=== PATIENT | male | born 1945 | race Caucasian/White ===

== ENCOUNTER → 2018-02-05 09:08 | Outpatient (CLI) | payer MEDICARE, SELFPAY ==
[2018-02-05 10:52] LABS: Prothrombin Time (Protime)PT. 55.2 SECONDS (11.7-14.9)
[2018-02-05 11:07] LABS: International Normalized Ratio 6.2
== END ==
PROVIDERS: Family Provider Family Medicine; PCP Family Medicine; Visit Provider Family Medicine
DX: I48.92 Unspecified atrial flutter (principal); Z79.01 Long term (current) use of anticoagulants
CPT/HCPCS: 85610

== ENCOUNTER → 2018-03-07 09:26 | Outpatient (CLI) | payer MEDICARE, SELFPAY ==
[2018-03-07 09:48] LABS: International Normalized Ratio 3.1; Prothrombin Time (Protime)PT. 31.9 SECONDS (11.7-14.9)
== END ==
PROVIDERS: Family Provider Family Medicine; PCP Family Medicine; Visit Provider Family Medicine
DX: I48.92 Unspecified atrial flutter (principal)
CPT/HCPCS: 85610

== ENCOUNTER → 2018-05-07 14:42 | Outpatient (CLI) | payer MEDICARE, SELFPAY ==
[2018-05-07 17:02] LABS: Protein, Urine (Random) 83.3 mg/dL (<11.9); Protein:Creat Ratio 889 mg/g CRE (0-200)
== END ==
PROVIDERS: Family Provider Family Medicine; PCP Family Medicine; Visit Provider Internal Medicine Nephrology
DX: E11.22 Type 2 diabetes mellitus with diabetic chronic kidney disease (principal); N18.9 Chronic kidney disease, unspecified
CPT/HCPCS: 82570; 84156

== ENCOUNTER → 2018-05-09 09:38 | Outpatient (CLI) | payer MEDICARE, SELFPAY ==
--- NOTE | 2018-05-09 09:42 | US_ITS ---
STUDY: RENAL ULTRASOUND - COMPLETE REASON FOR EXAM: Male, 73 years old. CKD 3 TECHNIQUE: Ultrasound evaluation of the kidneys was performed with real-time and static stein-scale imaging. COMPARISON: None. FINDINGS: RIGHT KIDNEY: Normal location of the right kidney, which is normal in size. Right kidney measures 10.9 cm in length. There is a normal cortex of the right kidney. The renal cortex measures 1.5 cm. There is no right renal mass or cyst. There are no right renal calculi. There is no right hydronephrosis. DISTAL RIGHT URETER: There is no demonstrated right ureteral jet. LEFT KIDNEY: Normal location of the left kidney, which is normal in size. The left kidney measures 11.8 cm in length. There is a normal cortex of the left kidney. The renal cortex measures 1.7 cm. There is no left renal mass or cyst. There are no left renal calculi. There is no left hydronephrosis. DISTAL LEFT URETER: There is no demonstrated left ureteral jet. BLADDER: The bladder is not visualized likely secondary to its incompletely distended state. US/Kidney and Bladder IMPRESSION: Within normal limits ultrasound of the kidneys. Nonvisualization of the urinary bladder, this may be secondary to its incompletely distended state. Electronically Signed: Danette Lewis MD at 21:31 EST Tel , Service support ,
== END ==
PROVIDERS: Family Provider Family Medicine; PCP Family Medicine; Referring Provider Internal Medicine Nephrology; Visit Provider Internal Medicine Nephrology
DX: N18.3 Chronic kidney disease, stage 3 (moderate) (principal)
CPT/HCPCS: 76770

== ENCOUNTER → 2018-05-29 09:44 | Outpatient (CLI) | payer MEDICARE, SELFPAY ==
[2017-08-14 15:42] VITALS: BMI 40.6
[2018-05-29 10:43] LABS: Albumin, Serum 3.4 g/dL (3.2-5.0); BUN 34 mg/dL (7-18); BUN/Creat Ratio 23.1 RATIO (10-20); Calcium,Total 8.3 mg/dL (8.5-10.1); Chloride 111 mmol/L (98-107); Creatinine, Serum 1.47 mg/dL (0.70-1.30); EST Glomerular Filtration Rate 50 mL/min (>60); Est Glom Filt Rate - Afr Amer 60 mL/min (>60); Glucose 120 mg/dL (74-106); Phosphorus 3.1 mg/dL (2.5-4.9); Potassium 4.7 mmol/L (3.5-5.1); Sodium Level 142 mmol/L (136-145)
[2018-05-29 10:50] LABS: PTHIN 140.6 pg/mL (18.4-80.1)
--- OUTSIDE RECORDS SUMMARY | 2018-07-24 11:22 | XMS RPT_ITS ---
:1945 Author Organization OHIP Care Team Providers Name Role Phone JONEL DON Referring Unavailable JONEL DON Referring Unavailable JONEL DON Attending Unavailable JONEL DON Referring Unavailable JONEL DON Referring Unavailable JONEL DON Referring Unavailable JONEL DON Referring Unavailable JONEL DON Referring Unavailable FLORENCIA, JONEL A Referring Unavailable JDKHUSHBU Referring Unavailable FLORENCIA, JONEL A Referring Unavailable FLORENCIA, JONEL A Referring Unavailable FLORENCIA, JONEL A Referring Unavailable JULIAN PERALTA (PA) Attending Unavailable FLORENCIA, JONEL A Referring Unavailable FLORENCIA, JONEL A Referring Unavailable FLORENCIA, JONEL A Referring Unavailable FLORENCIA, JONEL A Referring Unavailable FLORENCIA, JONEL A Referring Unavailable LESLIE LIND (KAYKAY) Attending Unavailable FLORENCIA, JONEL A Referring Unavailable MASCI, KOREY A Attending Unavailable MASCI, KOREY A Referring Unavailable FLORENCIA, JONEL A Referring Unavailable JDERICKAMAN Referring Unavailable MASCI, KOREY A Referring Unavailable FLORENCIA, JONEL A Referring Unavailable FLORENCIA, JONEL A Referring Unavailable JULIAN PERALTA (DONNA) Referring Unavailable JULIAN PERALTA (PA) Referring Unavailable FLORENCIA, JONEL A Referring Unavailable FLORENCIA, JONEL A Referring Unavailable FLORENCIA, JONEL A Referring Unavailable FLORENCIA, JONEL A Referring Unavailable BAO SIGALA Referring Unavailable FLORENCIA, JONEL A Referring Unavailable FLORENCIA, JONEL A Referring Unavailable LESLIE LIND (KAYKAY) Attending Unavailable FLORENCIA, JONEL A Referring Unavailable FLORENCIA, JONEL A Referring Unavailable FLORENCIA, JONEL A Referring Unavailable FLORENCIA, JONEL A Referring Unavailable FLORENCIA, JONEL A Referring Unavailable FLORENCIA, JONEL A Referring Unavailable FLORENCIA, JONEL A Referring Unavailable FLORENCIA, JONEL A Attending Unavailable FLORENCIA, JONEL A Referring Unavailable FLORENCIA, JONEL A Referring Unavailable MASCI, KOREY A Referring Unavailable MASCI, KOREY A Attending Unavailable MASCI, KOREY A Referring Unavailable MASCI, KOREY A Referring Unavailable FLORENCIA, JONEL A Referring Unavailable RUDDY HOLLINGSWORTH (PA) Referring Unavailable FLORENCIA, JONEL A Referring Unavailable RUDDY HOLLINGSWORTH (PA) Referring Unavailable FLORENCIA, JONEL A Referring Unavailable FLORENCIA, JONEL A Referring Unavailable FLORENCIA, JONEL A Referring Unavailable RUDDY HOLLINGSWORTH (PA) Attending Unavailable JAVID HARDING Referring Unavailable FLORENCIA, JONEL A Attending Unavailable FLORENCIA, JONEL A Referring Unavailable FLORENCIA, JONEL A Referring Unavailable FLORENCIA, JONEL A Referring Unavailable Saurav Baig Attending Unavailable Florencia, Jonel Referring Unavailable Florencia, Jonel Primary Care Unavailable FlorenciaJonel jones Attending Unavailable Florencia, Jonel Referring Unavailable Florencia, Jonel Primary Care Unavailable Florencia, Jonel Attending Unavailable Jonel Don Referring Unavailable Jonel Don Primary Care Unavailable Bekah Resendez Attending Unavailable Jonel Don Primary Care Unavailable Bekah Resendez Attending Unavailable Jonel Don Primary Care Unavailable Bekah Resendez Referring Unavailable Bekah Resendez Attending Unavailable Bekah Resendez Referring Unavailable Jonel Don Primary Care Unavailable PROBLEMS PROBLEMS DATE TYPE CONDITION / CODE ATTENDING STATUS SOURCE 06/11/2018 Active Acute cystitis without NA Active [place] hematuria / [facility] N30.00(ICD-10) [place] Repository 05/29/2018 Unknown N18.3 - Chronic kidney Bekah Resendez Active [facility] disease, stage 3 Community (moderate) / Hospital N18.3(ICD-10) Repository 05/05/2018 Active Urinary tract NA Active [place] infection, site not Clinic Main specified / [place] N39.0(ICD-10) Repository 04/15/2018 Active Disorder of kidney and NA Active [place] ureter, unspecified / [facility] N28.9(ICD-10) [place] Repository 03/19/2017 Active Proteinuria, NA Active [place] unspecified / [facility] R80.9(ICD-10) [place] Repository 11/14/2016 Active Other usp NA Active [place] (current) drug therapy [facility] / Z79.899(ICD-10) [place] Repository 11/14/2016 Active Essential (primary) NA Active [place] hypertension / [facility] I10(ICD-10) [place] Repository 11/14/2016 Active Atherosclerotic heart NA Active [place] disease of [place] [facility] coronary artery [place] without angina Repository pectoris / I25.10(ICD-10) 11/14/2016 Active Coronary NA Active [place] atherosclerosis due to Clinic Main lipid rich plaque / [place] I25.83(ICD-10) Repository 07/13/2016 Active Type 2 diabetes NA Active [place]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, [place] unspecified / Repository E11.40(ICD-10) 07/13/2016 Active halfway (current) NA Active [place] use of insulin / [facility] Z79.4(ICD-10) [place] Repository 06/11/2016 Active Other iron deficiency NA Active [place] anemias / [facility] D50.8(ICD-10) [place] Repository 07/13/2015 Active Type 2 diabetes NA Active [place] mellitus with other [facility] diabetic kidney [place] complication / Repository E11.29(ICD-10) 07/13/2015 Active Mixed hyperlipidemia / NA Active [facility] E78.2(ICD-10) Clinic Main [place] Repository 07/13/2015 Active Hypothyroidism, NA Active [facility] unspecified / [facility] E03.9(ICD-10) [place] Repository 03/17/2015 Active Gastro-esophageal NA Active [facility] reflux disease without [facility] esophagitis / [place] K21.9(ICD-10) Repository 01/03/2015 Active Vitamin D deficiency, NA Active [facility] unspecified / [facility] E55.9(ICD-10) [place] Repository 04/01/2018 Active Intestinal NA Active [facility] malabsorption, [facility] unspecified / [place] K90.9(ICD-10) Repository 03/07/2018 Unknown I48.92 - Unspecified Florencia, Active [place] atrial flutter / [facility] I48.92(ICD-10) Hospital Repository 03/17/2015 Active Unspecified atrial NA Active [facility] flutter / [facility] I48.92(ICD-10) [place] Repository 02/05/2018 Active halfway (current) NA Active [facility] use of anticoagulants Clinic Main / Z79.01(ICD-10) [place] Repository 02/05/2018 Unknown Z79.01 - roasterman Florencia, Active [place] (current) use of [facility] anticoagulants / Hospital Z79.01(ICD-10) Repository 01/07/2018 Active Unknown / UNK(Unknown) LESLIE LIND Active [facility]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) Clinic Main [place] Repository 01/03/2015 Active Monoclonal gammopathy NA Active [facility] / D47.2(ICD-10) Clinic Main [place] Repository 07/13/2016 Active Disorder of prostate, NA Active [facility] unspecified / [facility] N42.9(ICD-10) [place] Repository 05/23/2016 Active Bariatric surgery NA Active [facility] status / [facility] Z98.84(ICD-10) [place] Repository 01/03/2015 Active Atrioventricular NA Active [facility] block, first degree / [facility] I44.0(ICD-10) [place] Repository 10/07/2017 Active Atherosclerosis of NA Active [place] coronary artery bypass [facility] graft(s) without [place] angina pectoris / Repository I25.810(ICD-10) 10/07/2017 Active Hyperlipidemia, NA Active [place] unspecified / [facility] E78.5(ICD-10) [place] Repository 10/07/2017 Active Occlusion and stenosis NA Active [place] of bilateral carotid [employer] Main arteries / [place] I65.23(ICD-10) Repository 10/07/2017 Active Morbid (severe) NA Active [place] obesity due to excess [employer] Main calories / [place] E66.01(ICD-10) Repository 08/15/2017 Unknown I77.9 - Disorder of [place], Saurav Active [place] arteries and Community arterioles, Hospital unspecified / Repository I77.9(ICD-10) 07/23/2017 Active Disorder of arteries NA Active [place] and arterioles, [employer] Main unspecified / [place] I77.9(ICD-10) Repository 07/13/2015 Active Mild intermittent NA Active [place] asthma, uncomplicated [employer] Main / J45.20(ICD-10) [place] Repository 08/07/2017 Active Other forms of dyspnea NA Active [place] / R06.09(ICD-10) [facility] [place] Repository PROCEDURES PROCEDURES No Procedure Records FoundRESULTS RESULTS PROGRESS Observed: 06/11/2018 Status: COMPLETED Source: [place] 7:31 PM [facility] REPOSITORY HNO ID: [id number] Author: Jonel Don Service: (none) Author Type: Physician Type: Progress Notes Filed: 06/11/2018 7:34 PM Note Text: Agree with plan Observed: 06/11/2018 Status: F Source: [place] URINE CULTURE 8:20 AM [facility] REPOSITORY Sp. Request/Comment: - Presurgical Sterilization Specimen received in preservative Culture Result - 10,000 - <50,000 CFU/ml Escherichia coli --> ABNORMAL ALERT Testing or reporting of additional agents was requested. ORGANISM: Escherichia coli METHOD: Minimum inhibitory concentration(Vitek) Antibiotic Interp IGNACIO Status Ampicillin SUSCEPTIBLE 4 F Gentamicin SUSCEPTIBLE <=1 F Trimeth sulfameth RESISTANT >=320 F Cefazolin SUSCEPTIBLE <=4 F CLSI breakpoints for therapy of uncomplicated UTI's due to E.coli, K.pneumoniae, and P.mirabilis were applied and may be used to predict the activity of oral agents(cefaclor, cefdinir, cefpodoxime, cefp rozil, cefuroxime, cephalexin, loracarbef). Ciprofloxacin SUSCEPTIBLE <=0.25 F Nitrofurantoin RESISTANT 128 F Cefepime SUSCEPTIBLE <=1 F Piperacillin/Tazobac SUSCEPTIBLE <=4 F Ampicillin Sulbact SUSCEPTIBLE 4 F Ceftriaxone SUSCEPTIBLE <=1 F Meropenem SUSCEPTIBLE <=0.25 F Ertapenem SUSCEPTIBLE <=0.5 F ORGANISM: Escherichia coli METHOD: IGNACIO Antibiotic Interp IGNACIO Status Fosfomycin SUSCEPTIBLE 2.0 F The FDA indication for fosfomycin tromethamine is uncomplicated UTIs caused by E. faecalis and E. coli only. Performed By: #### URCUL #### [facility] [address] [place], [place] [address] PROGRESS Observed: 06/11/2018 Status: COMPLETED Source: [place] 8:19 AM [facility] REPOSITORY HNO ID: [id number] Author: Dania Acevedo RN Service: (none) Author Type: (none) Type: Progress Notes Filed: 06/11/2018 8:21 AM Note Text: Patient had INR completed at [facility] Patient's INR is 2.4 Patient is currently taking 4mg Tues,Thurs,Sun and 7.5mg all other days Patient's last dose change was 05/28/18 due to high INR at 3.1 Patient has had no medication and no change in diet. Advised patient to continue on same dose and they would only be contacted with different instructions after provider review. Written instructions were given to patient and patient verbalized understanding. Presently, patient has been scheduled for 07/08/18 for INR follow up. Patient has hematology appt the day following INR appt. RENAL PROFILE Collected: 05/29/2018 Status: F Source: [place] 9:53 AM [facility] [place] TYPE CODE TESTS RESULT OUT OF RANGE REFERENCE UNITS LAB L501.0100 74-106 mg/dL High GLU 120 Result Comment: Fasting Glucose result from 100 to 125 mg/dL suggests IMPAIRED HOMEOSTASIS per A.D.A. criteria. Please note revised GLUCOSE reference range effective 2017. LAB L501.1000 7-18 mg/dL High BUN 34 LAB L501.1100 0.70-1.30 mg/dL High CREAT,SERUM 1.47 Result Comment: The validity of the calculated GFR AND GFRAA in patients over 70 years has not been determined. Clinical correlation is essential. LAB L501.1110 >60 mL/min Low EST GFR 50 Result Comment: Non- GFR Calc LAB L501.1115 >60 mL/min Normal EST GFR - AA 60 Result Comment: GFR Calc LAB L501.1300 10-20 RATIO High BUN/CRE 23.1 LAB L501.1800 3.2-5.0 g/dL Normal ALB 3.4 LAB L501.2200 8.5-10.1 mg/dL Low CA 8.3 LAB L501.2300 2.5-4.9 mg/dL Normal PHOS 3.1 LAB L501.5300 136-145 mmol/L NA Normal 142 LAB L501.5600 3.5-5.1 mmol/L K Normal 4.7 LAB L501.5900 98-107 mmol/L High CL 111 LAB L501.6100 21.0-32.0 mmol/L Normal CO2 24.0 Performed By: #### L500.3600 #### [facility] [address] [place], [place], [address] PTHIN Collected: 05/29/2018 Status: F Source: [place] 9:53 AM [facility] TYPE CODE TESTS RESULT OUT OF RANGE REFERENCE UNITS LAB L509.1000 18.4-80.1 pg/mL High PTHIN 140.6 Performed By: #### L509.1000 #### [facility] [address] [place], [place], [address] PROGRESS Observed: 05/28/2018 Status: COMPLETED Source: [place] 12:[address] [facility] [place] REPOSITORY HNO ID: [id number] Author: Anita Mckinney Ma Service: (none) Author Type: (none) Type: Progress Notes Filed: 05/28/2018 12:58 PM Note Text: Patient was notified and detailed message left on vm Tracker updated Anita Mckinney Ma PROGRESS Observed: 05/28/2018 Status: COMPLETED Source: [place] 12:[address] [facility] [place] REPOSITORY HNO ID: [id number] Author: Jonel Don Service: (none) Author Type: Physician Type: Progress Notes Filed: 05/28/2018 12:58 PM Note Text: This note was created using Zarporiter. Subjective Kip Guaman is a 73 year old male. Review of Systems Objective There were no vitals taken for this visit. Physical Exam Assessment and Plan Advise patient to just take 5 mg of coumadin today only. Then starting Tomorrow (thur) go back to the 4 mg Tue, Leigh, Sun and 7.5 mg Mon, Wed, Fri, Sat. Please get INR in 2 weeks PROGRESS Observed: 05/28/2018 Status: COMPLETED Source: [place] 9:13 AM [facility] REPOSITORY HNO ID: [id number] Author: Dania Acevedo RN Service: (none) Author Type: (none) Type: Progress Notes Filed: 05/28/2018 9:22 AM Note Text: Patient had INR completed at [facility] Patient's INR is 3.1 Patient is currently taking 4mg Tues,Thurs,Sun and 7.5mg all other days Patient's last dose change was 03/17/18 due to being on ATB Patient had been on Cipro earlier in the month but states he has been off medication for about 12 days and no change in diet. Advised patient that they would be contacted regarding medication dose and follow-up once reviewed by provider. After provider review, please contact patient with information and schedule follow-up appointment with coumadin clinic. LUPE Observed: 05/16/2018 Status: COMPLETED Source: [place] 12:00 AM [facility] REPOSITORY Telephone (GENSWS) KIP GUAMAN ([id number]) 1945 M Date Time Provider Department 05/16/18 RUDDY HOLLINGSWORTH) GENSWS During your visit today, we recorded the following information about you: Tom Frank MOLINA 05/16/2018 8:50 AM Signed Pt called back to office noting he got message from 05/15. He states since specimen was cultured at from 05/05, he also had results from Dr Zenobia Resendez, overlock waistline joiner who started him on cipro for his UTI on 05/12. He states his pharmacist advised that the fosfomycin will cost $500 and they do not have it in stock and won't have until 05/20. Pt expressed frustration and would like clarification based on this new outside information DONNA Hernandez 05/16/2018 11:37 AM Signed Continue with the Cipro 500 mg and recheck culture in 3 weeks. If still E coli infection, I recommend that he have a PA with [facility] started so he can get Fosfomycin At a reasonable cost. He has trouble using antibiotics due to coumadin and resistant bacteria to major antibiotics Ruddy Hollingsworth, MPAS, [place], PAMona Marie LPN 05/16/2018 4:13 PM Signed Pt notified AND verbalized understanding Tom Marie Lpn Allergies As of Date: 05/16/2018 Noted Allergy Reaction PAMELLA INHIBITORS 07/18/2004 3 - Cough Comments: accupril ATORVASTATIN 07/18/2004 14 - Other: See Comments Comments: lipitor- muscle weakness, elevated LFT's CRESTOR (ROSUVASTATIN CALCIUM) 10/30/2016 17 - Myalgia INDOCIN (INDOMETHACIN SODIUM) 04/06/2005 8 - GI Upset NAPROXEN 07/18/2004 8 - GI Upset PRAVASTATIN 07/18/2004 14 - Other: See Comments Comments: pravachol- muscle weakness, elevated LFT's Date Reviewed: 05/15/2018 Reviewed by: Ruddy Mcgrath) Sonny - Fully Assessed Reason for Visit: Refill Request [94] Prescriptions as of 05/16/2018 Sig: FOSFOMYCIN 3 G ORAL PACK Take 1 Packet by mouth every * BD LO-DOSE MICRO-FINE IV 1/ * USE ONCE DAILY OMEPRAZOLE 40 MG CAPSULE,DEMARCO* Take 1 capsule by mouth once * WARFARIN 5 MG TABLET 10 mg on and 5mg * CHLORTHALIDONE 25 MG TABLET Take 1 tablet by mouth once d* INSULIN LISPRO (U-100) 100 UN* 14-16 units with breakfast an* PEN NEEDLE, DIABETIC 31 GAUGE* USE 1 NEEDLE PER DOSE THREE T* CPAP CPAP supplies/accessories: Ho* MUPIROCIN 2 % TOPICAL OINTMENT Apply 1 application to affect* BLOOD SUGAR DIAGNOSTIC STRIPS Check blood sugar twice daily. HYDROXYZINE HCL 25 MG TABLET Take 1 tablet by mouth every * METOPROLOL TARTRATE 25 MG TAB* Take 0.5 tablet after breakfa* WARFARIN 4 MG TABLET Take as directed per physician MOMETASONE-FORMOTEROL HFA 100* Inhale 2 Puffs as instructed * TAMSULOSIN 0.4 MG CAPSULE TAKE 1 CAPSULE ONCE DAILY INSULIN GLARGINE (U-100) 100 * Inject 50 Units subcutaneousl* MONTELUKAST 10 MG TABLET Take 1 tablet by mouth once d* RAMIPRIL 10 MG CAPSULE Take 1 capsule by mouth once * LEVOTHYROXINE 100 MCG TABLET Take 1 tablet by mouth once d* BETAMETHASONE DIPROPIONATE 0.* Apply 1 Tube to affected area* CLOPIDOGREL 75 MG TABLET Take 1 tablet by mouth once d* FLUTICASONE 50 MCG/ACTUATION * Use 2 Sprays in each nostril * ROSUVASTATIN 10 MG TABLET Take 1/2 a tab every day ALBUTEROL SULFATE HFA 90 MCG/* Inhale 2 Puffs as instructed * ACETAMINOPHEN 500 MG TABLET Take 500 mg by mouth as neede* CHOLECALCIFEROL (VITAMIN D3) * Take 4,000 Units by mouth onc* DOCUSATE SODIUM 100 MG TABLET Take two tabs daily CYANOCOBALAMIN (VIT B-12) 500* Take 1 tablet by mouth once d* PSYLLIUM HUSK 0.4 GRAM CAPSULE Take 2 capsules by mouth once* FERROUS GLUCONATE 246 MG (27 * Take 1 tablet by mouth once d* * CALCIUM CARBONATE 600 MG CALC* Take 1 tablet by mouth twice * * ASCORBIC ACID (VITAMIN C) 500* Take 500 mg by mouth once albina* * TRIAMCINOLONE ACETONIDE 0.1 %* bid prn--not to face/axillae/* * MULTIVITAMIN TABLET Take one(1) tablet daily. More... Problem List As Of Date 05/16/2018 Noted Resolved Hypothyroidism (acquired) [E03.9] Priority: A Mixed hyperlipidemia [E78.2] Priority: A Allergic rhinitis, cause unspecified [J30.9] Priority: B Morbid Obesity [E66.01] 09/07/2009 More... Degeneration of lumbar or lumbosacral intervert* Priority: M More... Coronary artery disease due to lipid rich plaqu*INVALID FOR* Priority: A More... Mild intermittent asthma without complication [*INVALID FOR* Priority: A More... More... Hip joint replacement by other means [Z96.649] INVALID FOR*06/06/2016 Priority: M Personal history of other malignant neoplasm of*INVALID FOR* Priority: D More... Special Screening for Malignant Neoplasms, [place]*INVALID FOR*09/07/2009 Acute Gastritis without Mention of Hemorrhage [*INVALID FOR*09/07/2009 More... Urinary frequency [R35.0] INVALID FOR* Priority: C More... More... More... MGUS (monoclonal gammopathy of unknown signific*INVALID FOR* Priority: B More... Atrial flutter [I48.92] INVALID FOR* Priority: A More... THO (obstructive sleep apnea) [G47.33] INVALID FOR* Priority: B More... 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 AV block, 1st degree [I44.0] Priority: A Diabetic eye exam (HCC) [Z01.00, E11.9] INVALID FOR* Priority: A More... Type 2 diabetes mellitus with proteinuria (HCC)*INVALID FOR* Priority: A Gastroesophageal reflux disease without esophag*INVALID FOR* Priority: A Iron deficiency anemia secondary to inadequate *INVALID FOR* Priority: A More... Non-proliferative diabetic retinopathy, mild, b*INVALID FOR* Priority: A Bilateral carotid artery disease (HCC) [I77.9] INVALID FOR* Priority: A More... Corns and callus [L84] INVALID FOR* Priority: D Morbid obesity due to excess calories (HCC) [E6*INVALID FOR* Priority: B More... Well adult exam [Z00.00] INVALID FOR* Priority: E More... Ex-smoker [Z87.891] INVALID FOR* Priority: C More... Colon cancer screening [Z12.11] INVALID FOR* Type 2 diabetes mellitus with diabetic neuropat*INVALID FOR* Priority: A H/O gastric bypass [Z98.84] INVALID FOR* Priority: A Malabsorption syndrome [K90.9] INVALID FOR* Priority: A More... Iron malabsorption [K90.9] INVALID FOR* Priority: B Disorder of prostate [N42.9] INVALID FOR* Hypertension goal BP (blood pressure) < 140/80 *INVALID FOR* Priority: A Medicare annual wellness visit, subsequent [Z00*INVALID FOR* Priority: E More... Current use of proton pump inhibitor [Z79.899] INVALID FOR* Albuminuria [R80.9] INVALID FOR* Priority: A Subclavian artery stenosis (HCC) [I77.1] INVALID FOR* Priority: A More... 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 Phimosis [N47.1] INVALID FOR* History of recurrent UTIs [Z87.440] INVALID FOR* Encounter Status:Closed by RUDDY HOLLINGSWORTH PA-C on 05/16/18 CNPN Observed: 05/15/2018 Status: COMPLETED Source: [place] 12:00 AM [facility] REPOSITORY Telephone (UROLMN) KIP GUAMAN ([id number]) 1945 M Date Time Provider Department 05/15/18 RUDDY HOLLINGSWORTH) URORAYMOND During your visit today, we recorded the following information about you: DONNA Hernandez 05/15/2018 4:41 PM Signed Patient take coumadin which interacts with a lot of antibiotics that are good to treat this type of urine infection. And the bacteria is resistant to Bactrim, so he will need to go with fosfomycin, 1 packet every 3 days for 21 days Patient will need a 2 week post treatment urine culture, orders placed Ruddy Hollingsworth [facility], [place], KARLOS Pretty Ma 05/15/2018 4:56 PM Signed Phone Message left for pt. Class Messengert message left. Pt to call with any questions. Whitney Pretty Ma Allergies As of Date: 05/15/2018 Noted Allergy Reaction PAMELLA INHIBITORS 07/18/2004 3 - Cough Comments: accupril ATORVASTATIN 07/18/2004 14 - Other: See Comments Comments: lipitor- muscle weakness, elevated LFT's CRESTOR (ROSUVASTATIN CALCIUM) 10/30/2016 17 - Myalgia INDOCIN (INDOMETHACIN SODIUM) 04/06/2005 8 - GI Upset NAPROXEN 07/18/2004 8 - GI Upset PRAVASTATIN 07/18/2004 14 - Other: See Comments Comments: pravachol- muscle weakness, elevated LFT's Date Reviewed: 05/15/2018 Reviewed by: Ruddy Mcgrath) Sonny - Fully Assessed Reason for Visit: Refill Request [94] Primary Visit Diagnosis:Acute cystitis without hematuria [N30.00] Order(s):fosfomycin (MONUROL) 3 g packTake 1 Packet by mouth every 72 hours for 21 days.Disp: 7 PacketRfl: 0 URINE CULTURE [SQURCUL] Order #: [id number] FUTURE Prescriptions as of 05/15/2018 Sig: FOSFOMYCIN 3 G ORAL PACK Take 1 Packet by mouth every * BD LO-DOSE MICRO-FINE IV 1/2 * USE ONCE DAILY OMEPRAZOLE 40 MG CAPSULE,DEMARCO* Take 1 capsule by mouth once * WARFARIN 5 MG TABLET 10 mg on and 5mg Sat/* CHLORTHALIDONE 25 MG TABLET Take 1 tablet by mouth once d* INSULIN LISPRO (U-100) 100 UN* 14-16 units with breakfast an* PEN NEEDLE, DIABETIC 31 GAUGE* USE 1 NEEDLE PER DOSE THREE T* CPAP CPAP supplies/accessories: Ho* MUPIROCIN 2 % TOPICAL OINTMENT Apply 1 application to affect* BLOOD SUGAR DIAGNOSTIC STRIPS Check blood sugar twice daily. HYDROXYZINE HCL 25 MG TABLET Take 1 tablet by mouth every * METOPROLOL TARTRATE 25 MG TAB* Take 0.5 tablet after breakfa* WARFARIN 4 MG TABLET Take as directed per physician MOMETASONE-FORMOTEROL HFA 100* Inhale 2 Puffs as instructed * TAMSULOSIN 0.4 MG CAPSULE TAKE 1 CAPSULE ONCE DAILY INSULIN GLARGINE (U-100) 100 * Inject 50 Units subcutaneousl* MONTELUKAST 10 MG TABLET Take 1 tablet by mouth once d* RAMIPRIL 10 MG CAPSULE Take 1 capsule by mouth once * LEVOTHYROXINE 100 MCG TABLET Take 1 tablet by mouth once d* BETAMETHASONE DIPROPIONATE 0.* Apply 1 Tube to affected area* CLOPIDOGREL 75 MG TABLET Take 1 tablet by mouth once d* FLUTICASONE 50 MCG/ACTUATION * Use 2 Sprays in each nostril * ROSUVASTATIN 10 MG TABLET Take 1/2 a tab every day ALBUTEROL SULFATE HFA 90 MCG/* Inhale 2 Puffs as instructed * ACETAMINOPHEN 500 MG TABLET Take 500 mg by mouth as neede* CHOLECALCIFEROL (VITAMIN D3) * Take 4,000 Units by mouth onc* DOCUSATE SODIUM 100 MG TABLET Take two tabs daily CYANOCOBALAMIN (VIT B-12) 500* Take 1 tablet by mouth once d* PSYLLIUM HUSK 0.4 GRAM CAPSULE Take 2 capsules by mouth once* FERROUS GLUCONATE 246 MG (27 * Take 1 tablet by mouth once d* * CALCIUM CARBONATE 600 MG CALC* Take 1 tablet by mouth twice * * ASCORBIC ACID (VITAMIN C) 500* Take 500 mg by mouth once albina* * TRIAMCINOLONE ACETONIDE 0.1 %* bid prn--not to face/axillae/* * MULTIVITAMIN TABLET Take one(1) tablet daily. More... Problem List As Of Date 05/15/2018 Noted Resolved Hypothyroidism (acquired) [E03.9] Priority: A Mixed hyperlipidemia [E78.2] Priority: A Allergic rhinitis, cause unspecified [J30.9] Priority: B Morbid Obesity [E66.01] 09/07/2009 More... Degeneration of lumbar or lumbosacral intervert* Priority: M More... Coronary artery disease due to lipid rich plaqu*INVALID FOR* Priority: A More... Mild intermittent asthma without complication [*INVALID FOR* Priority: A More... More... Hip joint replacement by other means [Z96.649] INVALID FOR*06/06/2016 Priority: M Personal history of other malignant neoplasm of*INVALID FOR* Priority: D More... Special Screening for Malignant Neoplasms, [place]*INVALID FOR*09/07/2009 Acute Gastritis without Mention of Hemorrhage [*INVALID FOR*09/07/2009 More... Urinary frequency [R35.0] INVALID FOR* Priority: C More... More... More... MGUS (monoclonal gammopathy of unknown signific*INVALID FOR* Priority: B More... Atrial flutter [I48.92] INVALID FOR* Priority: A More... THO (obstructive sleep apnea) [G47.33] INVALID FOR* Priority: B More... 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 AV block, 1st degree [I44.0] Priority: A Diabetic eye exam (HCC) [Z01.00, E11.9] INVALID FOR* Priority: A More... Type 2 diabetes mellitus with proteinuria (HCC)*INVALID FOR* Priority: A Gastroesophageal reflux disease without esophag*INVALID FOR* Priority: A Iron deficiency anemia secondary to inadequate *INVALID FOR* Priority: A More... Non-proliferative diabetic retinopathy, mild, b*INVALID FOR* Priority: A Bilateral carotid artery disease (HCC) [I77.9] INVALID FOR* Priority: A More... Corns and callus [L84] INVALID FOR* Priority: D Morbid obesity due to excess calories (HCC) [E6*INVALID FOR* Priority: B More... Well adult exam [Z00.00] INVALID FOR* Priority: E More... Ex-smoker [Z87.891] INVALID FOR* Priority: C More... Colon cancer screening [Z12.11] INVALID FOR* Type 2 diabetes mellitus with diabetic neuropat*INVALID FOR* Priority: A H/O gastric bypass [Z98.84] INVALID FOR* Priority: A Malabsorption syndrome [K90.9] INVALID FOR* Priority: A More... Iron malabsorption [K90.9] INVALID FOR* Priority: B Disorder of prostate [N42.9] INVALID FOR* Hypertension goal BP (blood pressure) < 140/80 *INVALID FOR* Priority: A Medicare annual wellness visit, subsequent [Z00*INVALID FOR* Priority: E More... Current use of proton pump inhibitor [Z79.899] INVALID FOR* Albuminuria [R80.9] INVALID FOR* Priority: A Subclavian artery stenosis (HCC) [I77.1] INVALID FOR* Priority: A More... 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 Phimosis [N47.1] INVALID FOR* History of recurrent UTIs [Z87.440] INVALID FOR* Prescriptions ordered this encounter Disp Refills Start End FOSFOMYCIN 3 G ORAL PACK 7 Pa* 0 05/15/2018 06/05/2018 Route: ORAL Sig: Take 1 Packet by mouth every 72 hours for 21 days. Encounter Status:Closed by RUDDY HOLLINGSWORTH PA-C on 05/15/18 PROGRESS Observed: 05/13/2018 Status: COMPLETED Source: [place] 1:59 PM [facility] REPOSITORY HNO ID: [id number] Author: Jonel Don Service: (none) Author Type: Physician Type: Progress Notes Filed: 05/13/2018 2:24 PM Note Text: This note was created using Geodruid. Subjective Kip Guaman is a 73 year old male. Review of Systems Objective There were no vitals taken for this visit. Physical Exam Assessment and Plan Agree with plan PROGRESS Observed: 05/13/2018 Status: COMPLETED Source: [place] 9:30 AM [facility] REPOSITORY HNO ID: [id number] Author: Erin Awan RN Service: (none) Author Type: (none) Type: Progress Notes Filed: 05/13/2018 9:31 AM Note Text: patient had inr completed at [facility] patients inr is 2.8 (patients inr range is 2.0-3.0) patient is currently taking 4mg Tues,Thurs,Sun and 7.5mg all other days patients last dose change was on 03/17/18 due to finished antibiotic (dose at that time was 7.5mg Wed,Fri,Sat and 4mg all other days and level was 2.2) patient has had a change in medication as pt was started on cipro yesterday, and no missed dose and no change in diet Advised patient to continue on the same dose(s) and that they would only be contacted regarding dosage and follow up instructions after review with provider, if a change is needed. Written instructions given and patient verbalized understanding. Presently scheduled in 2 weeks (05/28/18) for follow up INR since pt is on the antibiotic KIDNEY AND BLADDER Observed: 05/09/2018 Status: F Source: [place] 9:42 AM [facility] Imaging Services [address] [place], [place] [address] [address] Kidney and Bladder MR#: [id number] Acct: [id number] Name: KIP GUAMAN Rep #: [id number] : 1945 M 73 From: Danette Lewis MD PCP: Jonel Don MD Status: REG CLI Study: Kidney and Bladder Date of Exam: 05/09/18 Exam# [id number] Ordering Dr: Bekah Resendez DO STUDY: RENAL ULTRASOUND - COMPLETE REASON FOR EXAM: Male, 73 years old. CKD 3 TECHNIQUE: Ultrasound evaluation of the kidneys was performed with real-time and static stein-scale imaging. COMPARISON: None. FINDINGS: RIGHT KIDNEY: Normal location of the right kidney, which is normal in size. Right kidney measures 10.9 cm in length. There is a normal cortex of the right kidney. The renal cortex measures 1.5 cm. There is no right renal mass or cyst. There are no right renal calculi. There is no right hydronephrosis. DISTAL RIGHT URETER: There is no demonstrated right ureteral jet. LEFT KIDNEY: Normal location of the left kidney, which is normal in size. The left kidney measures 11.8 cm in length. There is a normal cortex of the left kidney. The renal cortex measures 1.7 cm. There is no left renal mass or cyst. There are no left renal calculi. There is no left hydronephrosis. DISTAL LEFT URETER: There is no demonstrated left ureteral jet. BLADDER: The bladder is not visualized likely secondary to its incompletely distended state. US/Kidney and Bladder IMPRESSION: Within normal limits ultrasound of the kidneys. Nonvisualization of the urinary bladder, this may be secondary to its incompletely distended state. Electronically Signed: Danette Lewis MD at 21:31 EST Tel , Service support , CC: Bekah Resendez DO; Jonel Don MD Grizzly Worker: Signed PROTEIN+CREATININE Collected: Status: F Source: [place] RATIO,URINE 05/07/2018 2:43 PM [facility] TYPE CODE TESTS RESULT OUT OF RANGE REFERENCE UNITS LAB L501.1200 NO RANGE EST. mg/dL Normal UR CREAT 93.70 LAB L501.1930 <11.9 mg/dL High 83.3 PROTEIN,UR.R AN. LAB L501.1940 0-200 mg/g CRE High PROT:CRE 889 RATIO Performed By: #### L501.0900 #### [facility] [address] [place], [address] Observed: 05/05/2018 Status: F Source: [place] URINE CULTURE 10:22 AM [facility] REPOSITORY Sp. Request/Comment: - Presurgical Sterilization Specimen received in preservative Culture Result - >=100,000 CFU/ml Escherichia coli --> ABNORMAL ALERT ORGANISM: Escherichia coli METHOD: Minimum inhibitory concentration(Vitek) Antibiotic Interp IGNACIO Status Ampicillin INTERMEDIATE 16 F Gentamicin SUSCEPTIBLE <=1 F Trimeth sulfameth RESISTANT >=320 F Cefazolin SUSCEPTIBLE <=4 F CLSI breakpoints for therapy of uncomplicated UTI's due to E.coli, K.pneumoniae, and P.mirabilis were applied and may be used to predict the activity of oral agents(cefaclor, cefdinir, cefpodoxime, cefp rozil, cefuroxime, cephalexin, loracarbef). Ciprofloxacin SUSCEPTIBLE 0.5 F Nitrofurantoin RESISTANT 128 F Cefepime SUSCEPTIBLE <=1 F Piperacillin/Tazobac SUSCEPTIBLE <=4 F Ampicillin Sulbact SUSCEPTIBLE 4 F Ceftriaxone SUSCEPTIBLE <=1 F Meropenem SUSCEPTIBLE <=0.25 F Ertapenem SUSCEPTIBLE <=0.5 F ORGANISM: Escherichia coli METHOD: IGNACIO Antibiotic Interp IGNACIO Status Fosfomycin SUSCEPTIBLE 4 F The FDA indication for fosfomycin tromethamine is uncomplicated UTIs caused by E. faecalis and E. coli only. Performed By: #### URCUL #### [facility] [address] [place], [place] [address] PROGRESS Observed: 04/29/2018 Status: COMPLETED Source: [place] 1:29 PM [facility] REPOSITORY HNO ID: [id number] Author: Jonel Don Service: (none) Author Type: Physician Type: Progress Notes Filed: 04/29/2018 3:21 PM Note Text: This note was created using PollVaultrter. Subjective Kip Guaman is a 72 year old male. Review of Systems Objective There were no vitals taken for this visit. Physical Exam Assessment and Plan Agree with plan. PROGRESS Observed: 04/29/2018 Status: COMPLETED Source: [place] 9:20 AM [facility] REPOSITORY HNO ID: [id number] Author: Erin Awan RN Service: (none) Author Type: (none) Type: Progress Notes Filed: 04/29/2018 9:23 AM Note Text: patient had inr completed at [facility] patients inr is 3.0 (patients inr range is 2.0-3.0) patient is currently taking 4mg Tues,Thurs Sun and 7.5mg all other days patients last dose change was on 03/06/18 due to a high level of 4.3 (dose at that time was 4mg Sat and 7.5mg all other days) patient has had a change in medication and pt completed macrobid on 04/21/18, and no missed doses and no change in diet Advised patient to continue on the same dose(s) and that they would only be contacted regarding dosage and follow up instructions after review with provider, if a change is needed. Written instructions given and patient verbalized understanding. Presently scheduled in 2 weeks (05/13/18) for follow up INR sine level is on the high side of normal PROGRESS Observed: 04/15/2018 Status: COMPLETED Source: [place] 6:08 PM [facility] REPOSITORY HNO ID: [id number] Author: Jonel Don Service: (none) Author Type: Physician Type: Progress Notes Filed: 04/15/2018 6:12 PM Note Text: This note was created using Zarporiter. Subjective Kip Guaman is a 72 year old male. Review of Systems Objective There were no vitals taken for this visit. Physical Exam Assessment and Plan Agree with plan. PROGRESS Observed: 04/15/2018 Status: COMPLETED Source: [place] 3:49 PM [facility] REPOSITORY HNO ID: [id number] Author: Erin Awan RN Service: (none) Author Type: (none) Type: Progress Notes Filed: 04/15/2018 3:51 PM Note Text: patient had inr completed at [facility] patients inr is 2.9 (patients inr range is 2.0-3.0) patient is currently taking 4mg tues,thurs,Sun and 7.5mg all other days patients last dose change was on 03/06/18 due to a high level of 4.3 (dose at that time was 4mg Sat and 7.5mg all other days) patient has had a change in medication as pt is taking macrobid since Saturday, and no missed doses and no change in diet Advised patient to continue on the same dose(s) and that they would only be contacted regarding dosage and follow up instructions after review with provider, if a change is needed. Written instructions given and patient verbalized understanding. Presently scheduled in 2 weeks (04/29/18) for follow up INR. BASIC METABOLIC PANL Collected: 04/15/2018 Status: F Source: [place] 3:35 PM [facility] REPOSITORY TYPE CODE TESTS RESULT OUT OF REFERENCE UNITS RANGE LAB GLU 74-99 mg/dL High Glucose 175 Result Comment: The [place] Diabetes Association (ADA) provides guidance for cutoff values for fasting glucose and random glucose. The ADA defines fasting as no caloric intake for at least 8 hours. Fas ting plasma glucose results between 100 to 125 mg/dL indicate increased risk for diabetes (prediabetes). Fasting plasma glucose results greater than or equal to 126 mg/dL meet the criteria for diagnosis of diabetes. In the absence of unequivocal hyperglycemia, results should be confirmed by repeat testing. In a patient with classic symptoms of hyperglycemia or hyperglycemic crisis, random plasma glucose results greater than or equal to 200 mg/dL meet the criteria for diagnosis of diabetes. Reference: Standards of Medical Care in Diabetes 2016, [place] [employer]. Diabetes Care. 2016.39(Suppl 1). LAB BUN 9-24 mg/dL BUN High 36 LAB CRET 0.73-1.22 mg/dL Creatinine High 1.71 LAB NA 136-144 mmol/L Sodium 138 LAB K 3.7-5.1 mmol/L Potassium 5.0 LAB CL 97-105 mmol/L Chloride High 106 LAB CO2 22-30 mmol/L CO2 23 LAB AGAP 9-18 mmol/L Anion Gap 9 LAB CA 8.5-10.2 mg/dL Calcium, Total 9.0 LAB GFRAA eGFR- Amer. 48 LAB GFRNAA . eGFR-All Other Races 40 Result Comment: eGFR (Estimated GFR) Units of measure: mL/min/1.73 meters squared eGFR is derived from the reexpressed MDRD Study equation using the following parameters: serum creatinine, age, gender and race. The creatinine assay has been calibrated to be traceable to IDMS. An eGFR <60 mL/min/1.73m2 for >3 months is consistent with chronic kidney disease. Refer to KDOQI guidelines for clinical interpretation. In patients with unstable renal function, e.g. those with acute kidney injury, the eGFR may not accurately reflect actual GFR. Performed By: #### BMP #### [facility] [address] [place], [place] [address] PROGRESS Observed: 04/11/2018 Status: COMPLETED Source: [place] 10:57 AM [facility] REPOSITORY HNO ID: [id number] Author: Ruddy Hollingsworth (Pa) Service: (none) Author Type: Physician Cyber Security Administrator Type: Progress Notes Filed: 04/28/2018 4:48 PM Note Text: [facility] PATIENT INFO: Kip Guaman 72 year old PCP: Jonel Don MD Referred by: Jonel Don MD Consult: Aconsultation requested by Jonel Don MD for an opinion regarding UTI and Phimosis My final recommendations communicated back to the requesting physician by way of shared Medical record. CHIEF COMPLAINT: UTI and Phimosis HPI: This is a 72 year old male, who has had UTI and Phimosis , which started in 2018, and involves the Penis Patient states this mild in severity and mild in quality, and is happening daily Aggravating factors: Diabetic , Alleviating Factors: No . And the patient denies having Fever, Chills, Rigors, Nausea and Vomiting VOIDING SYMPTOMS: NTF: 1 Times DTF: Q 2HOURS FOS: Average Hesitancy: No Straining: No Intermittency: Yes Urgency: Yes Frequency: Yes Dysuria: Yes Gross Hematuria: No U/A Dipstick Positive Blood - Only Yes Incomplete Voiding: No Double Voiding: No Post Void Dribbling: No Incontinence: No ALLERGY: ALLERGIES Allergen Reactions - Pamella Inhibitors Cough accupril - Atorvastatin Other: See Comments lipitor- muscle weakness, elevated LFT's - Crestor [Rosuvastat* Myalgia - Indocin [Indomethac* GI Upset - Naproxen GI Upset - Pravastatin Other: See Comments pravachol- muscle weakness, elevated LFT's MEDICATIONS: Current Outpatient Prescriptions: nitrofurantoin monohydrate and macrocrystal (MACROBID) 100 mg capsule Take 1 capsule by mouth twice daily for 10 days. Disp: 10 capsule Rfl: 0 Omeprazole 40 mg capsule Take 1 capsule by mouth once daily. Disp: 90 capsule Rfl: 1 warfarin (COUMADIN) 5 mg tablet 10 mg on and 5mg Sat/Sat/Sat and 7.5mg Sat//Sat or as directed. Disp: 120 tablet Rfl: 3 chlorthalidone (HYGROTON) 25 mg tablet Take 1 tablet by mouth once daily. Disp: 90 tablet Rfl: 1 insulin lispro (HUMALOG KWIKPEN) 100 unit/mL inpn 14-16 units with breakfast and lunch and 20-24 units with dinner, Correction per sliding scale total up to 70 units daily Disp: 25 Pen Rfl: 3 insulin needles, DISPOSABLE, (EASY TOUCH) 31 gauge x 5/16 ndle USE 1 NEEDLE PER DOSE THREE TIMES A DAY Disp: 300 Each Rfl: 4 CPAP CPAP supplies/accessories: Hoses, mask, and filters Disp: 1 Device Rfl: 0 mupirocin (BACTROBAN) 2 % ointment Apply 1 application to affected area three times daily. Location: leg Disp: 30 g Rfl: 0 blood sugar diagnostic (EASY TOUCH TEST STRIP) test strip Check blood sugar twice daily. Disp: 100 Strip Rfl: 5 hydrOXYzine HCl (ATARAX) 25 mg tablet Take 1 tablet by mouth every 6 hours as needed for Itching/Rash. Disp: 30 tablet Rfl: 0 metoprolol tartrate, short acting, (LOPRESSOR) 25 mg tablet Take 0.5 tablet after breakfast and one tablet after supper Disp: 90 tablet Rfl: 1 warfarin (COUMADIN) 4 mg tablet Take as directed per physician Disp: 30 tablet Rfl: 5 mometasone-formoterol (DULERA) 100-5 mcg/actuation inhaler Inhale 2 Puffs as instructed twice daily. Rinse mouth after use. Disp: 1 Inhaler Rfl: 5 tamsulosin ER (FLOMAX) 0.4 mg cp24 TAKE 1 CAPSULE ONCE DAILY Disp: 90 capsule Rfl: 3 insulin glargine (LANTUS) 100 unit/mL injection Inject 50 Units subcutaneously once daily. If sugars slightly low take 45 units once daily instead of 47. Disp: 5 Vial Rfl: 3 montelukast (SINGULAIR) 10 mg tablet Take 1 tablet by mouth once daily. Disp: 90 tablet Rfl: 3 ramipril (ALTACE) 10 mg capsule Take 1 capsule by mouth once daily. Disp: 90 capsule Rfl: 3 levothyroxine (SYNTHROID) 100 mcg tablet Take 1 tablet by mouth once daily. Disp: 90 tablet Rfl: 3 betamethasone dipropionate 0.05 % ointment Apply 1 Tube to affected area as needed (for hand dermatitis). Disp: 15 g Rfl: 2 clopidogrel (PLAVIX) 75 mg tablet Take 1 tablet by mouth once daily. Disp: 90 tablet Rfl: 3 fluticasone (FLONASE) 50 mcg/actuation nasal spray Use 2 Sprays in each nostril once daily. Disp: 1 Bottle Rfl: 12 rosuvastatin (CRESTOR) 10 mg tablet Take 1/2 a tab every day Disp: 45 tablet Rfl: 3 Insulin Syringe-Needle U-100 (BD INSULIN SYRINGE MF) 1/2 mL 28 gauge x 1/2 syrg 1 Each once daily. Dx: E11.29 Insulin: yes Disp: 90 Syringe Rfl: 3 albuterol HFA (PROAIR HFA) 90 mcg/actuation inhaler Inhale 2 Puffs as instructed every 4 hours as needed. Disp: 1 Inhaler Rfl: 0 acetaminophen (TYLENOL EXTRA STRENGTH) 500 mg tablet Take 500 mg by mouth as needed. Disp: Rfl: Cholecalciferol, Vitamin D3, 2,000 unit cap Take 4,000 Units by mouth once daily. Disp: Rfl: 0 Docusate Sodium 100 mg tab Take two tabs daily Disp: Rfl: 0 cyanocobalamin (VITAMIN B-12) 500 mcg tab Take 1 tablet by mouth once daily. Disp: Rfl: 0 psyllium husk 0.4 gram cap Take 2 capsules by mouth once daily. Disp: Rfl: 0 Ferrous Gluconate 246 mg (27 mg iron) Tab Take 1 tablet by mouth once daily. Disp: Rfl: calcium carbonate (CALTRATE 600) 600 mg (1,500 mg) Tab Take 1 tablet by mouth twice daily. Disp: Rfl: 0 Ascorbic Acid (VITAMIN C) Chew Take 500 mg by mouth once daily. Disp: Rfl: TRIAMCINOLONE ACETONIDE 0.1 % TOPICAL CREAM bid prn--not to face/axillae/groin Disp: 80gm Rfl: 2 MULTIVITAMIN TABLET Take one(1) tablet daily. Disp: Rfl: 0 No current facility-administered medications for this visit. Past Medical History PAST MEDICAL HISTORY Diagnosis Date - Acute gastritis without mention of hemorrhage - Allergic rhinitis, cause unspecified - Atrial fibrillation or flutter - AV block, 1st degree - Background diabetic retinopathy(362.01) - CAD (coronary artery disease) - Contact dermatitis - COPD, mild (HCC) 08/14/2017 - Degeneration of lumbar or lumbosacral intervertebral disc Spondylolisthesis of L5-S1 - Diabetes mellitus, type 2 (HCC) retinopathy, neuropathy, nephropathy - Esophagitis, unspecified - Generalized osteoarthrosis, unspecified site - GERD (gastroesophageal reflux disease) - Hip joint replacement by other means 12/19/2005 - Hyperlipidemia - Hypertension - Hypertension goal BP (blood pressure) < 140/80 09/26/2016 - Hypothyroidism - Iron deficiency anemia, unspecified - Morbid obesity ([facility]) 7 stated BMI 47.3 Ht: 70 Wt: 330 lbs - Obstructive sleep apnea - Osteoarthritis 11/09/2011 - S/P gastric bypass 09/21/2011 - Subclavian artery stenosis (HCC) 08/14/2017 See carotid disease above. - Surgical wound infection Dr Adams, chronic PNC - Type II or unspecified type diabetes mellitus without mention of complication, not stated as uncontrolled Past Surgical History PAST SURGICAL HISTORY Procedure Laterality Date - 2D ECHO (EXEP) 03/2017 EF=60%, no valve issues - BYPASS GRAFT OTHR,COMPOSITE 2000 CABG x 6, Dr. Do - COLONOSCOP W/ OR W/O [facility] SPEC 11/03/08 repeat due 2018 - ECHO 08/2000 [facility]/03/[facility] - EGD W/O OR W/BRUSH/WASH 05/14/16 EGD [facility] - LAP. GASTRECT W/ JARAD-EN-Y 09/10/11 [facility] - PAST SURGICAL HISTORY OF left hip surgery post-replacement for infection - PAST SURGICAL HISTORY OF heart cath - REMV CATARACT EXTRACAP,INSERT LENS Cataract Removal - TOTAL HIP REPLACEMENT bilateral Family History FAMILY HISTORY Problem Relation Age of Onset - Ischemic Heart Disease Father - Ischemic Heart Disease Mother - Diabetes Mother - Hypertension Brother - Stroke Brother REVIEW OF SYSTEMS: General: General: Well developed, well nourished. No acute distress HEENT: Negative for sore throat, difficulty swallowing. Negative for frequent or significant headaches, changes in vision or hearing. Cardiovascular: Positive: Hypertension and CAD and CABG, A-Fib Respiratory: Negative for current cough, dyspnea. No hx of pneumonia in the past six weeks Gastrointestinal: No history of GERD, PUD, abd pain, difficulty swallowing, GI bleed. Renal: Negative for renal failure and No history of dialysis Musculoskeletal: Negative for joint pain or swelling, back pain or muscle pain. Skin: Negative for lesions, rash and itching. Psychological: No history of psychiatric symptoms or problems. Neurologic: No history of TIA's, stroke, [employer] tumor, impaired sensorium, hemiplegia, paraplegia or quadriplegia. No neurological symptoms or problems. Hematology/Oncology: No history of bleeding or clotting disorder. Pt is not taking anti-coagulation or platelet medications. No history of hematological symptoms or problems. Endocrine: Positive: DM on Insulin PHYSICAL EXAMINATION: General Appearance/ Constitutional: Well developed, well nourished, and in no apparent distress HEENT: Not examined Neck: Lymph Nodes: Not examined Cardiac: Normal Breast: Not examined Pulmonary: Ascultation: Normal Effort: Normal GI: Soft and Non-tender Peripheral Vascular: Not examined Extremities: Cyanosis absent and Edema absent Skin: Normal Neurologic: Grossly non-focal and Alert and oriented (MALE): Penis: Normal without external lesions, Uncircumcised moderately tight phimosis Testicles: bilaterally and normal Cord/Epididymis: bilaterally and normal Vas Deferens: bilaterally and normal Scrotum: Normal Prostate: About 50 gm, non tender, no nodules Results for orders placed or performed in visit on 04/11/18 UA DIP, URINE (POC) Result Value Ref Range GLUCOSE UA (POCT) Negative Negative mg/dL BILIRUBIN UA (POCT) Negative Negative KETONE UA (POCT) Negative Negative mg/dL SPECIFIC GRAVITY UA (POCT) 1.020 1.005 - 1.030 HEMOGLOBIN/BLOOD UA (POCT) Moderate (A) Negative PH UA (POCT) 5.0 4.5 - 8.0 PROTEIN UA (POCT) 100 (A) Negative mg/dL UROBILINOGEN UA (POCT) 0.2 Normal E.U./dL NITRITE UA (POCT) Positive (A) Negative LEUKOCYTES UA (POCT) Large (A) Negative COLOR UA (POCT) Light yellow CLARITY UA (POCT) Cloudy *Note: Due to a large number of results and/or encounters for the requested time period, some results have not been displayed. A complete set of results can be found in Results Review. IMPRESSION / PLAN: > History of UTI > Phimosis > Macrobid 100 mg x 10 days > Lotrisone twice daily with stretching foreskin > 3 mo follow up for new medication discussion I spent approximately 40 minutes in this visit, with more than 50% of the time devoted to patient discussion, counseling, review of records and/or coordination of care. Ruddy Hollingsworth MPAS, [place], PA-C Observed: 04/11/2018 Status: F Source: [place] URINE CULTURE 10:55 AM [facility] REPOSITORY Sp. Request/Comment: - Specimen received in preservative Culture Result - >=100,000 CFU/ml Escherichia coli --> ABNORMAL ALERT ORGANISM: Escherichia coli METHOD: Minimum inhibitory concentration(Vitek) Antibiotic Interp IGNACIO Status Ampicillin INTERMEDIATE 16 F Gentamicin SUSCEPTIBLE <=1 F Trimeth sulfameth RESISTANT >=320 F Cefazolin SUSCEPTIBLE <=4 F CLSI breakpoints for therapy of uncomplicated UTI's due to E.coli, K.pneumoniae, and P.mirabilis were applied and may be used to predict the activity of oral agents(cefaclor, cefdinir, cefpodoxime, cefp rozil, cefuroxime, cephalexin, loracarbef). Ciprofloxacin SUSCEPTIBLE 0.5 F Nitrofurantoin SUSCEPTIBLE <=16 F Cefepime SUSCEPTIBLE <=1 F Piperacillin/Tazobac SUSCEPTIBLE <=4 F Ampicillin Sulbact SUSCEPTIBLE 4 F Ceftriaxone SUSCEPTIBLE <=1 F Meropenem SUSCEPTIBLE <=0.25 F Ertapenem SUSCEPTIBLE <=0.5 F Performed By: #### URCUL #### [facility] [employer] [address] [place], [place] [address] CNOV Observed: 04/11/2018 Status: COMPLETED Source: [place] 10:30 AM [facility] REPOSITORY Office Visit (UROLWS) AAMIRKIP AGUILAR ([id number]) 1945 M Date Time Provider Department 04/11/18 10:30 AM RUDDY HOLLINGSWORTH) UROLWS During your visit today, we recorded the following information about you: Pulse Blood pressure Weight Height 64/minute 158/68 128.4 kg 1.753 m DONNA Hernandez 04/28/2018 4:48 PM Signed [facility] PATIENT INFO: Kip Guaman 72 year old PCP: Jonel Don MD Referred by: Jonel Don MD Consult: Aconsultation requested by Jonel Don MD for an opinion regarding UTI and Phimosis My final recommendations communicated back to the requesting physician by way of shared Medical record. CHIEF COMPLAINT: UTI and Phimosis HPI: This is a 72 year old male, who has had UTI and Phimosis , which started in 2018, and involves the Penis Patient states this mild in severity and mild in quality, and is happening daily Aggravating factors: Diabetic , Alleviating Factors: No . And the patient denies having Fever, Chills, Rigors, Nausea and Vomiting VOIDING SYMPTOMS: NTF: 1 Times DTF: Q 2HOURS FOS: Average Hesitancy: No Straining: No Intermittency: Yes Urgency: Yes Frequency: Yes Dysuria: Yes Gross Hematuria: No U/A Dipstick Positive Blood - Only Yes Incomplete Voiding: No Double Voiding: No Post Void Dribbling: No Incontinence: No ALLERGY: ALLERGIES Allergen Reactions - Pamella Inhibitors Cough accupril - Atorvastatin Other: See Comments lipitor- muscle weakness, elevated LFT's - Crestor [Rosuvastat* Myalgia - Indocin [Indomethac* GI Upset - Naproxen GI Upset - Pravastatin Other: See Comments pravachol- muscle weakness, elevated LFT's MEDICATIONS: Current Outpatient Prescriptions: nitrofurantoin monohydrate and macrocrystal (MACROBID) 100 mg capsule Take 1 capsule by mouth twice daily for 10 days. Disp: 10 capsule Rfl: 0 Omeprazole 40 mg capsule Take 1 capsule by mouth once daily. Disp: 90 capsule Rfl: 1 warfarin (COUMADIN) 5 mg tablet 10 mg on and 5mg Sat/Sat/Sun and 7.5mg Sat//Sat or as directed. Disp: 120 tablet Rfl: 3 chlorthalidone (HYGROTON) 25 mg tablet Take 1 tablet by mouth once daily. Disp: 90 tablet Rfl: 1 insulin lispro (HUMALOG KWIKPEN) 100 unit/mL inpn 14-16 units with breakfast and lunch and 20-24 units with dinner, Correction per sliding scale total up to 70 units daily Disp: 25 Pen Rfl: 3 insulin needles, DISPOSABLE, (EASY TOUCH) 31 gauge x 5/16 ndle USE 1 NEEDLE PER DOSE THREE TIMES A DAY Disp: 300 Each Rfl: 4 CPAP CPAP supplies/accessories: Hoses, mask, and filters Disp: 1 Device Rfl: 0 mupirocin (BACTROBAN) 2 % ointment Apply 1 application to affected area three times daily. Location: leg Disp: 30 g Rfl: 0 blood sugar diagnostic (EASY TOUCH TEST STRIP) test strip Check blood sugar twice daily. Disp: 100 Strip Rfl: 5 hydrOXYzine HCl (ATARAX) 25 mg tablet Take 1 tablet by mouth every 6 hours as needed for Itching/Rash. Disp: 30 tablet Rfl: 0 metoprolol tartrate, short acting, (LOPRESSOR) 25 mg tablet Take 0.5 tablet after breakfast and one tablet after supper Disp: 90 tablet Rfl: 1 warfarin (COUMADIN) 4 mg tablet Take as directed per physician Disp: 30 tablet Rfl: 5 mometasone-formoterol (DULERA) 100-5 mcg/actuation inhaler Inhale 2 Puffs as instructed twice daily. Rinse mouth after use. Disp: 1 Inhaler Rfl: 5 tamsulosin ER (FLOMAX) 0.4 mg cp24 TAKE 1 CAPSULE ONCE DAILY Disp: 90 capsule Rfl: 3 insulin glargine (LANTUS) 100 unit/mL injection Inject 50 Units subcutaneously once daily. If sugars slightly low take 45 units once daily instead of 47. Disp: 5 Vial Rfl: 3 montelukast (SINGULAIR) 10 mg tablet Take 1 tablet by mouth once daily. Disp: 90 tablet Rfl: 3 ramipril (ALTACE) 10 mg capsule Take 1 capsule by mouth once daily. Disp: 90 capsule Rfl: 3 levothyroxine (SYNTHROID) 100 mcg tablet Take 1 tablet by mouth once daily. Disp: 90 tablet Rfl: 3 betamethasone dipropionate 0.05 % ointment Apply 1 Tube to affected area as needed (for hand dermatitis). Disp: 15 g Rfl: 2 clopidogrel (PLAVIX) 75 mg tablet Take 1 tablet by mouth once daily. Disp: 90 tablet Rfl: 3 fluticasone (FLONASE) 50 mcg/actuation nasal spray Use 2 Sprays in each nostril once daily. Disp: 1 Bottle Rfl: 12 rosuvastatin (CRESTOR) 10 mg tablet Take 1/2 a tab every day Disp: 45 tablet Rfl: 3 Insulin Syringe-Needle U-100 (BD INSULIN SYRINGE MF) 1/2 mL 28 gauge x 1/2 syrg 1 Each once daily. Dx: E11.29 Insulin: yes Disp: 90 Syringe Rfl: 3 albuterol HFA (PROAIR HFA) 90 mcg/actuation inhaler Inhale 2 Puffs as instructed every 4 hours as needed. Disp: 1 Inhaler Rfl: 0 acetaminophen (TYLENOL EXTRA STRENGTH) 500 mg tablet Take 500 mg by mouth as needed. Disp: Rfl: Cholecalciferol, Vitamin D3, 2,000 unit cap Take 4,000 Units by mouth once daily. Disp: Rfl: 0 Docusate Sodium 100 mg tab Take two tabs daily Disp: Rfl: 0 cyanocobalamin (VITAMIN B-12) 500 mcg tab Take 1 tablet by mouth once daily. Disp: Rfl: 0 psyllium husk 0.4 gram cap Take 2 capsules by mouth once daily. Disp: Rfl: 0 Ferrous Gluconate 246 mg (27 mg iron) Tab Take 1 tablet by mouth once daily. Disp: Rfl: calcium carbonate (CALTRATE 600) 600 mg (1,500 mg) Tab Take 1 tablet by mouth twice daily. Disp: Rfl: 0 Ascorbic Acid (VITAMIN C) Chew Take 500 mg by mouth once daily. Disp: Rfl: TRIAMCINOLONE ACETONIDE 0.1 % TOPICAL CREAM bid prn--not to face/axillae/groin Disp: 80gm Rfl: 2 MULTIVITAMIN TABLET Take one(1) tablet daily. Disp: Rfl: 0 No current facility-administered medications for this visit. Past Medical History PAST MEDICAL HISTORY Diagnosis Date - Acute gastritis without mention of hemorrhage - Allergic rhinitis, cause unspecified - Atrial fibrillation or flutter - AV block, 1st degree - Background diabetic retinopathy(362.01) - CAD (coronary artery disease) - Contact dermatitis - COPD, mild ([facility]) 08/14/2017 - Degeneration of lumbar or lumbosacral intervertebral disc Spondylolisthesis of L5-S1 - Diabetes mellitus, type 2 (HCC) retinopathy, neuropathy, nephropathy - Esophagitis, unspecified - Generalized osteoarthrosis, unspecified site - GERD (gastroesophageal reflux disease) - 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 - Surgical wound infection Dr Adams, chronic PNC - Type II or unspecified type diabetes mellitus without mention of complication, not stated as uncontrolled Past Surgical History PAST SURGICAL HISTORY Procedure Laterality Date - 2D ECHO (EXEP) 03/2017 EF=60%, no valve issues - BYPASS GRAFT OTHR,COMPOSITE 2000 CABG x 6, Dr. Do - COLONOSCOP W/ OR W/O [facility] SPEC 11/03/08 repeat due 2018 - ECHO 08/2000 - EGD W/O [facility] SPECIMEN W/BX 11/03/08 - EGD W/O OR W/BRUSH/WASH 05/14/16 EGD [facility] - LAP. GASTRECT W/ JARAD-EN-Y 09/10/11 [facility] - PAST SURGICAL HISTORY OF left hip surgery post-replacement for infection - PAST SURGICAL HISTORY OF heart cath - REMV CATARACT EXTRACAP,INSERT LENS Cataract Removal - TOTAL HIP REPLACEMENT bilateral Family History FAMILY HISTORY Problem Relation Age of Onset - Ischemic Heart Disease Father - Ischemic Heart Disease Mother - Diabetes Mother - Hypertension Brother - Stroke Brother REVIEW OF SYSTEMS: General: General: Well developed, well nourished. No acute distress HEENT: Negative for sore throat, difficulty swallowing. Negative for frequent or significant headaches, changes in vision or hearing. Cardiovascular: Positive: Hypertension and CAD and CABG, A-Fib Respiratory: Negative for current cough, dyspnea. No hx of pneumonia in the past six weeks Gastrointestinal: No history of GERD, PUD, abd pain, difficulty swallowing, GI bleed. Renal: Negative for renal failure and No history of dialysis Musculoskeletal: Negative for joint pain or swelling, back pain or muscle pain. Skin: Negative for lesions, rash and itching. Psychological: No history of psychiatric symptoms or problems. Neurologic: No history of TIA's, stroke, [employer] tumor, impaired sensorium, hemiplegia, paraplegia or quadriplegia. No neurological symptoms or problems. Hematology/Oncology: No history of bleeding or clotting disorder. Pt is not taking anti-coagulation or platelet medications. No history of hematological symptoms or problems. Endocrine: Positive: DM on Insulin PHYSICAL EXAMINATION: General Appearance/ Constitutional: Well developed, well nourished, and in no apparent distress HEENT: Not examined Neck: Lymph Nodes: Not examined Cardiac: Normal Breast: Not examined Pulmonary: Ascultation: Normal Effort: Normal GI: Soft and Non-tender Peripheral Vascular: Not examined Extremities: Cyanosis absent and Edema absent Skin: Normal Neurologic: Grossly non-focal and Alert and oriented (MALE): Penis: Normal without external lesions, Uncircumcised moderately tight phimosis Testicles: bilaterally and normal Cord/Epididymis: bilaterally and normal Vas Deferens: bilaterally and normal Scrotum: Normal Prostate: About 50 gm, non tender, no nodules Results for orders placed or performed in visit on 04/11/18 UA DIP, URINE (POC) Result Value Ref Range GLUCOSE UA (POCT) Negative Negative mg/dL BILIRUBIN UA (POCT) Negative Negative KETONE UA (POCT) Negative Negative mg/dL SPECIFIC GRAVITY UA (POCT) 1.020 1.005 - 1.030 HEMOGLOBIN/BLOOD UA (POCT) Moderate (A) Negative PH UA (POCT) 5.0 4.5 - 8.0 PROTEIN UA (POCT) 100 (A) Negative mg/dL UROBILINOGEN UA (POCT) 0.2 Normal E.U./dL NITRITE UA (POCT) Positive (A) Negative LEUKOCYTES UA (POCT) Large (A) Negative COLOR UA (POCT) Light yellow CLARITY UA (POCT) Cloudy *Note: Due to a large number of results and/or encounters for the requested time period, some results have not been displayed. A complete set of results can be found in Results Review. IMPRESSION / PLAN: > History of UTI > Phimosis > Macrobid 100 mg x 10 days > Lotrisone twice daily with stretching foreskin > 3 mo follow up for new medication discussion I spent approximately 40 minutes in this visit, with more than 50% of the time devoted to patient discussion, counseling, review of records and/or coordination of care. Ruddy Hollingsworth, MPAS, MT, PA-C Referring Provider: JAVID HARDING [[id number]] Allergies As of Date: 04/11/2018 Noted Allergy Reaction PAMELLA INHIBITORS 07/18/2004 3 - Cough Comments: accupril ATORVASTATIN 07/18/2004 14 - Other: See Comments Comments: lipitor- muscle weakness, elevated LFT's CRESTOR (ROSUVASTATIN CALCIUM) 10/30/2016 17 - Myalgia INDOCIN (INDOMETHACIN SODIUM) 04/06/2005 8 - GI Upset NAPROXEN 07/18/2004 8 - GI Upset PRAVASTATIN 07/18/2004 14 - Other: See Comments Comments: pravachol- muscle weakness, elevated LFT's Date Reviewed: 04/11/2018 Reviewed by: Whitney Pretty Ma - Fully Assessed Reason for Visit: New Patient [172] recurrent uti [Other] Primary Visit Diagnosis:Phimosis [N47.1] Other Visit Diagnoses:Urinary frequency [R35.0] Recurrent UTI [N39.0] Order(s):UA DIP, URINE (POC) [[id number]] Order #: [id number]. #:[id number] URINE CULTURE [SQURCUL] Order #: [id number]. #:[id number] [] nitrofurantoin monohydrate and macrocrystal (MACROBID) 100 mg capsuleTake 1 capsule by mouth twice daily for 10 days.Disp: 10 capsuleRfl: 0 [] clotrimazole-betamethasone (LOTRISONE) creamApply 1 application to affected area twice daily for 15 days. FOR 2 WEEKSDisp: 45 gRfl: 2 URINE CULTURE [SQURCUL] Order #: [id number] FUTURE Prescriptions as of 04/11/2018 Sig: NITROFURANTOIN MONOHYDRATE AND * Take 1 capsule by mouth twice* CLOTRIMAZOLE-BETAMETHASONE 1 * Apply 1 application to affect* OMEPRAZOLE 40 MG CAPSULE,DEMARCO* Take 1 capsule by mouth once * WARFARIN 5 MG TABLET 10 mg on and 5mg * CHLORTHALIDONE 25 MG TABLET Take 1 tablet by mouth once d* INSULIN LISPRO (U-100) 100 UN* 14-16 units with breakfast an* PEN NEEDLE, DIABETIC 31 GAUGE* USE 1 NEEDLE PER DOSE THREE T* CPAP CPAP supplies/accessories: Ho* MUPIROCIN 2 % TOPICAL OINTMENT Apply 1 application to affect* BLOOD SUGAR DIAGNOSTIC STRIPS Check blood sugar twice daily. HYDROXYZINE HCL 25 MG TABLET Take 1 tablet by mouth every * METOPROLOL TARTRATE 25 MG TAB* Take 0.5 tablet after breakfa* WARFARIN 4 MG TABLET Take as directed per physician MOMETASONE-FORMOTEROL HFA 100* Inhale 2 Puffs as instructed * TAMSULOSIN 0.4 MG CAPSULE TAKE 1 CAPSULE ONCE DAILY INSULIN GLARGINE (U-100) 100 * Inject 50 Units subcutaneousl* MONTELUKAST 10 MG TABLET Take 1 tablet by mouth once d* RAMIPRIL 10 MG CAPSULE Take 1 capsule by mouth once * LEVOTHYROXINE 100 MCG TABLET Take 1 tablet by mouth once d* BETAMETHASONE DIPROPIONATE 0.* Apply 1 Tube to affected area* CLOPIDOGREL 75 MG TABLET Take 1 tablet by mouth once d* FLUTICASONE 50 MCG/ACTUATION * Use 2 Sprays in each nostril * ROSUVASTATIN 10 MG TABLET Take 1/2 a tab every day X INSULIN SYRINGE-NEEDLE U-100 * 1 Each once daily. Dx: E11.29* ALBUTEROL SULFATE HFA 90 MCG/* Inhale 2 Puffs as instructed * ACETAMINOPHEN 500 MG TABLET Take 500 mg by mouth as neede* CHOLECALCIFEROL (VITAMIN D3) * Take 4,000 Units by mouth onc* DOCUSATE SODIUM 100 MG TABLET Take two tabs daily CYANOCOBALAMIN (VIT B-12) 500* Take 1 tablet by mouth once d* PSYLLIUM HUSK 0.4 GRAM CAPSULE Take 2 capsules by mouth once* FERROUS GLUCONATE 246 MG (27 * Take 1 tablet by mouth once d* * CALCIUM CARBONATE 600 MG CALC* Take 1 tablet by mouth twice * * ASCORBIC ACID (VITAMIN C) 500* Take 500 mg by mouth once albina* * TRIAMCINOLONE ACETONIDE 0.1 %* bid prn--not to face/axillae/* * MULTIVITAMIN TABLET Take one(1) tablet daily. More... Problem List As Of Date 04/11/2018 Noted Resolved Hypothyroidism (acquired) [E03.9] Priority: A Mixed hyperlipidemia [E78.2] Priority: A Allergic rhinitis, cause unspecified [J30.9] Priority: B Morbid Obesity [E66.01] 09/07/2009 More... Degeneration of lumbar or lumbosacral intervert* Priority: M More... Coronary artery disease due to lipid rich plaqu*INVALID FOR* Priority: A More... Mild intermittent asthma without complication [*INVALID FOR* Priority: A More... More... Hip joint replacement by other means [Z96.649] INVALID FOR*06/06/2016 Priority: M Personal history of other malignant neoplasm of*INVALID FOR* Priority: D More... Special Screening for Malignant Neoplasms, [place]*INVALID FOR*09/07/2009 Acute Gastritis without Mention of Hemorrhage [*INVALID FOR*09/07/2009 More... Urinary frequency [R35.0] INVALID FOR* Priority: C More... More... More... MGUS (monoclonal gammopathy of unknown signific*INVALID FOR* Priority: B More... Atrial flutter [I48.92] INVALID FOR* Priority: A More... THO (obstructive sleep apnea) [G47.33] INVALID FOR* Priority: B More... 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 AV block, 1st degree [I44.0] Priority: A Diabetic eye exam (HCC) [Z01.00, E11.9] INVALID FOR* Priority: A More... Type 2 diabetes mellitus with proteinuria (HCC)*INVALID FOR* Priority: A Gastroesophageal reflux disease without esophag*INVALID FOR* Priority: A Iron deficiency anemia secondary to inadequate *INVALID FOR* Priority: A More... Non-proliferative diabetic retinopathy, mild, b*INVALID FOR* Priority: A Bilateral carotid artery disease (HCC) [I77.9] INVALID FOR* Priority: A More... Corns and callus [L84] INVALID FOR* Priority: D Morbid obesity due to excess calories (HCC) [E6*INVALID FOR* Priority: B More... Well adult exam [Z00.00] INVALID FOR* Priority: E More... Ex-smoker [Z87.891] INVALID FOR* Priority: C More... Colon cancer screening [Z12.11] INVALID FOR* Type 2 diabetes mellitus with diabetic neuropat*INVALID FOR* Priority: A H/O gastric bypass [Z98.84] INVALID FOR* Priority: A Malabsorption syndrome [K90.9] INVALID FOR* Priority: A More... Iron malabsorption [K90.9] INVALID FOR* Priority: B Disorder of prostate [N42.9] INVALID FOR* Hypertension goal BP (blood pressure) < 140/80 *INVALID FOR* Priority: A Medicare annual wellness visit, subsequent [Z00*INVALID FOR* Priority: E More... Current use of proton pump inhibitor [Z79.899] INVALID FOR* Albuminuria [R80.9] INVALID FOR* Priority: A Subclavian artery stenosis (HCC) [I77.1] INVALID FOR* Priority: A More... 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 Phimosis [N47.1] INVALID FOR* History of recurrent UTIs [Z87.440] INVALID FOR* Prescriptions ordered this encounter Disp Refills Start End NITROFURANTOIN MONOHYDRATE AND MACROCR* 10 c* 0 04/11/2018 04/21/2018 Route: ORAL Sig: Take 1 capsule by mouth twice daily for 10 days. CLOTRIMAZOLE-BETAMETHASONE 1 %-0.05 * 45 g 2 04/11/2018 04/26/2018 Route: TOPICAL Sig: Apply 1 application to affected area twice daily for 15 days. FOR 2 WEEKS Disposition: Return in about 3 months (around 07/12/2018). Follow-up and Disposition History Recorded Encounter Status:Closed by RUDDY HOLLINGSWORTH PA-C on 04/28/18 PROGRESS Observed: 04/03/2018 Status: COMPLETED Source: [place] 2:12 PM [facility] REPOSITORY HNO ID: [id number] Author: Jonel Don Service: (none) Author Type: Physician Type: Progress Notes Filed: 04/03/2018 4:11 PM Note Text: This note was created using NoteWriter. Subjective Kip Guaman is a 72 year old male. Review of Systems Objective There were no vitals taken for this visit. Physical Exam Assessment and Plan Agree with plan. PROGRESS Observed: 04/03/2018 Status: COMPLETED Source: [place] 1:[address] [facility] REPOSITORY HNO ID: [id number] Author: Jonel Don Service: (none) Author Type: Physician Type: Progress Notes Filed: 04/03/2018 10:15 PM Note Text: Chief Complaint Patient presents with: Recheck: 4 months HPI Kip Guaman is a 72 year old male who presents here today for Chronic Medical Conditions.. Patient with hx of DM type 2, A. Fib on chronic coumadin, HTN, hyperlipidemia, GERD as well as those reviewed and addressed below. Had INR done today and results discussed. Has noted a lump on the left side up around the rib area. No pain or erythema. Was in UC again with a UTI recently. Was treated and has finished antibiotic and will be seeing urology in the next week for f/u Other new issue is that his foreskin has been tender and slightly swollen. When he urinates this area randolph. Past medical history, appointments, medications, allergies reviewed. Previous Medical History PAST MEDICAL HISTORY Diagnosis Date - Acute gastritis without mention of hemorrhage - Allergic rhinitis, cause unspecified - Atrial fibrillation or flutter - AV block, 1st degree - Background diabetic retinopathy(362.01) - CAD (coronary artery disease) - Contact dermatitis - COPD, mild (HCC) 08/14/2017 - Degeneration of lumbar or lumbosacral intervertebral disc Spondylolisthesis of L5-S1 - Diabetes mellitus, type 2 (HCC) retinopathy, neuropathy, nephropathy - Esophagitis, unspecified - Generalized osteoarthrosis, unspecified site - GERD (gastroesophageal reflux disease) - Hip joint replacement by other means 12/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 Do - COLONOSCOP W/ OR W/O [facility] SPEC 11/03/08 repeat due 2018 - ECHO 08/2000 - EGD W/O [facility] SPECIMEN W/BX 11/03/08 - EGD W/O OR W/BRUSH/WASH 05/14/16 EGD [facility] - LAP. GASTRECT W/ JARAD-EN-Y 09/10/11 [facility] - PAST SURGICAL HISTORY OF left hip surgery post-replacement for infection - PAST SURGICAL HISTORY OF heart cath - REMV CATARACT EXTRACAP,INSERT LENS Cataract Removal - TOTAL HIP REPLACEMENT bilateral Family History FAMILY HISTORY Problem Relation Age of Onset - Ischemic Heart Disease Father - Ischemic Heart Disease Mother - Diabetes Mother - Hypertension Brother - Stroke Brother Patient Allergies ALLERGIES Allergen Reactions - Pamella Inhibitors Cough accupril - Atorvastatin Other: See Comments lipitor- muscle weakness, elevated LFT's - Crestor [Rosuvastat* Myalgia - Indocin [Indomethac* GI Upset - Naproxen GI Upset - Pravastatin Other: See Comments pravachol- muscle weakness, elevated LFT's Current Medications Current Outpatient Prescriptions on File Prior to Visit: CPAP CPAP supplies/accessories: Hoses, mask, and filters mupirocin (BACTROBAN) 2 % ointment Apply 1 application to affected area three times daily. Location: leg blood sugar diagnostic (EASY TOUCH TEST STRIP) test strip Check blood sugar twice daily. hydrOXYzine HCl (ATARAX) 25 mg tablet Take 1 tablet by mouth every 6 hours as needed for Itching/Rash. metoprolol tartrate, short acting, (LOPRESSOR) 25 mg tablet Take 0.5 tablet after breakfast and one tablet after supper warfarin (COUMADIN) 4 mg tablet Take as directed per physician mometasone-formoterol (DULERA) 100-5 mcg/actuation inhaler Inhale 2 Puffs as instructed twice daily. Rinse mouth after use. tamsulosin ER (FLOMAX) 0.4 mg cp24 TAKE 1 CAPSULE ONCE DAILY insulin glargine (LANTUS) 100 unit/mL injection Inject 50 Units subcutaneously once daily. If sugars slightly low take 45 units once daily instead of 47. montelukast (SINGULAIR) 10 mg tablet Take 1 tablet by mouth once daily. ramipril (ALTACE) 10 mg capsule Take 1 capsule by mouth once daily. levothyroxine (SYNTHROID) 100 mcg tablet Take 1 tablet by mouth once daily. betamethasone dipropionate 0.05 % ointment Apply 1 Tube to affected area as needed (for hand dermatitis). clopidogrel (PLAVIX) 75 mg tablet Take 1 tablet by mouth once daily. fluticasone (FLONASE) 50 mcg/actuation nasal spray Use 2 Sprays in each nostril once daily. rosuvastatin (CRESTOR) 10 mg tablet Take 1/2 a tab every day Insulin Syringe-Needle U-100 (BD INSULIN SYRINGE MF) 1/2 mL 28 gauge x 1/2 syrg 1 Each once daily. Dx: E11.29 Insulin: yes albuterol HFA (PROAIR HFA) 90 mcg/actuation inhaler Inhale 2 Puffs as instructed every 4 hours as needed. acetaminophen (TYLENOL EXTRA STRENGTH) 500 mg tablet Take 500 mg by mouth as needed. Cholecalciferol, Vitamin D3, 2,000 unit cap Take 4,000 Units by mouth once daily. Docusate Sodium 100 mg tab Take two tabs daily cyanocobalamin (VITAMIN B-12) 500 mcg tab Take 1 tablet by mouth once daily. psyllium husk 0.4 gram cap Take 2 capsules by mouth once daily. Ferrous Gluconate 246 mg (27 mg iron) Tab Take 1 tablet by mouth once daily. calcium carbonate (CALTRATE 600) 600 mg (1,500 mg) Tab Take 1 tablet by mouth twice daily. Ascorbic Acid (VITAMIN C) Chew Take 500 mg by mouth once daily. TRIAMCINOLONE ACETONIDE 0.1 % TOPICAL CREAM bid prn--not to face/axillae/groin MULTIVITAMIN TABLET Take one(1) tablet daily. No current facility-administered medications on file prior to visit. 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[employer]* Social History Main Topics Smoking status: Former Smoker Packs/day: 0.00 Years: 25.00 Types: Pipe Smokeless tobacco: Never Used Comment: Quit in 1999 Alcohol use: No Drug use: No Sexual activity: No Review of Symptoms REVIEW OF SYSTEMS GENERAL: No weight loss, malaise or fevers since UTI treated NECK: Negative for lumps, goiter, pain and significant neck swelling RESPIRATORY: Negative for cough, hemoptysis, wheezing, COPD, dyspnea or shortness of breath CARDIOVASCULAR: Negative for chest pain, leg swelling (has gone down) , hypertension, CHF or palpitations GI: No nausea, vomiting, or diarrhea and No heartburn or reflux symptoms : See HPI SKIN: See HPI PSYCH: mood is so so and sleep is better ENDOCRINE: has had a few low BS's. FBS's: avg 80-120 NEURO: No history of headaches, syncope, paralysis, seizures or tremors EXAM: BP 132/70 Pulse 74 Resp 14 Wt 127 kg (280 lb) BMI 41.71 kg/m? General Appearance: Well appearing, alert, in no acute distress, well-hydrated, well nourished. and Morbidly obese. Skin: left lateral upper abdomen just below the rib margin is a soft mobile mass about 3-4 cm in size consistent with a lipoma. . Eyes: Anicteric sclera. Pupils are equally round and reactive to light. Extraocular movements are intact. . Oropharynx: Lips, mucosa, and tongue normal, teeth and gums normal, oropharynx normal. Neck: Supple, no adenopathy; thyroid symmetric, normal size, no bruits. Lungs: Lungs clear to auscultation. No wheezing, rhonchi, rales. Heart: RRR without murmur, gallop, or rubs. No ectopy. Abdomen: Normal abdominal exam, Abdomen soft, non-tender. Bowel sounds normal. No masses, organomegaly. Extremities: No deformities, edema. Has chronic venous stasis changes. No acute issues Musculoskeletal: Muscular strength intact, No joint swelling, deformity, or tenderness. Peripheral Pulses: Normal. Neurologic: Gait normal for age and having arthritis. Walks with a cane. Reflexes normal and symmetric. Sensation to light touch and crainal nerves 2-12 intact.. Genitalia: foreskin shows a phimosis with slightly pinkish margin. No pain or swelling on palpation. Health Maintenance List BP CONTROLLED (<130/80) due on 1963 INFLUENZA(1) due on 03/01/2018 DILATED RETINAL EXAM due on 04/29/2018 STATIN MED ADHERENCE due on 05/01/2018 DIABETES MED ADHERENCE due on 05/01/2018 STEROID INHALER ADHERENCE due on 05/01/2018 HBA1C due on 09/30/2018 DIABETIC FOOT EXAM due on 11/26/2018 ANNUAL PCP TEAM CHRONIC DISEASE VISIT due on 03/06/2019 LDL CHOLESTEROL due on 04/01/2019 COLORECTAL CANCER SCREENING,SEE MODIFIER due on 12/06/2025 DTAP,TDAP,TD(2 - Td) due on 02/25/2028 ADULT PREVNAR-13 Completed HEPATITIS C SCREENING Completed PNEUMOVAX AGE 65 AND OVER WITH 5YR LOOKBACK Completed Data reviewed Component Latest Ref Rng AND Units 10/07/2017 04/01/2018 Protein, Total 6.3 - 8.0 g/dL 6.9 6.9 Albumin 3.9 - 4.9 g/dL 4.1 3.8 (L) Calcium 8.5 - 10.2 mg/dL 8.9 8.8 Bilirubin, Total 0.2 - 1.3 mg/dL 0.3 0.3 Alkaline Phosphatase 38 - 113 U/L 68 67 AST 14 - 40 U/L 27 26 Glucose 74 - 99 mg/dL 84 95 BUN 9 - 24 mg/dL 39 (H) 50 (H) Creatinine 0.73 - 1.22 mg/dL 1.39 (H) 1.62 (H) Sodium 136 - 144 mmol/L 143 144 Potassium 3.7 - 5.1 mmol/L 4.3 4.8 Chloride 97 - 105 mmol/L 104 111 (H) CO2 22 - 30 mmol/L 24 19 (L) Anion Gap 9 - 18 mmol/L 15 14 ALT 10 - 54 U/L 25 15 eGFR- >60 51 eGFR-All Other Races . 50 42 Cholesterol, Total <200 mg/dL 164 144 Triglyceride <150 mg/dL 95 88 HDL Cholesterol >39 mg/dL 46 36 (L) LDL Cholesterol <100 mg/dL 99 90 Non HDL Cholesterol <130 mg/dL 118 108 Fasting Time hrs 12 12 VLDL Cholesterol <30 mg/dL 19 18 TC:HDL Ratio <5.10 3.57 4.00 LDL:HDL Ratio <2.54 2.15 2.50 Iron 41 - 186 ug/dL 79 TIBC 232 - 386 ug/dL 248 Transferrin Saturation 15 - 57 % 32 Creatinine, Ur Random (UCRR) 20 - 300 mg/dL 82.6 Albumin, Urine Random 0.0 - 23.0 mg/L 244.4 (H) Albumin/Creat Ratio 0 - 30 mg/g 296 (H) Hemoglobin A1C 4.3 - 5.6 % 6.3 (H) 6.3 (H) Estimated Average Glucose mg/dL 134 134 Vitamin B12 232 - 1,245 pg/mL 1,734 (H) Folate >4.7 ng/mL >20.0 Magnesium 1.7 - 2.3 mg/dL 2.5 (H) Vitamin D 25 Hydroxy 31.0 - 80.0 ng/mL 58.8 Zinc 55 - 150 ug/dL 62 TSH 0.400 - 5.500 uU/mL 1.220 Component Latest Ref Rng AND Units 12/12/2017 Creatinine, Ur Random (UCRR) 20 - 300 mg/dL 77.1 Albumin, Urine Random 0.0 - 23.0 mg/L 525.1 (H) Albumin/Creat Ratio 0 - 30 mg/g 681 (H) A/P ASSESSMENT/PLAN: 1. Type 2 diabetes mellitus with proteinuria ([facility]) - ICD9: 250.40, 791.0, ICD10: E11.29, R80.9 (primary diagnosis) Controlled. - Continue current medications - Discussed diabetic education issues of usp diabetic complications with patient. - BP goal of <130/80 - LDL goal of <100 2. Type 2 diabetes mellitus with diabetic neuropathy, with long-term current use of insulin (HCC) - ICD9: 250.60, 357.2, V58.67, ICD10: E11.40, Z79.4 - see #1 3. 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 Diabetic eye exam ([facility]) - ICD9: V72.0, 250.00, ICD10: Z01.00, E11.9 - Up to date 5. Mixed hyperlipidemia - ICD9: 272.2, ICD10: E78.2 - good control - Encouraged following a low fat, low cholesterol diet. - Discussed the benefits of regular aerobic exercise and weight loss. - Encouraged following a low carbohydrate, healthy oil intake diet. - Continue current therapy. 6. Hypothyroidism (acquired) - ICD9: 244.9, ICD10: E03.9 - Instructed patient on importance of taking on an empty stomach either first thing in the morning or at bedtime. - continue current dose of Synthroid 0.100 mg 7. Mild intermittent asthma without complication - ICD9: 493.90, ICD10: J45.20 Mild intermittent Asthma stable - Continue current meds - Avoidance of triggers recommended 8. COPD, mild (HCC) - ICD9: 496, ICD10: J44.9 - As per #7 9. Coronary artery disease due to lipid rich plaque - ICD9: 414.00, 414.3, ICD10: I25.10, I25.83 - Clinically stable cont meds and cardio f/u 10. Atrial flutter, unspecified type (HCC) - ICD9: 427.32, ICD10: I48.92 Stable, cont detention anticoagulation - WARFARIN 5 MG TABLET 11. Gastroesophageal reflux disease without esophagitis - ICD9: 530.81, ICD10: K21.9 - Continue treatment with Prilosec 40 mg QD 12. Iron deficiency anemia secondary to inadequate dietary iron intake - ICD9: 280.1, ICD10: D50.8 - Cont hematology f/u 13. MGUS (monoclonal gammopathy of unknown significance) - ICD9: 273.1, ICD10: D47.2 - As per #12 14. Bilateral carotid artery disease, unspecified type (HCC) - ICD9: 447.9, ICD10: I77.9 - Clinically stable and monitored with US. Due 08/2017 15. Subclavian artery stenosis (HCC) - ICD9: 447.1, ICD10: I77.1 - No concerning symptoms, will monitor. 16. Morbid obesity due to excess calories (HCC) - ICD9: 278.01, ICD10: E66.01 - Patient to cont to work on diet 17. Phimosis - ICD9: 605, ICD10: N47.1 - Suspect this may be source behind his recurrent UTI's. Informed he may need a circumcision. 18. Balanitis - ICD9: 607.1, ICD10: N48.1 Will have him case picker lamasil cream and put on twice a day 19. Lipoma of torso - ICD9: 214.1, ICD10: D17.1 - Discussed benign nature and as long as it's not causing symptoms no need to remove. Patient concurred with plan. 20. History of recurrent UTIs - ICD9: V13.02, ICD10: Z87.440 - Will bee seeing , Maybe secondary to phimosis. 21. Intestinal malabsorption, unspecified type - ICD9: 579.9, ICD10: K90.9 - Will monitor for deficiencies and replace when needed. 22. H/O gastric bypass - ICD9: V45.86, ICD10: Z98.84 - As per #21 23. Vitamin D deficiency - ICD9: 268.9, ICD10: E55.9 - Cont Vit D replacement 24. Renal insufficiency - ICD9: 593.9, ICD10: N28.9 Recheck in 2 weeks - BASIC METABOLIC PNL Signed Prescriptions Disp Refills Omeprazole 40 mg capsule 90 capsule 1 Sig: Take 1 capsule by mouth once daily. JOHNNY: No warfarin (COUMADIN) 5 mg tablet 120 tablet 3 Si mg on Tu and 5mg Sat/Sat/Sun and 7.5mg Mon/Thurs/Sat or as directed. JOHNNY: No chlorthalidone (HYGROTON) 25 mg tablet 90 tablet 1 Sig: Take 1 tablet by mouth once daily. JOHNNY: No insulin lispro (HUMALOG KWIKPEN) 100 unit/mL inpn 25 Pen 3 Si-16 units with breakfast and lunch and 20-24 units with dinner, Correction per sliding scale total up to 70 units daily JHONNY: No insulin needles, DISPOSABLE, (EASY TOUCH) 31 gauge x 5/16 ndle 300 Each 4 Sig: USE 1 NEEDLE PER DOSE THREE TIMES A DAY JOHNNY: No F/u in 4 months routine check BMP, A1c and urine albumin prior. Time entering room was 1:42 PM and time leaving room was 2:25 PM (total face to face time was 43 min) Jonel Don MD PROGRESS Observed: 04/03/2018 Status: COMPLETED Source: [place] 1:[address] [facility] REPOSITORY HNO ID: [id number] Author: Erin Awan RN Service: (none) Author Type: (none) Type: Progress Notes Filed: 04/03/2018 1:44 PM Note Text: patient had inr completed at [facility] patients inr is 2.8 (patients inr range is 2.0-3.0) patient is currently taking 4mgTues,Thurs,Sun and 7.5mg all other days patients last dose change was 03/06/18 due to a high level of 4.3 (dose at that time was 4mg Sat and 7.5mg all other days) patient has had a change in medication and patient completed keflex on and no missed doses and no change in diet Advised patient to continue on the same dose(s) and that they would only be contacted regarding dosage and follow up instructions after review with provider, if a change is needed. Written instructions given and patient verbalized understanding. Presently scheduled in 2 weeks (04/16/18) for follow up INR. CNOV Observed: 04/03/2018 Status: COMPLETED Source: [place] 1:40 PM [facility] REPOSITORY Office Visit (FAMPWS) KIP GUAMAN ([id number]) 1945 M Date Time Provider Department 04/03/18 1:40 PM [facility] During your visit today, we recorded the following information about you: Pulse Respiration Blood pressure Weight 74/minute 14/minute 132/70 127 kg Jonel Don MD 04/03/2018 10:15 PM Signed Chief Complaint Patient presents with: Recheck: 4 months HPI Kip Rutledgert is a 72 year old male who presents here today for Chronic Medical Conditions.. Patient with hx of DM type 2, A. Fib on chronic coumadin, HTN, hyperlipidemia, GERD as well as those reviewed and addressed below. Had INR done today and results discussed. Has noted a lump on the left side up around the rib area. No pain or erythema. Was in UC again with a UTI recently. Was treated and has finished antibiotic and will be seeing urology in the next week for f/u Other new issue is that his foreskin has been tender and slightly swollen. When he urinates this area randolph. Past medical history, appointments, medications, allergies reviewed. Previous Medical History PAST MEDICAL HISTORY Diagnosis Date - Acute gastritis without mention of hemorrhage - Allergic rhinitis, cause unspecified - Atrial fibrillation or flutter - AV block, 1st degree - Background diabetic retinopathy(362.01) - CAD (coronary artery disease) - Contact dermatitis - COPD, mild (HCC) 08/14/2017 - Degeneration of lumbar or lumbosacral intervertebral disc Spondylolisthesis of L5-S1 - Diabetes mellitus, type 2 (HCC) retinopathy, neuropathy, nephropathy - Esophagitis, unspecified - Generalized osteoarthrosis, unspecified site - GERD (gastroesophageal reflux disease) - Hip joint replacement by other means 12/19/2005 - Hyperlipidemia - Hypertension - Hypertension goal BP (blood pressure) < 140/80 09/26/2016 - Hypothyroidism - Iron deficiency anemia, unspecified - Morbid obesity ([facility]) 7 stated BMI 47.3 Ht: 70 Wt: 330 lbs - Obstructive sleep apnea - Osteoarthritis 11/09/2011 - S/P gastric bypass 09/21/2011 - Subclavian artery stenosis (HCC) 08/14/2017 See carotid disease above. 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 Do - COLONOSCOP W/ OR W/O [facility] SPEC 11/03/08 repeat due 2019 - ECHO 08/2000 - EGD W/O [facility] SPECIMEN W/BX 11/03/08 - EGD W/O OR W/BRUSH/WASH 05/14/16 EGD [facility] - LAP. GASTRECT W/ JARAD-EN-Y 09/10/11 [facility] - PAST SURGICAL HISTORY OF left hip surgery post-replacement for infection - PAST SURGICAL HISTORY OF heart cath - REMV CATARACT EXTRACAP,INSERT LENS Cataract Removal - TOTAL HIP REPLACEMENT bilateral Family History FAMILY HISTORY Problem Relation Age of Onset - Ischemic Heart Disease Father - Ischemic Heart Disease Mother - Diabetes Mother - Hypertension Brother - Stroke Brother Patient Allergies ALLERGIES Allergen Reactions - Pamella Inhibitors Cough accupril - Atorvastatin Other: See Comments lipitor- muscle weakness, elevated LFT's - Crestor [Rosuvastat* Myalgia - Indocin [Indomethac* GI Upset - Naproxen GI Upset - Pravastatin Other: See Comments pravachol- muscle weakness, elevated LFT's Current Medications Current Outpatient Prescriptions on File Prior to Visit: CPAP CPAP supplies/accessories: Hoses, mask, and filters mupirocin (BACTROBAN) 2 % ointment Apply 1 application to affected area three times daily. Location: leg blood sugar diagnostic (EASY TOUCH TEST STRIP) test strip Check blood sugar twice daily. hydrOXYzine HCl (ATARAX) 25 mg tablet Take 1 tablet by mouth every 6 hours as needed for Itching/Rash. metoprolol tartrate, short acting, (LOPRESSOR) 25 mg tablet Take 0.5 tablet after breakfast and one tablet after supper warfarin (COUMADIN) 4 mg tablet Take as directed per physician mometasone-formoterol (DULERA) 100-5 mcg/actuation inhaler Inhale 2 Puffs as instructed twice daily. Rinse mouth after use. tamsulosin ER (FLOMAX) 0.4 mg cp24 TAKE 1 CAPSULE ONCE DAILY insulin glargine (LANTUS) 100 unit/mL injection Inject 50 Units subcutaneously once daily. If sugars slightly low take 45 units once daily instead of 47. montelukast (SINGULAIR) 10 mg tablet Take 1 tablet by mouth once daily. ramipril (ALTACE) 10 mg capsule Take 1 capsule by mouth once daily. levothyroxine (SYNTHROID) 100 mcg tablet Take 1 tablet by mouth once daily. betamethasone dipropionate 0.05 % ointment Apply 1 Tube to affected area as needed (for hand dermatitis). clopidogrel (PLAVIX) 75 mg tablet Take 1 tablet by mouth once daily. fluticasone (FLONASE) 50 mcg/actuation nasal spray Use 2 Sprays in each nostril once daily. rosuvastatin (CRESTOR) 10 mg tablet Take 1/2 a tab every day Insulin Syringe-Needle U-100 (BD INSULIN SYRINGE MF) 1/2 mL 28 gauge x 1/2 syrg 1 Each once daily. Dx: E11.29 Insulin: yes albuterol HFA (PROAIR HFA) 90 mcg/actuation inhaler Inhale 2 Puffs as instructed every 4 hours as needed. acetaminophen (TYLENOL EXTRA STRENGTH) 500 mg tablet Take 500 mg by mouth as needed. Cholecalciferol, Vitamin D3, 2,000 unit cap Take 4,000 Units by mouth once daily. Docusate Sodium 100 mg tab Take two tabs daily cyanocobalamin (VITAMIN B-12) 500 mcg tab Take 1 tablet by mouth once daily. psyllium husk 0.4 gram cap Take 2 capsules by mouth once daily. Ferrous Gluconate 246 mg (27 mg iron) Tab Take 1 tablet by mouth once daily. calcium carbonate (CALTRATE 600) 600 mg (1,500 mg) Tab Take 1 tablet by mouth twice daily. Ascorbic Acid (VITAMIN C) Chew Take 500 mg by mouth once daily. TRIAMCINOLONE ACETONIDE 0.1 % TOPICAL CREAM bid prn--not to face/axillae/groin MULTIVITAMIN TABLET Take one(1) tablet daily. No current facility-administered medications on file prior to visit. 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[employer]* Social History Main Topics Smoking status: Former Smoker Packs/day: 0.00 Years: 25.00 Types: Pipe Smokeless tobacco: Never Used Comment: Quit in 1999 Alcohol use: No Drug use: No Sexual activity: No Review of Symptoms REVIEW OF SYSTEMS GENERAL: No weight loss, malaise or fevers since UTI treated NECK: Negative for lumps, goiter, pain and significant neck swelling RESPIRATORY: Negative for cough, hemoptysis, wheezing, COPD, dyspnea or shortness of breath CARDIOVASCULAR: Negative for chest pain, leg swelling (has gone down) , hypertension, CHF or palpitations GI: No nausea, vomiting, or diarrhea and No heartburn or reflux symptoms : See HPI SKIN: See HPI PSYCH: mood is so so and sleep is better ENDOCRINE: has had a few low BS's. FBS's: avg 80-120 NEURO: No history of headaches, syncope, paralysis, seizures or tremors EXAM: BP 132/70 Pulse 74 Resp 14 Wt 127 kg (280 lb) BMI 41.71 kg/m? General Appearance: Well appearing, alert, in no acute distress, well-hydrated, well nourished. and Morbidly obese. Skin: left lateral upper abdomen just below the rib margin is a soft mobile mass about 3-4 cm in size consistent with a lipoma. . Eyes: Anicteric sclera. Pupils are equally round and reactive to light. Extraocular movements are intact. . Oropharynx: Lips, mucosa, and tongue normal, teeth and gums normal, oropharynx normal. Neck: Supple, no adenopathy; thyroid symmetric, normal size, no bruits. Lungs: Lungs clear to auscultation. No wheezing, rhonchi, rales. Heart: RRR without murmur, gallop, or rubs. No ectopy. Abdomen: Normal abdominal exam, Abdomen soft, non-tender. Bowel sounds normal. No masses, organomegaly. Extremities: No deformities, edema. Has chronic venous stasis changes. No acute issues Musculoskeletal: Muscular strength intact, No joint swelling, deformity, or tenderness. Peripheral Pulses: Normal. Neurologic: Gait normal for age and having arthritis. Walks with a cane. Reflexes normal and symmetric. Sensation to light touch and crainal nerves 2-12 intact.. Genitalia: foreskin shows a phimosis with slightly pinkish margin. No pain or swelling on palpation. Health Maintenance List BP CONTROLLED (<130/80) due on 1963 INFLUENZA(1) due on 03/01/2018 DILATED RETINAL EXAM due on 04/29/2018 STATIN MED ADHERENCE due on 05/01/2018 DIABETES MED ADHERENCE due on 05/01/2018 STEROID INHALER ADHERENCE due on 05/01/2018 HBA1C due on 09/30/2018 DIABETIC FOOT EXAM due on 11/26/2018 ANNUAL PCP TEAM CHRONIC DISEASE VISIT due on 03/06/2019 LDL CHOLESTEROL due on 04/01/2019 COLORECTAL CANCER SCREENING,SEE MODIFIER due on 12/06/2025 DTAP,TDAP,TD(2 - Td) due on 02/25/2028 ADULT PREVNAR-13 Completed HEPATITIS C SCREENING Completed PNEUMOVAX AGE 65 AND OVER WITH 5YR LOOKBACK Completed Data reviewed Component Latest Ref Rng AND Units 10/07/2017 04/01/2018 Protein, Total 6.3 - 8.0 g/dL 6.9 6.9 Albumin 3.9 - 4.9 g/dL 4.1 3.8 (L) Calcium 8.5 - 10.2 mg/dL 8.9 8.8 Bilirubin, Total 0.2 - 1.3 mg/dL 0.3 0.3 Alkaline Phosphatase 38 - 113 U/L 68 67 AST 14 - 40 U/L 27 26 Glucose 74 - 99 mg/dL 84 95 BUN 9 - 24 mg/dL 39 (H) 50 (H) Creatinine 0.73 - 1.22 mg/dL 1.39 (H) 1.62 (H) Sodium 136 - 144 mmol/L 143 144 Potassium 3.7 - 5.1 mmol/L 4.3 4.8 Chloride 97 - 105 mmol/L 104 111 (H) CO2 22 - 30 mmol/L 24 19 (L) Anion Gap 9 - 18 mmol/L 15 14 ALT 10 - 54 U/L 25 15 eGFR- >60 51 eGFR-All Other Races . 50 42 Cholesterol, Total <200 mg/dL 164 144 Triglyceride <150 mg/dL 95 88 HDL Cholesterol >39 mg/dL 46 36 (L) LDL Cholesterol <100 mg/dL 99 90 Non HDL Cholesterol <130 mg/dL 118 108 Fasting Time hrs 12 12 VLDL Cholesterol <30 mg/dL 19 18 TC:HDL Ratio <5.10 3.57 4.00 LDL:HDL Ratio <2.54 2.15 2.50 Iron 41 - 186 ug/dL 79 TIBC 232 - 386 ug/dL 248 Transferrin Saturation 15 - 57 % 32 Creatinine, Ur Random (UCRR) 20 - 300 mg/dL 82.6 Albumin, Urine Random 0.0 - 23.0 mg/L 244.4 (H) Albumin/Creat Ratio 0 - 30 mg/g 296 (H) Hemoglobin A1C 4.3 - 5.6 % 6.3 (H) 6.3 (H) Estimated Average Glucose mg/dL 134 134 Vitamin B12 232 - 1,245 pg/mL 1,734 (H) Folate >4.7 ng/mL >20.0 Magnesium 1.7 - 2.3 mg/dL 2.5 (H) Vitamin D 25 Hydroxy 31.0 - 80.0 ng/mL 58.8 Zinc 55 - 150 ug/dL 62 TSH 0.400 - 5.500 uU/mL 1.220 Component Latest Ref Rng AND Units 12/12/2017 Creatinine, Ur Random (UCRR) 20 - 300 mg/dL 77.1 Albumin, Urine Random 0.0 - 23.0 mg/L 525.1 (H) Albumin/Creat Ratio 0 - 30 mg/g 681 (H) A/P ASSESSMENT/PLAN: 1. Type 2 diabetes mellitus with proteinuria ([facility]) - ICD9: 250.40, 791.0, ICD10: E11.29, R80.9 (primary diagnosis) Controlled. - Continue current medications - Discussed diabetic education issues of usp diabetic complications with patient. - BP goal of <130/80 - LDL goal of <100 2. Type 2 diabetes mellitus with diabetic neuropathy, with long-term current use of insulin (HCC) - ICD9: 250.60, 357.2, V58.67, ICD10: E11.40, Z79.4 - see #1 3. 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 Diabetic eye exam (HCC) - ICD9: V72.0, 250.00, ICD10: Z01.00, E11.9 - Up to date 5. Mixed hyperlipidemia - ICD9: 272.2, ICD10: E78.2 - good control - Encouraged following a low fat, low cholesterol diet. - Discussed the benefits of regular aerobic exercise and weight loss. - Encouraged following a low carbohydrate, healthy oil intake diet. - Continue current therapy. 6. Hypothyroidism (acquired) - ICD9: 244.9, ICD10: E03.9 - Instructed patient on importance of taking on an empty stomach either first thing in the morning or at bedtime. - continue current dose of Synthroid 0.100 mg 7. Mild intermittent asthma without complication - ICD9: 493.90, ICD10: J45.20 Mild intermittent Asthma stable - Continue current meds - Avoidance of triggers recommended 8. COPD, mild (HCC) - ICD9: 496, ICD10: J44.9 - As per #7 9. Coronary artery disease due to lipid rich plaque - ICD9: 414.00, 414.3, ICD10: I25.10, I25.83 - Clinically stable cont meds and cardio f/u 10. Atrial flutter, unspecified type (HCC) - ICD9: 427.32, ICD10: I48.92 Stable, cont detention anticoagulation - WARFARIN 5 MG TABLET 11. Gastroesophageal reflux disease without esophagitis - ICD9: 530.81, ICD10: K21.9 - Continue treatment with Prilosec 40 mg QD 12. Iron deficiency anemia secondary to inadequate dietary iron intake - ICD9: 280.1, ICD10: D50.8 - Cont hematology f/u 13. MGUS (monoclonal gammopathy of unknown significance) - ICD9: 273.1, ICD10: D47.2 - As per #12 14. Bilateral carotid artery disease, unspecified type (HCC) - ICD9: 447.9, ICD10: I77.9 - Clinically stable and monitored with US. Due 08/2017 15. Subclavian artery stenosis (HCC) - ICD9: 447.1, ICD10: I77.1 - No concerning symptoms, will monitor. 16. Morbid obesity due to excess calories (HCC) - ICD9: 278.01, ICD10: E66.01 - Patient to cont to work on diet 17. Phimosis - ICD9: 605, ICD10: N47.1 - Suspect this may be source behind his recurrent UTI's. Informed he may need a circumcision. 18. Balanitis - ICD9: 607.1, ICD10: N48.1 Will have him case picker lamasil cream and put on twice a day 19. Lipoma of torso - ICD9: 214.1, ICD10: D17.1 - Discussed benign nature and as long as it's not causing symptoms no need to remove. Patient concurred with plan. 20. History of recurrent UTIs - ICD9: V13.02, ICD10: Z87.440 - Will bee seeing , Maybe secondary to phimosis. 21. Intestinal malabsorption, unspecified type - ICD9: 579.9, ICD10: K90.9 - Will monitor for deficiencies and replace when needed. 22. H/O gastric bypass - ICD9: V45.86, ICD10: Z98.84 - As per #21 23. Vitamin D deficiency - ICD9: 268.9, ICD10: E55.9 - Cont Vit D replacement 24. Renal insufficiency - ICD9: 593.9, ICD10: N28.9 Recheck in 2 weeks - BASIC METABOLIC PNL Signed Prescriptions Disp Refills Omeprazole 40 mg capsule 90 capsule 1 Sig: Take 1 capsule by mouth once daily. JOHNNY: No warfarin (COUMADIN) 5 mg tablet 120 tablet 3 Si mg on Tu and 5mg Sat/Sat/Sat and 7.5mg Mon//Sat or as directed. JOHNNY: No chlorthalidone (HYGROTON) 25 mg tablet 90 tablet 1 Sig: Take 1 tablet by mouth once daily. JOHNNY: No insulin lispro (HUMALOG KWIKPEN) 100 unit/mL inpn 25 Pen 3 Si-16 units with breakfast and lunch and 20-24 units with dinner, Correction per sliding scale total up to 70 units daily JOHNNY: No insulin needles, DISPOSABLE, (EASY TOUCH) 31 gauge x 5/16 ndle 300 Each 4 Sig: USE 1 NEEDLE PER DOSE THREE TIMES A DAY JOHNNY: No F/u in 4 months routine check BMP, A1c and urine albumin prior. Time entering room was 1:42 PM and time leaving room was 2:25 PM (total face to face time was 43 min) MD Jonel Nix MD 04/03/2018 2:25 PM Signed Please get none fasting lab on 04/16/2018 when you come in for next INR please get none fasting lab and urine test on or after 07/25/2018 prior to next visit. Referring Provider: SELF [[id number]] Allergies As of Date: 04/03/2018 Noted Allergy Reaction PAMELLA INHIBITORS 07/18/2004 3 - Cough Comments: accupril ATORVASTATIN 07/18/2004 14 - Other: See Comments Comments: lipitor- muscle weakness, elevated LFT's CRESTOR (ROSUVASTATIN CALCIUM) 10/30/2016 17 - Myalgia INDOCIN (INDOMETHACIN SODIUM) 04/06/2005 8 - GI Upset NAPROXEN 07/18/2004 8 - GI Upset PRAVASTATIN 07/18/2004 14 - Other: See Comments Comments: pravachol- muscle weakness, elevated LFT's Date Reviewed: 04/03/2018 Reviewed by: Jonel Don - Fully Assessed Reason for Visit: Recheck [92] Cmt: 4 months Primary Visit Diagnosis:Type 2 diabetes mellitus with proteinuria (HCC) [E11.29, R80.9] Other Visit Diagnoses:Type 2 diabetes mellitus with diabetic neuropathy, with long-term current use of insulin (HCC) [E11.40, Z79.4] 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, macular edema presence unspecified ([facility]) [E11.3293] Diabetic eye exam ([facility]) [Z01.00, E11.9] Mixed hyperlipidemia [E78.2] Hypothyroidism (acquired) [E03.9] Mild intermittent asthma without complication [J45.20] COPD, mild (HCC) [J44.9] Coronary artery disease due to lipid rich plaque [I25.10, I25.83] Atrial flutter, unspecified type ([facility]) [I48.92] Gastroesophageal reflux disease without esophagitis [K21.9] Iron deficiency anemia secondary to inadequate dietary iron intake [D50.8] MGUS (monoclonal gammopathy of unknown significance) [D47.2] Bilateral carotid artery disease, unspecified type ([facility]) [I77.9] Subclavian artery stenosis (HCC) [I77.1] Morbid obesity due to excess calories ([facility]) [E66.01] Phimosis [N47.1] Balanitis [N48.1] Lipoma of torso [D17.1] Comment:left upper abdomen below rib joann History of recurrent UTIs [Z87.440] Intestinal malabsorption, unspecified type [K90.9] H/O gastric bypass [Z98.84] Vitamin D deficiency [E55.9] Renal insufficiency [N28.9] Order(s):INR (POC) [[id number]] Order #: [id number]. #:[id number] Omeprazole 40 mg capsuleTake 1 capsule by mouth once daily.Disp: 90 capsuleRfl: 1 warfarin (COUMADIN) 5 mg ujaral07 mg on and 5mg Sat/Sat/Sun and 7.5mg Sat//Sat or as directed.Disp: 120 tabletRfl: 3 chlorthalidone (HYGROTON) 25 mg tabletTake 1 tablet by mouth once daily.Disp: 90 tabletRfl: 1 insulin lispro (HUMALOG KWIKPEN) 100 unit/mL inpn14- 16 units with breakfast and lunch and 20-24 units with dinner, Correction per sliding scale total up to 70 units dailyDisp: 25 PenRfl: 3 insulin needles, DISPOSABLE, (EASY TOUCH) 31 gauge x 5/16 ndleUSE 1 NEEDLE PER DOSE THREE TIMES A DAYDisp: 300 EachRfl: 4 BASIC METABOLIC PNL [SQBMP] Order #: [id number] FUTURE ALBUMIN/CREAT RATIO RND UR [SQUACR] Order #: [id number] FUTURE BASIC METABOLIC PNL [SQBMP] Order #: [id number] FUTURE HGB A1C [RRLSA9L] Order #: [id number] FUTURE Prescriptions as of 04/03/2018 Sig: OMEPRAZOLE 40 MG CAPSULE,DEMARCO* Take 1 capsule by mouth once * WARFARIN 5 MG TABLET 10 mg on and 5mg Sat/* CHLORTHALIDONE 25 MG TABLET Take 1 tablet by mouth once d* INSULIN LISPRO (U-100) 100 UN* 14-16 units with breakfast an* PEN NEEDLE, DIABETIC 31 GAUGE* USE 1 NEEDLE PER DOSE THREE T* CPAP CPAP supplies/accessories: Ho* MUPIROCIN 2 % TOPICAL OINTMENT Apply 1 application to affect* BLOOD SUGAR DIAGNOSTIC STRIPS Check blood sugar twice daily. HYDROXYZINE HCL 25 MG TABLET Take 1 tablet by mouth every * METOPROLOL TARTRATE 25 MG TAB* Take 0.5 tablet after breakfa* WARFARIN 4 MG TABLET Take as directed per physician MOMETASONE-FORMOTEROL HFA 100* Inhale 2 Puffs as instructed * TAMSULOSIN 0.4 MG CAPSULE TAKE 1 CAPSULE ONCE DAILY INSULIN GLARGINE (U-100) 100 * Inject 50 Units subcutaneousl* MONTELUKAST 10 MG TABLET Take 1 tablet by mouth once d* RAMIPRIL 10 MG CAPSULE Take 1 capsule by mouth once * LEVOTHYROXINE 100 MCG TABLET Take 1 tablet by mouth once d* BETAMETHASONE DIPROPIONATE 0.* Apply 1 Tube to affected area* CLOPIDOGREL 75 MG TABLET Take 1 tablet by mouth once d* FLUTICASONE 50 MCG/ACTUATION * Use 2 Sprays in each nostril * ROSUVASTATIN 10 MG TABLET Take 1/2 a tab every day INSULIN SYRINGE-NEEDLE U-100 * 1 Each once daily. Dx: E11.29* ALBUTEROL SULFATE HFA 90 MCG/* Inhale 2 Puffs as instructed * ACETAMINOPHEN 500 MG TABLET Take 500 mg by mouth as neede* CHOLECALCIFEROL (VITAMIN D3) * Take 4,000 Units by mouth onc* DOCUSATE SODIUM 100 MG TABLET Take two tabs daily CYANOCOBALAMIN (VIT B-12) 500* Take 1 tablet by mouth once d* PSYLLIUM HUSK 0.4 GRAM CAPSULE Take 2 capsules by mouth once* FERROUS GLUCONATE 246 MG (27 * Take 1 tablet by mouth once d* * CALCIUM CARBONATE 600 MG CALC* Take 1 tablet by mouth twice * * ASCORBIC ACID (VITAMIN C) 500* Take 500 mg by mouth once albina* * TRIAMCINOLONE ACETONIDE 0.1 %* bid prn--not to face/axillae/* * MULTIVITAMIN TABLET Take one(1) tablet daily. More... Problem List As Of Date 04/03/2018 Noted Resolved Hypothyroidism (acquired) [E03.9] Priority: A Mixed hyperlipidemia [E78.2] Priority: A Allergic rhinitis, cause unspecified [J30.9] Priority: B Morbid Obesity [E66.01] 09/07/2009 More... Degeneration of lumbar or lumbosacral intervert* Priority: M More... Coronary artery disease due to lipid rich plaqu*INVALID FOR* Priority: A More... Mild intermittent asthma without complication [*INVALID FOR* Priority: A More... More... Hip joint replacement by other means [Z96.649] INVALID FOR*06/06/2016 Priority: M Personal history of other malignant neoplasm of*INVALID FOR* Priority: D More... Special Screening for Malignant Neoplasms, [place]*INVALID FOR*09/07/2009 Acute Gastritis without Mention of Hemorrhage [*INVALID FOR*09/07/2009 More... Urinary frequency [R35.0] INVALID FOR* Priority: C More... More... More... MGUS (monoclonal gammopathy of unknown signific*INVALID FOR* Priority: B More... Atrial flutter [I48.92] INVALID FOR* Priority: A More... THO (obstructive sleep apnea) [G47.33] INVALID FOR* Priority: B More... 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 AV block, 1st degree [I44.0] Priority: A Diabetic eye exam (HCC) [Z01.00, E11.9] INVALID FOR* Priority: A More... Type 2 diabetes mellitus with proteinuria (HCC)*INVALID FOR* Priority: A Gastroesophageal reflux disease without esophag*INVALID FOR* Priority: A Iron deficiency anemia secondary to inadequate *INVALID FOR* Priority: A More... Non-proliferative diabetic retinopathy, mild, b*INVALID FOR* Priority: A Bilateral carotid artery disease (HCC) [I77.9] INVALID FOR* Priority: A More... Corns and callus [L84] INVALID FOR* Priority: D Morbid obesity due to excess calories (HCC) [E6*INVALID FOR* Priority: B More... Well adult exam [Z00.00] INVALID FOR* Priority: E More... Ex-smoker [Z87.891] INVALID FOR* Priority: C More... Colon cancer screening [Z12.11] INVALID FOR* Type 2 diabetes mellitus with diabetic neuropat*INVALID FOR* Priority: A H/O gastric bypass [Z98.84] INVALID FOR* Priority: A Malabsorption syndrome [K90.9] INVALID FOR* Priority: A More... Iron malabsorption [K90.9] INVALID FOR* Priority: B Disorder of prostate [N42.9] INVALID FOR* Hypertension goal BP (blood pressure) < 140/80 *INVALID FOR* Priority: A Medicare annual wellness visit, subsequent [Z00*INVALID FOR* Priority: E More... Current use of proton pump inhibitor [Z79.899] INVALID FOR* Albuminuria [R80.9] INVALID FOR* Priority: A Subclavian artery stenosis (HCC) [I77.1] INVALID FOR* Priority: A More... 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 Phimosis [N47.1] INVALID FOR* History of recurrent UTIs [Z87.440] INVALID FOR* Other instructions from your clinician: Please get none fasting lab on 04/16/2018 when you come in for next INR please get none fasting lab and urine test on or after 07/25/2018 prior to next visit. Prescriptions ordered this encounter Disp Refills Start End OMEPRAZOLE 40 MG CAPSULE,DELAYED REL* 90 c* 1 04/03/2018 Class: Print RX Route: ORAL Sig: Take 1 capsule by mouth once daily. WARFARIN 5 MG TABLET 120 * 3 04/03/2018 Class: Print RX Si mg on Tues and 5mg Wed/Sat/Sun and 7.5mg Mon//Sat or as directed. CHLORTHALIDONE 25 MG TABLET 90 t* 1 04/03/2018 Class: Print RX Route: ORAL Sig: Take 1 tablet by mouth once daily. INSULIN LISPRO (U-100) 100 UNIT/ML S* 25 P* 3 04/03/2018 Class: Print RX Si-16 units with breakfast and lunch and 20-24 units with dinner, Correction per sliding scale total up to 70 units daily PEN NEEDLE, DIABETIC 31 GAUGE X 5/16 300 * 4 04/03/2018 Class: Print RX Sig: USE 1 NEEDLE PER DOSE THREE TIMES A DAY Medications Discontinued During This Encounter Omeprazole 40 mg capsule 90 c* 1 12/04/2017 04/03/2018 Class: [facility] Route: ORAL Sig: Take 1 capsule by mouth once daily. Disc: Reason for discontinue is not on file. warfarin (COUMADIN) 5 mg tablet 120 * 3 03/19/2017 04/03/2018 Class: Print RX Si mg on Tues and 5mg Wed/Sat/Sun and 7.5mg Mon//Sat or as directed. Disc: Reason for discontinue is not on file. chlorthalidone (HYGROTON) 25 mg tabl* 90 t* 1 11/26/2017 04/03/2018 Route: ORAL Sig: Take 1 tablet by mouth once daily. Disc: Reason for discontinue is not on file. Insulin Lispro, Human, (HUMALOG KWIK* 25 P* 3 03/19/2017 04/03/2018 Class: Print RX Si-16 units with breakfast and lunch and 20-24 units with dinner, Correction per sliding scale total up to 70 units daily Disc: Reason for discontinue is not on file. EASY TOUCH 31 gauge x 5/16 ndle 300 * 4 12/11/2016 04/03/2018 Sig: USE 1 NEEDLE PER DOSE THREE TIMES A DAY Disc: Reason for discontinue is not on file. Disposition: Return in about 4 months (around 08/04/2018) for routine. Follow-up and Disposition History Recorded Encounter Status:Closed by JONEL DON on 04/03/18 ALBUMIN/CREAT RATIO Collected: 04/01/2018 Status: F Source: [place] 8:17 AM [facility] REPOSITORY TYPE CODE TESTS RESULT OUT OF REFERENCE UNITS RANGE LAB UCRR 20-300 mg/dL Creatinine,Ur 82.6 ine,Ran LAB UALBR 0.0-23.0 mg/L High Albumin Urine 244.4 Random LAB UALBCR 0-30 mg/g High Albumin/Creat 296 Ratio Result Comment: 30 to 300 mg/g indicates an increased risk for diabetic nephropathy. Greater than 300 mg/g is consistent with clinical nephropathy. (Am J Kidney Disease 1995, 25:107) Performed By: #### UACR #### [facility] [address] [place] [address] RUSS ABS GR + CBC Collected: 04/01/2018 Status: F Source: [place] 8:08 AM [facility] REPOSITORY TYPE CODE TESTS RESULT OUT OF REFERENCE UNITS RANGE LAB WWBC 3.70-11.00 k/uL [place] WBC 4.97 LAB WRBC 4.20-6.00 m/uL Low [place] RBC 3.49 LAB WHGB 13.0-17.0 g/dL Low [place] Hemoglobin 11.0 LAB WHCT 39.0-51.0 % Low [place] Hematocrit 34.1 LAB WMCV 80.0-100.0 fL [place] MCV 97.7 LAB WMCH 26.0-34.0 pg [place] MCH 31.5 LAB WMCHC 30.5-36.0 g/dL [place] MCHC 32.3 LAB WRDW 11.5-15.0 % [place] RDW 14.1 LAB WPLT 150-400 k/uL [place] Platelet Cnt 184 LAB WMPV 9.0-12.7 fL [place] MPV 9.6 Result Comment: Test performed at: [facility], [address] [place] [address]. LAB ABGRAN 1.45-7.50 k/uL Absol Gran 3.01 Count IRON AND TIBC Collected: 04/01/2018 Status: F Source: [place] 8:07 AM [facility] REPOSITORY TYPE CODE TESTS RESULT OUT OF REFERENCE UNITS RANGE LAB IRN 41-186 ug/dL Iron 79 LAB TIBC 232-386 ug/dL TIBC 248 LAB SAT 15-57 % Transferrin Saturatn 32 Performed By: #### IRON, MG1, CMP, LIPB, TSH, FERR, B12, SERFOL, HBA1C, VITD, ZINC, NUZHAT #### [facility] [address] [place], [place] [address] MAGNESIUM Collected: 04/01/2018 Status: F Source: [place] 8:07 AM [facility] REPOSITORY TYPE CODE TESTS RESULT OUT OF REFERENCE UNITS RANGE LAB MG 1.7-2.3 mg/dL High Magnesium 2.5 Performed By: #### IRON, MG1, CMP, LIPB, TSH, FERR, B12, SERFOL, HBA1C, VITD, ZINC, NUZHAT #### [facility] [address] [place], [place] [address] COMP METABOLIC PANEL Collected: 04/01/2018 Status: F Source: [place] 8:07 AM [facility] REPOSITORY TYPE CODE TESTS RESULT OUT OF REFERENCE UNITS RANGE LAB TP 6.3-8.0 g/dL Protein, Total 6.9 LAB ALB 3.9-4.9 g/dL Low Albumin 3.8 LAB CA 8.5-10.2 mg/dL Calcium, Total 8.8 LAB TBIL 0.2-1.3 mg/dL Bilirubin, Total 0.3 LAB ALKP 38-113 U/L Alkaline Phosphatase 67 LAB AST 14-40 U/L AST 26 LAB GLU 74-99 mg/dL Glucose 95 Result Comment: The [place] Diabetes Association (ADA) provides guidance for cutoff values for fasting glucose and random glucose. The ADA defines fasting as no caloric intake for at least 8 hours. Fas ting plasma glucose results between 100 to 125 mg/dL indicate increased risk for diabetes (prediabetes). Fasting plasma glucose results greater than or equal to 126 mg/dL meet the criteria for diagnosis of diabetes. In the absence of unequivocal hyperglycemia, results should be confirmed by repeat testing. In a patient with classic symptoms of hyperglycemia or hyperglycemic crisis, random plasma glucose results greater than or equal to 200 mg/dL meet the criteria for diagnosis of diabetes. Reference: Standards of Medical Care in Diabetes 2016, [place] [employer]. Diabetes Care. 2016.39(Suppl 1). LAB BUN 9-24 mg/dL BUN High 50 LAB CRET 0.73-1.22 mg/dL Creatinine High 1.62 LAB NA 136-144 mmol/L Sodium 144 LAB K 3.7-5.1 mmol/L Potassium 4.8 LAB CL 97-105 mmol/L Chloride High 111 LAB CO2 22-30 mmol/L Low CO2 19 LAB AGAP 9-18 mmol/L Anion Gap 14 LAB ALT 10-54 U/L ALT 15 LAB GFRAA eGFR- Amer. 51 LAB GFRNAA . eGFR-All Other Races 42 Result Comment: eGFR (Estimated GFR) Units of measure: mL/min/1.73 meters squared eGFR is derived from the reexpressed MDRD Study equation using the following parameters: serum creatinine, age, gender and race. The creatinine assay has been calibrated to be traceable to IDMS. An eGFR <60 mL/min/1.73m2 for >3 months is consistent with chronic kidney disease. Refer to KDOQI guidelines for clinical interpretation. In patients with unstable renal function, e.g. those with acute kidney injury, the eGFR may not accurately reflect actual GFR. Performed By: #### IRON, MG1, CMP, LIPB, TSH, FERR, B12, SERFOL, HBA1C, VITD, ZINC, NUZHAT #### [facility] [address] [place] [address] LIPID PANEL, BASIC Collected: 04/01/2018 Status: F Source: [place] 8:07 AM [facility] REPOSITORY TYPE CODE TESTS RESULT OUT OF REFERENCE UNITS RANGE LAB CHOL <200 mg/dL Cholesterol 144 Result Comment: <200 mg/dL, Desirable 200-239 mg/dL, Borderline high >239 mg/dL, High LAB TRIGLY <150 mg/dL Triglyceride 88 Result Comment: <150 mg/dL, Normal 150-199 mg/dL, Borderline high 200-499 mg/dL, High >499 mg/dL, Very high LAB HDL >39 mg/dL HDL-Cholesterol Low 36 Result Comment: 40-59 mg/dL, Acceptable >59 mg/dL, High: Negative risk factor for coronary heart disease <40 mg/dL, Low: Positive risk factor for coronary heart disease LAB LDL <100 mg/dL LDL-Cholesterol 90 Result Comment: <100 mg/dL, Optimal 100-129 mg/dL, Near optimal/above optimal 130-159 mg/dL, Borderline high 160-189 mg/dL, High >189 mg/dL, Very high Secondary prevention optimal LDL Cholesterol levels are recommended to be < 70 mg/dL LAB NONHDL <130 mg/dL Non HDL Cholesterol 108 Result Comment: <130 mg/dL, Optimal 130-159 mg/dL, Near optimal/above optimal 160-189 mg/dL, Borderline high 190-219 mg/dL, High >219 mg/dL, Very high Secondary prevention optimal non HDL Cholesterol levels are recommended to be < 100 mg/dL LAB FT hrs Fasting Time 12 LAB VLDL <30 mg/dL VLDL Cholesterol 18 LAB TCHDL <5.10 TC:HDL Ratio 4.00 LAB LDLHDL <2.54 LDL:HDL Ratio 2.50 Result Comment: Reference: 1. National Cholesterol Education Program ATP III Guideline At-A-Glance Quick Desk Reference: National Heart, Lung, and Blood Atco. National Institutes of Health. 2001: NIH Publication No. 01-3305. 2. An International Atherosclerosis Society position paper: global recommendations for the management of dyslipidemia: executive summary, Atherosclerosis. 2014: 232(2):410-413. Performed By: #### IRON, MG1, CMP, LIPB, TSH, FERR, B12, SERFOL, HBA1C, VITD, ZINC, NUZHAT #### [facility] [employer] [address] [place] [address] TSH Collected: 04/01/2018 Status: F Source: [place] 8:07 AM [facility] REPOSITORY TYPE CODE TESTS RESULT OUT OF RANGE REFERENCE UNITS LAB TSH 0.400-5.500 uU/mL TSH 1.220 Performed By: #### IRON, MG1, CMP, LIPB, TSH, FERR, B12, SERFOL, HBA1C, VITD, ZINC, NUZHAT #### [facility] [employer] [address] [place] [address] FERRITIN Collected: 04/01/2018 Status: F Source: [place] 8:07 AM [facility] REPOSITORY TYPE CODE TESTS RESULT OUT OF REFERENCE UNITS RANGE LAB FERR 30.3-565.7 ng/mL Ferritin 319.8 Performed By: #### IRON, MG1, CMP, LIPB, TSH, FERR, B12, SERFOL, HBA1C, VITD, ZINC, NUZHAT #### [facility] [employer] [address] [place] [address] VITAMIN B12 Collected: 04/01/2018 Status: F Source: [place] 8:07 [facility] REPOSITORY TYPE CODE TESTS RESULT OUT OF REFERENCE UNITS RANGE LAB B12 232-1245 pg/mL High Vitamin B12 1734 Performed By: #### IRON, MG1, CMP, LIPB, TSH, FERR, B12, SERFOL, HBA1C, VITD, ZINC, NUZHAT #### [facility] [address] [place] [address] FOLATE, SERUM Collected: 04/01/2018 Status: F Source: [place] 8:07 [facility] REPOSITORY TYPE CODE TESTS RESULT OUT OF REFERENCE UNITS RANGE LAB SERFOL >4.7 ng/mL Folate, >20.0 Serum Result Comment: A result of > 20 ng/mL is not necessarily indicative of a pathologic or treatable condition: it reflects a limitation of the test methodology. Assay reference range: 4.8 to 24.2 ng/mL. Suitable for detection of folate deficiency. Reference: Folate III (Folate III) [package insert V 1.0 Chinese]. [facility], [place], [place]: May 2015. Performed By: #### IRON, MG1, CMP, LIPB, TSH, FERR, B12, SERFOL, HBA1C, VITD, ZINC, NUZHAT #### [facility] [address] [place] [address] HEMOGLOBIN A1C Collected: 04/01/2018 Status: F Source: [place] [address] [place] [address] REPOSITORY TYPE CODE TESTS RESULT OUT OF REFERENCE UNITS RANGE LAB HGBA1C 4.3-5.6 % High Hemoglobin A1c 6.3 LAB HBA0 mg/dL Est. Average Glucose 134 Result Comment: eAG: (Estimated average glucose) is a calculated value from HgbA1c and is home furnishings sales representative of the average blood glucose level in the last 2-3 month period. Performed By: #### IRON, MG1, CMP, LIPB, TSH, FERR, B12, SERFOL, HBA1C, VITD, ZINC, NUZHAT #### [facility] [employer] [address] [place] [id number] VITAMIN D 25 HYDROXY Collected: 04/01/2018 Status: F Source: [place] 8:07 [facility] REPOSITORY TYPE CODE TESTS RESULT OUT OF REFERENCE UNITS RANGE LAB VITD 31.0-80.0 ng/mL Vitamin D 25 58.8 Hydroxy Result Comment: Classification of 25 [place] Vitamin D status: Insufficiency/Moderate Deficiency: < or = 30 ng/mL Sufficiency/Optimal Levels: 31 to 80 ng/mL Toxicity: > 100 ng/mL Test performed by chemiluminescent immunoassay. Performed By: #### IRON, MG1, CMP, LIPB, TSH, FERR, B12, SERFOL, HBA1C, VITD, ZINC, NUZHAT #### [facility] [address] [place] [address] ZINC Collected: 04/01/2018 Status: F Source: [place] [address] [place] [address] REPOSITORY TYPE CODE TESTS RESULT OUT OF RANGE REFERENCE UNITS LAB ZINC 55-150 ug/dL Zinc 62 Result Comment: This test was developed and its performance characteristics determined by [facility] ([facility]). It has not been cleared or approved by the FDA. -[facility] is regulated under CLIA as qualified to perform high-complexity testing. This test is used for clinical purposes. It should not be regarded as investigational or for research. Performed By: #### IRON, MG1, CMP, LIPB, TSH, FERR, B12, SERFOL, HBA1C, VITD, ZINC, NUZHAT #### [facility] [address] [place] [id number] VITAMIN A Collected: 04/01/2018 Status: F Source: [place] [address] [place] [address] REPOSITORY TYPE CODE TESTS RESULT OUT OF REFERENCE UNITS RANGE LAB NUZHAT 0.30-1.20 mg/L Vitamin A 0.68 Result Comment: This test was developed and its performance characteristics determined by [facility] ([facility]). It has not been cleared or approved by the FDA. -[facility] is regulated under CLIA as qualified to perform high-complexity testing. This test is used for clinical purposes. It should not be regarded as investigational or for research. Performed By: #### IRON, MG1, CMP, LIPB, TSH, FERR, B12, SERFOL, HBA1C, VITD, ZINC, NUZHAT #### [facility] [address] [place] [id number] PROGRESS Observed: 03/31/2018 Status: COMPLETED Source: [place] 4:55 PM [facility] REPOSITORY HNO ID: [id number] Author: Jonel Don Service: (none) Author Type: Physician Type: Progress Notes Filed: 04/01/2018 8:33 AM Note Text: This note was created using [employer]. Subjective Kip Guaman is a 72 year old male. Review of Systems Objective There were no vitals taken for this visit. Physical Exam Assessment and Plan Agree with plan. PROGRESS Observed: 03/31/2018 Status: COMPLETED Source: [place] 3:51 PM [facility] REPOSITORY HNO ID: [id number] Author: Erin Awan RN Service: (none) Author Type: (none) Type: Progress Notes Filed: 03/31/2018 3:54 PM Note Text: patient had inr completed at [facility] patients inr is 2.2 (patients inr range is 2.0-3.0) patient is currently taking 4mg ,,Sun and 7.5mg all other days patients last dose change was on 03/06/18 due to a high level of 4.3 (dose at that time was 4mg Sat and 7.5mg all other days) patient has had a change in medication as pt is back on keflex and will be finished Saturday, and no missed doses and no change in diet Advised patient to continue on the same dose(s) and that they would only be contacted regarding dosage and follow up instructions after review with provider, if a change is needed. Written instructions given and patient verbalized understanding. Presently scheduled in 4 days (04/03/18) for follow up INR as this appt was previously scheduled but will be off the antibiotic at this check and also has appt with pcp Observed: 03/26/2018 Status: F Source: [place] URINE CULTURE 10:50 AM [facility] REPOSITORY Sp. Request/Comment: - Specimen received in preservative Culture Result - >=100,000 CFU/ml Escherichia coli --> ABNORMAL ALERT ORGANISM: Escherichia coli METHOD: Minimum inhibitory concentration (VIZION) Antibiotic Interp IGNACIO Status Ampicillin INTERMEDIATE 16 F Gentamicin SUSCEPTIBLE <=2 F Trimeth sulfameth RESISTANT >4 F Cefazolin SUSCEPTIBLE 2 F CLSI breakpoints for therapy of uncomplicated UTI's due to E.coli, K.pneumoniae, and P.mirabilis were applied and may be used to predict the activity of oral agents(cefaclor, cefdinir, cefpodoxime, cefp rozil, cefuroxime, cephalexin, loracarbef). Ciprofloxacin SUSCEPTIBLE 1 F Nitrofurantoin SUSCEPTIBLE <=32 F Cefepime SUSCEPTIBLE <=2 F Piperacillin/Tazobac SUSCEPTIBLE <=8 F Ampicillin Sulbact SUSCEPTIBLE <=4 F Ceftriaxone SUSCEPTIBLE <=0.5 F Meropenem SUSCEPTIBLE <=0.5 F Ertapenem SUSCEPTIBLE <=0.25 F Performed By: #### URCUL #### [facility] [address] [place], [place] [address] PROGRESS Observed: 03/26/2018 Status: COMPLETED Source: [place] 10:38 AM [facility] REPOSITORY HNO ID: [id number] Author: Javid Harding Service: (none) Author Type: Physician Type: Progress Notes Filed: 03/26/2018 10:59 AM Note Text: Patient presents with: UTI: off and on for a while HPI: Symptoms on and off for months. Dysuria: Yes Frequency: Yes Hematuria: No Nausea: no Fever or chills: feverish last night Back pain: No Abdominal pain: No Prior UTI: Yes PAST MEDICAL HISTORY Diagnosis Date - Acute gastritis without mention of hemorrhage - Allergic rhinitis, cause unspecified - Atrial fibrillation or flutter - AV block, 1st degree - Background diabetic retinopathy(362.01) - CAD (coronary artery disease) - Contact dermatitis - COPD, mild ([facility]) 08/14/2017 - Degeneration of lumbar or lumbosacral intervertebral disc Spondylolisthesis of L5-S1 - Diabetes mellitus, type 2 (HCC) retinopathy, neuropathy, nephropathy - Esophagitis, unspecified - Generalized osteoarthrosis, unspecified site - GERD (gastroesophageal reflux disease) - Hip joint replacement by other means 12/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 Do - COLONOSCOP W/ OR W/O BRSH SPEC 11/03/08 repeat due 2018 - ECHO 08/2000 - EGD W/O BRSH SPECIMEN W/BX 11/03/08 - EGD W/O OR W/BRUSH/WASH 05/14/16 EGD [facility] - LAP. GASTRECT W/ JARAD-EN-Y 09/10/11 [facility] - PAST SURGICAL HISTORY OF left hip surgery post-replacement for infection - PAST SURGICAL HISTORY OF heart cath - REMV CATARACT EXTRACAP,INSERT LENS Cataract Removal - TOTAL HIP REPLACEMENT bilateral MEDICATIONS: Current Outpatient Prescriptions: CPAP CPAP supplies/accessories: Hoses, mask, and filters mupirocin (BACTROBAN) 2 % ointment Apply 1 application to affected area three times daily. Location: leg blood sugar diagnostic (EASY TOUCH TEST STRIP) test strip Check blood sugar twice daily. hydrOXYzine HCl (ATARAX) 25 mg tablet Take 1 tablet by mouth every 6 hours as needed for Itching/Rash. metoprolol tartrate, short acting, (LOPRESSOR) 25 mg tablet Take 0.5 tablet after breakfast and one tablet after supper Omeprazole 40 mg capsule Take 1 capsule by mouth once daily. chlorthalidone (HYGROTON) 25 mg tablet Take 1 tablet by mouth once daily. warfarin (COUMADIN) 4 mg tablet Take as directed per physician mometasone-formoterol (DULERA) 100-5 mcg/actuation inhaler Inhale 2 Puffs as instructed twice daily. Rinse mouth after use. tamsulosin ER (FLOMAX) 0.4 mg cp24 TAKE 1 CAPSULE ONCE DAILY insulin glargine (LANTUS) 100 unit/mL injection Inject 50 Units subcutaneously once daily. If sugars slightly low take 45 units once daily instead of 47. montelukast (SINGULAIR) 10 mg tablet Take 1 tablet by mouth once daily. ramipril (ALTACE) 10 mg capsule Take 1 capsule by mouth once daily. levothyroxine (SYNTHROID) 100 mcg tablet Take 1 tablet by mouth once daily. betamethasone dipropionate 0.05 % ointment Apply 1 Tube to affected area as needed (for hand dermatitis). clopidogrel (PLAVIX) 75 mg tablet Take 1 tablet by mouth once daily. fluticasone (FLONASE) 50 mcg/actuation nasal spray Use 2 Sprays in each nostril once daily. rosuvastatin (CRESTOR) 10 mg tablet Take 1/2 a tab every day warfarin (COUMADIN) 5 mg tablet 10 mg on and 5mg Sat/Sat/Sat and 7.5mg Sat//Sat or as directed. Insulin Lispro, Human, (HUMALOG KWIKPEN) 100 unit/mL inpn 14-16 units with breakfast and lunch and 20-24 units with dinner, Correction per sliding scale total up to 70 units daily Insulin Syringe-Needle U-100 (BD INSULIN SYRINGE MF) 1/2 mL 28 gauge x 1/2 syrg 1 Each once daily. Dx: E11.29 Insulin: yes EASY TOUCH 31 gauge x 5/16 ndle USE 1 NEEDLE PER DOSE THREE TIMES A DAY albuterol HFA (PROAIR HFA) 90 mcg/actuation inhaler Inhale 2 Puffs as instructed every 4 hours as needed. acetaminophen (TYLENOL EXTRA STRENGTH) 500 mg tablet Take 500 mg by mouth as needed. Cholecalciferol, Vitamin D3, 2,000 unit cap Take 4,000 Units by mouth once daily. Docusate Sodium 100 mg tab Take two tabs daily cyanocobalamin (VITAMIN B-12) 500 mcg tab Take 1 tablet by mouth once daily. psyllium husk 0.4 gram cap Take 2 capsules by mouth once daily. Ferrous Gluconate 246 mg (27 mg iron) Tab Take 1 tablet by mouth once daily. calcium carbonate (CALTRATE 600) 600 mg (1,500 mg) Tab Take 1 tablet by mouth twice daily. Ascorbic Acid (VITAMIN C) Chew Take 500 mg by mouth once daily. TRIAMCINOLONE ACETONIDE 0.1 % TOPICAL CREAM bid prn--not to face/axillae/groin MULTIVITAMIN TABLET Take one(1) tablet daily. No current facility-administered medications for this visit. ALLERGIES: ALLERGIES Allergen Reactions - Pamella Inhibitors Cough accupril - Atorvastatin Other: See Comments lipitor- muscle weakness, elevated LFT's - Crestor [Rosuvastat* Myalgia - Indocin [Indomethac* GI Upset - Naproxen GI Upset - Pravastatin Other: See Comments pravachol- muscle weakness, elevated LFT's VITALS: BP 184/64 Pulse 68 Temp 37.4 ?C (99.4 ?F) (Tympanic) Resp 16 Wt 128.5 kg (283 lb 3.2 oz) BMI 42.19 kg/m? PHYSICAL EXAM: GEN: NAD HEENT: EOMI, conjunctiva clear, moist mucous membranes HEART: regular rate and rhythm, no murmurs LUNGS: clear to auscultation, no wheezes or crackles, no increased WOB ABDOMEN: Soft, nondistended, no masses, no suprapubic tenderness BACK: No CVA tenderness ASSESSMENT/PLAN: 1. Dysuria - ICD9: 788.1, ICD10: R30.0 (primary diagnosis) recurrent - UA positive for bree esterase, hematuria, proteinuria and nitrates - URINE CULTURE - CEPHALEXIN 500 MG CAPSULE INR check as scheduled next week. BP check as scheduled with PCP next week. 2. Urinary tract infection with hematuria, site unspecified - ICD9: 599.0, 599.70, ICD10: N39.0, R31.9 Recurrent UTI. Admits to hesitancy and incomplete emptying. On flomax. F/u with - CONSULT TO UROLOGY Javid Harding MD CNOV Observed: 03/26/2018 Status: COMPLETED Source: [place] 10:30 AM [facility] REPOSITORY Office Visit (WSTR) KIP GUAAMN ([id number]) 1945 M Date Time Provider Department 03/26/18 10:30 AM JAVID HARDING WSTR During your visit today, we recorded the following information about you: Temperature Pulse Respiration Blood pressure 99.4 degrees 68/minute 16/minute 184/64 Weight 128.5 kg Javid Harding MD 03/26/2018 10:59 AM Signed Patient presents with: UTI: off and on for a while HPI: Symptoms on and off for months. Dysuria: Yes Frequency: Yes Hematuria: No Nausea: no Fever or chills: feverish last night Back pain: No Abdominal pain: No Prior UTI: Yes PAST MEDICAL HISTORY Diagnosis Date - Acute gastritis without mention of hemorrhage - Allergic rhinitis, cause unspecified - Atrial fibrillation or flutter - AV block, 1st degree - Background diabetic retinopathy(362.01) - CAD (coronary artery disease) - Contact dermatitis - COPD, mild ([facility]) 08/14/2017 - Degeneration of lumbar or lumbosacral intervertebral disc Spondylolisthesis of L5-S1 - Diabetes mellitus, type 2 (HCC) retinopathy, neuropathy, nephropathy - Esophagitis, unspecified - Generalized osteoarthrosis, unspecified site - GERD (gastroesophageal reflux disease) - 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 Do - COLONOSCOP W/ OR W/O [facility] SPEC 11/03/08 repeat due 2018 - ECHO 08/2000 - EGD W/O BRSH SPECIMEN W/BX 11/03/08 - EGD W/O OR W/BRUSH/WASH 05/14/16 EGD [facility] - LAP. GASTRECT W/ JARAD-EN-Y 3/12/12 [facility] - PAST SURGICAL HISTORY OF left hip surgery post-replacement for infection - PAST SURGICAL HISTORY OF heart cath - REMV CATARACT EXTRACAP,INSERT LENS Cataract Removal - TOTAL HIP REPLACEMENT bilateral MEDICATIONS: Current Outpatient Prescriptions: CPAP CPAP supplies/accessories: Hoses, mask, and filters mupirocin (BACTROBAN) 2 % ointment Apply 1 application to affected area three times daily. Location: leg blood sugar diagnostic (EASY TOUCH TEST STRIP) test strip Check blood sugar twice daily. hydrOXYzine HCl (ATARAX) 25 mg tablet Take 1 tablet by mouth every 6 hours as needed for Itching/Rash. metoprolol tartrate, short acting, (LOPRESSOR) 25 mg tablet Take 0.5 tablet after breakfast and one tablet after supper Omeprazole 40 mg capsule Take 1 capsule by mouth once daily. chlorthalidone (HYGROTON) 25 mg tablet Take 1 tablet by mouth once daily. warfarin (COUMADIN) 4 mg tablet Take as directed per physician mometasone-formoterol (DULERA) 100-5 mcg/actuation inhaler Inhale 2 Puffs as instructed twice daily. Rinse mouth after use. tamsulosin ER (FLOMAX) 0.4 mg cp24 TAKE 1 CAPSULE ONCE DAILY insulin glargine (LANTUS) 100 unit/mL injection Inject 50 Units subcutaneously once daily. If sugars slightly low take 45 units once daily instead of 47. montelukast (SINGULAIR) 10 mg tablet Take 1 tablet by mouth once daily. ramipril (ALTACE) 10 mg capsule Take 1 capsule by mouth once daily. levothyroxine (SYNTHROID) 100 mcg tablet Take 1 tablet by mouth once daily. betamethasone dipropionate 0.05 % ointment Apply 1 Tube to affected area as needed (for hand dermatitis). clopidogrel (PLAVIX) 75 mg tablet Take 1 tablet by mouth once daily. fluticasone (FLONASE) 50 mcg/actuation nasal spray Use 2 Sprays in each nostril once daily. rosuvastatin (CRESTOR) 10 mg tablet Take 1/2 a tab every day warfarin (COUMADIN) 5 mg tablet 10 mg on Tu and 5mg Sat/Sat/Sun and 7.5mg Mon//Sat or as directed. Insulin Lispro, Human, (HUMALOG KWIKPEN) 100 unit/mL inpn 14-16 units with breakfast and lunch and 20-24 units with dinner, Correction per sliding scale total up to 70 units daily Insulin Syringe-Needle U-100 (BD INSULIN SYRINGE MF) 1/2 mL 28 gauge x 1/2 syrg 1 Each once daily. Dx: E11.29 Insulin: yes EASY TOUCH 31 gauge x 5/16 ndle USE 1 NEEDLE PER DOSE THREE TIMES A DAY albuterol HFA (PROAIR HFA) 90 mcg/actuation inhaler Inhale 2 Puffs as instructed every 4 hours as needed. acetaminophen (TYLENOL EXTRA STRENGTH) 500 mg tablet Take 500 mg by mouth as needed. Cholecalciferol, Vitamin D3, 2,000 unit cap Take 4,000 Units by mouth once daily. Docusate Sodium 100 mg tab Take two tabs daily cyanocobalamin (VITAMIN B-12) 500 mcg tab Take 1 tablet by mouth once daily. psyllium husk 0.4 gram cap Take 2 capsules by mouth once daily. Ferrous Gluconate 246 mg (27 mg iron) Tab Take 1 tablet by mouth once daily. calcium carbonate (CALTRATE 600) 600 mg (1,500 mg) Tab Take 1 tablet by mouth twice daily. Ascorbic Acid (VITAMIN C) Chew Take 500 mg by mouth once daily. TRIAMCINOLONE ACETONIDE 0.1 % TOPICAL CREAM bid prn--not to face/axillae/groin MULTIVITAMIN TABLET Take one(1) tablet daily. No current facility-administered medications for this visit. ALLERGIES: ALLERGIES Allergen Reactions - Pamella Inhibitors Cough accupril - Atorvastatin Other: See Comments lipitor- muscle weakness, elevated LFT's - Crestor [Rosuvastat* Myalgia - Indocin [Indomethac* GI Upset - Naproxen GI Upset - Pravastatin Other: See Comments pravachol- muscle weakness, elevated LFT's VITALS: BP 184/64 Pulse 68 Temp 37.4 ?C (99.4 ?F) (Tympanic) Resp 16 Wt 128.5 kg (283 lb 3.2 oz) BMI 42.19 kg/m? PHYSICAL EXAM: GEN: NAD HEENT: EOMI, conjunctiva clear, moist mucous membranes HEART: regular rate and rhythm, no murmurs LUNGS: clear to auscultation, no wheezes or crackles, no increased WOB ABDOMEN: Soft, nondistended, no masses, no suprapubic tenderness BACK: No CVA tenderness ASSESSMENT/PLAN: 1. Dysuria - ICD9: 788.1, ICD10: R30.0 (primary diagnosis) recurrent - UA positive for bree esterase, hematuria, proteinuria and nitrates - URINE CULTURE - CEPHALEXIN 500 MG CAPSULE INR check as scheduled next week. BP check as scheduled with PCP next week. 2. Urinary tract infection with hematuria, site unspecified - ICD9: 599.0, 599.70, ICD10: N39.0, R31.9 Recurrent UTI. Admits to hesitancy and incomplete emptying. On flomax. F/u with - CONSULT TO UROLOGY Javid Harding MD Referring Provider: SELF [[id number]] Allergies As of Date: 03/26/2018 Noted Allergy Reaction PAMELLA INHIBITORS 07/18/2004 3 - Cough Comments: accupril ATORVASTATIN 07/18/2004 14 - Other: See Comments Comments: lipitor- muscle weakness, elevated LFT's CRESTOR (ROSUVASTATIN CALCIUM) 10/30/2016 17 - Myalgia INDOCIN (INDOMETHACIN SODIUM) 04/06/2005 8 - GI Upset NAPROXEN 07/18/2004 8 - GI Upset PRAVASTATIN 07/18/2004 14 - Other: See Comments Comments: pravachol- muscle weakness, elevated LFT's Date Reviewed: 03/26/2018 Reviewed by: Alva White LPN - Fully Assessed Reason for Visit: UTI [116] Cmt: off and on for a while Reason For Visit History Recorded Primary Visit Diagnosis:Dysuria [R30.0] Other Visit Diagnosis:Urinary tract infection with hematuria, site unspecified [N39.0, R31.9] Order(s):URINE CULTURE [SQURCUL] Order #: [id number] UA DIP, URINE (POC) [[id number]] Order #: [id number]. #:[id number] cephALEXin (KEFLEX) 500 mg capsuleTake 1 capsule by mouth twice daily for 7 days.Disp: 14 capsuleRfl: 0 CONSULT TO UROLOGY [9041] Order #: [id number]: 1 Prescriptions as of 03/26/2018 Sig: CPAP CPAP supplies/accessories: Ho* MUPIROCIN 2 % TOPICAL OINTMENT Apply 1 application to affect* BLOOD SUGAR DIAGNOSTIC STRIPS Check blood sugar twice daily. HYDROXYZINE HCL 25 MG TABLET Take 1 tablet by mouth every * METOPROLOL TARTRATE 25 MG TAB* Take 0.5 tablet after breakfa* OMEPRAZOLE 40 MG CAPSULE,DEMARCO* Take 1 capsule by mouth once * CHLORTHALIDONE 25 MG TABLET Take 1 tablet by mouth once d* WARFARIN 4 MG TABLET Take as directed per physician MOMETASONE-FORMOTEROL HFA 100* Inhale 2 Puffs as instructed * TAMSULOSIN 0.4 MG CAPSULE TAKE 1 CAPSULE ONCE DAILY INSULIN GLARGINE (U-100) 100 * Inject 50 Units subcutaneousl* MONTELUKAST 10 MG TABLET Take 1 tablet by mouth once d* RAMIPRIL 10 MG CAPSULE Take 1 capsule by mouth once * LEVOTHYROXINE 100 MCG TABLET Take 1 tablet by mouth once d* BETAMETHASONE DIPROPIONATE 0.* Apply 1 Tube to affected area* CLOPIDOGREL 75 MG TABLET Take 1 tablet by mouth once d* FLUTICASONE 50 MCG/ACTUATION * Use 2 Sprays in each nostril * ROSUVASTATIN 10 MG TABLET Take 1/2 a tab every day WARFARIN 5 MG TABLET 10 mg on and 5mg Sat/* INSULIN LISPRO (U-100) 100 UN* 14-16 units with breakfast an* INSULIN SYRINGE-NEEDLE U-100 * 1 Each once daily. Dx: E11.29* EASY TOUCH 31 GAUGE X 5/16 N* USE 1 NEEDLE PER DOSE THREE T* ALBUTEROL SULFATE HFA 90 MCG/* Inhale 2 Puffs as instructed * ACETAMINOPHEN 500 MG TABLET Take 500 mg by mouth as neede* CHOLECALCIFEROL (VITAMIN D3) * Take 4,000 Units by mouth onc* DOCUSATE SODIUM 100 MG TABLET Take two tabs daily CYANOCOBALAMIN (VIT B-12) 500* Take 1 tablet by mouth once d* PSYLLIUM HUSK 0.4 GRAM CAPSULE Take 2 capsules by mouth once* FERROUS GLUCONATE 246 MG (27 * Take 1 tablet by mouth once d* * CALCIUM CARBONATE 600 MG CALC* Take 1 tablet by mouth twice * * ASCORBIC ACID (VITAMIN C) 500* Take 500 mg by mouth once albina* * TRIAMCINOLONE ACETONIDE 0.1 %* bid prn--not to face/axillae/* * MULTIVITAMIN TABLET Take one(1) tablet daily. CEPHALEXIN 500 MG CAPSULE Take 1 capsule by mouth twice* More... Problem List As Of Date 03/26/2018 Noted Resolved Hypothyroidism (acquired) [E03.9] Priority: A Mixed hyperlipidemia [E78.2] Priority: A Allergic rhinitis, cause unspecified [J30.9] Priority: B Morbid Obesity [E66.01] 09/07/2009 More... Degeneration of lumbar or lumbosacral intervert* Priority: M More... Coronary artery disease due to lipid rich plaqu*INVALID FOR* Priority: A More... Mild intermittent asthma without complication [*INVALID FOR* Priority: A More... More... Hip joint replacement by other means [Z96.649] INVALID FOR*06/06/2016 Priority: M Personal history of other malignant neoplasm of*INVALID FOR* Priority: D More... Special Screening for Malignant Neoplasms, [place]*INVALID FOR*09/07/2009 Acute Gastritis without Mention of Hemorrhage [*INVALID FOR*09/07/2009 More... Urinary frequency [R35.0] INVALID FOR* Priority: C More... More... More... MGUS (monoclonal gammopathy of unknown signific*INVALID FOR* Priority: B More... Atrial flutter [I48.92] INVALID FOR* Priority: A More... THO (obstructive sleep apnea) [G47.33] INVALID FOR* Priority: B More... 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 AV block, 1st degree [I44.0] Priority: A Diabetic eye exam (HCC) [Z01.00, E11.9] INVALID FOR* Priority: A More... Type 2 diabetes mellitus with proteinuria (HCC)*INVALID FOR* Priority: A Gastroesophageal reflux disease without esophag*INVALID FOR* Priority: A Iron deficiency anemia secondary to inadequate *INVALID FOR* Priority: A More... Non-proliferative diabetic retinopathy, mild, b*INVALID FOR* Priority: A Bilateral carotid artery disease (HCC) [I77.9] INVALID FOR* Priority: A More... Corns and callus [L84] INVALID FOR* Priority: D Morbid obesity due to excess calories (HCC) [E6*INVALID FOR* Priority: B More... Well adult exam [Z00.00] INVALID FOR* Priority: E More... Ex-smoker [Z87.891] INVALID FOR* Priority: C More... Colon cancer screening [Z12.11] INVALID FOR* Type 2 diabetes mellitus with diabetic neuropat*INVALID FOR* Priority: A H/O gastric bypass [Z98.84] INVALID FOR* Priority: A Malabsorption syndrome [K90.9] INVALID FOR* Priority: A More... Iron malabsorption [K90.9] INVALID FOR* Priority: B Disorder of prostate [N42.9] INVALID FOR* Hypertension goal BP (blood pressure) < 140/80 *INVALID FOR* Priority: A Medicare annual wellness visit, subsequent [Z00*INVALID FOR* Priority: E More... Current use of proton pump inhibitor [Z79.899] INVALID FOR* Albuminuria [R80.9] INVALID FOR* Priority: A Abnormal carotid duplex scan [R94.39] INVALID FOR* Subclavian artery stenosis (HCC) [I77.1] INVALID FOR* Priority: A More... COPD, mild (HCC) [J44.9] INVALID FOR* Priority: A Prescriptions ordered this encounter Disp Refills Start End CEPHALEXIN 500 MG CAPSULE 14 c* 0 03/26/2018 04/02/2018 Route: ORAL Sig: Take 1 capsule by mouth twice daily for 7 days. Encounter Status:Closed by JAVID HARDING MD on 03/26/18 PROGRESS Observed: 03/17/2018 Status: COMPLETED Source: [place] 1:25 PM [facility] REPOSITORY HNO ID: [id number] Author: Jonel Don Service: (none) Author Type: Physician Type: Progress Notes Filed: 03/17/2018 3:06 PM Note Text: This note was created using Zar[employer]. Subjective Kip Guaman is a 72 year old male. Review of Systems Objective There were no vitals taken for this visit. Physical Exam Assessment and Plan Have patient continue coumadin 4 mg Thur, Sun and take 7.5 mg all other days. Agree with repeat INR in 2 weeks. PROGRESS Observed: 03/17/2018 Status: COMPLETED Source: [place] 11:21 AM [facility] REPOSITORY HNO ID: [id number] Author: Erin Awan RN Service: (none) Author Type: (none) Type: Progress Notes Filed: 03/17/2018 11:22 AM Note Text: patient had inr completed at [facility] patients inr is 2.2 (patients inr range is 2.0-3.0) patient is currently taking 7.5mg Sat,Sat,Sat and 4mg all other days patients last dose change was on 03/06/18 due to a high level of 4.3 (dose at that time was 4mg Sat and 7.5mg all other days) patient has had a change in medication as pt completed antibiotic , and no missed doses and no change in diet Advised patient to continue on the same dose(s) and that they would only be contacted regarding dosage and follow up instructions after review with provider, if a change is needed. Written instructions given and patient verbalized understanding. Presently scheduled in 2 weeks (04/03/18 - appt with pcp also this day) for follow up INR. PROGRESS Observed: 03/12/2018 Status: COMPLETED Source: [place] 11:17 AM [facility] REPOSITORY HNO ID: [id number] Author: Whitney Arias RN Service: (none) Author Type: (none) Type: Progress Notes Filed: 03/12/2018 11:21 AM Note Text: Left detailed message with instructions below and asked patient to call back if any questions and nurse scheduled INR for 03/17/18 at 9:15 am. Whitney Arias RN PROGRESS Observed: 03/12/2018 Status: COMPLETED Source: [place] 9:52 AM [facility] REPOSITORY HNO ID: [id number] Author: Jonel Don Service: (none) Author Type: Physician Type: Progress Notes Filed: 03/12/2018 11:21 AM Note Text: This note was created using [employer]. Subjective Kip Guaman is a 72 year old male. Review of Systems Objective There were no vitals taken for this visit. Physical Exam Assessment and Plan Have patient take 7.5 mg of coumadin , Fri, Sat and 4 mg Thur,Sun. Recheck INR on Saturday03/17/2018 PROGRESS Observed: 03/12/2018 Status: COMPLETED Source: [place] 8:27 AM [facility] REPOSITORY HNO ID: [id number] Author: Whitney Arias RN Service: (none) Author Type: (none) Type: Progress Notes Filed: 03/12/2018 11:21 AM Note Text: INR 2.0-results reviewed with patient. Current Coumadin dose is 03/06 hold dose, / 2 mg, /8 4 mg, 03/09 7.5 mg, / 7.5 mg and 9/11 4 mg with last dose change on as above (03/06)and previous dose of 4 mg Sat and 7.5 mg all other days, with INR of 4.3 Last INR on 03/10/18 was 1.8 and previous INR on 03/07 was 3.1. Patient finishes his TID Cephalexin tomorrow. Advised patient would be contacted regarding dosage and followup instructions after review by provider. Written instructions given and patient verbalized understanding. Whitney Arias RN PROGRESS Observed: 03/10/2018 Status: COMPLETED Source: [place] 12:56 PM [facility] REPOSITORY HNO ID: [id number] Author: Whitney Arias RN Service: (none) Author Type: (none) Type: Progress Notes Filed: 03/10/2018 12:58 PM Note Text: Patient told this nurse that detailed message could be left on voicemail. Left message with instructions and scheduled in coumadin clinic for this at 9:15 am and advised patient he could arrive earlier if needed. Whitney Arias RN PROGRESS Observed: 03/10/2018 Status: COMPLETED Source: [place] 12:36 PM [facility] REPOSITORY HNO ID: [id number] Author: Edilson Barger LPN Service: (none) Author Type: (none) Type: Progress Notes Filed: 03/10/2018 12:58 PM Note Text: Message left for patient to call office. Please schedule f/u on 03/12/18. PROGRESS Observed: 03/10/2018 Status: COMPLETED Source: [place] 12:33 PM [facility] REPOSITORY HNO ID: [id number] Author: Jonel Don Service: (none) Author Type: Physician Type: Progress Notes Filed: 03/10/2018 12:58 PM Note Text: This note was created using Zarporiter. Subjective Kip Guaman is a 72 year old male. Review of Systems Objective There were no vitals taken for this visit. Physical Exam Assessment and Plan Have patient take 7.5 mg of coumadin today and 4 mg Darleen. Get INR on Sat03/12/2018 PROGRESS Observed: 03/10/2018 Status: COMPLETED Source: [place] 8:59 AM [facility] REPOSITORY HNO ID: [id number] Author: Whitney Arias RN Service: (none) Author Type: (none) Type: Progress Notes Filed: 03/10/2018 12:58 PM Note Text: INR 1.8-results reviewed with patient. Current Coumadin dose is hold 03/06 and then 2 mg Fri, 4 mg Sat, 7.5 mg Sun (still 4 more days of Ceftin 500 mg, three times a day. with last dose change as above and previous dose of 4 mg Sat and 7.5 mg all other days. Last INR on 03/07/18 was 3.1, previous INR on 03/06/18 was 4.3. Has 5 mg tablets. Advised patient would be contacted regarding dosage and followup instructions after review by provider. Written instructions given and patient verbalized understanding. Whitney Arias RN PROTIME Collected: 03/07/2018 Status: F Source: [place] 9:12 AM [facility] REPOSITORY TYPE CODE TESTS RESULT OUT OF REFERENCE UNITS RANGE LAB PSEC 9.7-13.0 sec Test PT sent to [facility]. Result Comment: Account Credited LAB INR 0.9-1.3 Test sent to PT INR [facility]. Result Comment: Account Credited PROTHROMBIN TIME W/INR Collected: 03/07/2018 Status: F Source: [place] 9:10 AM [facility] [place] TYPE CODE TESTS RESULT OUT OF RANGE REFERENCE UNITS LAB L300.4150 11.7-14.9 SECONDS High PROTIME 31.9 LAB L300.4200 Normal INR 3.1 Performed By: #### L300.3900 #### [facility] [address] [place], [address] PROGRESS Observed: 03/06/2018 Status: COMPLETED Source: [place] 4:15 PM [facility] REPOSITORY HNO ID: [id number] Author: Anita Mckinney Ma Service: (none) Author Type: (none) Type: Progress Notes Filed: 03/06/2018 4:17 PM Note Text: Spoke to patient on cell advised pcp message and he declined due to [place]. Patient is nto happy about having labs sent to [facility] due to billing gets messed up. I again advised to patient cc clinic closed so blood draw is only other available. Patient advised he heard me the first time and will do that Anita Mckinney Ma PROGRESS Observed: 03/06/2018 Status: COMPLETED Source: [place] 2:[address] [facility] REPOSITORY HNO ID: [id number] Author: Jonel Don Service: (none) Author Type: Physician Type: Progress Notes Filed: 03/06/2018 4:17 PM Note Text: Let patient know if he prefers not to have his blood go to [facility] the next best thing would be to go to [facility] which is a [facility] lab and have it drawn there. PROGRESS Observed: 03/06/2018 Status: COMPLETED Source: [place] 2:24 PM [facility] REPOSITORY HNO ID: [id number] Author: Anita Mckinney Ma Service: (none) Author Type: (none) Type: Progress Notes Filed: 03/06/2018 4:17 PM Note Text: Patient was left detailed message to call office back. Please advise patient coumadin clinic closed tomorrow so will need blood draw and sent to [facility]. Tracker updated Anita Mckinney Ma PROGRESS Observed: 03/06/2018 Status: COMPLETED Source: [place] 2:05 PM [facility] REPOSITORY HNO ID: [id number] Author: Jonel Don Service: (none) Author Type: Physician Type: Progress Notes Filed: 03/06/2018 4:17 PM Note Text: This note was created using Zarporiter. Subjective Kip Guaman is a 72 year old male. Review of Systems Objective There were no vitals taken for this visit. Physical Exam Assessment and Plan Hold coumadin today and get INR tomorrow. PROGRESS Observed: 03/06/2018 Status: COMPLETED Source: [place] 12:[address] [facility] REPOSITORY HNO ID: [id number] Author: Erin Awan RN Service: (none) Author Type: (none) Type: Progress Notes Filed: 03/06/2018 12:05 PM Note Text: patient had inr completed at [facility] patients inr is 4.3 (patients inr range is 2.0-3.0) patient is currently taking 4mg Sat and 7.5mg all other days patients last dose change was on 02/13/18 due to a low level of 1.4 (dose at that time was 7.5mg Mon,Tues and 4mg all other days) patient has had a change in medication as he ws started on keflex on by UC, and no missed doses and no change in diet FYI - pt has been instructed to hold coumadin until contacted Advised patient that they would be contacted regarding medication dose and when to follow up after information is reviewed by provider. After provider review please contact the patient with information and schedule follow up appointment with coumadin clinic. FYI - if patient is needing to have an inr checked next week patient will need to be advised that this will need to be through the lab as that coumadin clinic will be closed next week PROGRESS Observed: 03/06/2018 Status: COMPLETED Source: [place] 8:[address] [facility] REPOSITORY HNO ID: [id number] Author: Mikayla Peralta Service: (none) Author Type: Physician Cyber Security Administrator Type: Progress Notes Filed: 03/06/2018 9:00 AM Note Text: 03/06/2018 Patient presents with: Wound Check: Patient is here for left leg wound check SUBJECTIVE: This is a 72 year old that is here today for UC Follow Up.. Patient had a wound that wasn't healing and started to show signs of infection. Initially blistered but has since broken open. Went to express care and was given keflex and antibiotic cream to apply to the area. Is changing dressings 3 times a day. Patient does report that symptoms have improved some. No pain. No drainage PAST MEDICAL HISTORY Diagnosis Date - Acute gastritis without mention of hemorrhage - Allergic rhinitis, cause unspecified - Atrial fibrillation or flutter - AV block, 1st degree - Background diabetic retinopathy(362.01) - CAD (coronary artery disease) - Contact dermatitis - COPD, mild (HCC) 08/14/2017 - Degeneration of lumbar or lumbosacral intervertebral disc Spondylolisthesis of L5-S1 - Diabetes mellitus, type 2 (HCC) retinopathy, neuropathy, nephropathy - Esophagitis, unspecified - Generalized osteoarthrosis, unspecified site - GERD (gastroesophageal reflux disease) - Hip joint replacement by other means 12/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 - Surgical wound infection Dr Adams, chronic PNC - Type II or unspecified type diabetes mellitus without mention of complication, not stated as uncontrolled ALLERGIES Pamella Inhibitors; Atorvastatin; Crestor [Rosuvastatin Calcium]; Indocin [Indomethacin Sodium]; Naproxen; Pravastatin MEDICATIONS Current Outpatient Prescriptions: mupirocin (BACTROBAN) 2 % ointment Apply 1 application to affected area three times daily. Location: leg cephALEXin (KEFLEX) 500 mg capsule Take 1 capsule by mouth three times daily for 10 days. blood sugar diagnostic (EASY TOUCH TEST STRIP) test strip Check blood sugar twice daily. hydrOXYzine HCl (ATARAX) 25 mg tablet Take 1 tablet by mouth every 6 hours as needed for Itching/Rash. metoprolol tartrate, short acting, (LOPRESSOR) 25 mg tablet Take 0.5 tablet after breakfast and one tablet after supper Omeprazole 40 mg capsule Take 1 capsule by mouth once daily. chlorthalidone (HYGROTON) 25 mg tablet Take 1 tablet by mouth once daily. warfarin (COUMADIN) 4 mg tablet Take as directed per physician mometasone-formoterol (DULERA) 100-5 mcg/actuation inhaler Inhale 2 Puffs as instructed twice daily. Rinse mouth after use. tamsulosin ER (FLOMAX) 0.4 mg cp24 TAKE 1 CAPSULE ONCE DAILY insulin glargine (LANTUS) 100 unit/mL injection Inject 50 Units subcutaneously once daily. If sugars slightly low take 45 units once daily instead of 47. montelukast (SINGULAIR) 10 mg tablet Take 1 tablet by mouth once daily. ramipril (ALTACE) 10 mg capsule Take 1 capsule by mouth once daily. levothyroxine (SYNTHROID) 100 mcg tablet Take 1 tablet by mouth once daily. betamethasone dipropionate 0.05 % ointment Apply 1 Tube to affected area as needed (for hand dermatitis). clopidogrel (PLAVIX) 75 mg tablet Take 1 tablet by mouth once daily. fluticasone (FLONASE) 50 mcg/actuation nasal spray Use 2 Sprays in each nostril once daily. Insulin Lispro, Human, (HUMALOG KWIKPEN) 100 unit/mL inpn 14-16 units with breakfast and lunch and 20-24 units with dinner, Correction per sliding scale total up to 70 units daily Insulin Syringe-Needle U-100 (BD INSULIN SYRINGE MF) 1/2 mL 28 gauge x 1/2 syrg 1 Each once daily. Dx: E11.29 Insulin: yes EASY TOUCH 31 gauge x 5/16 ndle USE 1 NEEDLE PER DOSE THREE TIMES A DAY albuterol HFA (PROAIR HFA) 90 mcg/actuation inhaler Inhale 2 Puffs as instructed every 4 hours as needed. acetaminophen (TYLENOL EXTRA STRENGTH) 500 mg tablet Take 500 mg by mouth as needed. Cholecalciferol, Vitamin D3, 2,000 unit cap Take 4,000 Units by mouth once daily. Docusate Sodium 100 mg tab Take two tabs daily cyanocobalamin (VITAMIN B-12) 500 mcg tab Take 1 tablet by mouth once daily. psyllium husk 0.4 gram cap Take 2 capsules by mouth once daily. Ferrous Gluconate 246 mg (27 mg iron) Tab Take 1 tablet by mouth once daily. calcium carbonate (CALTRATE 600) 600 mg (1,500 mg) Tab Take 1 tablet by mouth twice daily. Ascorbic Acid (VITAMIN C) Chew Take 500 mg by mouth once daily. TRIAMCINOLONE ACETONIDE 0.1 % TOPICAL CREAM bid prn--not to face/axillae/groin MULTIVITAMIN TABLET Take one(1) tablet daily. rosuvastatin (CRESTOR) 10 mg tablet Take 1/2 a tab every day warfarin (COUMADIN) 5 mg tablet 10 mg on and 5mg Sat/Sat/Sun and 7.5mg Sat//Sat or as directed. No current facility-administered medications for this visit. 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 OBJECTIVE: BP 128/68 (BP Site: Right Arm, BP Position: Sitting) Pulse (!) 50 Resp 12 Wt 130.6 kg (288 lb) BMI 42.90 kg/m? APPEARANCE Well appearing, alert, in no acute distress, well-hydrated, well nourished. obese EXTREMITIES B/L pitting edema with venous dermatitis noted. Broken blister of anterior aspect of left lower leg with open wound noted. No significant surrounding erythema or swelling. No purulent drainage. ASSESSMENT/PLAN: 1. Blister of left lower leg, subsequent encounter - ICD9: V58.89, ICD10: S80.822D (primary diagnosis) Continue with keflex and wound care as discussed. Return if symptoms worsen or if not healed in 2 weeks. 2. Wound of left lower extremity, subsequent encounter - ICD9: V58.89, 894.0, ICD10: S81.802D See above 3. THO (obstructive sleep apnea) - ICD9: 327.23, ICD10: G47.33 CPAP supplies ordered - CPAP supplies Keep f/u as scheduled in March however patient is to return to office if not healed in 2 weeks or if symptoms worsen. Discussed possible red flags and when to seek medical attention. KARLOS VIERAOV Observed: 03/06/2018 Status: COMPLETED Source: [place] 8:20 AM [facility] REPOSITORY Office Visit (FAMPWS) KIP GUAMAN ([id number]) 1945 M Date Time Provider Department 03/06/18 8:20 AM RADHA PERALTA) FAMPWS During your visit today, we recorded the following information about you: Pulse Respiration Blood pressure Weight 50/minute 12/minute 128/68 130.6 kg JULIAN PERALTA PA-C 03/06/2018 9:00 AM Signed 03/06/2018 Patient presents with: Wound Check: Patient is here for left leg wound check SUBJECTIVE: This is a 72 year old that is here today for UC Follow Up.. Patient had a wound that wasn't healing and started to show signs of infection. Initially blistered but has since broken open. Went to express care and was given keflex and antibiotic cream to apply to the area. Is changing dressings 3 times a day. Patient does report that symptoms have improved some. No pain. No drainage PAST MEDICAL HISTORY Diagnosis Date - Acute gastritis without mention of hemorrhage - Allergic rhinitis, cause unspecified - Atrial fibrillation or flutter - AV block, 1st degree - Background diabetic retinopathy(362.01) - CAD (coronary artery disease) - Contact dermatitis - COPD, mild ([facility]) 08/14/2017 - Degeneration of lumbar or lumbosacral intervertebral disc Spondylolisthesis of L5-S1 - Diabetes mellitus, type 2 (HCC) retinopathy, neuropathy, nephropathy - Esophagitis, unspecified - Generalized osteoarthrosis, unspecified site - GERD (gastroesophageal reflux disease) - 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 - Surgical wound infection Dr Adams, chronic PNC - Type II or unspecified type diabetes mellitus without mention of complication, not stated as uncontrolled ALLERGIES Pamella Inhibitors; Atorvastatin; Crestor [Rosuvastatin Calcium]; Indocin [Indomethacin Sodium]; Naproxen; Pravastatin MEDICATIONS Current Outpatient Prescriptions: mupirocin (BACTROBAN) 2 % ointment Apply 1 application to affected area three times daily. Location: leg cephALEXin (KEFLEX) 500 mg capsule Take 1 capsule by mouth three times daily for 10 days. blood sugar diagnostic (EASY TOUCH TEST STRIP) test strip Check blood sugar twice daily. hydrOXYzine HCl (ATARAX) 25 mg tablet Take 1 tablet by mouth every 6 hours as needed for Itching/Rash. metoprolol tartrate, short acting, (LOPRESSOR) 25 mg tablet Take 0.5 tablet after breakfast and one tablet after supper Omeprazole 40 mg capsule Take 1 capsule by mouth once daily. chlorthalidone (HYGROTON) 25 mg tablet Take 1 tablet by mouth once daily. warfarin (COUMADIN) 4 mg tablet Take as directed per physician mometasone-formoterol (DULERA) 100-5 mcg/actuation inhaler Inhale 2 Puffs as instructed twice daily. Rinse mouth after use. tamsulosin ER (FLOMAX) 0.4 mg cp24 TAKE 1 CAPSULE ONCE DAILY insulin glargine (LANTUS) 100 unit/mL injection Inject 50 Units subcutaneously once daily. If sugars slightly low take 45 units once daily instead of 47. montelukast (SINGULAIR) 10 mg tablet Take 1 tablet by mouth once daily. ramipril (ALTACE) 10 mg capsule Take 1 capsule by mouth once daily. levothyroxine (SYNTHROID) 100 mcg tablet Take 1 tablet by mouth once daily. betamethasone dipropionate 0.05 % ointment Apply 1 Tube to affected area as needed (for hand dermatitis). clopidogrel (PLAVIX) 75 mg tablet Take 1 tablet by mouth once daily. fluticasone (FLONASE) 50 mcg/actuation nasal spray Use 2 Sprays in each nostril once daily. Insulin Lispro, Human, (HUMALOG KWIKPEN) 100 unit/mL inpn 14-16 units with breakfast and lunch and 20-24 units with dinner, Correction per sliding scale total up to 70 units daily Insulin Syringe-Needle U-100 (BD INSULIN SYRINGE MF) 1/2 mL 28 gauge x 1/2 syrg 1 Each once daily. Dx: E11.29 Insulin: yes EASY TOUCH 31 gauge x 5/16 ndle USE 1 NEEDLE PER DOSE THREE TIMES A DAY albuterol HFA (PROAIR HFA) 90 mcg/actuation inhaler Inhale 2 Puffs as instructed every 4 hours as needed. acetaminophen (TYLENOL EXTRA STRENGTH) 500 mg tablet Take 500 mg by mouth as needed. Cholecalciferol, Vitamin D3, 2,000 unit cap Take 4,000 Units by mouth once daily. Docusate Sodium 100 mg tab Take two tabs daily cyanocobalamin (VITAMIN B-12) 500 mcg tab Take 1 tablet by mouth once daily. psyllium husk 0.4 gram cap Take 2 capsules by mouth once daily. Ferrous Gluconate 246 mg (27 mg iron) Tab Take 1 tablet by mouth once daily. calcium carbonate (CALTRATE 600) 600 mg (1,500 mg) Tab Take 1 tablet by mouth twice daily. Ascorbic Acid (VITAMIN C) Chew Take 500 mg by mouth once daily. TRIAMCINOLONE ACETONIDE 0.1 % TOPICAL CREAM bid prn--not to face/axillae/groin MULTIVITAMIN TABLET Take one(1) tablet daily. rosuvastatin (CRESTOR) 10 mg tablet Take 1/2 a tab every day warfarin (COUMADIN) 5 mg tablet 10 mg on and 5mg Sat/Sat/Sat and 7.5mg Sat//Sat or as directed. No current facility-administered medications for this visit. 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 OBJECTIVE: BP 128/68 (BP Site: Right Arm, BP Position: Sitting) Pulse (!) 50 Resp 12 Wt 130.6 kg (288 lb) BMI 42.90 kg/m? APPEARANCE Well appearing, alert, in no acute distress, well- hydrated, well nourished. obese EXTREMITIES B/L pitting edema with venous dermatitis noted. Broken blister of anterior aspect of left lower leg with open wound noted. No significant surrounding erythema or swelling. No purulent drainage. ASSESSMENT/PLAN: 1. Blister of left lower leg, subsequent encounter - ICD9: V58.89, ICD10: S80.822D (primary diagnosis) Continue with keflex and wound care as discussed. Return if symptoms worsen or if not healed in 2 weeks. 2. Wound of left lower extremity, subsequent encounter - ICD9: V58.89, 894.0, ICD10: S81.802D See above 3. THO (obstructive sleep apnea) - ICD9: 327.23, ICD10: G47.33 CPAP supplies ordered - CPAP supplies Keep f/u as scheduled in March however patient is to return to office if not healed in 2 weeks or if symptoms worsen. Discussed possible red flags and when to seek medical attention. JULIAN PERALTA PA-C Referring Provider: SELF [[id number]] Allergies As of Date: 03/06/2018 Noted Allergy Reaction PAMELLA INHIBITORS 07/18/2004 3 - Cough Comments: accupril ATORVASTATIN 07/18/2004 14 - Other: See Comments Comments: lipitor- muscle weakness, elevated LFT's CRESTOR (ROSUVASTATIN CALCIUM) 10/30/2016 17 - Myalgia INDOCIN (INDOMETHACIN SODIUM) 04/06/2005 8 - GI Upset NAPROXEN 07/18/2004 8 - GI Upset PRAVASTATIN 07/18/2004 14 - Other: See Comments Comments: pravachol- muscle weakness, elevated LFT's Date Reviewed: 03/06/2018 Reviewed by: Barbara Tellez Ma - Fully Assessed Reason for Visit: Wound Check [133] Cmt: Patient is here for left leg wound check Primary Visit Diagnosis:Blister of left lower leg, subsequent encounter [S80.822D] Other Visit Diagnoses:Wound of left lower extremity, subsequent encounter [S81.802D] THO (obstructive sleep apnea) [G47.33] Order(s):CPAPCPAP supplies/accessories: Hoses, mask, and filtersDisp: 1 DeviceRfl: 0 Prescriptions as of 03/06/2018 Sig: MUPIROCIN 2 % TOPICAL OINTMENT Apply 1 application to affect* CEPHALEXIN 500 MG CAPSULE Take 1 capsule by mouth three* BLOOD SUGAR DIAGNOSTIC STRIPS Check blood sugar twice daily. HYDROXYZINE HCL 25 MG TABLET Take 1 tablet by mouth every * METOPROLOL TARTRATE 25 MG TAB* Take 0.5 tablet after breakfa* OMEPRAZOLE 40 MG CAPSULE,DEMARCO* Take 1 capsule by mouth once * CHLORTHALIDONE 25 MG TABLET Take 1 tablet by mouth once d* WARFARIN 4 MG TABLET Take as directed per physician MOMETASONE-FORMOTEROL HFA 100* Inhale 2 Puffs as instructed * TAMSULOSIN 0.4 MG CAPSULE TAKE 1 CAPSULE ONCE DAILY INSULIN GLARGINE (U-100) 100 * Inject 50 Units subcutaneousl* MONTELUKAST 10 MG TABLET Take 1 tablet by mouth once d* RAMIPRIL 10 MG CAPSULE Take 1 capsule by mouth once * LEVOTHYROXINE 100 MCG TABLET Take 1 tablet by mouth once d* BETAMETHASONE DIPROPIONATE 0.* Apply 1 Tube to affected area* CLOPIDOGREL 75 MG TABLET Take 1 tablet by mouth once d* FLUTICASONE 50 MCG/ACTUATION * Use 2 Sprays in each nostril * INSULIN LISPRO (U-100) 100 UN* 14-16 units with breakfast an* INSULIN SYRINGE-NEEDLE U-100 * 1 Each once daily. Dx: E11.29* EASY TOUCH 31 GAUGE X 5/16 N* USE 1 NEEDLE PER DOSE THREE T* ALBUTEROL SULFATE HFA 90 MCG/* Inhale 2 Puffs as instructed * ACETAMINOPHEN 500 MG TABLET Take 500 mg by mouth as neede* CHOLECALCIFEROL (VITAMIN D3) * Take 4,000 Units by mouth onc* DOCUSATE SODIUM 100 MG TABLET Take two tabs daily CYANOCOBALAMIN (VIT B-12) 500* Take 1 tablet by mouth once d* PSYLLIUM HUSK 0.4 GRAM CAPSULE Take 2 capsules by mouth once* FERROUS GLUCONATE 246 MG (27 * Take 1 tablet by mouth once d* * CALCIUM CARBONATE 600 MG CALC* Take 1 tablet by mouth twice * * ASCORBIC ACID (VITAMIN C) 500* Take 500 mg by mouth once albina* * TRIAMCINOLONE ACETONIDE 0.1 %* bid prn--not to face/axillae/* * MULTIVITAMIN TABLET Take one(1) tablet daily. CPAP CPAP supplies/accessories: Ho* ROSUVASTATIN 10 MG TABLET Take 1/2 a tab every day WARFARIN 5 MG TABLET 10 mg on and 5mg Sat/* More... Problem List As Of Date 03/06/2018 Noted Resolved Hypothyroidism (acquired) [E03.9] Priority: A Mixed hyperlipidemia [E78.2] Priority: A Allergic rhinitis, cause unspecified [J30.9] Priority: B Morbid Obesity [E66.01] 09/07/2009 More... Degeneration of lumbar or lumbosacral intervert* Priority: M More... Coronary artery disease due to lipid rich plaqu*INVALID FOR* Priority: A More... Mild intermittent asthma without complication [*INVALID FOR* Priority: A More... More... Hip joint replacement by other means [Z96.649] INVALID FOR*06/06/2016 Priority: M Personal history of other malignant neoplasm of*INVALID FOR* Priority: D More... Special Screening for Malignant Neoplasms, [place]*INVALID FOR*09/07/2009 Acute Gastritis without Mention of Hemorrhage [*INVALID FOR*09/07/2009 More... Urinary frequency [R35.0] INVALID FOR* Priority: C More... More... More... MGUS (monoclonal gammopathy of unknown signific*INVALID FOR* Priority: B More... Atrial flutter [I48.92] INVALID FOR* Priority: A More... THO (obstructive sleep apnea) [G47.33] INVALID FOR* Priority: B More... 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 AV block, 1st degree [I44.0] Priority: A Diabetic eye exam (HCC) [Z01.00, E11.9] INVALID FOR* Priority: A More... Type 2 diabetes mellitus with proteinuria (HCC)*INVALID FOR* Priority: A Gastroesophageal reflux disease without esophag*INVALID FOR* Priority: A Iron deficiency anemia secondary to inadequate *INVALID FOR* Priority: A More... Non-proliferative diabetic retinopathy, mild, b*INVALID FOR* Priority: A Bilateral carotid artery disease (HCC) [I77.9] INVALID FOR* Priority: A More... Corns and callus [L84] INVALID FOR* Priority: D Morbid obesity due to excess calories (HCC) [E6*INVALID FOR* Priority: B More... Well adult exam [Z00.00] INVALID FOR* Priority: E More... Ex-smoker [Z87.891] INVALID FOR* Priority: C More... Colon cancer screening [Z12.11] INVALID FOR* Type 2 diabetes mellitus with diabetic neuropat*INVALID FOR* Priority: A H/O gastric bypass [Z98.84] INVALID FOR* Priority: A Malabsorption syndrome [K90.9] INVALID FOR* Priority: A More... Iron malabsorption [K90.9] INVALID FOR* Priority: B Disorder of prostate [N42.9] INVALID FOR* Hypertension goal BP (blood pressure) < 140/80 *INVALID FOR* Priority: A Medicare annual wellness visit, subsequent [Z00*INVALID FOR* Priority: E More... Current use of proton pump inhibitor [Z79.899] INVALID FOR* Albuminuria [R80.9] INVALID FOR* Priority: A Abnormal carotid duplex scan [R94.39] INVALID FOR* Subclavian artery stenosis (HCC) [I77.1] INVALID FOR* Priority: A More... COPD, mild (HCC) [J44.9] INVALID FOR* Priority: A Prescriptions ordered this encounter Disp Refills Start End CPAP 1 De* 0 03/06/2018 Class: Print RX Sig: CPAP supplies/accessories: Hoses, mask, and filters Encounter Status:Closed by JULIAN DEJESUS on 03/06/18 PROGRESS Observed: 03/04/2018 Status: COMPLETED Source: [place] 9:00 AM [facility] REPOSITORY O ID: [id number] Author: Malika Flanagan) Ron Service: (none) Author Type: Nurse Practitioner Type: Progress Notes Filed: 03/04/2018 9:48 AM Note Text: Subjective The history is provided by the patient. No biblical languages professor was used. HPI Kip Guaman is a 72 year old male who presents today for CC of blistered lesion on lower left leg Onset/Duration: 2 days ago, and is turning red Alleviating/Treatment: Bacitracin ointment and bandage Aggravating: None known Risk factors: T2D, HTN, venous insufficiency BP 110/64 Pulse (!) 56 Temp 37.1 ?C (98.8 ?F) (Tympanic) Resp 16 Wt 129.7 kg (286 lb) BMI 42.60 kg/m? ALLERGIES Allergen Reactions - Pamella Inhibitors Cough accupril - Atorvastatin Other: See Comments lipitor- muscle weakness, elevated LFT's - Crestor [Rosuvastat* Myalgia - Indocin [Indomethac* GI Upset - Naproxen GI Upset - Pravastatin Other: See Comments pravachol- muscle weakness, elevated LFT's ACTIVE PROBLEM LIST Hypothyroidism (Acquired) Mixed Hyperlipidemia Allergic rhinitis, cause unspecified Degeneration of lumbar or lumbosacral intervertebral disc Coronary Artery Disease Due to Lipid Rich Plaque Mild Intermittent Asthma Without Complication Personal history of other malignant neoplasm of skin Urinary Frequency Mgus (Monoclonal Gammopathy of Unknown Significance) Atrial flutter Tho (Obstructive Sleep Apnea) Vitamin D Deficiency BPH w urinary obs/LUTS Osteoarthritis Av Block, 1st Degree Diabetic Eye Exam (Hcc) Type 2 Diabetes Mellitus With Proteinuria (Hcc) Gastroesophageal Reflux Disease Without Esophagitis Iron Deficiency Anemia Secondary to Inadequate Dietary Iron Intake Non-Proliferative Diabetic Retinopathy, Mild, Both Eyes (Hcc) Bilateral Carotid Artery Disease (Hcc) Corns and Callus Morbid Obesity Due to Excess Calories (Hcc) Well Adult Exam Ex-Smoker Colon Cancer Screening Type 2 Diabetes Mellitus With Diabetic Neuropathy, With Long- Term Current Use of Insulin (Hcc) H/O Gastric Bypass Malabsorption Syndrome Iron Malabsorption Disorder of Prostate Hypertension Goal Bp (Blood Pressure) < 140/80 Medicare Annual Wellness Visit, Subsequent Current Use of Proton Pump Inhibitor Albuminuria Abnormal Carotid Duplex Scan Subclavian Artery Stenosis (Hcc) Copd, Mild (Hcc) Family History Problem Relation Age of Onset - Ischemic Heart Disease Father - Ischemic Heart Disease Mother - Diabetes Mother - Hypertension Brother - Stroke Brother Social History Marital status: Spouse name: Randa Years of education: Number of children: 0 Occupational History Occupation Employer Comment TEACHER, 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[employer]* Social History Main Topics Smoking status: Former Smoker Packs/day: 0.00 Years: 25.00 Types: Pipe Smokeless tobacco: Never Used Comment: Quit in 1999 Alcohol use: No Drug use: No Sexual activity: No PAST MEDICAL HISTORY Diagnosis Date - Acute gastritis without mention of hemorrhage - Allergic rhinitis, cause unspecified - Atrial fibrillation or flutter - AV block, 1st degree - Background diabetic retinopathy(362.01) - CAD (coronary artery disease) - Contact dermatitis - COPD, mild (HCC) 08/14/2017 - Degeneration of lumbar or lumbosacral intervertebral disc Spondylolisthesis of L5-S1 - Diabetes mellitus, type 2 (HCC) retinopathy, neuropathy, nephropathy - Esophagitis, unspecified - Generalized osteoarthrosis, unspecified site - GERD (gastroesophageal reflux disease) - Hip joint replacement by other means 12/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 - Surgical wound infection Dr Bryan, chronic PNC - Type II or unspecified type diabetes mellitus without mention of complication, not stated as uncontrolled Review of Systems Constitutional: Negative for chills, fever and malaise/fatigue. Genitourinary: Negative for dysuria. Musculoskeletal: Negative for joint pain and myalgias. Skin: Negative for rash. Blister on lower left leg Neurological: Negative for headaches. Objective Physical Exam Constitutional: He is oriented to person, place, and time and well-developed, well-nourished, and in no distress. No distress. HENT: Head: Normocephalic and atraumatic. Eyes: Pupils are equal, round, and reactive to light. Conjunctivae and EOM are normal. Neck: Normal range of motion. Neck supple. Pulmonary/Chest: Effort normal. Neurological: He is alert and oriented to person, place, and time. Skin: Skin is warm and dry. Rash noted. Rash is vesicular. There is erythema. Psychiatric: Affect normal. Nursing note and vitals reviewed. ASSESSMENT/PLAN: 1. Blister (nonthermal), left lower leg, initial encounter - ICD9: 916.2, ICD10: S80.822A Wound Care - Keep the area clean and dry -Clean with soap and water . Apply mupirocin ointment 2 - 3 times a day. -Tylenol or Ibuprofen for discomfort -Observe area for signs of infection: redness, warmth, foul odor, drainage or increase in discomfort. Call you primary care physician if this occurs. -Call your primary care physician's office for a follow up appointment. - Start Keflex today 500 mg three times a day - Follow up with coumadin clinic for check since starting keflex - Recheck wound this week with Dr. Don - MUPIROCIN 2 % TOPICAL OINTMENT - CEPHALEXIN 500 MG CAPSULE 2. Leg swelling - ICD9: 729.81, ICD10: M79.89 Small amount of redness along with swelling, possible cellulitis, will cover with keflex Recheck this week. Diagnosis and treatment plan were discussed and questions were answered to the patient's satisfaction. Pt acknowledged understanding of concepts and follow up plan. Specific signs and symptoms that would indicate the need for higher level of care were discussed in detail warranting prompt ER evaluation. Malika Velasquez APRN.HISTORY INSTRUCTOR CNOV Observed: 03/04/2018 Status: COMPLETED Source: [place] 8:45 AM [facility] REPOSITORY Office Visit (WSTR) AAMIRKIP AGUILAR ([id number]) 1945 M Date Time Provider Department 03/04/18 8:45 AM MALIKA VELASQUEZ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) [facility] During your visit today, we recorded the following information about you: Temperature Pulse Respiration Blood pressure 98.8 degrees 56/minute 16/minute 110/64 Weight 129.7 kg Malika Velasquez APRN.CNP 03/04/2018 9:48 AM Signed Subjective The history is provided by the patient. No biblical languages professor was used. REGINALD Kip Guaman is a 72 year old male who presents today for CC of blistered lesion on lower left leg Onset/Duration: 2 days ago, and is turning red Alleviating/Treatment: Bacitracin ointment and bandage Aggravating: None known Risk factors: T2D, HTN, venous insufficiency BP 110/64 Pulse (!) 56 Temp 37.1 ?C (98.8 ?F) (Tympanic) Resp 16 Wt 129.7 kg (286 lb) BMI 42.60 kg/m? ALLERGIES Allergen Reactions - Pamella Inhibitors Cough accupril - Atorvastatin Other: See Comments lipitor- muscle weakness, elevated LFT's - Crestor [Rosuvastat* Myalgia - Indocin [Indomethac* GI Upset - Naproxen GI Upset - Pravastatin Other: See Comments pravachol- muscle weakness, elevated LFT's ACTIVE PROBLEM LIST Hypothyroidism (Acquired) Mixed Hyperlipidemia Allergic rhinitis, cause unspecified Degeneration of lumbar or lumbosacral intervertebral disc Coronary Artery Disease Due to Lipid Rich Plaque Mild Intermittent Asthma Without Complication Personal history of other malignant neoplasm of skin Urinary Frequency Mgus (Monoclonal Gammopathy of Unknown Significance) Atrial flutter Tho (Obstructive Sleep Apnea) Vitamin D Deficiency BPH w urinary obs/LUTS Osteoarthritis Av Block, 1st Degree Diabetic Eye Exam (Hcc) Type 2 Diabetes Mellitus With Proteinuria ([facility]) Gastroesophageal Reflux Disease Without Esophagitis Iron Deficiency Anemia Secondary to Inadequate Dietary Iron Intake Non-Proliferative Diabetic Retinopathy, Mild, Both Eyes (Hcc) Bilateral Carotid Artery Disease (Hcc) Corns and Callus Morbid Obesity Due to Excess Calories (Hcc) Well Adult Exam Ex-Smoker Colon Cancer Screening Type 2 Diabetes Mellitus With Diabetic Neuropathy, With Long- Term Current Use of Insulin (Hcc) H/O Gastric Bypass Malabsorption Syndrome Iron Malabsorption Disorder of Prostate Hypertension Goal Bp (Blood Pressure) < 140/80 Medicare Annual Wellness Visit, Subsequent Current Use of Proton Pump Inhibitor Albuminuria Abnormal Carotid Duplex Scan Subclavian Artery Stenosis (Hcc) Copd, Mild (Hcc) Family History Problem Relation Age of Onset - Ischemic Heart Disease Father - Ischemic Heart Disease Mother - Diabetes Mother - Hypertension Brother - Stroke Brother Social History Marital status: Spouse name: Randa Years of education: Number of children: 0 Occupational History Occupation Employer Comment TEACHER, Chem/phys* [employer]* Social History Main Topics Smoking status: Former Smoker Packs/day: 0.00 Years: 25.00 Types: Pipe Smokeless tobacco: Never Used Comment: Quit in 1999 Alcohol use: No Drug use: No Sexual activity: No PAST MEDICAL HISTORY Diagnosis Date - Acute gastritis without mention of hemorrhage - Allergic rhinitis, cause unspecified - Atrial fibrillation or flutter - AV block, 1st degree - Background diabetic retinopathy(362.01) - CAD (coronary artery disease) - Contact dermatitis - COPD, mild (HCC) 08/14/2017 - Degeneration of lumbar or lumbosacral intervertebral disc Spondylolisthesis of L5-S1 - Diabetes mellitus, type 2 (HCC) retinopathy, neuropathy, nephropathy - Esophagitis, unspecified - Generalized osteoarthrosis, unspecified site - GERD (gastroesophageal reflux disease) - Hip joint replacement by other means 12/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 - Surgical wound infection Dr Adams, chronic PNC - Type II or unspecified type diabetes mellitus without mention of complication, not stated as uncontrolled Review of Systems Constitutional: Negative for chills, fever and malaise/fatigue. Genitourinary: Negative for dysuria. Musculoskeletal: Negative for joint pain and myalgias. Skin: Negative for rash. Blister on lower left leg Neurological: Negative for headaches. Objective Physical Exam Constitutional: He is oriented to person, place, and time and well-developed, well-nourished, and in no distress. No distress. HENT: Head: Normocephalic and atraumatic. Eyes: Pupils are equal, round, and reactive to light. Conjunctivae and EOM are normal. Neck: Normal range of motion. Neck supple. Pulmonary/Chest: Effort normal. Neurological: He is alert and oriented to person, place, and time. Skin: Skin is warm and dry. Rash noted. Rash is vesicular. There is erythema. Psychiatric: Affect normal. Nursing note and vitals reviewed. ASSESSMENT/PLAN: 1. Blister (nonthermal), left lower leg, initial encounter - ICD9: 916.2, ICD10: S80.822A Wound Care - Keep the area clean and dry -Clean with soap and water . Apply mupirocin ointment 2 - 3 times a day. -Tylenol or Ibuprofen for discomfort -Observe area for signs of infection: redness, warmth, foul odor, drainage or increase in discomfort. Call you primary care physician if this occurs. -Call your primary care physician's office for a follow up appointment. - Start Keflex today 500 mg three times a day - Follow up with coumadin clinic for check since starting keflex - Recheck wound this week with Dr. Don - MUPIROCIN 2 % TOPICAL OINTMENT - CEPHALEXIN 500 MG CAPSULE 2. Leg swelling - ICD9: 729.81, ICD10: M79.89 Small amount of redness along with swelling, possible cellulitis, will cover with keflex Recheck this week. Diagnosis and treatment plan were discussed and questions were answered to the patient's satisfaction. Pt acknowledged understanding of concepts and follow up plan. Specific signs and symptoms that would indicate the need for higher level of care were discussed in detail warranting prompt ER evaluation. Malika Velasquez APRN.KAYKAY Velasquez APRN.KAYKAY 03/04/2018 9:10 AM Signed ASSESSMENT/PLAN: 1. Blister (nonthermal), left lower leg, initial encounter - ICD9: 916.2, ICD10: S80.822A Wound Care - Keep the area clean and dry -Clean with soap and water . Apply mupirocin ointment 2 - 3 times a day. -Tylenol or Ibuprofen for discomfort -Observe area for signs of infection: redness, warmth, foul odor, drainage or increase in discomfort. Call you primary care physician if this occurs. -Call your primary care physician's office for a follow up appointment. - Start Keflex today 500 mg three times a day - Follow up with coumadin clinic for check since starting keflex - Recheck wound this week with Dr. oDn - MUPIROCIN 2 % TOPICAL OINTMENT - CEPHALEXIN 500 MG CAPSULE Referring Provider: SELF [[id number]] Allergies As of Date: 03/04/2018 Noted Allergy Reaction PAMELLA INHIBITORS 07/18/2004 3 - Cough Comments: accupril ATORVASTATIN 07/18/2004 14 - Other: See Comments Comments: lipitor- muscle weakness, elevated LFT's CRESTOR (ROSUVASTATIN CALCIUM) 10/30/2016 17 - Myalgia INDOCIN (INDOMETHACIN SODIUM) 04/06/2005 8 - GI Upset NAPROXEN 07/18/2004 8 - GI Upset PRAVASTATIN 07/18/2004 14 - Other: See Comments Comments: pravachol- muscle weakness, elevated LFT's Date Reviewed: 03/04/2018 Reviewed by: Malika [facility] Hospital[facility]a Velasquez - Fully Assessed Reason for Visit: Blister [1962] Cmt: left leg x couple days Primary Visit Diagnosis:Blister (nonthermal), left lower leg, initial encounter [S80.822A] Other Visit Diagnosis:Leg swelling [M79.89] Order(s):mupirocin (BACTROBAN) 2 % ointmentApply 1 application to affected area three times daily. Location: legDisp: 30 gRfl: 0 cephALEXin (KEFLEX) 500 mg capsuleTake 1 capsule by mouth three times daily for 10 days.Disp: 30 capsuleRfl: 0 Prescriptions as of 03/04/2018 Sig: BLOOD SUGAR DIAGNOSTIC STRIPS Check blood sugar twice daily. HYDROXYZINE HCL 25 MG TABLET Take 1 tablet by mouth every * METOPROLOL TARTRATE 25 MG TAB* Take 0.5 tablet after breakfa* OMEPRAZOLE 40 MG CAPSULE,DEMARCO* Take 1 capsule by mouth once * CHLORTHALIDONE 25 MG TABLET Take 1 tablet by mouth once d* WARFARIN 4 MG TABLET Take as directed per physician MOMETASONE-FORMOTEROL HFA 100* Inhale 2 Puffs as instructed * TAMSULOSIN 0.4 MG CAPSULE TAKE 1 CAPSULE ONCE DAILY INSULIN GLARGINE (U-100) 100 * Inject 50 Units subcutaneousl* MONTELUKAST 10 MG TABLET Take 1 tablet by mouth once d* RAMIPRIL 10 MG CAPSULE Take 1 capsule by mouth once * LEVOTHYROXINE 100 MCG TABLET Take 1 tablet by mouth once d* BETAMETHASONE DIPROPIONATE 0.* Apply 1 Tube to affected area* CLOPIDOGREL 75 MG TABLET Take 1 tablet by mouth once d* FLUTICASONE 50 MCG/ACTUATION * Use 2 Sprays in each nostril * ROSUVASTATIN 10 MG TABLET Take 1/2 a tab every day WARFARIN 5 MG TABLET 10 mg on and 5mg * INSULIN LISPRO (U-100) 100 UN* 14-16 units with breakfast an* INSULIN SYRINGE-NEEDLE U-100 * 1 Each once daily. Dx: E11.29* EASY TOUCH 31 GAUGE X 5/16 N* USE 1 NEEDLE PER DOSE THREE T* ALBUTEROL SULFATE HFA 90 MCG/* Inhale 2 Puffs as instructed * ACETAMINOPHEN 500 MG TABLET Take 500 mg by mouth as neede* CHOLECALCIFEROL (VITAMIN D3) * Take 4,000 Units by mouth onc* DOCUSATE SODIUM 100 MG TABLET Take two tabs daily CYANOCOBALAMIN (VIT B-12) 500* Take 1 tablet by mouth once d* PSYLLIUM HUSK 0.4 GRAM CAPSULE Take 2 capsules by mouth once* FERROUS GLUCONATE 246 MG (27 * Take 1 tablet by mouth once d* * CALCIUM CARBONATE 600 MG CALC* Take 1 tablet by mouth twice * * ASCORBIC ACID (VITAMIN C) 500* Take 500 mg by mouth once albina* * TRIAMCINOLONE ACETONIDE 0.1 %* bid prn--not to face/axillae/* * MULTIVITAMIN TABLET Take one(1) tablet daily. MUPIROCIN 2 % TOPICAL OINTMENT Apply 1 application to affect* CEPHALEXIN 500 MG CAPSULE Take 1 capsule by mouth three* More... Problem List As Of Date 03/04/2018 Noted Resolved Hypothyroidism (acquired) [E03.9] Priority: A Mixed hyperlipidemia [E78.2] Priority: A Allergic rhinitis, cause unspecified [J30.9] Priority: B Morbid Obesity [E66.01] 09/07/2009 More... Degeneration of lumbar or lumbosacral intervert* Priority: M More... Coronary artery disease due to lipid rich plaqu*INVALID FOR* Priority: A More... Mild intermittent asthma without complication [*INVALID FOR* Priority: A More... More... Hip joint replacement by other means [Z96.649] INVALID FOR*06/06/2016 Priority: M Personal history of other malignant neoplasm of*INVALID FOR* Priority: D More... Special Screening for Malignant Neoplasms, [place]*INVALID FOR*09/07/2009 Acute Gastritis without Mention of Hemorrhage [*INVALID FOR*09/07/2009 More... Urinary frequency [R35.0] INVALID FOR* Priority: C More... More... More... MGUS (monoclonal gammopathy of unknown signific*INVALID FOR* Priority: B More... Atrial flutter [I48.92] INVALID FOR* Priority: A More... THO (obstructive sleep apnea) [G47.33] INVALID FOR* Priority: B More... 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 AV block, 1st degree [I44.0] Priority: A Diabetic eye exam (HCC) [Z01.00, E11.9] INVALID FOR* Priority: A More... Type 2 diabetes mellitus with proteinuria (HCC)*INVALID FOR* Priority: A Gastroesophageal reflux disease without esophag*INVALID FOR* Priority: A Iron deficiency anemia secondary to inadequate *INVALID FOR* Priority: A More... Non-proliferative diabetic retinopathy, mild, b*INVALID FOR* Priority: A Bilateral carotid artery disease (HCC) [I77.9] INVALID FOR* Priority: A More... Corns and callus [L84] INVALID FOR* Priority: D Morbid obesity due to excess calories (HCC) [E6*INVALID FOR* Priority: B More... Well adult exam [Z00.00] INVALID FOR* Priority: E More... Ex-smoker [Z87.891] INVALID FOR* Priority: C More... Colon cancer screening [Z12.11] INVALID FOR* Type 2 diabetes mellitus with diabetic neuropat*INVALID FOR* Priority: A H/O gastric bypass [Z98.84] INVALID FOR* Priority: A Malabsorption syndrome [K90.9] INVALID FOR* Priority: A More... Iron malabsorption [K90.9] INVALID FOR* Priority: B Disorder of prostate [N42.9] INVALID FOR* Hypertension goal BP (blood pressure) < 140/80 *INVALID FOR* Priority: A Medicare annual wellness visit, subsequent [Z00*INVALID FOR* Priority: E More... Current use of proton pump inhibitor [Z79.899] INVALID FOR* Albuminuria [R80.9] INVALID FOR* Priority: A Abnormal carotid duplex scan [R94.39] INVALID FOR* Subclavian artery stenosis (HCC) [I77.1] INVALID FOR* Priority: A More... COPD, mild (HCC) [J44.9] INVALID FOR* Priority: A Other instructions from your clinician: ASSESSMENT/PLAN: 1. Blister (nonthermal), left lower leg, initial encounter - ICD9: 916.2, ICD10: S80.822A Wound Care - Keep the area clean and dry -Clean with soap and water . Apply mupirocin ointment 2 - 3 times a day. -Tylenol or Ibuprofen for discomfort -Observe area for signs of infection: redness, warmth, foul odor, drainage or increase in discomfort. Call you primary care physician if this occurs. -Call your primary care physician's office for a follow up appointment. - Start Keflex today 500 mg three times a day - Follow up with coumadin clinic for check since starting keflex - Recheck wound this week with Dr. Don - MUPIROCIN 2 % TOPICAL OINTMENT - CEPHALEXIN 500 MG CAPSULE Prescriptions ordered this encounter Disp Refills Start End MUPIROCIN 2 % TOPICAL OINTMENT 30 g 0 03/04/2018 Route: TOPICAL Sig: Apply 1 application to affected area three times daily. Location: leg CEPHALEXIN 500 MG CAPSULE 30 c* 0 03/04/2018 03/14/2018 Route: ORAL Sig: Take 1 capsule by mouth three times daily for 10 days. Encounter Status:Closed by MALIKA VELASQUEZ CNP on 03/04/18 PROGRESS Observed: 02/24/2018 Status: COMPLETED Source: [place] 4:22 PM [facility] REPOSITORY HNO ID: [id number] Author: Erin Awna RN Service: (none) Author Type: (none) Type: Progress Notes Filed: 02/24/2018 4:22 PM Note Text: yes patient is doing 4mg sat and 7.5mg all other days PROGRESS Observed: 02/24/2018 Status: COMPLETED Source: [place] 11:58 AM [facility] REPOSIT[facility] HNO ID: [id number] Author: Jonel Don Service: (none) Author Type: Physician Type: Progress Notes Filed: 02/24/2018 4:22 PM Note Text: This note was created using [employer]. Subjective Kip Guaman is a 72 year old male. Review of Systems Objective There were no vitals taken for this visit. Physical Exam Assessment and Plan Based on last visit 02/18/2018 patient's dosing should be 4 mg on Saturday and 7.5 mg all other days (not 4 mg on Sat and 5 mg all other days. Please verify patient is taking the 4 mg on Sat and 7.5 all other days. If so I agree with continuing current dosing and recheck INR in a week. PROGRESS Observed: 02/24/2018 Status: COMPLETED Source: [place] 11:28 AM [facility] RE[facility] HNO ID: [id number] Author: Erin Awan RN Service: (none) Author Type: (none) Type: Progress Notes Filed: 02/24/2018 11:29 AM Note Text: patient had inr completed at [facility] patients inr is 2.8 (patients inr range is 2.0-3.0) patient is currently taking 4mg Sat and 5mg all other days patients last dose change was on 02/13/18 due to a low level of 1.4 (dose at that time was 7.5mg Mon,Tues and 4mg all other days) patient has had no changes in medication and no missed doses and no change in diet Advised patient to continue on the same dose(s) and that they would only be contacted regarding dosage and follow up instructions after review with provider, if a change is needed. Written instructions given and patient verbalized understanding. Presently scheduled in 1 week (03/06/18 - due to the CC is closed at the 2 week abigail) for follow up INR. PROGRESS Observed: 02/18/2018 Status: COMPLETED Source: [place] 12:18 PM [facility] RE[facility] HNO ID: [id number] Author: Anita Mckinney Ma Service: (none) Author Type: (none) Type: Progress Notes Filed: 02/18/2018 12:19 PM Note Text: Patient left detailed message on home phone Tracker updated Apt made with nurse already Anita Mckinney Ma PROGRESS Observed: 02/18/2018 Status: COMPLETED Source: [place] 11:03 AM [facility] RE[facility] HNO ID: [id number] Author: Jonel Don Service: (none) Author Type: Physician Type: Progress Notes Filed: 02/18/2018 12:19 PM Note Text: This note was created using [employer]. Subjective Kip Guaman is a 72 year old male. Review of Systems Objective There were no vitals taken for this visit. Physical Exam Assessment and Plan Have patient continue current dosing as is. Agree with repeat INR in a week. PROGRESS Observed: 02/18/2018 Status: COMPLETED Source: [place] 10:51 AM [facility] RE[facility] HNO ID: [id number] Author: Erin Awan RN Service: (none) Author Type: (none) Type: Progress Notes Filed: 02/18/2018 10:54 AM Note Text: patient had inr completed at [facility] patients inr is 1.9 (patients inr range is 2.0-3.0) patient is currently taking 4mg Sat and 7.5mg all other days (pt has been on this dose for 5 days only) patients last dose change was on 02/13/18 due to a low level of 1.4 (dose at that time was 7.5mg Mon,Tues and 4mg all other days) patient has had no changes in medication except for coumadin and no missed doses and no change in diet Advised patient that they would be contacted regarding medication dose and when to follow up after information is reviewed by provider. After provider review please contact the patient with information and schedule follow up appointment with coumadin clinic. FYI - patient has been scheduled for a 1 week follow up inr on 02/24/18 PROGRESS Observed: 02/13/2018 Status: COMPLETED Source: [place] 2:09 PM [facility] REPOSITORY HNO ID: [id number] Author: Anita Mckinney Ma Service: (none) Author Type: (none) Type: Progress Notes Filed: 02/13/2018 2:10 PM Note Text: Patient notified of results, verbalizes understanding of instructions. devoraher updated Anita Mckinney Ma PROGRESS Observed: 02/13/2018 Status: COMPLETED Source: [place] 1:10 PM [facility] REPOSITORY HNO ID: [id number] Author: Jonel Don Service: (none) Author Type: Physician Type: Progress Notes Filed: 02/13/2018 2:10 PM Note Text: This note was created using Zarporiter. Subjective Kip Guaman is a 72 year old male. Review of Systems Objective There were no vitals taken for this visit. Physical Exam Assessment and Plan Let patient know were going to go back to his original coumadin dosing prior to being on the antibiotic. So 4 mg Sat and 7.5 mg all other days. Agree with INR on 02/18/2018 PROGRESS Observed: 02/13/2018 Status: COMPLETED Source: [place] 11:33 AM [facility] REPOSITORY HNO ID: [id number] Author: Erin Awan RN Service: (none) Author Type: (none) Type: Progress Notes Filed: 02/13/2018 11:35 AM Note Text: patient had inr completed at [facility] patients inr is 1.4 (patients inr range is 2.0-3.0) patient is currently taking 7.5mg Sat, and 4mg Sat and then was to recheck patients last dose change was on 02/05/18 due to a high level of 6.2 (dose at that time was 4mg Sat and 7.5mg all other days) patient has had no changes in medication except for the coumadin and no uninstructed missed doses and no change in diet FYI - patient has only been back on coumadin for 3 doses since holding due to the high level Advised patient that they would be contacted regarding medication dose and when to follow up after information is reviewed by provider. After provider review please contact the patient with information and schedule follow up appointment with coumadin clinic. FYI- patient has been scheduled for an inr follow up on (02/18/18) PROGRESS Observed: 02/11/2018 Status: COMPLETED Source: [place] 4:[address] [facility] REPOSITORY HNO ID: [id number] Author: Anita Mckinney Ma Service: (none) Author Type: (none) Type: Progress Notes Filed: 02/11/2018 4:46 PM Note Text: Spoke to pcp and her verbally ok INR check on advised patient to do 4 mg tomorrow Coumadin nurse ok apt double book Patient Notified 7.5 today and 4 mg wed and recheck th Apt made/tracker updated Anita Mckinney Ma PROGRESS Observed: 02/11/2018 Status: COMPLETED Source: [place] 8:45 AM [facility] REPOSITORY HNO ID: [id number] Author: Liyah Moreno LPN Service: (none) Author Type: (none) Type: Progress Notes Filed: 02/11/2018 4:46 PM Note Text: Pt returned call and verified dose correct. Coumadin clinic is closed tomorrow and patient does not want to come to lab for draw because he states there is always a problem with billing when the specimen gets sent to [facility] . PROGRESS Observed: 02/10/2018 Status: COMPLETED Source: [place] 5:[address] [facility] REPOSITORY HNO ID: [id number] Author: Barbara Tellez Ma Service: (none) Author Type: (none) Type: Progress Notes Filed: 02/11/2018 4:46 PM Note Text: Left detailed message for patient to contact office. Patient needs scheduled for INR appointment. Barbara Tellez Ma PROGRESS Observed: 02/10/2018 Status: COMPLETED Source: [place] 5:[address] [facility] REPOSITORY HNO ID: [id number] Author: Barbara Tellez Ma Service: (none) Author Type: (none) Type: Progress Notes Filed: 02/11/2018 4:46 PM Note Text: This note was created using Zarporiter. Fili Guaman is a 72 year old male. Review of Systems Objective There were no vitals taken for this visit. Physical Exam Assessment and Plan PROGRESS Observed: 02/10/2018 Status: COMPLETED Source: [place] 4:[address] [facility] REPOSITORY HNO ID: [id number] Author: Jonel Don Service: (none) Author Type: Physician Type: Progress Notes Filed: 02/11/2018 4:46 PM Note Text: This note was created using PollVaultrter. Subjective Kip Guaman is a 72 year old male. Review of Systems Objective There were no vitals taken for this visit. Physical Exam Assessment and Plan Advise Kip to take 7.5 mg today and Saturday. Needs INR in Saturday02/12/2018 PROGRESS Observed: 02/10/2018 Status: COMPLETED Source: [place] 9:15 AM [facility] REPOSITORY HNO ID: [id number] Author: Erin Awan RN Service: (none) Author Type: (none) Type: Progress Notes Filed: 02/10/2018 9:18 AM Note Text: patient had inr completed at [facility] patients inr is 1.3 (patients inr range is 2.0-3.0) patient is currently holding - 4mg Sat and 7.5mg all other days since 02/05/18 due to a high level of 6.2 patients last dose change was on 11/11/17 due to a high level of 3.2 (dose at that time was 5mg Sat and 7.5mg all other days) patient has had a change in medication as patient is still taking keflex for 3 more days and no change in diet Advised patient that they would be contacted regarding medication dose and when to follow up after information is reviewed by provider. After provider review please contact the patient with information and schedule follow up appointment with coumadin clinic. FYI - patient has been scheduled for a 1 week inr follow up on 02/18/18 PROGRESS Observed: 02/07/2018 Status: COMPLETED Source: [place] 3:24 PM [facility] REPOSITORY HNO ID: [id number] Author: Erin Awan RN Service: (none) Author Type: (none) Type: Progress Notes Filed: 02/07/2018 3:24 PM Note Text: patient has been scheduled for Saturday PROGRESS Observed: 02/07/2018 Status: COMPLETED Source: [place] 2:46 PM [facility] REPOSITORY HNO ID: [id number] Author: Denisse Castle RN Service: (none) Author Type: (none) Type: Progress Notes Filed: 02/07/2018 3:25 PM Note Text: Patient returned call and attempted to schedule appt with coumadin clinic- it is booked for Saturday. Patient very upset, stating when he goes to lab, they have to send it to [facility], then he gets billed from [facility]. There are no openings in coumadin clinic until next Saturday. Please advise patient- does he need to go to lab? PROGRESS Observed: 02/07/2018 Status: COMPLETED Source: [place] 12:06 PM [facility] REPOSITORY HNO ID: [id number] Author: Anita Mckinney Ma Service: (none) Author Type: (none) Type: Progress Notes Filed: 02/07/2018 3:24 PM Note Text: Tried calling patient no answer. Left detailed message advising INR instructions. Tracker updated please schedule Coumadin appointment Anita Mckinney Ma PROGRESS Observed: 02/07/2018 Status: COMPLETED Source: [place] 11:11 AM [facility] REPOSITORY HNO ID: [id number] Author: Jonel Don Service: (none) Author Type: Physician Type: Progress Notes Filed: 02/07/2018 3:24 PM Note Text: This note was created using Geodruid. Subjective Kip Guaman is a 72 year old male. Review of Systems Objective There were no vitals taken for this visit. Physical Exam Assessment and Plan Have patient hold coumadin today and tomorrow. Take 4 mg on Saturday and check INR on Saturday02/10/2018 PROGRESS Observed: 02/07/2018 Status: COMPLETED Source: [place] 8:36 AM [facility] REPOSITORY HNO ID: [id number] Author: Erin Awan RN Service: (none) Author Type: (none) Type: Progress Notes Filed: 02/07/2018 8:37 AM Note Text: patient had inr completed at [facility] patients inr is 4.4 (patients inr range is 2.0-3.0) patient is currently holding 4mg Sat and 7.5mg all other days patients last dose change was on 02/05/18 due to a high level of 6.2 (dose at that time was 4mg Sat and 7.5mg all other days) patient has had a change in medication and patient is taking Keflex and no change in diet Advised patient that they would be contacted regarding medication dose and when to follow up after information is reviewed by provider. After provider review please contact the patient with information and schedule follow up appointment with coumadin clinic. PROTHROMBIN TIME W/INR Collected: 02/05/2018 Status: F Source: [facility] 10:00 [facility] REPOSITORY TYPE CODE TESTS RESULT OUT OF REFERENCE UNITS RANGE LAB L300.4150 11.7-14.9 SECONDS High PROTIME 55.2 LAB L300.4200 High alert INR 6.2 Result Comment: CRITICAL VALUE VERIFIED. CALLED TO BERONICA CASTLE 02/05/18 1106 [address]. RESULTS READ BACK BY BERONICA CASTLE . Performed By: #### L300.3900 #### [facility] [address] [place], [address] PROTIME Collected: 02/05/2018 Status: F Source: [place] 9:16 AM [facility] REPOSITORY TYPE CODE TESTS RESULT OUT OF REFERENCE UNITS RANGE LAB PSEC 9.7-13.0 sec Test PT sent to [facility]. Result Comment: Account Credited LAB INR 0.9-1.3 Test sent to PT INR [facility]. Result Comment: Account Credited CNOV Observed: 02/01/2018 Status: COMPLETED Source: [place] 9:30 AM [facility] REPOSITORY [facility] KIP GUAMAN ([id number]) 1945 M Date Time Provider Department 02/01/18 9:30 AM JAVID HARDING [facility] During your visit today, we recorded the following information about you: Temperature Pulse Blood pressure Weight 100.7 degrees 80/minute 160/70 128.8 kg Javid Harding MD 02/01/2018 9:55 AM Signed Patient presents with: UTI: UTI, urgency and burning HPI: Symptoms for a couple days. Dysuria: Yes Frequency: Yes, nocturia every 1 1/2 hours last night. Hematuria: No Nausea: No Fever or chills: 100.8 this morning Back pain: No Abdominal pain: No Prior UTI: Yes Slow stream for years. PAST MEDICAL HISTORY Diagnosis Date - Acute gastritis without mention of hemorrhage - Allergic rhinitis, cause unspecified - Atrial fibrillation or flutter - AV block, 1st degree - Background diabetic retinopathy(362.01) - CAD (coronary artery disease) - Contact dermatitis - COPD, mild ([facility]) 08/14/2017 - Degeneration of lumbar or lumbosacral intervertebral disc Spondylolisthesis of L5-S1 - Diabetes mellitus, type 2 ([facility]) retinopathy, neuropathy, nephropathy - Esophagitis, unspecified - Generalized osteoarthrosis, unspecified site - GERD (gastroesophageal reflux disease) - 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 hydrOXYzine HCl (ATARAX) 25 mg tablet Take 1 tablet by mouth every 6 hours as needed for Itching/Rash. metoprolol tartrate, short acting, (LOPRESSOR) 25 mg tablet Take 0.5 tablet after breakfast and one tablet after supper Omeprazole 40 mg capsule Take 1 capsule by mouth once daily. chlorthalidone (HYGROTON) 25 mg tablet Take 1 tablet by mouth once daily. warfarin (COUMADIN) 4 mg tablet Take as directed per physician mometasone-formoterol (DULERA) 100-5 mcg/actuation inhaler Inhale 2 Puffs as instructed twice daily. Rinse mouth after use. tamsulosin ER (FLOMAX) 0.4 mg cp24 TAKE 1 CAPSULE ONCE DAILY insulin glargine (LANTUS) 100 unit/mL injection Inject 50 Units subcutaneously once daily. If sugars slightly low take 45 units once daily instead of 47. montelukast (SINGULAIR) 10 mg tablet Take 1 tablet by mouth once daily. ramipril (ALTACE) 10 mg capsule Take 1 capsule by mouth once daily. levothyroxine (SYNTHROID) 100 mcg tablet Take 1 tablet by mouth once daily. betamethasone dipropionate 0.05 % ointment Apply 1 Tube to affected area as needed (for hand dermatitis). clopidogrel (PLAVIX) 75 mg tablet Take 1 tablet by mouth once daily. fluticasone (FLONASE) 50 mcg/actuation nasal spray Use 2 Sprays in each nostril once daily. rosuvastatin (CRESTOR) 10 mg tablet Take 1/2 a tab every day warfarin (COUMADIN) 5 mg tablet 10 mg on and 5mg Sat/Sat/Sun and 7.5mg Sat//Sat or as directed. Insulin Lispro, Human, (HUMALOG KWIKPEN) 100 unit/mL inpn 14-16 units with breakfast and lunch and 20-24 units with dinner, Correction per sliding scale total up to 70 units daily Insulin Syringe-Needle U-100 (BD INSULIN SYRINGE MF) 1/2 mL 28 gauge x 1/2 syrg 1 Each once daily. Dx: E11.29 Insulin: yes EASY TOUCH 31 gauge x 5/16 ndle USE 1 NEEDLE PER DOSE THREE TIMES A DAY albuterol HFA (PROAIR HFA) 90 mcg/actuation inhaler Inhale 2 Puffs as instructed every 4 hours as needed. acetaminophen (TYLENOL EXTRA STRENGTH) 500 mg tablet Take 500 mg by mouth as needed. Cholecalciferol, Vitamin D3, 2,000 unit cap Take 4,000 Units by mouth once daily. Docusate Sodium 100 mg tab Take two tabs daily cyanocobalamin (VITAMIN B-12) 500 mcg tab Take 1 tablet by mouth once daily. psyllium husk 0.4 gram cap Take 2 capsules by mouth once daily. Ferrous Gluconate 246 mg (27 mg iron) Tab Take 1 tablet by mouth once daily. calcium carbonate (CALTRATE 600) 600 mg (1,500 mg) Tab Take 1 tablet by mouth twice daily. Ascorbic Acid (VITAMIN C) Chew Take 500 mg by mouth once daily. TRIAMCINOLONE ACETONIDE 0.1 % TOPICAL CREAM bid prn--not to face/axillae/groin MULTIVITAMIN TABLET Take one(1) tablet daily. penicillin V potassium (V-CILLIN, VEETIDS) 500 mg tablet Take 1 tablet by mouth twice daily. (Patient not taking: Reported on 01/07/2018 ) BIOTIN ORAL Take 10,000 mcg by mouth once daily. No current facility-administered medications for this visit. ALLERGIES: ALLERGIES Allergen Reactions - Pamella Inhibitors Cough accupril - Atorvastatin Other: See Comments lipitor- muscle weakness, elevated LFT's - Crestor [Rosuvastat* Myalgia - Indocin [Indomethac* GI Upset - Naproxen GI Upset - Pravastatin Other: See Comments pravachol- muscle weakness, elevated LFT's VITALS: BP 160/70 Pulse 80 Temp 38.2 ?C (100.7 ?F) (Tympanic) Wt 128.8 kg (284 lb) BMI 42.31 kg/m? PHYSICAL EXAM: GEN: NAD HEENT: EOMI, conjunctiva clear, moist mucous membranes HEART: regular rate and rhythm, no murmurs LUNGS: clear to auscultation, no wheezes or crackles, no increased WOB ABDOMEN: Soft, obese, no masses, no suprapubic tenderness BACK: No CVA tenderness ASSESSMENT/PLAN: 1. Dysuria - ICD9: 788.1, ICD10: R30.0 - URINE CULTURE - UA DIP B/O - large blood, positive nitrite, moderate LE - SULFAMETHOXAZOLE 800 MG-TRIMETHOPRIM 160 MG TABLET INR next week. F/u in the ER if unable to void. Recommended bladder US if frequency does not improve with treatment of UTI. Javid Harding MD Referring Provider: SELF [[id number]] Allergies As of Date: 02/01/2018 Noted Allergy Reaction PAMELLA INHIBITORS 07/18/2004 3 - Cough Comments: accupril ATORVASTATIN 07/18/2004 14 - Other: See Comments Comments: lipitor- muscle weakness, elevated LFT's CRESTOR (ROSUVASTATIN CALCIUM) 10/30/2016 17 - Myalgia INDOCIN (INDOMETHACIN SODIUM) 04/06/2005 8 - GI Upset NAPROXEN 07/18/2004 8 - GI Upset PRAVASTATIN 07/18/2004 14 - Other: See Comments Comments: pravachol- muscle weakness, elevated LFT's Date Reviewed: 02/01/2018 Reviewed by: Jenniffer Lawrence Ma - Fully Assessed Reason for Visit: UTI [116] Cmt: UTI, urgency and burning Reason For Visit History Recorded Primary Visit Diagnosis:Dysuria [R30.0] Order(s):URINE CULTURE [SQURCUL] Order #: [id number] UA DIP B/O [[id number]] Order #: [id number] sulfamethoxazole-trimethoprim (BACTRIM DS) 800-160 mg per tabletTake 1 tablet by mouth twice daily for 7 days.Disp: 14 tabletRfl: 0 Prescriptions as of 02/01/2018 Sig: BLOOD SUGAR DIAGNOSTIC STRIPS Check blood sugar twice daily. HYDROXYZINE HCL 25 MG TABLET Take 1 tablet by mouth every * METOPROLOL TARTRATE 25 MG TAB* Take 0.5 tablet after breakfa* OMEPRAZOLE 40 MG CAPSULE,DEMARCO* Take 1 capsule by mouth once * CHLORTHALIDONE 25 MG TABLET Take 1 tablet by mouth once d* WARFARIN 4 MG TABLET Take as directed per physician MOMETASONE-FORMOTEROL HFA 100* Inhale 2 Puffs as instructed * TAMSULOSIN 0.4 MG CAPSULE TAKE 1 CAPSULE ONCE DAILY INSULIN GLARGINE (U-100) 100 * Inject 50 Units subcutaneousl* MONTELUKAST 10 MG TABLET Take 1 tablet by mouth once d* RAMIPRIL 10 MG CAPSULE Take 1 capsule by mouth once * LEVOTHYROXINE 100 MCG TABLET Take 1 tablet by mouth once d* BETAMETHASONE DIPROPIONATE 0.* Apply 1 Tube to affected area* CLOPIDOGREL 75 MG TABLET Take 1 tablet by mouth once d* FLUTICASONE 50 MCG/ACTUATION * Use 2 Sprays in each nostril * ROSUVASTATIN 10 MG TABLET Take 1/2 a tab every day WARFARIN 5 MG TABLET 10 mg on and 5mg Sat/* INSULIN LISPRO (U-100) 100 UN* 14-16 units with breakfast an* INSULIN SYRINGE-NEEDLE U-100 * 1 Each once daily. Dx: E11.29* EASY TOUCH 31 GAUGE X 5/16 N* USE 1 NEEDLE PER DOSE THREE T* ALBUTEROL SULFATE HFA 90 MCG/* Inhale 2 Puffs as instructed * ACETAMINOPHEN 500 MG TABLET Take 500 mg by mouth as neede* CHOLECALCIFEROL (VITAMIN D3) * Take 4,000 Units by mouth onc* DOCUSATE SODIUM 100 MG TABLET Take two tabs daily CYANOCOBALAMIN (VIT B-12) 500* Take 1 tablet by mouth once d* PSYLLIUM HUSK 0.4 GRAM CAPSULE Take 2 capsules by mouth once* FERROUS GLUCONATE 246 MG (27 * Take 1 tablet by mouth once d* * CALCIUM CARBONATE 600 MG CALC* Take 1 tablet by mouth twice * * ASCORBIC ACID (VITAMIN C) 500* Take 500 mg by mouth once albina* * TRIAMCINOLONE ACETONIDE 0.1 %* bid prn--not to face/axillae/* * MULTIVITAMIN TABLET Take one(1) tablet daily. SULFAMETHOXAZOLE 800 MG-TRIME* Take 1 tablet by mouth twice * More... Problem List As Of Date 02/01/2018 Noted Resolved Hypothyroidism (acquired) [E03.9] Priority: A Mixed hyperlipidemia [E78.2] Priority: A Allergic rhinitis, cause unspecified [J30.9] Priority: B Morbid Obesity [E66.01] 09/07/2009 More... Degeneration of lumbar or lumbosacral intervert* Priority: M More... Coronary artery disease due to lipid rich plaqu*INVALID FOR* Priority: A More... Mild intermittent asthma without complication [*INVALID FOR* Priority: A More... More... Hip joint replacement by other means [Z96.649] INVALID FOR*06/06/2016 Priority: M Personal history of other malignant neoplasm of*INVALID FOR* Priority: D More... Special Screening for Malignant Neoplasms, [place]*INVALID FOR*09/07/2009 Acute Gastritis without Mention of Hemorrhage [*INVALID FOR*09/07/2009 More... Urinary frequency [R35.0] INVALID FOR* Priority: C More... More... More... MGUS (monoclonal gammopathy of unknown signific*INVALID FOR* Priority: B More... Atrial flutter [I48.92] INVALID FOR* Priority: A More... THO (obstructive sleep apnea) [G47.33] INVALID FOR* Priority: B More... 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 AV block, 1st degree [I44.0] Priority: A Diabetic eye exam (HCC) [Z01.00, E11.9] INVALID FOR* Priority: A More... Type 2 diabetes mellitus with proteinuria (HCC)*INVALID FOR* Priority: A Gastroesophageal reflux disease without esophag*INVALID FOR* Priority: A Iron deficiency anemia secondary to inadequate *INVALID FOR* Priority: A More... Non-proliferative diabetic retinopathy, mild, b*INVALID FOR* Priority: A Bilateral carotid artery disease (HCC) [I77.9] INVALID FOR* Priority: A More... Corns and callus [L84] INVALID FOR* Priority: D Morbid obesity due to excess calories (HCC) [E6*INVALID FOR* Priority: B More... Well adult exam [Z00.00] INVALID FOR* Priority: E More... Ex-smoker [Z87.891] INVALID FOR* Priority: C More... Colon cancer screening [Z12.11] INVALID FOR* Type 2 diabetes mellitus with diabetic neuropat*INVALID FOR* Priority: A H/O gastric bypass [Z98.84] INVALID FOR* Priority: A Malabsorption syndrome [K90.9] INVALID FOR* Priority: A More... Iron malabsorption [K90.9] INVALID FOR* Priority: B Disorder of prostate [N42.9] INVALID FOR* Hypertension goal BP (blood pressure) < 140/80 *INVALID FOR* Priority: A Medicare annual wellness visit, subsequent [Z00*INVALID FOR* Priority: E More... Current use of proton pump inhibitor [Z79.899] INVALID FOR* Albuminuria [R80.9] INVALID FOR* Priority: A Abnormal carotid duplex scan [R94.39] INVALID FOR* Subclavian artery stenosis (HCC) [I77.1] INVALID FOR* Priority: A More... COPD, mild (HCC) [J44.9] INVALID FOR* Priority: A Prescriptions ordered this encounter Disp Refills Start End SULFAMETHOXAZOLE 800 MG-TRIMETHOPRIM* 14 t* 0 02/01/2018 02/08/2018 Route: ORAL Sig: Take 1 tablet by mouth twice daily for 7 days. Medications Discontinued During This Encounter BIOTIN ORAL 02/01/2018 Class: Historical Med Route: ORAL Sig: Take 10,000 mcg by mouth once daily. Disc: Reason for discontinue is not on file. penicillin V potassium (V-CILLIN, VE* 03/22/2016 02/01/2018 Class: Med Update Route: ORAL Sig: Take 1 tablet by mouth twice daily. Patient not taking: Reported on 01/07/2018 Disc: Reason for discontinue is not on file. Encounter Status:Closed by JAVID HARDING MD on 02/01/18 PROGRESS Observed: 02/01/2018 Status: COMPLETED Source: [place] 9:[address] [facility] REPOSITORY HNO ID: [id number] Author: Javid Harding Service: (none) Author Type: Physician Type: Progress Notes Filed: 02/01/2018 9:55 AM Note Text: Patient presents with: UTI: UTI, urgency and burning HPI: Symptoms for a couple days. Dysuria: Yes Frequency: Yes, nocturia every 1 1/2 hours last night. Hematuria: No Nausea: No Fever or chills: 100.8 this morning Back pain: No Abdominal pain: No Prior UTI: Yes Slow stream for years. PAST MEDICAL HISTORY Diagnosis Date - Acute gastritis without mention of hemorrhage - Allergic rhinitis, cause unspecified - Atrial fibrillation or flutter - AV block, 1st degree - Background diabetic retinopathy(362.01) - CAD (coronary artery disease) - Contact dermatitis - COPD, mild ([facility]) 08/14/2017 - Degeneration of lumbar or lumbosacral intervertebral disc Spondylolisthesis of L5-S1 - Diabetes mellitus, type 2 (HCC) retinopathy, neuropathy, nephropathy - Esophagitis, unspecified - Generalized osteoarthrosis, unspecified site - GERD (gastroesophageal reflux disease) - Hip joint replacement by other means 12/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 hydrOXYzine HCl (ATARAX) 25 mg tablet Take 1 tablet by mouth every 6 hours as needed for Itching/Rash. metoprolol tartrate, short acting, (LOPRESSOR) 25 mg tablet Take 0.5 tablet after breakfast and one tablet after supper Omeprazole 40 mg capsule Take 1 capsule by mouth once daily. chlorthalidone (HYGROTON) 25 mg tablet Take 1 tablet by mouth once daily. warfarin (COUMADIN) 4 mg tablet Take as directed per physician mometasone-formoterol (DULERA) 100-5 mcg/actuation inhaler Inhale 2 Puffs as instructed twice daily. Rinse mouth after use. tamsulosin ER (FLOMAX) 0.4 mg cp24 TAKE 1 CAPSULE ONCE DAILY insulin glargine (LANTUS) 100 unit/mL injection Inject 50 Units subcutaneously once daily. If sugars slightly low take 45 units once daily instead of 47. montelukast (SINGULAIR) 10 mg tablet Take 1 tablet by mouth once daily. ramipril (ALTACE) 10 mg capsule Take 1 capsule by mouth once daily. levothyroxine (SYNTHROID) 100 mcg tablet Take 1 tablet by mouth once daily. betamethasone dipropionate 0.05 % ointment Apply 1 Tube to affected area as needed (for hand dermatitis). clopidogrel (PLAVIX) 75 mg tablet Take 1 tablet by mouth once daily. fluticasone (FLONASE) 50 mcg/actuation nasal spray Use 2 Sprays in each nostril once daily. rosuvastatin (CRESTOR) 10 mg tablet Take 1/2 a tab every day warfarin (COUMADIN) 5 mg tablet 10 mg on and 5mg Sat/Sat/Sat and 7.5mg Sat//Sat or as directed. Insulin Lispro, Human, (HUMALOG KWIKPEN) 100 unit/mL inpn 14-16 units with breakfast and lunch and 20-24 units with dinner, Correction per sliding scale total up to 70 units daily Insulin Syringe-Needle U-100 (BD INSULIN SYRINGE MF) 1/2 mL 28 gauge x 1/2 syrg 1 Each once daily. Dx: E11.29 Insulin: yes EASY TOUCH 31 gauge x 5/16 ndle USE 1 NEEDLE PER DOSE THREE TIMES A DAY albuterol HFA (PROAIR HFA) 90 mcg/actuation inhaler Inhale 2 Puffs as instructed every 4 hours as needed. acetaminophen (TYLENOL EXTRA STRENGTH) 500 mg tablet Take 500 mg by mouth as needed. Cholecalciferol, Vitamin D3, 2,000 unit cap Take 4,000 Units by mouth once daily. Docusate Sodium 100 mg tab Take two tabs daily cyanocobalamin (VITAMIN B-12) 500 mcg tab Take 1 tablet by mouth once daily. psyllium husk 0.4 gram cap Take 2 capsules by mouth once daily. Ferrous Gluconate 246 mg (27 mg iron) Tab Take 1 tablet by mouth once daily. calcium carbonate (CALTRATE 600) 600 mg (1,500 mg) Tab Take 1 tablet by mouth twice daily. Ascorbic Acid (VITAMIN C) Chew Take 500 mg by mouth once daily. TRIAMCINOLONE ACETONIDE 0.1 % TOPICAL CREAM bid prn--not to face/axillae/groin MULTIVITAMIN TABLET Take one(1) tablet daily. penicillin V potassium (V-CILLIN, VEETIDS) 500 mg tablet Take 1 tablet by mouth twice daily. (Patient not taking: Reported on 01/07/2018 ) BIOTIN ORAL Take 10,000 mcg by mouth once daily. No current facility-administered medications for this visit. ALLERGIES: ALLERGIES Allergen Reactions - Pamella Inhibitors Cough accupril - Atorvastatin Other: See Comments lipitor- muscle weakness, elevated LFT's - Crestor [Rosuvastat* Myalgia - Indocin [Indomethac* GI Upset - Naproxen GI Upset - Pravastatin Other: See Comments pravachol- muscle weakness, elevated LFT's VITALS: BP 160/70 Pulse 80 Temp 38.2 ?C (100.7 ?F) (Tympanic) Wt 128.8 kg (284 lb) BMI 42.31 kg/m? PHYSICAL EXAM: GEN: NAD HEENT: EOMI, conjunctiva clear, moist mucous membranes HEART: regular rate and rhythm, no murmurs LUNGS: clear to auscultation, no wheezes or crackles, no increased WOB ABDOMEN: Soft, obese, no masses, no suprapubic tenderness BACK: No CVA tenderness ASSESSMENT/PLAN: 1. Dysuria - ICD9: 788.1, ICD10: R30.0 - URINE CULTURE - UA DIP B/O - large blood, positive nitrite, moderate LE - SULFAMETHOXAZOLE 800 MG-TRIMETHOPRIM 160 MG TABLET INR next week. F/u in the ER if unable to void. Recommended bladder US if frequency does not improve with treatment of UTI. Javid Harding MD Observed: 02/01/2018 Status: F Source: [place] URINE CULTURE 8:00 AM [facility] REPOSITORY Sp. Request/Comment: - Specimen received in preservative Culture Result - >=100,000 CFU/ml Escherichia coli --> ABNORMAL ALERT ORGANISM: Escherichia coli METHOD: Minimum inhibitory concentration(Vitek) Antibiotic Interp IGNACIO Status Ampicillin RESISTANT F Gentamicin SUSCEPTIBLE <=1 F Trimeth sulfameth RESISTANT >=320 F Cefazolin SUSCEPTIBLE <=4 F CLSI breakpoints for therapy of uncomplicated UTI's due to E.coli, K.pneumoniae, and P.mirabilis were applied and may be used to predict the activity of oral agents(cefaclor, cefdinir, cefpodoxime, cefp rozil, cefuroxime, cephalexin, loracarbef). Ciprofloxacin SUSCEPTIBLE 0.5 F Nitrofurantoin SUSCEPTIBLE <=16 F Cefepime SUSCEPTIBLE <=1 F Piperacillin/Tazobac SUSCEPTIBLE <=4 F Ampicillin Sulbact SUSCEPTIBLE <=2 F Ceftriaxone SUSCEPTIBLE <=1 F Meropenem SUSCEPTIBLE <=0.25 F Ertapenem SUSCEPTIBLE <=0.5 F Performed By: #### URCUL #### [facility] [address] [address] PROGRESS Observed: 01/16/2018 Status: COMPLETED Source: [place] 12:02 PM [facility] REPOSITORY HNO ID: [id number] Author: Jonel Don Service: (none) Author Type: Physician Type: Progress Notes Filed: 01/16/2018 4:55 PM Note Text: This note was created using Zarporiter. Subjective Kip Guaman is a 72 year old male. Review of Systems Objective There were no vitals taken for this visit. Physical Exam Assessment and Plan Agree with plan. PROGRESS Observed: 01/16/2018 Status: COMPLETED Source: [place] 11:14 AM [facility] REPOSITORY HNO ID: [id number] Author: Erin Awan RN Service: (none) Author Type: (none) Type: Progress Notes Filed: 01/16/2018 11:15 AM Note Text: patient had inr completed at [facility] patients inr is 2.8 (patients inr range is 2.0-3.0) patient is currently taking 4mg Sat and 7.5mg all other days patients last dose change was on 11/11/17 due to a high level of 5.2 (dose at that time was 5mg Sat and 7.5mg all other days) patient has had no changes in medication and no missed doses and no change in diet Advised patient to continue on the same dose(s) and that they would only be contacted regarding dosage and follow up instructions after review with provider, if a change is needed. Written instructions given and patient verbalized understanding. Presently scheduled in 4 weeks (02/13/18) for follow up INR. PROGRESS Observed: 01/07/2018 Status: COMPLETED Source: [place] 3:[address] [facility] REPOSITORY O ID: [id number] Author: Leslie Lind Service: (none) Author Type: Nurse Practitioner Type: Progress Notes Filed: 01/07/2018 3:49 PM Note Text: 01/07/2018 Patient presents with: Rash SUBJECTIVE: This is a 72 year old that is here today for rash. He was seen in the UC and started on prednisone- 9 day taper. He is on day 5. He states that the rash was initially on her legs and lower abdomen and those areas are improving, but it has now spread to entire trunk and upper arms. He initially thought that it was exposure to a plant or poison tulio because he was weeding. It never blistered. It itches. No open areas, drainage or heat. He states that he has not changed lotions, soaps, detergents. No new clothes. He washed everything in high heat. He has been adjusting his insulin for his higher blood sugars on the prednisone. 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 triamcinolone acetonide (KENALOG) 0.1 % cream Apply 1 application to affected area three times daily for 14 days. Apply sparingly to area for rash/itching. metoprolol tartrate, short acting, (LOPRESSOR) 25 mg tablet Take 0.5 tablet after breakfast and one tablet after supper blood sugar diagnostic (EASY TOUCH TEST STRIP) test strip Check blood sugar twice daily. Omeprazole 40 mg capsule Take 1 capsule by mouth once daily. chlorthalidone (HYGROTON) 25 mg tablet Take 1 tablet by mouth once daily. warfarin (COUMADIN) 4 mg tablet Take as directed per physician mometasone-formoterol (DULERA) 100-5 mcg/actuation inhaler Inhale 2 Puffs as instructed twice daily. Rinse mouth after use. tamsulosin ER (FLOMAX) 0.4 mg cp24 TAKE 1 CAPSULE ONCE DAILY insulin glargine (LANTUS) 100 unit/mL injection Inject 50 Units subcutaneously once daily. If sugars slightly low take 45 units once daily instead of 47. montelukast (SINGULAIR) 10 mg tablet Take 1 tablet by mouth once daily. ramipril (ALTACE) 10 mg capsule Take 1 capsule by mouth once daily. levothyroxine (SYNTHROID) 100 mcg tablet Take 1 tablet by mouth once daily. betamethasone dipropionate 0.05 % ointment Apply 1 Tube to affected area as needed (for hand dermatitis). clopidogrel (PLAVIX) 75 mg tablet Take 1 tablet by mouth once daily. fluticasone (FLONASE) 50 mcg/actuation nasal spray Use 2 Sprays in each nostril once daily. rosuvastatin (CRESTOR) 10 mg tablet Take 1/2 a tab every day warfarin (COUMADIN) 5 mg tablet 10 mg on and 5mg Sat/Sat/Sun and 7.5mg Mon//Sat or as directed. Insulin Lispro, Human, (HUMALOG KWIKPEN) 100 unit/mL inpn 14-16 units with breakfast and lunch and 20-24 units with dinner, Correction per sliding scale total up to 70 units daily Insulin Syringe-Needle U-100 (BD INSULIN SYRINGE MF) 1/2 mL 28 gauge x 1/2 syrg 1 Each once daily. Dx: E11.29 Insulin: yes EASY TOUCH 31 gauge x 5/16 ndle USE 1 NEEDLE PER DOSE THREE TIMES A DAY albuterol HFA (PROAIR HFA) 90 mcg/actuation inhaler Inhale 2 Puffs as instructed every 4 hours as needed. acetaminophen (TYLENOL EXTRA STRENGTH) 500 mg tablet Take 500 mg by mouth as needed. Cholecalciferol, Vitamin D3, 2,000 unit cap Take 4,000 Units by mouth once daily. Docusate Sodium 100 mg tab Take two tabs daily cyanocobalamin (VITAMIN B-12) 500 mcg tab Take 1 tablet by mouth once daily. psyllium husk 0.4 gram cap Take 2 capsules by mouth once daily. BIOTIN ORAL Take 10,000 mcg by mouth once daily. Ferrous Gluconate 246 mg (27 mg iron) Tab Take 1 tablet by mouth once daily. calcium carbonate (CALTRATE 600) 600 mg (1,500 mg) Tab Take 1 tablet by mouth twice daily. Ascorbic Acid (VITAMIN C) Chew Take 500 mg by mouth once daily. TRIAMCINOLONE ACETONIDE 0.1 % TOPICAL CREAM bid prn--not to face/axillae/groin MULTIVITAMIN TABLET Take one(1) tablet daily. hydrOXYzine HCl (ATARAX) 25 mg tablet Take 1 tablet by mouth every 6 hours as needed for Itching/Rash. penicillin V potassium (V-CILLIN, VEETIDS) 500 mg tablet Take 1 tablet by mouth twice daily. (Patient not taking: Reported on 01/07/2018 ) No current facility-administered medications for this visit. Medications and allergies reviewed by this provider. 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 . Vital signs reviewed by this provider. PHYSICAL EXAMINATION: General appearance: Well appearing, alert, in no acute distress, well-hydrated, well nourished., Morbidly obese Skin: pink very slightly raised confluent rash to the trunk and upper arms and forarms bilaterally, small areas to the upper thighs, lower abdomen and lower legs. All areas affected touch his clothing. He states that this is a typical outfit for him- short sleeve button up shirt, shorts, and socks pulled up. No open areas, drainage, warmth to touch. ASSESSMENT/PLAN: 1. Allergic contact dermatitis, unspecified trigger - ICD9: 692.9, ICD10: L23.9 - Oral Steriod tx -Prednisone taper- restart 9 day taper starting tomorrow - Anti itch therapy of Rx for Atarax recommended prn - discussed skin care of rash - clearly seems to be where clothing touches, recommend switching detergent to a free and clear version and washing clothes in it prior to wearing them to avoid reexposure - follow up if symptoms persist or worsen. - PREDNISONE 10 MG TABLET - dermatology if no improvement- he is established at [facility] Leslie Lind APRN.KAYKAY JACOBS Observed: 01/07/2018 Status: COMPLETED Source: [place] 2:20 PM [facility] REPOSITORY Office Visit (FAMPWS) KIP GUAMAN ([id number]) 1945 M Date Time Provider Department 01/07/18 2:20 PM LESLIE LIND (KAYKAY) STEVE During your visit today, we recorded the following information about you: Temperature Pulse Respiration Blood pressure 98.5 degrees 74/minute 20/minute 140/82 Weight 128.9 kg Leslie Lind APRN.CNP 01/07/2018 2:50 PM Signed Change detergent to a free and clear version and wash clothes in it prior to wearing them Leslie Lind APRN.CNP 01/07/2018 3:49 PM Addendum 01/07/2018 Patient presents with: Rash SUBJECTIVE: This is a 72 year old that is here today for rash. He was seen in the UC and started on prednisone- 9 day taper. He is on day 5. He states that the rash was initially on her legs and lower abdomen and those areas are improving, but it has now spread to entire trunk and upper arms. He initially thought that it was exposure to a plant or poison tulio because he was weeding. It never blistered. It itches. No open areas, drainage or heat. He states that he has not changed lotions, soaps, detergents. No new clothes. He washed everything in high heat. He has been adjusting his insulin for his higher blood sugars on the prednisone. PAST MEDICAL HISTORY Diagnosis Date - Acute gastritis without mention of hemorrhage - Allergic rhinitis, cause unspecified - Atrial fibrillation or flutter - AV block, 1st degree - Background diabetic retinopathy(362.01) - CAD (coronary artery disease) - Contact dermatitis - COPD, mild ([facility]) 08/14/2017 - Degeneration of lumbar or lumbosacral intervertebral disc Spondylolisthesis of L5-S1 - Diabetes mellitus, type 2 (HCC) retinopathy, neuropathy, nephropathy - Esophagitis, unspecified - Generalized osteoarthrosis, unspecified site - GERD (gastroesophageal reflux disease) - 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 triamcinolone acetonide (KENALOG) 0.1 % cream Apply 1 application to affected area three times daily for 14 days. Apply sparingly to area for rash/itching. metoprolol tartrate, short acting, (LOPRESSOR) 25 mg tablet Take 0.5 tablet after breakfast and one tablet after supper blood sugar diagnostic (EASY TOUCH TEST STRIP) test strip Check blood sugar twice daily. Omeprazole 40 mg capsule Take 1 capsule by mouth once daily. chlorthalidone (HYGROTON) 25 mg tablet Take 1 tablet by mouth once daily. warfarin (COUMADIN) 4 mg tablet Take as directed per physician mometasone-formoterol (DULERA) 100-5 mcg/actuation inhaler Inhale 2 Puffs as instructed twice daily. Rinse mouth after use. tamsulosin ER (FLOMAX) 0.4 mg cp24 TAKE 1 CAPSULE ONCE DAILY insulin glargine (LANTUS) 100 unit/mL injection Inject 50 Units subcutaneously once daily. If sugars slightly low take 45 units once daily instead of 47. montelukast (SINGULAIR) 10 mg tablet Take 1 tablet by mouth once daily. ramipril (ALTACE) 10 mg capsule Take 1 capsule by mouth once daily. levothyroxine (SYNTHROID) 100 mcg tablet Take 1 tablet by mouth once daily. betamethasone dipropionate 0.05 % ointment Apply 1 Tube to affected area as needed (for hand dermatitis). clopidogrel (PLAVIX) 75 mg tablet Take 1 tablet by mouth once daily. fluticasone (FLONASE) 50 mcg/actuation nasal spray Use 2 Sprays in each nostril once daily. rosuvastatin (CRESTOR) 10 mg tablet Take 1/2 a tab every day warfarin (COUMADIN) 5 mg tablet 10 mg on Tu and 5mg Sat/Sat/Sun and 7.5mg Mon//Sat or as directed. Insulin Lispro, Human, (HUMALOG KWIKPEN) 100 unit/mL inpn 14-16 units with breakfast and lunch and 20-24 units with dinner, Correction per sliding scale total up to 70 units daily Insulin Syringe-Needle U-100 (BD INSULIN SYRINGE MF) 1/2 mL 28 gauge x 1/2 syrg 1 Each once daily. Dx: E11.29 Insulin: yes EASY TOUCH 31 gauge x 5/16 ndle USE 1 NEEDLE PER DOSE THREE TIMES A DAY albuterol HFA (PROAIR HFA) 90 mcg/actuation inhaler Inhale 2 Puffs as instructed every 4 hours as needed. acetaminophen (TYLENOL EXTRA STRENGTH) 500 mg tablet Take 500 mg by mouth as needed. Cholecalciferol, Vitamin D3, 2,000 unit cap Take 4,000 Units by mouth once daily. Docusate Sodium 100 mg tab Take two tabs daily cyanocobalamin (VITAMIN B-12) 500 mcg tab Take 1 tablet by mouth once daily. psyllium husk 0.4 gram cap Take 2 capsules by mouth once daily. BIOTIN ORAL Take 10,000 mcg by mouth once daily. Ferrous Gluconate 246 mg (27 mg iron) Tab Take 1 tablet by mouth once daily. calcium carbonate (CALTRATE 600) 600 mg (1,500 mg) Tab Take 1 tablet by mouth twice daily. Ascorbic Acid (VITAMIN C) Chew Take 500 mg by mouth once daily. TRIAMCINOLONE ACETONIDE 0.1 % TOPICAL CREAM bid prn--not to face/axillae/groin MULTIVITAMIN TABLET Take one(1) tablet daily. hydrOXYzine HCl (ATARAX) 25 mg tablet Take 1 tablet by mouth every 6 hours as needed for Itching/Rash. penicillin V potassium (V-CILLIN, VEETIDS) 500 mg tablet Take 1 tablet by mouth twice daily. (Patient not taking: Reported on 01/07/2018 ) No current facility-administered medications for this visit. Medications and allergies reviewed by this provider. 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 . Vital signs reviewed by this provider. PHYSICAL EXAMINATION: General appearance: Well appearing, alert, in no acute distress, well-hydrated, well nourished., Morbidly obese Skin: pink very slightly raised confluent rash to the trunk and upper arms and forarms bilaterally, small areas to the upper thighs, lower abdomen and lower legs. All areas affected touch his clothing. He states that this is a typical outfit for him- short sleeve button up shirt, shorts, and socks pulled up. No open areas, drainage, warmth to touch. ASSESSMENT/PLAN: 1. Allergic contact dermatitis, unspecified trigger - ICD9: 692.9, ICD10: L23.9 - Oral Steriod tx -Prednisone taper- restart 9 day taper starting tomorrow - Anti itch therapy of Rx for Atarax recommended prn - discussed skin care of rash - clearly seems to be where clothing touches, recommend switching detergent to a free and clear version and washing clothes in it prior to wearing them to avoid reexposure - follow up if symptoms persist or worsen. - PREDNISONE 10 MG TABLET - dermatology if no improvement- he is established at [facility] Leslie Lind APRN.HISTORY INSTRUCTOR Referring Provider: SELF [[id number]] Allergies As of Date: 01/07/2018 Noted Allergy Reaction PAMELLA INHIBITORS 07/18/2004 3 - Cough Comments: accupril ATORVASTATIN 07/18/2004 14 - Other: See Comments Comments: lipitor- muscle weakness, elevated LFT's CRESTOR (ROSUVASTATIN CALCIUM) 10/30/2016 17 - Myalgia INDOCIN (INDOMETHACIN SODIUM) 04/06/2005 8 - GI Upset NAPROXEN 07/18/2004 8 - GI Upset PRAVASTATIN 07/18/2004 14 - Other: See Comments Comments: pravachol- muscle weakness, elevated LFT's Date Reviewed: 01/07/2018 Reviewed by: Renata Feldman Ma - Fully Assessed Reason for Visit: Rash [1087] Visit Diagnosis:Allergic contact dermatitis, unspecified trigger [L23.9] Order(s):predniSONE (DELTASONE) 10 mg tabletTake 4 tabs daily for 3 days, then 2 tabs daily for 3 days, then 1 tab daily for 3 days with food.Disp: 21 tabletRfl: 0 hydrOXYzine HCl (ATARAX) 25 mg tabletTake 1 tablet by mouth every 6 hours as needed for Itching/Rash.Disp: 30 tabletRfl: 0 Prescriptions as of 01/07/2018 Sig: PREDNISONE 10 MG TABLET Take 4 tabs daily for 3 days,* TRIAMCINOLONE ACETONIDE 0.1 %* Apply 1 application to affect* METOPROLOL TARTRATE 25 MG TAB* Take 0.5 tablet after breakfa* BLOOD SUGAR DIAGNOSTIC STRIPS Check blood sugar twice daily. OMEPRAZOLE 40 MG CAPSULE,DEMARCO* Take 1 capsule by mouth once * CHLORTHALIDONE 25 MG TABLET Take 1 tablet by mouth once d* WARFARIN 4 MG TABLET Take as directed per physician MOMETASONE-FORMOTEROL HFA 100* Inhale 2 Puffs as instructed * TAMSULOSIN 0.4 MG CAPSULE TAKE 1 CAPSULE ONCE DAILY INSULIN GLARGINE (U-100) 100 * Inject 50 Units subcutaneousl* MONTELUKAST 10 MG TABLET Take 1 tablet by mouth once d* RAMIPRIL 10 MG CAPSULE Take 1 capsule by mouth once * LEVOTHYROXINE 100 MCG TABLET Take 1 tablet by mouth once d* BETAMETHASONE DIPROPIONATE 0.* Apply 1 Tube to affected area* CLOPIDOGREL 75 MG TABLET Take 1 tablet by mouth once d* FLUTICASONE 50 MCG/ACTUATION * Use 2 Sprays in each nostril * ROSUVASTATIN 10 MG TABLET Take 1/2 a tab every day WARFARIN 5 MG TABLET 10 mg on and 5mg Sat/* INSULIN LISPRO (U-100) 100 UN* 14-16 units with breakfast an* INSULIN SYRINGE-NEEDLE U-100 * 1 Each once daily. Dx: E11.29* EASY TOUCH 31 GAUGE X 5/16 N* USE 1 NEEDLE PER DOSE THREE T* ALBUTEROL SULFATE HFA 90 MCG/* Inhale 2 Puffs as instructed * ACETAMINOPHEN 500 MG TABLET Take 500 mg by mouth as neede* CHOLECALCIFEROL (VITAMIN D3) * Take 4,000 Units by mouth onc* DOCUSATE SODIUM 100 MG TABLET Take two tabs daily CYANOCOBALAMIN (VIT B-12) 500* Take 1 tablet by mouth once d* PSYLLIUM HUSK 0.4 GRAM CAPSULE Take 2 capsules by mouth once* BIOTIN ORAL Take 10,000 mcg by mouth once* FERROUS GLUCONATE 246 MG (27 * Take 1 tablet by mouth once d* * CALCIUM CARBONATE 600 MG CALC* Take 1 tablet by mouth twice * * ASCORBIC ACID (VITAMIN C) 500* Take 500 mg by mouth once albina* * TRIAMCINOLONE ACETONIDE 0.1 %* bid prn--not to face/axillae/* * MULTIVITAMIN TABLET Take one(1) tablet daily. HYDROXYZINE HCL 25 MG TABLET Take 1 tablet by mouth every * PENICILLIN V POTASSIUM 500 MG* Take 1 tablet by mouth twice * Patient not taking: Reported on 01/07/2018 More... Problem List As Of Date 01/07/2018 Noted Resolved Hypothyroidism (acquired) [E03.9] Priority: A Mixed hyperlipidemia [E78.2] Priority: A Allergic rhinitis, cause unspecified [J30.9] Priority: B Morbid Obesity [E66.01] 09/07/2009 More... Degeneration of lumbar or lumbosacral intervert* Priority: M More... Coronary artery disease due to lipid rich plaqu*INVALID FOR* Priority: A More... Mild intermittent asthma without complication [*INVALID FOR* Priority: A More... More... Hip joint replacement by other means [Z96.649] INVALID FOR*06/06/2016 Priority: M Personal history of other malignant neoplasm of*INVALID FOR* Priority: D More... Special Screening for Malignant Neoplasms, [place]*INVALID FOR*09/07/2009 Acute Gastritis without Mention of Hemorrhage [*INVALID FOR*09/07/2009 More... Urinary frequency [R35.0] INVALID FOR* Priority: C More... More... More... MGUS (monoclonal gammopathy of unknown signific*INVALID FOR* Priority: B More... Atrial flutter [I48.92] INVALID FOR* Priority: A More... THO (obstructive sleep apnea) [G47.33] INVALID FOR* Priority: B More... 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 AV block, 1st degree [I44.0] Priority: A Diabetic eye exam (HCC) [Z01.00, E11.9] INVALID FOR* Priority: A More... Type 2 diabetes mellitus with proteinuria (HCC)*INVALID FOR* Priority: A Gastroesophageal reflux disease without esophag*INVALID FOR* Priority: A Iron deficiency anemia secondary to inadequate *INVALID FOR* Priority: A More... Non-proliferative diabetic retinopathy, mild, b*INVALID FOR* Priority: A Bilateral carotid artery disease (HCC) [I77.9] INVALID FOR* Priority: A More... Corns and callus [L84] INVALID FOR* Priority: D Morbid obesity due to excess calories (HCC) [E6*INVALID FOR* Priority: B More... Well adult exam [Z00.00] INVALID FOR* Priority: E More... Ex-smoker [Z87.891] INVALID FOR* Priority: C More... Colon cancer screening [Z12.11] INVALID FOR* Type 2 diabetes mellitus with diabetic neuropat*INVALID FOR* Priority: A H/O gastric bypass [Z98.84] INVALID FOR* Priority: A Malabsorption syndrome [K90.9] INVALID FOR* Priority: A More... Iron malabsorption [K90.9] INVALID FOR* Priority: B Disorder of prostate [N42.9] INVALID FOR* Hypertension goal BP (blood pressure) < 140/80 *INVALID FOR* Priority: A Medicare annual wellness visit, subsequent [Z00*INVALID FOR* Priority: E More... Current use of proton pump inhibitor [Z79.899] INVALID FOR* Albuminuria [R80.9] INVALID FOR* Priority: A Abnormal carotid duplex scan [R94.39] INVALID FOR* Subclavian artery stenosis (HCC) [I77.1] INVALID FOR* Priority: A More... COPD, mild (HCC) [J44.9] INVALID FOR* Priority: A Other instructions from your clinician: Change detergent to a free and clear version and wash clothes in it prior to wearing them Prescriptions ordered this encounter Disp Refills Start End PREDNISONE 10 MG TABLET 21 t* 0 01/07/2018 01/16/2018 Sig: Take 4 tabs daily for 3 days, then 2 tabs daily for 3 days, then 1 tab daily for 3 days with food. HYDROXYZINE HCL 25 MG TABLET 30 t* 0 01/07/2018 Route: ORAL Sig: Take 1 tablet by mouth every 6 hours as needed for Itching/Rash. Medications Discontinued During This Encounter predniSONE (DELTASONE) 10 mg tablet 21 t* 0 12/30/2017 01/07/2018 Class: Print RX Sig: Take 4 tabs daily for 3 days, then 2 tabs daily for 3 days, then 1 tab daily for 3 days with food. Disc: Reason for discontinue is not on file. Encounter Status:Closed by LESLIE LIND on 01/07/18 PROGRESS Observed: 01/07/2018 Status: COMPLETED Source: [place] 9:45 AM [facility] REPOSITORY O ID: [id number] Author: Yudelka Spencer LPN Service: (none) Author Type: (none) Type: Progress Notes Filed: 01/07/2018 9:59 AM Note Text: Manual Readin/62 Pulse: 72 Reason for blood pressure check - Medication adjustment Patient is: Taking medication as prescribed Yes Took medication today Yes If no, date medication last taken N/A Experiencing side effects No BP was normal at nurse visit 12/18/17, except his HR was very low. Lopressor was changed to 25mg 1/2 tablet twice daily. Tolerating medication change well. Is currently being treated with Prednisone for poison tulio rash. Also has different rash outbreak to upper extremities and trunk over the last few days. Home BP readings have ranged 149-218/58-85 ( did not bring home monitor today). Denies any chest pain, shortness of breath, or headaches. Daily caffeine use with soda; none today. Past personal history of tobacco use; no current exposure. Alert and oriented. Pt has been identified by name and birthdate: Yes Allergies reviewed: Yes Latex allergy: no. Medication - prescribed and OTC reviewed and updated: Yes Do you need any prescription refills prior to your next visit: No Health Maintenance: Reviewed and not up to date and provider notified Patient advised to continue with current medications and would be contacted with any further instructions after review by PCP. Yudelka Spencer LPN CNNURSE Observed: 01/07/2018 Status: COMPLETED Source: [place] 9:45 AM [facility] REPOSITORY Nurse Visit (FAMPWS) KIP GUAMAN ([id number]) 1945 M Date Time Provider Department 01/07/18 9:45 AM [facility] During your visit today, we recorded the following information about you: Pulse Blood pressure 72/minute 136/62 Yudelka Spencer LPN 01/07/2018 9:59 AM Signed Manual Readin/62 Pulse: 72 Reason for blood pressure check - Medication adjustment Patient is: Taking medication as prescribed Yes Took medication today Yes If no, date medication last taken N/A Experiencing side effects No BP was normal at nurse visit 12/18/17, except his HR was very low. Lopressor was changed to 25mg 1/2 tablet twice daily. Tolerating medication change well. Is currently being treated with Prednisone for poison tulio rash. Also has different rash outbreak to upper extremities and trunk over the last few days. Home BP readings have ranged 149-218/58-85 ( did not bring home monitor today). Denies any chest pain, shortness of breath, or headaches. Daily caffeine use with soda; none today. Past personal history of tobacco use; no current exposure. Alert and oriented. Pt has been identified by name and birthdate: Yes Allergies reviewed: Yes Latex allergy: no. Medication - prescribed and OTC reviewed and updated: Yes Do you need any prescription refills prior to your next visit: No Health Maintenance: Reviewed and not up to date and provider notified Patient advised to continue with current medications and would be contacted with any further instructions after review by PCP. Yudelka Spencer LPN Referring Provider: JONEL DON [[id number]] Allergies As of Date: 01/07/2018 Noted Allergy Reaction PAMELLA INHIBITORS 07/18/2004 3 - Cough Comments: accupril ATORVASTATIN 07/18/2004 14 - Other: See Comments Comments: lipitor- muscle weakness, elevated LFT's CRESTOR (ROSUVASTATIN CALCIUM) 10/30/2016 17 - Myalgia INDOCIN (INDOMETHACIN SODIUM) 04/06/2005 8 - GI Upset NAPROXEN 07/18/2004 8 - GI Upset PRAVASTATIN 07/18/2004 14 - Other: See Comments Comments: pravachol- muscle weakness, elevated LFT's Date Reviewed: 01/06/2018 Reviewed by: Anusha Gutierrez - Fully Assessed Reason for Visit: Blood Pressure Check [195] Primary Visit Diagnosis:Hypertension, essential [I10] Prescriptions as of 01/07/2018 Sig: TRIAMCINOLONE ACETONIDE 0.1 %* Apply 1 application to affect* PREDNISONE 10 MG TABLET Take 4 tabs daily for 3 days,* METOPROLOL TARTRATE 25 MG TAB* Take 0.5 tablet after breakfa* BLOOD SUGAR DIAGNOSTIC STRIPS Check blood sugar twice daily. OMEPRAZOLE 40 MG CAPSULE,DEMARCO* Take 1 capsule by mouth once * CHLORTHALIDONE 25 MG TABLET Take 1 tablet by mouth once d* WARFARIN 4 MG TABLET Take as directed per physician MOMETASONE-FORMOTEROL HFA 100* Inhale 2 Puffs as instructed * TAMSULOSIN 0.4 MG CAPSULE TAKE 1 CAPSULE ONCE DAILY INSULIN GLARGINE (U-100) 100 * Inject 50 Units subcutaneousl* MONTELUKAST 10 MG TABLET Take 1 tablet by mouth once d* RAMIPRIL 10 MG CAPSULE Take 1 capsule by mouth once * LEVOTHYROXINE 100 MCG TABLET Take 1 tablet by mouth once d* BETAMETHASONE DIPROPIONATE 0.* Apply 1 Tube to affected area* CLOPIDOGREL 75 MG TABLET Take 1 tablet by mouth once d* FLUTICASONE 50 MCG/ACTUATION * Use 2 Sprays in each nostril * ROSUVASTATIN 10 MG TABLET Take 1/2 a tab every day WARFARIN 5 MG TABLET 10 mg on and 5mg Sat/* INSULIN LISPRO (U-100) 100 UN* 14-16 units with breakfast an* INSULIN SYRINGE-NEEDLE U-100 * 1 Each once daily. Dx: E11.29* EASY TOUCH 31 GAUGE X 5/16 N* USE 1 NEEDLE PER DOSE THREE T* ALBUTEROL SULFATE HFA 90 MCG/* Inhale 2 Puffs as instructed * ACETAMINOPHEN 500 MG TABLET Take 500 mg by mouth as neede* CHOLECALCIFEROL (VITAMIN D3) * Take 4,000 Units by mouth onc* DOCUSATE SODIUM 100 MG TABLET Take two tabs daily PENICILLIN V POTASSIUM 500 MG* Take 1 tablet by mouth twice * CYANOCOBALAMIN (VIT B-12) 500* Take 1 tablet by mouth once d* PSYLLIUM HUSK 0.4 GRAM CAPSULE Take 2 capsules by mouth once* BIOTIN ORAL Take 10,000 mcg by mouth once* FERROUS GLUCONATE 246 MG (27 * Take 1 tablet by mouth once d* * CALCIUM CARBONATE 600 MG CALC* Take 1 tablet by mouth twice * * ASCORBIC ACID (VITAMIN C) 500* Take 500 mg by mouth once albina* * TRIAMCINOLONE ACETONIDE 0.1 %* bid prn--not to face/axillae/* * MULTIVITAMIN TABLET Take one(1) tablet daily. More... Problem List As Of Date 01/07/2018 Noted Resolved Hypothyroidism (acquired) [E03.9] Priority: A Mixed hyperlipidemia [E78.2] Priority: A Allergic rhinitis, cause unspecified [J30.9] Priority: B Morbid Obesity [E66.01] 09/07/2009 More... Degeneration of lumbar or lumbosacral intervert* Priority: M More... Coronary artery disease due to lipid rich plaqu*INVALID FOR* Priority: A More... Mild intermittent asthma without complication [*INVALID FOR* Priority: A More... More... Hip joint replacement by other means [Z96.649] INVALID FOR*06/06/2016 Priority: M Personal history of other malignant neoplasm of*INVALID FOR* Priority: D More... Special Screening for Malignant Neoplasms, [place]*INVALID FOR*09/07/2009 Acute Gastritis without Mention of Hemorrhage [*INVALID FOR*09/07/2009 More... Urinary frequency [R35.0] INVALID FOR* Priority: C More... More... More... MGUS (monoclonal gammopathy of unknown signific*INVALID FOR* Priority: B More... Atrial flutter [I48.92] INVALID FOR* Priority: A More... THO (obstructive sleep apnea) [G47.33] INVALID FOR* Priority: B More... 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 AV block, 1st degree [I44.0] Priority: A Diabetic eye exam (HCC) [Z01.00, E11.9] INVALID FOR* Priority: A More... Type 2 diabetes mellitus with proteinuria (HCC)*INVALID FOR* Priority: A Gastroesophageal reflux disease without esophag*INVALID FOR* Priority: A Iron deficiency anemia secondary to inadequate *INVALID FOR* Priority: A More... Non-proliferative diabetic retinopathy, mild, b*INVALID FOR* Priority: A Bilateral carotid artery disease (HCC) [I77.9] INVALID FOR* Priority: A More... Corns and callus [L84] INVALID FOR* Priority: D Morbid obesity due to excess calories (HCC) [E6*INVALID FOR* Priority: B More... Well adult exam [Z00.00] INVALID FOR* Priority: E More... Ex-smoker [Z87.891] INVALID FOR* Priority: C More... Colon cancer screening [Z12.11] INVALID FOR* Type 2 diabetes mellitus with diabetic neuropat*INVALID FOR* Priority: A H/O gastric bypass [Z98.84] INVALID FOR* Priority: A Malabsorption syndrome [K90.9] INVALID FOR* Priority: A More... Iron malabsorption [K90.9] INVALID FOR* Priority: B Disorder of prostate [N42.9] INVALID FOR* Hypertension goal BP (blood pressure) < 140/80 *INVALID FOR* Priority: A Medicare annual wellness visit, subsequent [Z00*INVALID FOR* Priority: E More... Current use of proton pump inhibitor [Z79.899] INVALID FOR* Albuminuria [R80.9] INVALID FOR* Priority: A Abnormal carotid duplex scan [R94.39] INVALID FOR* Subclavian artery stenosis (HCC) [I77.1] INVALID FOR* Priority: A More... COPD, mild (HCC) [J44.9] INVALID FOR* Priority: A Encounter Status:Closed by YUDELKA SPENCER LPN on 01/07/18 PROGRESS Observed: 01/06/2018 Status: COMPLETED Source: [place] 10:11 AM [facility] REPOSITORY HNO ID: [id number] Author: Korey Bernal Service: (none) Author Type: Physician Type: Progress Notes Filed: 01/06/2018 10:28 AM Note Text: Diagnoses: 1) MGUS (IgM lambda). 2) Mild anemia. Previous MAURICIO. 3) Mild thrombocytopenia. 4) CAD with previous CABG--gets annual stress test. Was incidentally found to have paroxysmal atrial fibrillation when undergoing routine annual stress test. Was put on warfarin. In October 2015 he had a positive Hemoccult blood test. This led to a workup for GI bleeding. He was assessed by Dr. Brown and because of a large umbilical hernia, he was sent to [facility]. An air contrast barium enema done in November showed no mucosal abnormalities. Hhe developed, a funny sensation in the chest. Admitted to [facility] on 05/14/2016. Initial hemoglobin was 7.5 g/dL. The MCV was normal. His INR was 2.0. Chemistries were unremarkable. He received a 2 unit red blood cell transfusion. Hemoglobin increased 8.9 g/dL when he was discharged on 11:15. He also underwent an EGD due to his history of possible GI bleed and Jarad-en-Y gastric bypass procedure. The study demonstrated no mucosal abnormalities and no anastomotic ulcerations. Biopsies were not performed because the patient had a history of prosthetic hip replacement and was on antibiotics. Was found to be iron deficient and received a course of parenteral iron. Presents for ongoing hematologic management. Interim history: Frequent fatigue. Generalized arthritis pain controlled with Tylenol alone. Denies unusual bleeding and unexplained bruising. He denies melena and hematochezia. Tolerating oral iron without nausea or constipation. On tapering prednisone for recent poison tulio both LEs. Symptoms resolving. PMH, medications and allergies personally reviewed by me today. Any changes documented in appropriate section. ROS: Constitutional: Denies episodes of fever and night sweats. Normal appetite. Neuro: Denies CHOWDARY. Denies symptoms of neuropathy. HEENT: No recent change in voice, vision or hearing. Resp: Denies cough, wheeze and hemoptysis. Denies shortness of breath at rest. CVS: Denies exertional chest pain, PND, orthopnea. Chronic LE edema L>R. GI: Denies dysgeusia. Denies symptoms of stomatitis. Denies dysphagia and odynophagia. Denies reflux, n/v, change in bowel habits and abdominal pain. : Denies dysuria or gross hematuria. No symptoms of bladder outlet obstruction. Endo: Denies hot flashes. Denies polyuria and polydipsia. Denies heat and cold intolerance. Musculoskeletal: Denies bone, back, joint and muscular pain. Derm: Denies jaundice and diffuse pruritis. Heme: See above. Psych: Normal mood. PHYSICAL EXAM: Vitals: Blood pressure 159/75, pulse (!) 44, temperature 36.8 ?C (98.3 ?F), temperature source Oral, weight 130.2 kg (287 lb), SpO2 99 %. Well-appearing and in no acute distress. EYES: Sclerae are anicteric bilaterally. NECK: Supple. LYMPHATIC: There is no palpable cervical, supraclavicular adenopathy. RESPIRATORY: Inspiratory breath sounds are of diminished intensity in all delacruz. CARDIOVASCULAR: Rhythm is regular. Normal intensity S1/S2. ABDOMEN: The abdomen is obese and is nondistended. There is no organomegaly. No tenderness. Extremities: Trace edema. SKIN: No jaundice or rash. No petechiae. NEUROLOGIC: imposer II-XII are grossly intact. No focal motor weakness. ASSESSMENT/PLAN: (D47.2) MGUS (monoclonal gammopathy of unknown significance) Assessment: -Incidentally found 2009 when undergoing work up for mild anemia. -Initially IgM lambda MGUS that was very low at diagnosis, but then became undetectable. -Previous CT A/P in 05/09 showed no lymphadenopathy. -No recent quantifiable MP in blood and no MP on electrophoresis or immunofixation in the urine. Plan: -Recheck in 6 months. (D50.0) Iron deficiency anemia due to chronic blood loss Assessment: -He had documented low serum iron in 12/2008. -Has had GI work up just short of capsule endoscopy. Plan: -Monitor counts and serum iron every 3 months. Korey Bernal DO CNOVSP Observed: 01/06/2018 Status: COMPLETED Source: [place] 9:50 AM [facility] REPOSITORY Visit (SP) Office ([place]) KIP GUAMAN ([id number]) 1945 M Date Time Provider Department 01/06/18 9:50 AM KOREY BERNAL During your visit today, we recorded the following information about you: Temperature Pulse Blood pressure Weight 98.3 degrees 44/minute 159/75 130.2 kg Korey Bernal DO 01/06/2018 10:28 AM Signed Diagnoses: 1) MGUS (IgM lambda). 2) Mild anemia. Previous MAURICIO. 3) Mild thrombocytopenia. 4) CAD with previous CABG--gets annual stress test. Was incidentally found to have paroxysmal atrial fibrillation when undergoing routine annual stress test. Was put on warfarin. In October 2015 he had a positive Hemoccult blood test. This led to a workup for GI bleeding. He was assessed by Dr. Brown and because of a large umbilical hernia, he was sent to for [facility]. An air contrast barium enema done in November showed no mucosal abnormalities. Hhe developed, a funny sensation in the chest. Admitted to [facility] on 05/14/2016. Initial hemoglobin was 7.5 g/dL. The MCV was normal. His INR was 2.0. Chemistries were unremarkable. He received a 2 unit red blood cell transfusion. Hemoglobin increased 8.9 g/dL when he was discharged on 11:15. He also underwent an EGD due to his history of possible GI bleed and Jarad-en-Y gastric bypass procedure. The study demonstrated no mucosal abnormalities and no anastomotic ulcerations. Biopsies were not performed because the patient had a history of prosthetic hip replacement and was on antibiotics. Was found to be iron deficient and received a course of parenteral iron. Presents for ongoing hematologic management. Interim history: Frequent fatigue. Generalized arthritis pain controlled with Tylenol alone. Denies unusual bleeding and unexplained bruising. He denies melena and hematochezia. Tolerating oral iron without nausea or constipation. On tapering prednisone for recent poison tulio both LEs. Symptoms resolving. PMH, medications and allergies personally reviewed by me today. Any changes documented in appropriate section. ROS: Constitutional: Denies episodes of fever and night sweats. Normal appetite. Neuro: Denies CHOWDARY. Denies symptoms of neuropathy. HEENT: No recent change in voice, vision or hearing. Resp: Denies cough, wheeze and hemoptysis. Denies shortness of breath at rest. CVS: Denies exertional chest pain, PND, orthopnea. Chronic LE edema L>R. GI: Denies dysgeusia. Denies symptoms of stomatitis. Denies dysphagia and odynophagia. Denies reflux, n/v, change in bowel habits and abdominal pain. : Denies dysuria or gross hematuria. No symptoms of bladder outlet obstruction. Endo: Denies hot flashes. Denies polyuria and polydipsia. Denies heat and cold intolerance. Musculoskeletal: Denies bone, back, joint and muscular pain. Derm: Denies jaundice and diffuse pruritis. Heme: See above. Psych: Normal mood. PHYSICAL EXAM: Vitals: Blood pressure 159/75, pulse (!) 44, temperature 36.8 ?C (98.3 ?F), temperature source Oral, weight 130.2 kg (287 lb), SpO2 99 %. Well-appearing and in no acute distress. EYES: Sclerae are anicteric bilaterally. NECK: Supple. LYMPHATIC: There is no palpable cervical, supraclavicular adenopathy. RESPIRATORY: Inspiratory breath sounds are of diminished intensity in all delacruz. CARDIOVASCULAR: Rhythm is regular. Normal intensity S1/S2. ABDOMEN: The abdomen is obese and is nondistended. There is no organomegaly. No tenderness. Extremities: Trace edema. SKIN: No jaundice or rash. No petechiae. NEUROLOGIC: imposer II-XII are grossly intact. No focal motor weakness. ASSESSMENT/PLAN: (D47.2) MGUS (monoclonal gammopathy of unknown significance) Assessment: -Incidentally found 2009 when undergoing work up for mild anemia. -Initially IgM lambda MGUS that was very low at diagnosis, but then became undetectable. -Previous CT A/P in 05/09 showed no lymphadenopathy. -No recent quantifiable MP in blood and no MP on electrophoresis or immunofixation in the urine. Plan: -Recheck in 6 months. (D50.0) Iron deficiency anemia due to chronic blood loss Assessment: -He had documented low serum iron in 12/2008. -Has had GI work up just short of capsule endoscopy. Plan: -Monitor counts and serum iron every 3 months. Korey Bernal DO Referring Provider: KOREY BERNAL [[id number]] Allergies As of Date: 01/06/2018 Noted Allergy Reaction PAMELLA INHIBITORS 07/18/2004 3 - Cough Comments: accupril ATORVASTATIN 07/18/2004 14 - Other: See Comments Comments: lipitor- muscle weakness, elevated LFT's CRESTOR (ROSUVASTATIN CALCIUM) 10/30/2016 17 - Myalgia INDOCIN (INDOMETHACIN SODIUM) 04/06/2005 8 - GI Upset NAPROXEN 07/18/2004 8 - GI Upset PRAVASTATIN 07/18/2004 14 - Other: See Comments Comments: pravachol- muscle weakness, elevated LFT's Date Reviewed: 01/06/2018 Reviewed by: Anusha Gutierrez - Fully Assessed Reason for Visit: Established Patient [175] Primary Visit Diagnosis:MGUS (monoclonal gammopathy of unknown significance) [D47.2] Other Visit Diagnoses:Iron deficiency anemia secondary to inadequate dietary iron intake [D50.8] Intestinal malabsorption, unspecified type [K90.9] Follow-up and Disposition History Recorded Prescriptions as of 01/06/2018 Sig: TRIAMCINOLONE ACETONIDE 0.1 %* Apply 1 application to affect* PREDNISONE 10 MG TABLET Take 4 tabs daily for 3 days,* METOPROLOL TARTRATE 25 MG TAB* Take 0.5 tablet after breakfa* BLOOD SUGAR DIAGNOSTIC STRIPS Check blood sugar twice daily. OMEPRAZOLE 40 MG CAPSULE,DEMARCO* Take 1 capsule by mouth once * CHLORTHALIDONE 25 MG TABLET Take 1 tablet by mouth once d* WARFARIN 4 MG TABLET Take as directed per physician MOMETASONE-FORMOTEROL HFA 100* Inhale 2 Puffs as instructed * TAMSULOSIN 0.4 MG CAPSULE TAKE 1 CAPSULE ONCE DAILY INSULIN GLARGINE (U-100) 100 * Inject 50 Units subcutaneousl* MONTELUKAST 10 MG TABLET Take 1 tablet by mouth once d* RAMIPRIL 10 MG CAPSULE Take 1 capsule by mouth once * LEVOTHYROXINE 100 MCG TABLET Take 1 tablet by mouth once d* BETAMETHASONE DIPROPIONATE 0.* Apply 1 Tube to affected area* CLOPIDOGREL 75 MG TABLET Take 1 tablet by mouth once d* FLUTICASONE 50 MCG/ACTUATION * Use 2 Sprays in each nostril * ROSUVASTATIN 10 MG TABLET Take 1/2 a tab every day WARFARIN 5 MG TABLET 10 mg on and 5mg Sat/* INSULIN LISPRO (U-100) 100 UN* 14-16 units with breakfast an* INSULIN SYRINGE-NEEDLE U-100 * 1 Each once daily. Dx: E11.29* EASY TOUCH 31 GAUGE X 5/16 N* USE 1 NEEDLE PER DOSE THREE T* ALBUTEROL SULFATE HFA 90 MCG/* Inhale 2 Puffs as instructed * ACETAMINOPHEN 500 MG TABLET Take 500 mg by mouth as neede* CHOLECALCIFEROL (VITAMIN D3) * Take 4,000 Units by mouth onc* DOCUSATE SODIUM 100 MG TABLET Take two tabs daily PENICILLIN V POTASSIUM 500 MG* Take 1 tablet by mouth twice * CYANOCOBALAMIN (VIT B-12) 500* Take 1 tablet by mouth once d* PSYLLIUM HUSK 0.4 GRAM CAPSULE Take 2 capsules by mouth once* BIOTIN ORAL Take 10,000 mcg by mouth once* FERROUS GLUCONATE 246 MG (27 * Take 1 tablet by mouth once d* * CALCIUM CARBONATE 600 MG CALC* Take 1 tablet by mouth twice * * ASCORBIC ACID (VITAMIN C) 500* Take 500 mg by mouth once albina* * TRIAMCINOLONE ACETONIDE 0.1 %* bid prn--not to face/axillae/* * MULTIVITAMIN TABLET Take one(1) tablet daily. Medication notes this encounter ROSUVASTATIN 10 MG TABLET >> Anusha Gutierrez MA 01/06/2018 9:28 AM >> ANUSHA GUTIERREZ MA SatJan 06, 2018 9:28 AM Taking 1/2 tablet every other day. PENICILLIN V POTASSIUM 500 MG TABLET >> Anusha Gutierrez MA 01/06/2018 9:29 AM >> ANUSHA GUTIERREZ MA SatJan 06, 2018 9:29 AM Taking one tablet twice daily. BIOTIN ORAL >> Anusha Gutierrez MA 01/06/2018 9:30 AM >> ANUSHA GUTIERREZ MA SatJan 06, 2018 9:30 AM Taking 10,000 mcg daily. More... Problem List As Of Date 01/06/2018 Noted Resolved Hypothyroidism (acquired) [E03.9] Priority: A Mixed hyperlipidemia [E78.2] Priority: A Allergic rhinitis, cause unspecified [J30.9] Priority: B Morbid Obesity [E66.01] 09/07/2009 More... Degeneration of lumbar or lumbosacral intervert* Priority: M More... Coronary artery disease due to lipid rich plaqu*INVALID FOR* Priority: A More... Mild intermittent asthma without complication [*INVALID FOR* Priority: A More... More... Hip joint replacement by other means [Z96.649] INVALID FOR*06/06/2016 Priority: M Personal history of other malignant neoplasm of*INVALID FOR* Priority: D More... Special Screening for Malignant Neoplasms, [place]*INVALID FOR*09/07/2009 Acute Gastritis without Mention of Hemorrhage [*INVALID FOR*09/07/2009 More... Urinary frequency [R35.0] INVALID FOR* Priority: C More... More... More... MGUS (monoclonal gammopathy of unknown signific*INVALID FOR* Priority: B More... Atrial flutter [I48.92] INVALID FOR* Priority: A More... THO (obstructive sleep apnea) [G47.33] INVALID FOR* Priority: B More... 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 AV block, 1st degree [I44.0] Priority: A Diabetic eye exam (HCC) [Z01.00, E11.9] INVALID FOR* Priority: A More... Type 2 diabetes mellitus with proteinuria (HCC)*INVALID FOR* Priority: A Gastroesophageal reflux disease without esophag*INVALID FOR* Priority: A Iron deficiency anemia secondary to inadequate *INVALID FOR* Priority: A More... Non-proliferative diabetic retinopathy, mild, b*INVALID FOR* Priority: A Bilateral carotid artery disease (HCC) [I77.9] INVALID FOR* Priority: A More... Corns and callus [L84] INVALID FOR* Priority: D Morbid obesity due to excess calories (HCC) [E6*INVALID FOR* Priority: B More... Well adult exam [Z00.00] INVALID FOR* Priority: E More... Ex-smoker [Z87.891] INVALID FOR* Priority: C More... Colon cancer screening [Z12.11] INVALID FOR* Type 2 diabetes mellitus with diabetic neuropat*INVALID FOR* Priority: A H/O gastric bypass [Z98.84] INVALID FOR* Priority: A Malabsorption syndrome [K90.9] INVALID FOR* Priority: A More... Iron malabsorption [K90.9] INVALID FOR* Priority: B Disorder of prostate [N42.9] INVALID FOR* Hypertension goal BP (blood pressure) < 140/80 *INVALID FOR* Priority: A Medicare annual wellness visit, subsequent [Z00*INVALID FOR* Priority: E More... Current use of proton pump inhibitor [Z79.899] INVALID FOR* Albuminuria [R80.9] INVALID FOR* Priority: A Abnormal carotid duplex scan [R94.39] INVALID FOR* Subclavian artery stenosis (HCC) [I77.1] INVALID FOR* Priority: A More... COPD, mild (HCC) [J44.9] INVALID FOR* Priority: A Encounter Status:Closed by KOREY BERNAL DO on 01/06/18 PROGRESS Observed: 01/02/2018 Status: COMPLETED Source: [place] 12:34 PM [facility] REPOSITORY HNO ID: [id number] Author: Jonel Don Service: (none) Author Type: Physician Type: Progress Notes Filed: 01/02/2018 5:23 PM Note Text: This note was created using Zarporiter. Subjective Kip Guaman is a 72 year old male. Review of Systems Objective There were no vitals taken for this visit. Physical Exam Assessment and Plan Agree with plan. PROGRESS Observed: 01/02/2018 Status: COMPLETED Source: [place] 12:27 PM [facility] REPOSITORY HNO ID: [id number] Author: Erin Awan RN Service: (none) Author Type: (none) Type: Progress Notes Filed: 01/02/2018 12:29 PM Note Text: patient had inr completed at [facility] patients inr is 2.0 (patients inr range is 2.0-3.0) patient is currently taking 4mg Sat and 7.5mg all other days patients last dose change was on 11/11/17 due to a high level of 3.2 (dose at that time was 5mg Sat and 7.5mg all other days) patient has had no changes in medication and no missed doses and no change in diet Advised patient to continue on the same dose(s) and that they would only be contacted regarding dosage and follow up instructions after review with provider, if a change is needed. Written instructions given and patient verbalized understanding. Presently scheduled in 2 weeks (01/16/18) for follow up INR sine patient is on the lower end of the normal range. PROGRESS Observed: 12/30/2017 Status: COMPLETED Source: [place] 8:[address] [facility] REPOSITORY O ID: [id number] Author: Javid Harding Service: (none) Author Type: Physician Type: Progress Notes Filed: 12/30/2017 9:22 AM Note Text: Patient presents with: Rash: itching x 3 days, legs HPI: Rash: Location: Initially Legs, arms, torso Duration: 3 days Pruritis: Yes Change: spreading Bleeding/ulceration/blister/pustule: Red raised rash in spots Contacts with rash: No Exposure: Started the day after weeding in shorts. No recent illness. Treatment: topical benadryl MEDICATIONS: metoprolol tartrate, short acting, (LOPRESSOR) 25 mg tablet Take 0.5 tablet after breakfast and one tablet after supper blood sugar diagnostic (EASY TOUCH TEST STRIP) test strip Check blood sugar twice daily. Omeprazole 40 mg capsule Take 1 capsule by mouth once daily. chlorthalidone (HYGROTON) 25 mg tablet Take 1 tablet by mouth once daily. warfarin (COUMADIN) 4 mg tablet Take as directed per physician mometasone-formoterol (DULERA) 100-5 mcg/actuation inhaler Inhale 2 Puffs as instructed twice daily. Rinse mouth after use. tamsulosin ER (FLOMAX) 0.4 mg cp24 TAKE 1 CAPSULE ONCE DAILY insulin glargine (LANTUS) 100 unit/mL injection Inject 50 Units subcutaneously once daily. If sugars slightly low take 45 units once daily instead of 47. montelukast (SINGULAIR) 10 mg tablet Take 1 tablet by mouth once daily. ramipril (ALTACE) 10 mg capsule Take 1 capsule by mouth once daily. levothyroxine (SYNTHROID) 100 mcg tablet Take 1 tablet by mouth once daily. betamethasone dipropionate 0.05 % ointment Apply 1 Tube to affected area as needed (for hand dermatitis). clopidogrel (PLAVIX) 75 mg tablet Take 1 tablet by mouth once daily. fluticasone (FLONASE) 50 mcg/actuation nasal spray Use 2 Sprays in each nostril once daily. rosuvastatin (CRESTOR) 10 mg tablet Take 1/2 a tab every day warfarin (COUMADIN) 5 mg tablet 10 mg on Tu and 5mg Sat/Sat/Sun and 7.5mg Sat//Sat or as directed. Insulin Lispro, Human, (HUMALOG KWIKPEN) 100 unit/mL inpn 14-16 units with breakfast and lunch and 20-24 units with dinner, Correction per sliding scale total up to 70 units daily Insulin Syringe-Needle U-100 (BD INSULIN SYRINGE MF) 1/2 mL 28 gauge x 1/2 syrg 1 Each once daily. Dx: E11.29 Insulin: yes EASY TOUCH 31 gauge x 16 ndle USE 1 NEEDLE PER DOSE THREE TIMES A DAY albuterol HFA (PROAIR HFA) 90 mcg/actuation inhaler Inhale 2 Puffs as instructed every 4 hours as needed. acetaminophen (TYLENOL EXTRA STRENGTH) 500 mg tablet Take 500 mg by mouth as needed. Cholecalciferol, Vitamin D3, 2,000 unit cap Take 4,000 Units by mouth once daily. Docusate Sodium 100 mg tab Take two tabs daily cyanocobalamin (VITAMIN B-12) 500 mcg tab Take 1 tablet by mouth once daily. psyllium husk 0.4 gram cap Take 2 capsules by mouth once daily. BIOTIN ORAL Take by mouth three times daily. Ferrous Gluconate 246 mg (27 mg iron) Tab Take 1 tablet by mouth once daily. calcium carbonate (CALTRATE 600) 600 mg (1,500 mg) Tab Take 1 tablet by mouth twice daily. Ascorbic Acid (VITAMIN C) Chew Take 500 mg by mouth once daily. TRIAMCINOLONE ACETONIDE 0.1 % TOPICAL CREAM bid prn--not to face/axillae/groin MULTIVITAMIN TABLET Take one(1) tablet daily. penicillin V potassium (V-CILLIN, VEETIDS) 500 mg tablet Take 1 tablet by mouth twice daily. ALLERGIES: ALLERGIES Allergen Reactions - Pamella Inhibitors Cough accupril - Atorvastatin Other: See Comments lipitor- muscle weakness, elevated LFT's - Crestor [Rosuvastat* Myalgia - Indocin [Indomethac* GI Upset - Naproxen GI Upset - Pravastatin Other: See Comments pravachol- muscle weakness, elevated LFT's VITALS: BP 138/70 Pulse 62 Temp 36.4 ?C (97.5 ?F) (Tympanic) Resp 16 Wt 129.7 kg (286 lb) BMI 42.60 kg/m? PHYSICAL EXAM: GEN: pleasant, no acute distress, alert SKIN: Erythematous patches, papules, and streaks on the legs. Rash is beginning on the forearms. Seeping shallow ulcers left rucker (reports injury). Component Latest Ref Rng AND Units 10/07/2017 Hemoglobin A1C 4.3 - 5.6 % 6.3 (H) Estimated Average Glucose mg/dL 134 ASSESSMENT/PLAN: 1. Allergic contact dermatitis, unspecified trigger - ICD9: 692.9, ICD10: L23.9 Start - TRIAMCINOLONE ACETONIDE 0.1 % TOPICAL CREAM topical treatment. Printed Rx for - PREDNISONE 10 MG TABLET taper to fill if rash continues to worsen. Javid Harding MD CNOV Observed: 12/30/2017 Status: COMPLETED Source: [place] 8:30 AM [facility] REPOSITORY Office Visit (WSTR) KIP GUAMAN ([id number]) 1945 M Date Time Provider Department 12/30/17 8:30 AM JAVID HARDING [facility] During your visit today, we recorded the following information about you: Temperature Pulse Respiration Blood pressure 97.5 degrees 62/minute 16/minute 138/70 Weight 129.7 kg Javid Harding MD 12/30/2017 9:22 AM Signed Patient presents with: Rash: itching x 3 days, legs HPI: Rash: Location: Initially Legs, arms, torso Duration: 3 days Pruritis: Yes Change: spreading Bleeding/ulceration/blister/pustule: Red raised rash in spots Contacts with rash: No Exposure: Started the day after weeding in shorts. No recent illness. Treatment: topical benadryl MEDICATIONS: metoprolol tartrate, short acting, (LOPRESSOR) 25 mg tablet Take 0.5 tablet after breakfast and one tablet after supper blood sugar diagnostic (EASY TOUCH TEST STRIP) test strip Check blood sugar twice daily. Omeprazole 40 mg capsule Take 1 capsule by mouth once daily. chlorthalidone (HYGROTON) 25 mg tablet Take 1 tablet by mouth once daily. warfarin (COUMADIN) 4 mg tablet Take as directed per physician mometasone-formoterol (DULERA) 100-5 mcg/actuation inhaler Inhale 2 Puffs as instructed twice daily. Rinse mouth after use. tamsulosin ER (FLOMAX) 0.4 mg cp24 TAKE 1 CAPSULE ONCE DAILY insulin glargine (LANTUS) 100 unit/mL injection Inject 50 Units subcutaneously once daily. If sugars slightly low take 45 units once daily instead of 47. montelukast (SINGULAIR) 10 mg tablet Take 1 tablet by mouth once daily. ramipril (ALTACE) 10 mg capsule Take 1 capsule by mouth once daily. levothyroxine (SYNTHROID) 100 mcg tablet Take 1 tablet by mouth once daily. betamethasone dipropionate 0.05 % ointment Apply 1 Tube to affected area as needed (for hand dermatitis). clopidogrel (PLAVIX) 75 mg tablet Take 1 tablet by mouth once daily. fluticasone (FLONASE) 50 mcg/actuation nasal spray Use 2 Sprays in each nostril once daily. rosuvastatin (CRESTOR) 10 mg tablet Take 1/2 a tab every day warfarin (COUMADIN) 5 mg tablet 10 mg on and 5mg Sat/Sat/Sun and 7.5mg Mon//Sat or as directed. Insulin Lispro, Human, (HUMALOG KWIKPEN) 100 unit/mL inpn 14-16 units with breakfast and lunch and 20-24 units with dinner, Correction per sliding scale total up to 70 units daily Insulin Syringe-Needle U-100 (BD INSULIN SYRINGE MF) 1/2 mL 28 gauge x 1/2 syrg 1 Each once daily. Dx: E11.29 Insulin: yes EASY TOUCH 31 gauge x 5/16 ndle USE 1 NEEDLE PER DOSE THREE TIMES A DAY albuterol HFA (PROAIR HFA) 90 mcg/actuation inhaler Inhale 2 Puffs as instructed every 4 hours as needed. acetaminophen (TYLENOL EXTRA STRENGTH) 500 mg tablet Take 500 mg by mouth as needed. Cholecalciferol, Vitamin D3, 2,000 unit cap Take 4,000 Units by mouth once daily. Docusate Sodium 100 mg tab Take two tabs daily cyanocobalamin (VITAMIN B-12) 500 mcg tab Take 1 tablet by mouth once daily. psyllium husk 0.4 gram cap Take 2 capsules by mouth once daily. BIOTIN ORAL Take by mouth three times daily. Ferrous Gluconate 246 mg (27 mg iron) Tab Take 1 tablet by mouth once daily. calcium carbonate (CALTRATE 600) 600 mg (1,500 mg) Tab Take 1 tablet by mouth twice daily. Ascorbic Acid (VITAMIN C) Chew Take 500 mg by mouth once daily. TRIAMCINOLONE ACETONIDE 0.1 % TOPICAL CREAM bid prn--not to face/axillae/groin MULTIVITAMIN TABLET Take one(1) tablet daily. penicillin V potassium (V-CILLIN, VEETIDS) 500 mg tablet Take 1 tablet by mouth twice daily. ALLERGIES: ALLERGIES Allergen Reactions - Pamella Inhibitors Cough accupril - Atorvastatin Other: See Comments lipitor- muscle weakness, elevated LFT's - Crestor [Rosuvastat* Myalgia - Indocin [Indomethac* GI Upset - Naproxen GI Upset - Pravastatin Other: See Comments pravachol- muscle weakness, elevated LFT's VITALS: BP 138/70 Pulse 62 Temp 36.4 ?C (97.5 ?F) (Tympanic) Resp 16 Wt 129.7 kg (286 lb) BMI 42.60 kg/m? PHYSICAL EXAM: GEN: pleasant, no acute distress, alert SKIN: Erythematous patches, papules, and streaks on the legs. Rash is beginning on the forearms. Seeping shallow ulcers left rucker (reports injury). Component Latest Ref Rng AND Units 10/07/2017 Hemoglobin A1C 4.3 - 5.6 % 6.3 (H) Estimated Average Glucose mg/dL 134 ASSESSMENT/PLAN: 1. Allergic contact dermatitis, unspecified trigger - ICD9: 692.9, ICD10: L23.9 Start - TRIAMCINOLONE ACETONIDE 0.1 % TOPICAL CREAM topical treatment. Printed Rx for - PREDNISONE 10 MG TABLET taper to fill if rash continues to worsen. Javid Harding MD Referring Provider: SELF [[id number]] Allergies As of Date: 12/30/2017 Noted Allergy Reaction PAMELLA INHIBITORS 07/18/2004 3 - Cough Comments: accupril ATORVASTATIN 07/18/2004 14 - Other: See Comments Comments: lipitor- muscle weakness, elevated LFT's CRESTOR (ROSUVASTATIN CALCIUM) 10/30/2016 17 - Myalgia INDOCIN (INDOMETHACIN SODIUM) 04/06/2005 8 - GI Upset NAPROXEN 07/18/2004 8 - GI Upset PRAVASTATIN 07/18/2004 14 - Other: See Comments Comments: pravachol- muscle weakness, elevated LFT's Date Reviewed: 12/30/2017 Reviewed by: Leslie Lyons Ma - Fully Assessed Reason for Visit: Rash [1087] Cmt: itching x 3 days, legs Primary Visit Diagnosis:Allergic contact dermatitis, unspecified trigger [L23.9] Order(s):triamcinolone acetonide (KENALOG) 0.1 % creamApply 1 application to affected area three times daily for 14 days. Apply sparingly to area for rash/itching.Disp: 45 gRfl: 0 predniSONE (DELTASONE) 10 mg tabletTake 4 tabs daily for 3 days, then 2 tabs daily for 3 days, then 1 tab daily for 3 days with food.Disp: 21 tabletRfl: 0 Prescriptions as of 12/30/2017 Sig: METOPROLOL TARTRATE 25 MG TAB* Take 0.5 tablet after breakfa* BLOOD SUGAR DIAGNOSTIC STRIPS Check blood sugar twice daily. OMEPRAZOLE 40 MG CAPSULE,DEMARCO* Take 1 capsule by mouth once * CHLORTHALIDONE 25 MG TABLET Take 1 tablet by mouth once d* WARFARIN 4 MG TABLET Take as directed per physician MOMETASONE-FORMOTEROL HFA 100* Inhale 2 Puffs as instructed * TAMSULOSIN 0.4 MG CAPSULE TAKE 1 CAPSULE ONCE DAILY INSULIN GLARGINE (U-100) 100 * Inject 50 Units subcutaneousl* MONTELUKAST 10 MG TABLET Take 1 tablet by mouth once d* RAMIPRIL 10 MG CAPSULE Take 1 capsule by mouth once * LEVOTHYROXINE 100 MCG TABLET Take 1 tablet by mouth once d* BETAMETHASONE DIPROPIONATE 0.* Apply 1 Tube to affected area* CLOPIDOGREL 75 MG TABLET Take 1 tablet by mouth once d* FLUTICASONE 50 MCG/ACTUATION * Use 2 Sprays in each nostril * ROSUVASTATIN 10 MG TABLET Take 1/2 a tab every day WARFARIN 5 MG TABLET 10 mg on and 5mg Sat/* INSULIN LISPRO (U-100) 100 UN* 14-16 units with breakfast an* INSULIN SYRINGE-NEEDLE U-100 * 1 Each once daily. Dx: E11.29* EASY TOUCH 31 GAUGE X 5/16 N* USE 1 NEEDLE PER DOSE THREE T* ALBUTEROL SULFATE HFA 90 MCG/* Inhale 2 Puffs as instructed * ACETAMINOPHEN 500 MG TABLET Take 500 mg by mouth as neede* CHOLECALCIFEROL (VITAMIN D3) * Take 4,000 Units by mouth onc* DOCUSATE SODIUM 100 MG TABLET Take two tabs daily CYANOCOBALAMIN (VIT B-12) 500* Take 1 tablet by mouth once d* PSYLLIUM HUSK 0.4 GRAM CAPSULE Take 2 capsules by mouth once* BIOTIN ORAL Take by mouth three times da* FERROUS GLUCONATE 246 MG (27 * Take 1 tablet by mouth once d* * CALCIUM CARBONATE 600 MG CALC* Take 1 tablet by mouth twice * * ASCORBIC ACID (VITAMIN C) 500* Take 500 mg by mouth once albina* * TRIAMCINOLONE ACETONIDE 0.1 %* bid prn--not to face/axillae/* * MULTIVITAMIN TABLET Take one(1) tablet daily. TRIAMCINOLONE ACETONIDE 0.1 %* Apply 1 application to affect* PREDNISONE 10 MG TABLET Take 4 tabs daily for 3 days,* PENICILLIN V POTASSIUM 500 MG* Take 1 tablet by mouth twice * Patient not taking: Reported on 12/30/2017 More... Problem List As Of Date 12/30/2017 Noted Resolved Hypothyroidism (acquired) [E03.9] Priority: A Mixed hyperlipidemia [E78.2] Priority: A Allergic rhinitis, cause unspecified [J30.9] Priority: B Morbid Obesity [E66.01] 09/07/2009 More... Degeneration of lumbar or lumbosacral intervert* Priority: M More... Coronary artery disease due to lipid rich plaqu*INVALID FOR* Priority: A More... Mild intermittent asthma without complication [*INVALID FOR* Priority: A More... More... Hip joint replacement by other means [Z96.649] INVALID FOR*06/06/2016 Priority: M Personal history of other malignant neoplasm of*INVALID FOR* Priority: D More... Special Screening for Malignant Neoplasms, [place]*INVALID FOR*09/07/2009 Acute Gastritis without Mention of Hemorrhage [*INVALID FOR*09/07/2009 More... Urinary frequency [R35.0] INVALID FOR* Priority: C More... More... More... MGUS (monoclonal gammopathy of unknown signific*INVALID FOR* Priority: B More... Atrial flutter [I48.92] INVALID FOR* Priority: A More... THO (obstructive sleep apnea) [G47.33] INVALID FOR* Priority: B More... 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 AV block, 1st degree [I44.0] Priority: A Diabetic eye exam (HCC) [Z01.00, E11.9] INVALID FOR* Priority: A More... Type 2 diabetes mellitus with proteinuria (HCC)*INVALID FOR* Priority: A Gastroesophageal reflux disease without esophag*INVALID FOR* Priority: A Iron deficiency anemia secondary to inadequate *INVALID FOR* Priority: A More... Non-proliferative diabetic retinopathy, mild, b*INVALID FOR* Priority: A Bilateral carotid artery disease (HCC) [I77.9] INVALID FOR* Priority: A More... Corns and callus [L84] INVALID FOR* Priority: D Morbid obesity due to excess calories (HCC) [E6*INVALID FOR* Priority: B More... Well adult exam [Z00.00] INVALID FOR* Priority: E More... Ex-smoker [Z87.891] INVALID FOR* Priority: C More... Colon cancer screening [Z12.11] INVALID FOR* Type 2 diabetes mellitus with diabetic neuropat*INVALID FOR* Priority: A H/O gastric bypass [Z98.84] INVALID FOR* Priority: A Malabsorption syndrome [K90.9] INVALID FOR* Priority: A More... Iron malabsorption [K90.9] INVALID FOR* Priority: B Disorder of prostate [N42.9] INVALID FOR* Hypertension goal BP (blood pressure) < 140/80 *INVALID FOR* Priority: A Medicare annual wellness visit, subsequent [Z00*INVALID FOR* Priority: E More... Current use of proton pump inhibitor [Z79.899] INVALID FOR* Albuminuria [R80.9] INVALID FOR* Priority: A Abnormal carotid duplex scan [R94.39] INVALID FOR* Subclavian artery stenosis (HCC) [I77.1] INVALID FOR* Priority: A More... 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 Apply sparingly to area for rash/itching. PREDNISONE 10 MG TABLET 21 t* 0 12/30/2017 01/08/2018 Class: Print RX Sig: Take 4 tabs daily for 3 days, then 2 tabs daily for 3 days, then 1 tab daily for 3 days with food. Encounter Status:Closed by JAVID HARDING MD on 12/30/17 RUSS ABS GR + CBC Collected: 12/30/2017 Status: F Source: [place] 8:23 AM [facility] REPOSITORY TYPE CODE TESTS RESULT OUT OF REFERENCE UNITS RANGE LAB WWBC 3.70-11.00 k/uL Russ WBC 6.92 LAB WRBC 4.20-6.00 m/uL Low [place] RBC 3.83 LAB WHGB 13.0-17.0 g/dL Low [place] Hemoglobin 11.7 LAB WHCT 39.0-51.0 % Low [place] Hematocrit 36.0 LAB WMCV 80.0-100.0 fL Russ MCV 94.0 LAB WMCH 26.0-34.0 pg Russ MCH 30.5 LAB WMCHC 30.5-36.0 g/dL Russ MCHC 32.5 LAB WRDW 11.5-15.0 % Russ RDW 14.4 LAB WPLT 150-400 k/uL Low Russ Platelet Cnt 149 LAB WMPV 9.0-12.7 fL [place] MPV 10.6 Result Comment: Test performed by: [facility] [address] [place] [address]. LAB ABGRAN 1.45-7.50 k/uL Absol Gran 4.92 Count IRON AND TIBC Collected: 12/30/2017 Status: F Source: [place] 8:23 AM [facility] REPOSITORY TYPE CODE TESTS RESULT OUT OF REFERENCE UNITS RANGE LAB IRN 41-186 ug/dL Iron 49 LAB TIBC 232-386 ug/dL TIBC 252 LAB SAT 15-57 % Transferrin Saturatn 19 Performed By: #### IRON, FERR #### [facility] [employer] [address], [place] [address] FERRITIN Collected: 12/30/2017 Status: F Source: [place] 8:23 AM [facility] REPOSITORY TYPE CODE TESTS RESULT OUT OF REFERENCE UNITS RANGE LAB FERR 30.3-565.7 ng/mL Ferritin 183.5 Performed By: #### IRON, FERR #### [facility] [address], [place] [address] PROGRESS Observed: 12/27/2017 Status: COMPLETED Source: [place] 2:42 PM [facility] REPOSITORY HNO ID: [id number] Author: Anita Mckinney Ma Service: (none) Author Type: (none) Type: Progress Notes Filed: 12/27/2017 2:42 PM Note Text: Patient notified of results, verbalizes understanding of instructions. Tracker updated Anita Mckinney Ma PROGRESS Observed: 12/27/2017 Status: COMPLETED Source: [place] 11:15 AM [facility] REPOSITORY HNO ID: [id number] Author: Jonel Don Service: (none) Author Type: Physician Type: Progress Notes Filed: 12/27/2017 2:42 PM Note Text: This note was created using Zarporiter. Subjective Kip Guaman is a 72 year old male. Review of Systems Objective There were no vitals taken for this visit. Physical Exam Assessment and Plan Advise Jono to hold his coumadin today and then tomorrow return to the [facility] dosing of 4 mg on Sat and 7.5 mg all other days. Recheck INR in a week. PROGRESS Observed: 12/27/2017 Status: COMPLETED Source: [place] 10:03 AM [facility] REPOSITORY HNO ID: [id number] Author: Erin Awan RN Service: (none) Author Type: (none) Type: Progress Notes Filed: 12/27/2017 10:04 AM Note Text: patient had inr completed at [facility] patients inr is 3.7 (patients inr range is 2.0-3.0) patient is currently taking 4mg Sat and 7.5mg all other days patients last dose change was on 11/11/17 due to a high level of 3.2 (dose at that time was 5mg Sat and 7.5mg all other days) patient has had a change in medication and pt just finished antibiotics on , and no missed doses and no change in diet Advised patient that they would be contacted regarding medication dose and when to follow up after information is reviewed by provider. After provider review please contact the patient with information and schedule follow up appointment with coumadin clinic. REECE - patient has been scheduled for a 1 week follow up inr on 01/02/18 PROGRESS Observed: 12/18/2017 Status: COMPLETED Source: [place] 10:32 AM [facility] REPOSITORY HNO ID: [id number] Author: Anusha Ramos LPN Service: (none) Author Type: (none) Type: Progress Notes Filed: 12/18/2017 10:41 AM Note Text: Manual Readin/68 Pulse: 40 Reason for blood pressure check - Medication adjustment, taking metoprolol 25mg twice daily d/t low pulse rate. Patient is: Taking medication as prescribed Yes Took medication today Yes If no, date medication last taken na Experiencing side effects No Pt denies chest pain, sob, headaches or dizziness. Pt reports he does feel woozy at times. Pt denies tobacco use or exposure to tob. Pt drank 1/2 reg AND 1/2 decaff this am, 1 cup. Pt is alert AND oriented. Pt has been identified by name and birthdate: Yes Allergies reviewed: Yes Latex allergy: no. Medication - prescribed and OTC reviewed and updated: Yes Do you need any prescription refills prior to your next visit: No Health Maintenance: Reviewed and not up to date and provider notified pt advised he will be contacted by pcp after review of vitals. Anusha Ramos LPN CNNURSE Observed: 12/18/2017 Status: COMPLETED Source: [place] 10:15 AM [facility] REPOSITORY Nurse Visit ([facility]AP[facility]) KIP GUAMAN ([id number]) 1945 M Date Time Provider Department 12/18/17 10:15 AM [place] NURSE STEVE During your visit today, we recorded the following information about you: Pulse Blood pressure 40/minute 128/68 Anusha Ramos LPN 12/18/2017 10:41 AM Signed Manual Readin/68 Pulse: 40 Reason for blood pressure check - Medication adjustment, taking metoprolol 25mg twice daily d/t low pulse rate. Patient is: Taking medication as prescribed Yes Took medication today Yes If no, date medication last taken na Experiencing side effects No Pt denies chest pain, sob, headaches or dizziness. Pt reports he does feel woozy at times. Pt denies tobacco use or exposure to tob. Pt drank 1/2 reg AND 1/2 decaff this am, 1 cup. Pt is alert AND oriented. Pt has been identified by name and birthdate: Yes Allergies reviewed: Yes Latex allergy: no. Medication - prescribed and OTC reviewed and updated: Yes Do you need any prescription refills prior to your next visit: No Health Maintenance: Reviewed and not up to date and provider notified pt advised he will be contacted by pcp after review of vitals. Anusha Ramos LPN Referring Provider: JULIAN PERALTA(KARLOS) [[id number]] Allergies As of Date: 12/18/2017 Noted Allergy Reaction PAMELLA INHIBITORS 07/18/2004 3 - Cough Comments: accupril ATORVASTATIN 07/18/2004 14 - Other: See Comments Comments: lipitor- muscle weakness, elevated LFT's CRESTOR (ROSUVASTATIN CALCIUM) 10/30/2016 17 - Myalgia INDOCIN (INDOMETHACIN SODIUM) 04/06/2005 8 - GI Upset NAPROXEN 07/18/2004 8 - GI Upset PRAVASTATIN 07/18/2004 14 - Other: See Comments Comments: pravachol- muscle weakness, elevated LFT's Date Reviewed: 12/18/2017 Reviewed by: Anusha Ramos LPN - Fully Assessed Reason for Visit: Blood Pressure Check [195] Cmt: AND check pulse Visit Diagnosis:Hypertension, essential [I10] Prescriptions as of 12/18/2017 Sig: CEFADROXIL 500 MG CAPSULE Take 1 capsule by mouth twice* BLOOD SUGAR DIAGNOSTIC STRIPS Check blood sugar twice daily. OMEPRAZOLE 40 MG CAPSULE,DEMARCO* Take 1 capsule by mouth once * METOPROLOL TARTRATE 50 MG TAB* Take one tablet after breakfa* Patient taking differently: 25 mg twice daily. Take one t* CHLORTHALIDONE 25 MG TABLET Take 1 tablet by mouth once d* WARFARIN 4 MG TABLET Take as directed per physician MOMETASONE-FORMOTEROL HFA 100* Inhale 2 Puffs as instructed * TAMSULOSIN 0.4 MG CAPSULE TAKE 1 CAPSULE ONCE DAILY INSULIN GLARGINE (U-100) 100 * Inject 50 Units subcutaneousl* MONTELUKAST 10 MG TABLET Take 1 tablet by mouth once d* RAMIPRIL 10 MG CAPSULE Take 1 capsule by mouth once * LEVOTHYROXINE 100 MCG TABLET Take 1 tablet by mouth once d* BETAMETHASONE DIPROPIONATE 0.* Apply 1 Tube to affected area* CLOPIDOGREL 75 MG TABLET Take 1 tablet by mouth once d* FLUTICASONE 50 MCG/ACTUATION * Use 2 Sprays in each nostril * ROSUVASTATIN 10 MG TABLET Take 1/2 a tab every day WARFARIN 5 MG TABLET 10 mg on and 5mg Sat/* INSULIN LISPRO (U-100) 100 UN* 14-16 units with breakfast an* INSULIN SYRINGE-NEEDLE U-100 * 1 Each once daily. Dx: E11.29* EASY TOUCH 31 GAUGE X 5/16 N* USE 1 NEEDLE PER DOSE THREE T* ALBUTEROL SULFATE HFA 90 MCG/* Inhale 2 Puffs as instructed * ACETAMINOPHEN 500 MG TABLET Take 500 mg by mouth as neede* CHOLECALCIFEROL (VITAMIN D3) * Take 4,000 Units by mouth onc* DOCUSATE SODIUM 100 MG TABLET Take two tabs daily PENICILLIN V POTASSIUM 500 MG* Take 1 tablet by mouth twice * CYANOCOBALAMIN (VIT B-12) 500* Take 1 tablet by mouth once d* PSYLLIUM HUSK 0.4 GRAM CAPSULE Take 2 capsules by mouth once* BIOTIN ORAL Take by mouth three times da* FERROUS GLUCONATE 246 MG (27 * Take 1 tablet by mouth once d* * CALCIUM CARBONATE 600 MG CALC* Take 1 tablet by mouth twice * * ASCORBIC ACID (VITAMIN C) 500* Take 500 mg by mouth once albina* * TRIAMCINOLONE ACETONIDE 0.1 %* bid prn--not to face/axillae/* * MULTIVITAMIN TABLET Take one(1) tablet daily. More... Problem List As Of Date 12/18/2017 Noted Resolved Hypothyroidism (acquired) [E03.9] Priority: A Mixed hyperlipidemia [E78.2] Priority: A Allergic rhinitis, cause unspecified [J30.9] Priority: B Morbid Obesity [E66.01] 09/07/2009 More... Degeneration of lumbar or lumbosacral intervert* Priority: M More... Coronary artery disease due to lipid rich plaqu*INVALID FOR* Priority: A More... Mild intermittent asthma without complication [*INVALID FOR* Priority: A More... More... Hip joint replacement by other means [Z96.649] INVALID FOR*06/06/2016 Priority: M Personal history of other malignant neoplasm of*INVALID FOR* Priority: D More... Special Screening for Malignant Neoplasms, [place]*INVALID FOR*09/07/2009 Acute Gastritis without Mention of Hemorrhage [*INVALID FOR*09/07/2009 More... Urinary frequency [R35.0] INVALID FOR* Priority: C More... More... More... MGUS (monoclonal gammopathy of unknown signific*INVALID FOR* Priority: B More... Atrial flutter [I48.92] INVALID FOR* Priority: A More... THO (obstructive sleep apnea) [G47.33] INVALID FOR* Priority: B More... 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 AV block, 1st degree [I44.0] Priority: A Diabetic eye exam (HCC) [Z01.00, E11.9] INVALID FOR* Priority: A More... Type 2 diabetes mellitus with proteinuria (HCC)*INVALID FOR* Priority: A Gastroesophageal reflux disease without esophag*INVALID FOR* Priority: A Iron deficiency anemia secondary to inadequate *INVALID FOR* Priority: A More... Non-proliferative diabetic retinopathy, mild, b*INVALID FOR* Priority: A Bilateral carotid artery disease (HCC) [I77.9] INVALID FOR* Priority: A More... Corns and callus [L84] INVALID FOR* Priority: D Morbid obesity due to excess calories (HCC) [E6*INVALID FOR* Priority: B More... Well adult exam [Z00.00] INVALID FOR* Priority: E More... Ex-smoker [Z87.891] INVALID FOR* Priority: C More... Colon cancer screening [Z12.11] INVALID FOR* Type 2 diabetes mellitus with diabetic neuropat*INVALID FOR* Priority: A H/O gastric bypass [Z98.84] INVALID FOR* Priority: A Malabsorption syndrome [K90.9] INVALID FOR* Priority: A More... Iron malabsorption [K90.9] INVALID FOR* Priority: B Disorder of prostate [N42.9] INVALID FOR* Hypertension goal BP (blood pressure) < 140/80 *INVALID FOR* Priority: A Medicare annual wellness visit, subsequent [Z00*INVALID FOR* Priority: E More... Current use of proton pump inhibitor [Z79.899] INVALID FOR* Albuminuria [R80.9] INVALID FOR* Priority: A Abnormal carotid duplex scan [R94.39] INVALID FOR* Subclavian artery stenosis (HCC) [I77.1] INVALID FOR* Priority: A More... COPD, mild (HCC) [J44.9] INVALID FOR* Priority: A Encounter Status:Closed by ANUSHA RAMOS LPN on 12/18/17 PROGRESS Observed: 12/18/2017 Status: COMPLETED Source: [place] 9:01 AM [facility] REPOSITORY HNO ID: [id number] Author: Jonel Don Service: (none) Author Type: Physician Type: Progress Notes Filed: 12/18/2017 9:23 AM Note Text: This note was created using NoteWriter. Subjective Kip Guaman is a 72 year old male. Review of Systems Objective There were no vitals taken for this visit. Physical Exam Assessment and Plan Cont current dosing and keep f/u INR on 12/27/2017 PROGRESS Observed: 12/18/2017 Status: COMPLETED Source: [place] 8:41 AM [facility] REPOSITORY HNO ID: [id number] Author: Dania Acevedo RN Service: (none) Author Type: (none) Type: Progress Notes Filed: 12/18/2017 8:46 AM Note Text: Patient had INR completed at [facility] Patient's INR is 2.7 Patient is currently taking 4 mg Saturday 7.5 mg all other days Patient's last dose change was 11/11/17 due to high INT at 3.2 Patient has started Duricef (7 day course) on 12/16/17 and no change in diet. Advised patient to continue on same dose and they would only be contacted with different instructions after provider review. Written instructions were given to patient and patient verbalized understanding. Presently, patient has been scheduled for 12/27/17 for INR follow up. ALBUMIN/CREAT RATIO Collected: 12/12/2017 Status: F Source: [place] 9:45 AM [facility] REPOSITORY TYPE CODE TESTS RESULT OUT OF REFERENCE UNITS RANGE LAB UCRR 20-300 mg/dL Creatinine,Ur 77.1 ine,Ran LAB UALBR 0.0-23.0 mg/L High Albumin Urine 525.1 Random LAB UALBCR 0-30 mg/g High Albumin/Creat 681 Ratio Result Comment: 30 to 300 mg/g indicates an increased risk for diabetic nephropathy. Greater than 300 mg/g is consistent with clinical nephropathy. (Am J Kidney Disease 1995, 25:107) Performed By: #### UACR #### [facility] [address] [address] URINALYSIS WITH Collected: 12/12/2017 Status: F Source: [facility] 9:45 AM [facility] REPOSITORY TYPE CODE TESTS RESULT OUT OF RANGE REFERENCE UNITS LAB UCOL Yellow Color Yellow LAB [facility] Clear Clarity Clear LAB UGLUC Negative mg/dL Glucose, Urine Negative LAB UBIL Negative Bilirubin, Urine Negative LAB UKET Negative Ketones, Urine Negative LAB USPG 1.005-1.030 Specific [place], Ur 1.017 LAB UHGB Negative Abnormal Hemoglobin/Blood, 1+ Alert Ur LAB UPH 4.5-8.0 pH 5.0 LAB UPROT Negative mg/dL Protein, Abnormal Urine 100 Alert LAB UUROB Normal Urobilinogen Normal LAB UNITR Negative Nitrites Negative LAB ULKEST Negative Leukest Abnormal 3+ Alert LAB RECHEK Recheck Done LAB UCOM Comments SEE COMMENT Result Comment: N/A LAB UMCOM Urine SEE Ignacio Comment COMMENT Result Comment: N/A LAB UWBC 0-5 /HPF Abnormal WBC Alert 11-25 LAB URBC 0-3 /HPF RBC 0-3 LAB UEPI /HPF Epithelial Cells SEE COMMENT Result Comment: Few Squamous Epithelial Cells Performed By: #### UAWMIC #### [address] [id number] [place], [place] [address] CBC Collected: 12/12/2017 Status: F Source: [place] 9:42 AM [facility] REPOSITORY TYPE CODE TESTS RESULT OUT OF REFERENCE UNITS RANGE LAB WBC 3.70-11.00 k/uL WBC 6.00 LAB RBC 4.20-6.00 m/uL Low RBC 3.85 LAB HGB 13.0-17.0 g/dL Low Hemoglobin 11.6 LAB HCT 39.0-51.0 % Low Hematocrit 37.3 LAB MCV 80.0-100.0 fL MCV 96.9 LAB MCH 26.0-34.0 pG MCH 30.1 LAB MCHC 30.5-36.0 g/dL MCHC 31.1 LAB RDWCV 11.5-15.0 % RDW-CV 14.0 LAB PLTCT 150-400 k/uL Platelet Count 153 LAB MPV 9.0-12.7 fL MPV 10.7 LAB ABSNUC <0.01 k/uL Absolute nRBC <0.01 Performed By: #### CBC, PSA #### [address] [address] PSA, DIAGNOSTIC Collected: 12/12/2017 Status: F Source: [place] 9:42 AM [facility] REPOSITORY TYPE CODE TESTS RESULT OUT OF REFERENCE UNITS RANGE LAB PSA 0.00-2.59 ng/mL PSA, Diagnostic 0.45 Result Comment: Total PSA test methodology used is the Electrochemiluminescence Immunoassay. Performed By: #### CBC, PSA #### [facility] [employer] [address] [place] [id number] PROGRESS Observed: 12/12/2017 Status: COMPLETED Source: [place] 9:18 AM [facility] REPOSITORY HNO ID: [id number] Author: Yudelka Spencer LPN Service: (none) Author Type: (none) Type: Progress Notes Filed: 12/12/2017 9:30 AM Note Text: Manual Readin/62 Pulse: 38 Reason for blood pressure check - Last BP elevated and Medication adjustment Patient is: Taking medication as prescribed Yes Took medication today Yes If no, date medication last taken N/A Experiencing side effects No BP was elevated at last appt 11/26/17. Metoprolol 25mg twice daily and Chlorthalidone was increased to full 25mg daily. Tolerating medication change well. Does still note low HR at home and is still having some intermittent lightheadedness. Feeling sluggish/fatigued. Denies any chest pain, shortness of breath, or headaches. Daily caffeine use with soda; none today. Past personal history of tobacco use; no current exposure. Alert and oriented. Pt has been identified by name and birthdate: Yes Allergies reviewed: Yes Latex allergy: no. Medication - prescribed and OTC reviewed and updated: Yes Do you need any prescription refills prior to your next visit: No Health Maintenance: Reviewed and not up to date and provider notified Patient advised that he would be contacted after review by installation drafter. Yudelka Spencer LPN CNNURSE Observed: 12/12/2017 Status: COMPLETED Source: [place] 9:15 AM [facility] REPOSITORY Nurse Visit (FAMPWS) KIP GUAMAN ([id number]) 1945 M Date Time Provider Department 12/12/17 9:15 AM [facility] During your visit today, we recorded the following information about you: Pulse Blood pressure 38/minute 134/62 Yudelka Spencer LPN 12/12/2017 9:30 AM Signed Manual Readin/62 Pulse: 38 Reason for blood pressure check - Last BP elevated and Medication adjustment Patient is: Taking medication as prescribed Yes Took medication today Yes If no, date medication last taken N/A Experiencing side effects No BP was elevated at last appt 11/26/17. Metoprolol 25mg twice daily and Chlorthalidone was increased to full 25mg daily. Tolerating medication change well. Does still note low HR at home and is still having some intermittent lightheadedness. Feeling sluggish/fatigued. Denies any chest pain, shortness of breath, or headaches. Daily caffeine use with soda; none today. Past personal history of tobacco use; no current exposure. Alert and oriented. Pt has been identified by name and birthdate: Yes Allergies reviewed: Yes Latex allergy: no. Medication - prescribed and OTC reviewed and updated: Yes Do you need any prescription refills prior to your next visit: No Health Maintenance: Reviewed and not up to date and provider notified Patient advised that he would be contacted after review by Dr installation drafter. Yudelka Spencer LPN Referring Provider: JONEL DON [[id number]] Allergies As of Date: 12/12/2017 Noted Allergy Reaction PAMELLA INHIBITORS 07/18/2004 3 - Cough Comments: accupril ATORVASTATIN 07/18/2004 14 - Other: See Comments Comments: lipitor- muscle weakness, elevated LFT's CRESTOR (ROSUVASTATIN CALCIUM) 10/30/2016 17 - Myalgia INDOCIN (INDOMETHACIN SODIUM) 04/06/2005 8 - GI Upset NAPROXEN 07/18/2004 8 - GI Upset PRAVASTATIN 07/18/2004 14 - Other: See Comments Comments: pravachol- muscle weakness, elevated LFT's Date Reviewed: 11/26/2017 Reviewed by: Jonel Don - Fully Assessed Reason for Visit: Blood Pressure Check [195] Primary Visit Diagnosis:Hypertension goal BP (blood pressure) < 140/80 [I10] Prescriptions as of 12/12/2017 Sig: BLOOD SUGAR DIAGNOSTIC STRIPS Check blood sugar twice daily. OMEPRAZOLE 40 MG CAPSULE,DEMARCO* Take 1 capsule by mouth once * METOPROLOL TARTRATE 50 MG TAB* Take one tablet after breakfa* CHLORTHALIDONE 25 MG TABLET Take 1 tablet by mouth once d* WARFARIN 4 MG TABLET Take as directed per physician MOMETASONE-FORMOTEROL HFA 100* Inhale 2 Puffs as instructed * TAMSULOSIN 0.4 MG CAPSULE TAKE 1 CAPSULE ONCE DAILY INSULIN GLARGINE (U-100) 100 * Inject 50 Units subcutaneousl* MONTELUKAST 10 MG TABLET Take 1 tablet by mouth once d* RAMIPRIL 10 MG CAPSULE Take 1 capsule by mouth once * LEVOTHYROXINE 100 MCG TABLET Take 1 tablet by mouth once d* BETAMETHASONE DIPROPIONATE 0.* Apply 1 Tube to affected area* CLOPIDOGREL 75 MG TABLET Take 1 tablet by mouth once d* FLUTICASONE 50 MCG/ACTUATION * Use 2 Sprays in each nostril * ROSUVASTATIN 10 MG TABLET Take 1/2 a tab every day WARFARIN 5 MG TABLET 10 mg on and 5mg * INSULIN LISPRO (U-100) 100 UN* 14-16 units with breakfast an* INSULIN SYRINGE-NEEDLE U-100 * 1 Each once daily. Dx: E11.29* EASY TOUCH 31 GAUGE X 5/16 N* USE 1 NEEDLE PER DOSE THREE T* ALBUTEROL SULFATE HFA 90 MCG/* Inhale 2 Puffs as instructed * ACETAMINOPHEN 500 MG TABLET Take 500 mg by mouth as neede* CHOLECALCIFEROL (VITAMIN D3) * Take 4,000 Units by mouth onc* DOCUSATE SODIUM 100 MG TABLET Take two tabs daily PENICILLIN V POTASSIUM 500 MG* Take 1 tablet by mouth twice * CYANOCOBALAMIN (VIT B-12) 500* Take 1 tablet by mouth once d* PSYLLIUM HUSK 0.4 GRAM CAPSULE Take 2 capsules by mouth once* BIOTIN ORAL Take by mouth three times da* FERROUS GLUCONATE 246 MG (27 * Take 1 tablet by mouth once d* * CALCIUM CARBONATE 600 MG CALC* Take 1 tablet by mouth twice * * ASCORBIC ACID (VITAMIN C) 500* Take 500 mg by mouth once albina* * TRIAMCINOLONE ACETONIDE 0.1 %* bid prn--not to face/axillae/* * MULTIVITAMIN TABLET Take one(1) tablet daily. More... Problem List As Of Date 12/12/2017 Noted Resolved Hypothyroidism (acquired) [E03.9] Priority: A Mixed hyperlipidemia [E78.2] Priority: A Allergic rhinitis, cause unspecified [J30.9] Priority: B Morbid Obesity [E66.01] 09/07/2009 More... Degeneration of lumbar or lumbosacral intervert* Priority: M More... Coronary artery disease due to lipid rich plaqu*INVALID FOR* Priority: A More... Mild intermittent asthma without complication [*INVALID FOR* Priority: A More... More... Hip joint replacement by other means [Z96.649] INVALID FOR*06/06/2016 Priority: M Personal history of other malignant neoplasm of*INVALID FOR* Priority: D More... Special Screening for Malignant Neoplasms, [place]*INVALID FOR*09/07/2009 Acute Gastritis without Mention of Hemorrhage [*INVALID FOR*09/07/2009 More... Urinary frequency [R35.0] INVALID FOR* Priority: C More... More... More... MGUS (monoclonal gammopathy of unknown signific*INVALID FOR* Priority: B More... Atrial flutter [I48.92] INVALID FOR* Priority: A More... THO (obstructive sleep apnea) [G47.33] INVALID FOR* Priority: B More... 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 AV block, 1st degree [I44.0] Priority: A Diabetic eye exam (HCC) [Z01.00, E11.9] INVALID FOR* Priority: A More... Type 2 diabetes mellitus with proteinuria (HCC)*INVALID FOR* Priority: A Gastroesophageal reflux disease without esophag*INVALID FOR* Priority: A Iron deficiency anemia secondary to inadequate *INVALID FOR* Priority: A More... Non-proliferative diabetic retinopathy, mild, b*INVALID FOR* Priority: A Bilateral carotid artery disease (HCC) [I77.9] INVALID FOR* Priority: A More... Corns and callus [L84] INVALID FOR* Priority: D Morbid obesity due to excess calories (HCC) [E6*INVALID FOR* Priority: B More... Well adult exam [Z00.00] INVALID FOR* Priority: E More... Ex-smoker [Z87.891] INVALID FOR* Priority: C More... Colon cancer screening [Z12.11] INVALID FOR* Type 2 diabetes mellitus with diabetic neuropat*INVALID FOR* Priority: A H/O gastric bypass [Z98.84] INVALID FOR* Priority: A Malabsorption syndrome [K90.9] INVALID FOR* Priority: A More... Iron malabsorption [K90.9] INVALID FOR* Priority: B Disorder of prostate [N42.9] INVALID FOR* Hypertension goal BP (blood pressure) < 140/80 *INVALID FOR* Priority: A Medicare annual wellness visit, subsequent [Z00*INVALID FOR* Priority: E More... Current use of proton pump inhibitor [Z79.899] INVALID FOR* Albuminuria [R80.9] INVALID FOR* Priority: A Abnormal carotid duplex scan [R94.39] INVALID FOR* Subclavian artery stenosis (HCC) [I77.1] INVALID FOR* Priority: A More... COPD, mild (HCC) [J44.9] INVALID FOR* Priority: A Encounter Status:Closed by YUDELKA SPENCER LPN on 12/12/17 PROGRESS Observed: 11/26/2017 Status: COMPLETED Source: [place] 12:47 PM [facility] REPOSITORY HNO ID: [id number] Author: Jonel Don Service: (none) Author Type: Physician Type: Progress Notes Filed: 11/26/2017 1:43 PM Note Text: This note was created using ZarporiPurpleTeal. Subjective Kip Guaman is a 72 year old male. Review of Systems Objective There were no vitals taken for this visit. Physical Exam Assessment and Plan Agree with plan. PROGRESS Observed: 11/26/2017 Status: COMPLETED Source: [place] 11:48 AM [facility] REPOSITORY HNO ID: [id number] Author: Erin Awan RN Service: (none) Author Type: (none) Type: Progress Notes Filed: 11/26/2017 11:49 AM Note Text: patient had inr completed at [facility] patients inr is 2.7 (patients inr range is 2.0-3.0) patient is currently taking 4mg Sat and 7.5mg all other days patients last dose change was on 11/11/17 due to a high level of 3.2 (dose at that time was 5mg Sat and 7.5mg all other days) patient has had no changes in medication and no missed doses and no change in diet Advised patient to continue on the same dose(s) and that they would only be contacted regarding dosage and follow up instructions after review with provider, if a change is needed. Written instructions given and patient verbalized understanding. Presently scheduled in 4 weeks (12/24/17) for follow up INR. PROGRESS Observed: 11/26/2017 Status: COMPLETED Source: [place] 10:47 AM [facility] REPOSITORY HNO ID: [id number] Author: Jonel Don Service: (none) Author Type: Physician Type: Progress Notes Filed: 11/26/2017 2:29 PM Note Text: Medicare Yearly Visit Medical B eligibilty date not able to find Date of last exam 11/14/2016 PAST MEDICAL HISTORY Diagnosis Date - Acute gastritis without mention of hemorrhage - Allergic rhinitis, cause unspecified - Atrial fibrillation or flutter - AV block, 1st degree - Background diabetic retinopathy(362.01) - CAD (coronary artery disease) - Contact dermatitis - COPD, mild ([facility]) 08/14/2017 - Degeneration of lumbar or lumbosacral intervertebral disc Spondylolisthesis of L5-S1 - Diabetes mellitus, type 2 (HCC) retinopathy, neuropathy, nephropathy - Esophagitis, unspecified - Generalized osteoarthrosis, unspecified site - GERD (gastroesophageal reflux disease) - 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 Do - COLONOSCOP W/ OR W/O [facility] SPEC 11/03/08 repeat due 2018 - ECHO 08/2000 [facility]/03/08 - EGD W/O OR W/BRUSH/WASH 05/14/16 EGD [facility] - LAP. GASTRECT W/ JARAD-EN-Y 09/10/11 [facility] - PAST SURGICAL HISTORY OF left hip surgery post-replacement for infection - PAST SURGICAL HISTORY OF heart cath - REMV CATARACT EXTRACAP,INSERT LENS Cataract Removal - TOTAL HIP REPLACEMENT bilateral Pamella Inhibitors; Atorvastatin; Crestor [Rosuvastatin Calcium]; Indocin [Indomethacin Sodium]; Naproxen; Pravastatin Medications reviewed: Yes FAMILY HISTORY Problem Relation Age of Onset - Ischemic Heart Disease Father - Ischemic Heart Disease Mother - Diabetes Mother - Hypertension Brother - Stroke Brother SOCIAL HISTORY: Social History Marital status: Spouse name: Randa Years of education: Number of children: 0 Occupational History Occupation Employer Comment TEACHER, [employer]/phys* [employer]* Social History Main Topics Smoking status: Former Smoker Packs/day: 0.00 Years: 25.00 Types: Pipe Smokeless tobacco: Never Used Comment: Quit in 1999 Alcohol use: No Drug use: No Sexual activity: No Kip works out regularly 7 times per week with walking. He watches his diet for sodium, low fat and low cholesterol all of the time. List of current specialists seen: Dr. Sigala, Dr. Bernal, Dr. Mora End of Live Planning discussed including patients advanced directive wishes: Yes I am willing to follow Kip's advanced directives. Depression screen He in the past two weeks admits to having felt down. But doing ok at this time Functional Ability/Safety Screen 1. Was the patient's timed Up and Go test unsteady or longer than 30 seconds? No 2. Does the patient need help with the phone, transportation, shopping,preparing meals, housework, laundry, medications or managing money? No 3. Does your home have rugs in the hallway (Y), lack of grab bars in the bathroom, lack of handrails on the stairs or have poor lighting? No Hearing Evaluation: normal PHYSICAL EXAM BP 166/68 Pulse (!) 44 Resp 24 Ht 174.5 cm (5' 8.7) Wt 129.3 kg (285 lb) BMI 42.45 kg/m? Alert and oriented X 3: YES Body mass index is 42.45 kg/m?. Seeing optho See below ASSESSMENT/PLAN: 72 year old male The following prevention plan was discussed during the office visit and provided to the patient: See below Jonel Don MD Chief Complaint Patient presents with: Physical HPI Kip Guaman is a 72 year old male who presents here today for extensive exam. Patient with hx as reviewed and documented below. Since being on the lower dose of metoprolol his dizziness has subsided but he notes his BP is higher than goal. With being on the dulera his breathing is better and though he has an occasional episode of shortness of breath he has much less. Still gets the occasional chest pain and feels this may be GERD related since more often in the evening. Past medical history, appointments, medications, allergies reviewed. Previous Medical History PAST MEDICAL HISTORY Diagnosis Date - Acute gastritis without mention of hemorrhage - Allergic rhinitis, cause unspecified - Atrial fibrillation or flutter - AV block, 1st degree - Background diabetic retinopathy(362.01) - CAD (coronary artery disease) - Contact dermatitis - COPD, mild ([facility]) 08/14/2017 - Degeneration of lumbar or lumbosacral intervertebral disc Spondylolisthesis of L5-S1 - Diabetes mellitus, type 2 (HCC) retinopathy, neuropathy, nephropathy - Esophagitis, unspecified - Generalized osteoarthrosis, unspecified site - GERD (gastroesophageal reflux disease) - 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 Do - COLONOSCOP W/ OR W/O [facility] SPEC 11/03/08 repeat due 2018 - ECHO 08/2000 - EGD W/O [facility] SPECIMEN W/BX 11/03/08 - EGD W/O OR W/BRUSH/WASH 05/14/16 EGD [facility] - LAP. GASTRECT W/ JARAD-EN-Y 09/10/11 [facility] - PAST SURGICAL HISTORY OF left hip surgery post-replacement for infection - PAST SURGICAL HISTORY OF heart cath - REMV CATARACT EXTRACAP,INSERT LENS Cataract Removal - TOTAL HIP REPLACEMENT bilateral Family History FAMILY HISTORY Problem Relation Age of Onset - Ischemic Heart Disease Father - Ischemic Heart Disease Mother - Diabetes Mother - Hypertension Brother - Stroke Brother Patient Allergies ALLERGIES Allergen Reactions - Pamella Inhibitors Cough accupril - Atorvastatin Other: See Comments lipitor- muscle weakness, elevated LFT's - Crestor [Rosuvastat* Myalgia - Indocin [Indomethac* GI Upset - Naproxen GI Upset - Pravastatin Other: See Comments pravachol- muscle weakness, elevated LFT's Current Medications Current Outpatient Prescriptions on File Prior to Visit: warfarin (COUMADIN) 4 mg tablet Take as directed per physician mometasone-formoterol (DULERA) 100-5 mcg/actuation inhaler Inhale 2 Puffs as instructed twice daily. Rinse mouth after use. metoprolol tartrate, short acting, (LOPRESSOR) 50 mg tablet Take one tablet after breakfast and one tablet after supper tamsulosin ER (FLOMAX) 0.4 mg cp24 TAKE 1 CAPSULE ONCE DAILY insulin glargine (LANTUS) 100 unit/mL injection Inject 50 Units subcutaneously once daily. If sugars slightly low take 45 units once daily instead of 47. montelukast (SINGULAIR) 10 mg tablet Take 1 tablet by mouth once daily. ramipril (ALTACE) 10 mg capsule Take 1 capsule by mouth once daily. levothyroxine (SYNTHROID) 100 mcg tablet Take 1 tablet by mouth once daily. betamethasone dipropionate 0.05 % ointment Apply 1 Tube to affected area as needed (for hand dermatitis). clopidogrel (PLAVIX) 75 mg tablet Take 1 tablet by mouth once daily. fluticasone (FLONASE) 50 mcg/actuation nasal spray Use 2 Sprays in each nostril once daily. rosuvastatin (CRESTOR) 10 mg tablet Take 1/2 a tab every day warfarin (COUMADIN) 5 mg tablet 10 mg on and 5mg Sat/Sat/Sat and 7.5mg Sat//Sat or as directed. omeprazole (PRILOSEC) 20 mg capsule Take 1 capsule by mouth once daily. Insulin Lispro, Human, (HUMALOG KWIKPEN) 100 unit/mL inpn 14-16 units with breakfast and lunch and 20-24 units with dinner, Correction per sliding scale total up to 70 units daily Insulin Syringe-Needle U-100 (BD INSULIN SYRINGE MF) 1/2 mL 28 gauge x 1/2 syrg 1 Each once daily. Dx: E11.29 Insulin: yes EASY TOUCH 31 gauge x 5/16 ndle USE 1 NEEDLE PER DOSE THREE TIMES A DAY chlorthalidone (HYGROTON) 25 mg tablet Take 0.5 tablets by mouth once daily. blood sugar diagnostic (EASY TOUCH TEST STRIP) test strip Use as instructed acetaminophen (TYLENOL EXTRA STRENGTH) 500 mg tablet Take 500 mg by mouth as needed. Cholecalciferol, Vitamin D3, 2,000 unit cap Take 4,000 Units by mouth once daily. Docusate Sodium 100 mg tab Take two tabs daily penicillin V potassium (V-CILLIN, VEETIDS) 500 mg tablet Take 1 tablet by mouth twice daily. cyanocobalamin (VITAMIN B-12) 500 mcg tab Take 1 tablet by mouth once daily. psyllium husk 0.4 gram cap Take 2 capsules by mouth once daily. BIOTIN ORAL Take by mouth three times daily. Ferrous Gluconate 246 mg (27 mg iron) Tab Take 1 tablet by mouth once daily. calcium carbonate (CALTRATE 600) 600 mg (1,500 mg) Tab Take 1 tablet by mouth twice daily. Ascorbic Acid (VITAMIN C) Chew Take 500 mg by mouth once daily. TRIAMCINOLONE ACETONIDE 0.1 % TOPICAL CREAM bid prn--not to face/axillae/groin MULTIVITAMIN TABLET Take one(1) tablet daily. albuterol HFA (PROAIR HFA) 90 mcg/actuation inhaler Inhale 2 Puffs as instructed every 4 hours as needed. No current facility-administered medications on file prior to visit. 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[employer]* Social History Main Topics Smoking status: Former Smoker Packs/day: 0.00 Years: 25.00 Types: Pipe Smokeless tobacco: Never Used Comment: Quit in 1999 Alcohol use: No Drug use: No Sexual activity: No Review of Symptoms REVIEW OF SYSTEMS GENERAL: No weight loss, malaise or fevers HEENT: Negative for frequent or significant headaches, significant change in vision, significant vision problems, significant ear problems or hearing loss, nasal discharge, or nose bleeds, sore throat, difficulty swallowing, mouth lesions, hoarseness NECK: Negative for lumps, goiter, pain and significant neck swelling RESPIRATORY: Negative for cough, hemoptysis, wheezing, COPD. shortness of breath has improved since being on the Dulera. CARDIOVASCULAR: Negative for leg swelling, hypertension, CHF or palpitations. Swelling in left leg was increased but improved with a support sock. Also see HPI GI: No nausea, vomiting, or diarrhea and no blood. See HPI : No history of dysuria or blood MUSCULOSKELETAL: Negative for new or changes in typical joint pain or swelling, back pain or muscle pain SKIN: Negative for lesions, rash, and itching PSYCH: see medicare section HEMATOLOGY/LYMPHOLOGY: Negative for prolonged bleeding, bruising easily or swollen nodes ENDOCRINE: Negative for cold or heat intolerance. No symptoms of low BS's NEURO: No history of headaches, syncope, paralysis, seizures or tremors EXAM: BP 166/68 Pulse (!) 44 Resp 24 Ht 174.5 cm (5' 8.7) Wt 129.3 kg (285 lb) BMI 42.45 kg/m? General Appearance: Well appearing, alert, in no acute distress, well-hydrated, well nourished., Morbidly obese. Skin: Skin color, texture, turgor normal, no suspicious rashes or lesions. Head: Normocephalic, no masses, lesions, tenderness or abnormalities. Eyes: Anicteric sclera. Pupils are equally round and reactive to light. Extraocular movements are intact. . Ears: External ears normal, canals clear. Nose/Sinuses: Nares normal, septum midline, mucosa normal, no drainage or sinus tenderness. Oropharynx: Lips, mucosa, and tongue normal, teeth and gums normal, oropharynx normal. Neck: Supple, no adenopathy; thyroid symmetric, normal size, no bruits. Lungs: Lungs clear to auscultation. No wheezing, rhonchi, rales. Heart: RRR without murmur, gallop, or rubs. No ectopy. Abdomen: Normal abdominal exam, Abdomen soft, non-tender. Bowel sounds normal. No masses, organomegaly, large panus. Extremities: No deformities. Has mild hemosiderin staining in both legs. No edema on the right mild to 1+ pitting edema on the left Musculoskeletal: Muscular strength intact, No joint swelling, or tenderness. Has some toe deformities. Peripheral Pulses: Normal. Neurologic: Gait normal. Reflexes normal and symmetric. Sensation to light touch and crainal nerves 2-12 intact.. Genitalia: scrotum normal and no hernias. Has a hidden penis due to body habitus.. Rectal: Normal exam. Prostate enlarged but smooth firm capsule Health Maintenance List DTAP,TDAP,TD(1 - Tdap) due on 09/15/2008 HBA1C due on 04/08/2018 DILATED RETINAL EXAM due on 04/29/2018 LDL due on 10/07/2018 DIABETIC FOOT EXAM due on 11/26/2018 COLORECTAL CANCER SCREENING,SEE MODIFIER due on 12/06/2025 PROSTATE CANCER SCREENING DISCUSSION Completed ADULT PREVNAR-13 Completed INFLUENZA Completed HEPATITIS C SCREENING Completed PNEUMOVAX AGE 65 AND OVER WITH 5YR LOOKBACK Completed Data reviewed Component Latest Ref Rng AND Units 07/08/2017 10/07/2017 Protein, Total 6.3 - 8.0 g/dL 7.1 6.9 Albumin 3.9 - 4.9 g/dL 3.9 4.1 Calcium 8.5 - 10.2 mg/dL 9.0 8.9 Bilirubin, Total 0.2 - 1.3 mg/dL 0.5 0.3 Alkaline Phosphatase 36 - 108 U/L 73 68 AST 14 - 40 U/L 26 27 Glucose 74 - 99 mg/dL 96 84 BUN 9 - 24 mg/dL 27 (H) 39 (H) Creatinine 0.73 - 1.22 mg/dL 1.25 (H) 1.39 (H) Sodium 136 - 144 mmol/L 142 143 Potassium 3.7 - 5.1 mmol/L 4.8 4.3 Chloride 97 - 105 mmol/L 105 104 CO2 22 - 30 mmol/L 27 24 Anion Gap 9 - 18 mmol/L 10 15 ALT 10 - 54 U/L 27 25 eGFR- >60 >60 eGFR-All Other Races . 57 50 Triglyceride <150 mg/dL 88 95 Cholesterol, Total <200 mg/dL 163 164 HDL Cholesterol >39 mg/dL 44 (L) 46 VLDL Cholesterol <30 mg/dL 18 19 LDL Cholesterol <100 mg/dL 101 99 Fasting Time hrs 12 12 TC:HDL Ratio <5.10 3.70 3.57 LDL:HDL Ratio <2.54 2.30 2.15 Non HDL Cholesterol <130 mg/dL 119 118 Hemoglobin A1C 4.3 - 5.6 % 6.5 (H) 6.3 (H) Estimated Average Glucose mg/dL 140 134 A/P ASSESSMENT/PLAN: 1. Medicare annual wellness visit, subsequent - ICD9: V70.0, ICD10: Z00.00 (primary diagnosis) - Completed Digital Rectal exam - Recommended regular aerobic exercise. - Follow up for annual exam in one year. 2. Type 2 diabetes mellitus with proteinuria (HCC) - ICD9: 250.40, 791.0, ICD10: E11.29, R80.9 Controlled. - Continue current medications - Daily Asprin therapy recommended - BP goal of <130/80 - LDL goal of <100 - URINALYSIS WITH MICROSCOPIC 3. Type 2 diabetes mellitus with diabetic neuropathy, with long-term current use of insulin (HCC) - ICD9: 250.60, 357.2, V58.67, ICD10: E11.40, Z79.4 - as above 4. 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 Hypertension goal BP (blood pressure) < 140/80 - ICD9: 401.9, ICD10: I10 - suboptimal control - Recommended regular aerobic exercise. - Recommend home blood pressure monitoring, to bring results in on next visit - Will cut the metoprolol 50 mg twice a day back to 1/2 a tab twice a day and increase the chlorthalidone 25 mg tab to a full tab once a day. - Goal of BP <130/80 - URINALYSIS WITH MICROSCOPIC - NV BP check in 4 weeks 6. Hypothyroidism (acquired) - ICD9: 244.9, ICD10: E03.9 - Instructed patient on importance of taking on an empty stomach either first thing in the morning or at bedtime. - continue current dose of Synthroid 0.100 mg 7. Mixed hyperlipidemia - ICD9: 272.2, ICD10: E78.2 - stable control with what he can tolerate medication eric. - Continue current medication. - Encouraged following a low fat, low cholesterol diet. - Discussed the benefits of regular aerobic exercise and weight loss. - Encouraged following a low carbohydrate, healthy oil intake diet. - URINALYSIS WITH MICROSCOPIC 8. COPD, mild (HCC) - ICD9: 496, ICD10: J44.9 - Improved with use of Dulera, no changes 9. Mild intermittent asthma without complication - ICD9: 493.90, ICD10: J45.20 - as above - Continue current meds - Avoidance of triggers recommended 10. Coronary artery disease due to lipid rich plaque - ICD9: 414.00, 414.3, ICD10: I25.10, I25.83 - Clinically stable no changes and cont cardio f/u 11. Atrial flutter, unspecified type (HCC) - ICD9: 427.32, ICD10: I48.92 - As above and cont anticoagulation with coumadin 12. Gastroesophageal reflux disease without esophagitis - ICD9: 530.81, ICD10: K21.9 - Will adjust omeprazole to 20 mg twice A day to see if reduces evening symptoms of GERD. 13. Iron deficiency anemia secondary to inadequate dietary iron intake - ICD9: 280.1, ICD10: D50.8 - Improved and f/u with hematology 14. Bilateral carotid artery disease (HCC) - ICD9: 447.9, ICD10: I77.9 - f/u with vascular Dr. Baig 15. Subclavian artery stenosis (HCC) - ICD9: 447.1, ICD10: I77.1 - As above 16. Intestinal malabsorption, unspecified type - ICD9: 579.9, ICD10: K90.9 - Cont to monitor yearly labs 17. Albuminuria - ICD9: 791.0, ICD10: R80.9 - Cont to maximize A1c control 18. THO (obstructive sleep apnea) - ICD9: 327.23, ICD10: G47.33 - benefiting from CPAP and to continue. 19. Vitamin D deficiency - ICD9: 268.9, ICD10: E55.9 - Stable with replacement 20. Morbid obesity due to excess calories (HCC) - ICD9: 278.01, ICD10: E66.01 - Stable. Signed Prescriptions Disp Refills omeprazole (PRILOSEC) 20 mg capsule 180 capsule 1 Sig: Take 1 capsule by mouth twice daily. JOHNNY: No metoprolol tartrate, short acting, (LOPRESSOR) 50 mg tablet 180 tablet 1 Sig: Take one tablet after breakfast and one tablet after supper JOHNNY: No blood sugar diagnostic (EASY TOUCH TEST STRIP) test strip 100 Strip 5 Sig: Use as instructed JOHNNY: No chlorthalidone (HYGROTON) 25 mg tablet 90 tablet 1 Sig: Take 1 tablet by mouth once daily. JOHNNY: No [place] BP check in 4 weeks. Routine f/u in 4 months check CMP, FLP, TSH, CBC, B12, Mg, folate, iron, Zinc, Vit A, Vit D and A1c piror. Time with patient face to face was 40 min for extensive exam and 10 min for medicare wellness. Jonel Don MD CNOV Observed: 11/26/2017 Status: COMPLETED Source: [place] 10:40 AM [facility] REPOSITORY Office Visit (FAMPWS) KIP GUAMAN ([id number]) 1945 M Date Time Provider Department 11/26/17 10:40 AM JONEL DON FAMPWS During your visit today, we recorded the following information about you: Pulse Respiration Blood pressure Weight 44/minute 24/minute 160/68 129.3 kg Height 1.745 m Jonel Don MD 11/26/2017 2:29 PM Signed Medicare Yearly Visit Medical B eligibilty date not able to find Date of last exam 11/14/2016 PAST MEDICAL HISTORY Diagnosis Date - Acute gastritis without mention of hemorrhage - Allergic rhinitis, cause unspecified - Atrial fibrillation or flutter - AV block, 1st degree - Background diabetic retinopathy(362.01) - CAD (coronary artery disease) - Contact dermatitis - COPD, mild (HCC) 08/14/2017 - Degeneration of lumbar or lumbosacral intervertebral disc Spondylolisthesis of L5-S1 - Diabetes mellitus, type 2 (HCC) retinopathy, neuropathy, nephropathy - Esophagitis, unspecified - Generalized osteoarthrosis, unspecified site - GERD (gastroesophageal reflux disease) - Hip joint replacement by other means 12/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 Do - COLONOSCOP W/ OR W/O [facility] SPEC 11/03/08 repeat due 2019 - ECHO 08/2000 - EGD W/O [facility] SPECIMEN W/BX 11/03/08 - EGD W/O OR W/BRUSH/WASH 05/14/16 EGD [facility] - LAP. GASTRECT W/ JARAD-EN-Y 09/10/11 [facility] - PAST SURGICAL HISTORY OF left hip surgery post-replacement for infection - PAST SURGICAL HISTORY OF heart cath - REMV CATARACT EXTRACAP,INSERT LENS Cataract Removal - TOTAL HIP REPLACEMENT bilateral Pamella Inhibitors; Atorvastatin; Crestor [Rosuvastatin Calcium]; Indocin [Indomethacin Sodium]; Naproxen; Pravastatin Medications reviewed: Yes FAMILY HISTORY Problem Relation Age of Onset - Ischemic Heart Disease Father - Ischemic Heart Disease Mother - Diabetes Mother - Hypertension Brother - Stroke Brother SOCIAL HISTORY: Social History Marital status: Spouse name: Randa Years of education: Number of children: 0 Occupational History Occupation Employer Comment TEACHER, Chem/phys* [employer] Social History Main Topics Smoking status: Former Smoker Packs/day: 0.00 Years: 25.00 Types: Pipe Smokeless tobacco: Never Used Comment: Quit in 1999 Alcohol use: No Drug use: No Sexual activity: No Kip works out regularly 7 times per week with walking. He watches his diet for sodium, low fat and low cholesterol all of the time. List of current specialists seen: Dr. Sigala, Dr. Bernal, Dr. Mora End of Live Planning discussed including patients advanced directive wishes: Yes I am willing to follow Kip's advanced directives. Depression screen He in the past two weeks admits to having felt down. But doing ok at this time Functional Ability/Safety Screen 1. Was the patient's timed Up and Go test unsteady or longer than 30 seconds? No 2. Does the patient need help with the phone, transportation, shopping,preparing meals, housework, laundry, medications or managing money? No 3. Does your home have rugs in the hallway (Y), lack of grab bars in the bathroom, lack of handrails on the stairs or have poor lighting? No Hearing Evaluation: normal PHYSICAL EXAM BP 166/68 Pulse (!) 44 Resp 24 Ht 174.5 cm (5' 8.7) Wt 129.3 kg (285 lb) BMI 42.45 kg/m? Alert and oriented X 3: YES Body mass index is 42.45 kg/m?. Seeing optho See below ASSESSMENT/PLAN: 72 year old male The following prevention plan was discussed during the office visit and provided to the patient: See below Jonel Don MD Chief Complaint Patient presents with: Physical HPI Kip Guaman is a 72 year old male who presents here today for extensive exam. Patient with hx as reviewed and documented below. Since being on the lower dose of metoprolol his dizziness has subsided but he notes his BP is higher than goal. With being on the dulera his breathing is better and though he has an occasional episode of shortness of breath he has much less. Still gets the occasional chest pain and feels this may be GERD related since more often in the evening. Past medical history, appointments, medications, allergies reviewed. Previous Medical History PAST MEDICAL HISTORY Diagnosis Date - Acute gastritis without mention of hemorrhage - Allergic rhinitis, cause unspecified - Atrial fibrillation or flutter - AV block, 1st degree - Background diabetic retinopathy(362.01) - CAD (coronary artery disease) - Contact dermatitis - COPD, mild (HCC) 08/14/2017 - Degeneration of lumbar or lumbosacral intervertebral disc Spondylolisthesis of L5-S1 - Diabetes mellitus, type 2 (HCC) retinopathy, neuropathy, nephropathy - Esophagitis, unspecified - Generalized osteoarthrosis, unspecified site - GERD (gastroesophageal reflux disease) - Hip joint replacement by other means 12/19/2005 - Hyperlipidemia - Hypertension - Hypertension goal BP (blood pressure) < 140/80 09/26/2016 - Hypothyroidism - Iron deficiency anemia, unspecified - Morbid obesity (HCC) 7 stated BMI 47.3 Ht: 70 Wt: 330 lbs - Obstructive sleep apnea - Osteoarthritis 11/09/2011 - S/P gastric bypass 09/21/2011 - Subclavian artery stenosis (HCC) 08/14/2017 See carotid disease above. 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 Do - COLONOSCOP W/ OR W/O [facility] SPEC 11/03/08 repeat due 2018 - ECHO 08/2000 - EGD W/O [facility] SPECIMEN W/BX 11/03/08 - EGD W/O OR W/BRUSH/WASH 05/14/16 EGD [facility] - LAP. GASTRECT W/ JARAD-EN-Y 09/10/11 [facility] - PAST SURGICAL HISTORY OF left hip surgery post-replacement for infection - PAST SURGICAL HISTORY OF heart cath - REMV CATARACT EXTRACAP,INSERT LENS Cataract Removal - TOTAL HIP REPLACEMENT bilateral Family History FAMILY HISTORY Problem Relation Age of Onset - Ischemic Heart Disease Father - Ischemic Heart Disease Mother - Diabetes Mother - Hypertension Brother - Stroke Brother Patient Allergies ALLERGIES Allergen Reactions - Pamella Inhibitors Cough accupril - Atorvastatin Other: See Comments lipitor- muscle weakness, elevated LFT's - Crestor [Rosuvastat* Myalgia - Indocin [Indomethac* GI Upset - Naproxen GI Upset - Pravastatin Other: See Comments pravachol- muscle weakness, elevated LFT's Current Medications Current Outpatient Prescriptions on File Prior to Visit: warfarin (COUMADIN) 4 mg tablet Take as directed per physician mometasone-formoterol (DULERA) 100-5 mcg/actuation inhaler Inhale 2 Puffs as instructed twice daily. Rinse mouth after use. metoprolol tartrate, short acting, (LOPRESSOR) 50 mg tablet Take one tablet after breakfast and one tablet after supper tamsulosin ER (FLOMAX) 0.4 mg cp24 TAKE 1 CAPSULE ONCE DAILY insulin glargine (LANTUS) 100 unit/mL injection Inject 50 Units subcutaneously once daily. If sugars slightly low take 45 units once daily instead of 47. montelukast (SINGULAIR) 10 mg tablet Take 1 tablet by mouth once daily. ramipril (ALTACE) 10 mg capsule Take 1 capsule by mouth once daily. levothyroxine (SYNTHROID) 100 mcg tablet Take 1 tablet by mouth once daily. betamethasone dipropionate 0.05 % ointment Apply 1 Tube to affected area as needed (for hand dermatitis). clopidogrel (PLAVIX) 75 mg tablet Take 1 tablet by mouth once daily. fluticasone (FLONASE) 50 mcg/actuation nasal spray Use 2 Sprays in each nostril once daily. rosuvastatin (CRESTOR) 10 mg tablet Take 1/2 a tab every day warfarin (COUMADIN) 5 mg tablet 10 mg on and 5mg Sat/Sat/Sun and 7.5mg Mon//Sat or as directed. omeprazole (PRILOSEC) 20 mg capsule Take 1 capsule by mouth once daily. Insulin Lispro, Human, (HUMALOG KWIKPEN) 100 unit/mL inpn 14-16 units with breakfast and lunch and 20-24 units with dinner, Correction per sliding scale total up to 70 units daily Insulin Syringe-Needle U-100 (BD INSULIN SYRINGE MF) 1/2 mL 28 gauge x 1/2 syrg 1 Each once daily. Dx: E11.29 Insulin: yes EASY TOUCH 31 gauge x 5/16 ndle USE 1 NEEDLE PER DOSE THREE TIMES A DAY chlorthalidone (HYGROTON) 25 mg tablet Take 0.5 tablets by mouth once daily. blood sugar diagnostic (EASY TOUCH TEST STRIP) test strip Use as instructed acetaminophen (TYLENOL EXTRA STRENGTH) 500 mg tablet Take 500 mg by mouth as needed. Cholecalciferol, Vitamin D3, 2,000 unit cap Take 4,000 Units by mouth once daily. Docusate Sodium 100 mg tab Take two tabs daily penicillin V potassium (V-CILLIN, VEETIDS) 500 mg tablet Take 1 tablet by mouth twice daily. cyanocobalamin (VITAMIN B-12) 500 mcg tab Take 1 tablet by mouth once daily. psyllium husk 0.4 gram cap Take 2 capsules by mouth once daily. BIOTIN ORAL Take by mouth three times daily. Ferrous Gluconate 246 mg (27 mg iron) Tab Take 1 tablet by mouth once daily. calcium carbonate (CALTRATE 600) 600 mg (1,500 mg) Tab Take 1 tablet by mouth twice daily. Ascorbic Acid (VITAMIN C) Chew Take 500 mg by mouth once daily. TRIAMCINOLONE ACETONIDE 0.1 % TOPICAL CREAM bid prn--not to face/axillae/groin MULTIVITAMIN TABLET Take one(1) tablet daily. albuterol HFA (PROAIR HFA) 90 mcg/actuation inhaler Inhale 2 Puffs as instructed every 4 hours as needed. No current facility-administered medications on file prior to visit. 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[employer]* Social History Main Topics Smoking status: Former Smoker Packs/day: 0.00 Years: 25.00 Types: Pipe Smokeless tobacco: Never Used Comment: Quit in 1999 Alcohol use: No Drug use: No Sexual activity: No Review of Symptoms REVIEW OF SYSTEMS GENERAL: No weight loss, malaise or fevers HEENT: Negative for frequent or significant headaches, significant change in vision, significant vision problems, significant ear problems or hearing loss, nasal discharge, or nose bleeds, sore throat, difficulty swallowing, mouth lesions, hoarseness NECK: Negative for lumps, goiter, pain and significant neck swelling RESPIRATORY: Negative for cough, hemoptysis, wheezing, COPD. shortness of breath has improved since being on the Dulera. CARDIOVASCULAR: Negative for leg swelling, hypertension, CHF or palpitations. Swelling in left leg was increased but improved with a support sock. Also see HPI GI: No nausea, vomiting, or diarrhea and no blood. See HPI : No history of dysuria or blood MUSCULOSKELETAL: Negative for new or changes in typical joint pain or swelling, back pain or muscle pain SKIN: Negative for lesions, rash, and itching PSYCH: see medicare section HEMATOLOGY/LYMPHOLOGY: Negative for prolonged bleeding, bruising easily or swollen nodes ENDOCRINE: Negative for cold or heat intolerance. No symptoms of low BS's NEURO: No history of headaches, syncope, paralysis, seizures or tremors EXAM: BP 166/68 Pulse (!) 44 Resp 24 Ht 174.5 cm (5' 8.7) Wt 129.3 kg (285 lb) BMI 42.45 kg/m? General Appearance: Well appearing, alert, in no acute distress, well-hydrated, well nourished., Morbidly obese. Skin: Skin color, texture, turgor normal, no suspicious rashes or lesions. Head: Normocephalic, no masses, lesions, tenderness or abnormalities. Eyes: Anicteric sclera. Pupils are equally round and reactive to light. Extraocular movements are intact. . Ears: External ears normal, canals clear. Nose/Sinuses: Nares normal, septum midline, mucosa normal, no drainage or sinus tenderness. Oropharynx: Lips, mucosa, and tongue normal, teeth and gums normal, oropharynx normal. Neck: Supple, no adenopathy; thyroid symmetric, normal size, no bruits. Lungs: Lungs clear to auscultation. No wheezing, rhonchi, rales. Heart: RRR without murmur, gallop, or rubs. No ectopy. Abdomen: Normal abdominal exam, Abdomen soft, non-tender. Bowel sounds normal. No masses, organomegaly, large panus. Extremities: No deformities. Has mild hemosiderin staining in both legs. No edema on the right mild to 1+ pitting edema on the left Musculoskeletal: Muscular strength intact, No joint swelling, or tenderness. Has some toe deformities. Peripheral Pulses: Normal. Neurologic: Gait normal. Reflexes normal and symmetric. Sensation to light touch and crainal nerves 2-12 intact.. Genitalia: scrotum normal and no hernias. Has a hidden penis due to body habitus.. Rectal: Normal exam. Prostate enlarged but smooth firm capsule Health Maintenance List DTAP,TDAP,TD(1 - Tdap) due on 09/15/2008 HBA1C due on 04/08/2018 DILATED RETINAL EXAM due on 04/29/2018 LDL due on 10/07/2018 DIABETIC FOOT EXAM due on 11/26/2018 COLORECTAL CANCER SCREENING,SEE MODIFIER due on 12/06/2025 PROSTATE CANCER SCREENING DISCUSSION Completed ADULT PREVNAR-13 Completed INFLUENZA Completed HEPATITIS C SCREENING Completed PNEUMOVAX AGE 65 AND OVER WITH 5YR LOOKBACK Completed Data reviewed Component Latest Ref Rng AND Units 07/08/2017 10/07/2017 Protein, Total 6.3 - 8.0 g/dL 7.1 6.9 Albumin 3.9 - 4.9 g/dL 3.9 4.1 Calcium 8.5 - 10.2 mg/dL 9.0 8.9 Bilirubin, Total 0.2 - 1.3 mg/dL 0.5 0.3 Alkaline Phosphatase 36 - 108 U/L 73 68 AST 14 - 40 U/L 26 27 Glucose 74 - 99 mg/dL 96 84 BUN 9 - 24 mg/dL 27 (H) 39 (H) Creatinine 0.73 - 1.22 mg/dL 1.25 (H) 1.39 (H) Sodium 136 - 144 mmol/L 142 143 Potassium 3.7 - 5.1 mmol/L 4.8 4.3 Chloride 97 - 105 mmol/L 105 104 CO2 22 - 30 mmol/L 27 24 Anion Gap 9 - 18 mmol/L 10 15 ALT 10 - 54 U/L 27 25 eGFR- >60 >60 eGFR-All Other Races . 57 50 Triglyceride <150 mg/dL 88 95 Cholesterol, Total <200 mg/dL 163 164 HDL Cholesterol >39 mg/dL 44 (L) 46 VLDL Cholesterol <30 mg/dL 18 19 LDL Cholesterol <100 mg/dL 101 99 Fasting Time hrs 12 12 TC:HDL Ratio <5.10 3.70 3.57 LDL:HDL Ratio <2.54 2.30 2.15 Non HDL Cholesterol <130 mg/dL 119 118 Hemoglobin A1C 4.3 - 5.6 % 6.5 (H) 6.3 (H) Estimated Average Glucose mg/dL 140 134 A/P ASSESSMENT/PLAN: 1. Medicare annual wellness visit, subsequent - ICD9: V70.0, ICD10: Z00.00 (primary diagnosis) - Completed Digital Rectal exam - Recommended regular aerobic exercise. - Follow up for annual exam in one year. 2. Type 2 diabetes mellitus with proteinuria (HCC) - ICD9: 250.40, 791.0, ICD10: E11.29, R80.9 Controlled. - Continue current medications - Daily Asprin therapy recommended - BP goal of <130/80 - LDL goal of <100 - URINALYSIS WITH MICROSCOPIC 3. Type 2 diabetes mellitus with diabetic neuropathy, with long-term current use of insulin (HCC) - ICD9: 250.60, 357.2, V58.67, ICD10: E11.40, Z79.4 - as above 4. 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 Hypertension goal BP (blood pressure) < 140/80 - ICD9: 401.9, ICD10: I10 - suboptimal control - Recommended regular aerobic exercise. - Recommend home blood pressure monitoring, to bring results in on next visit - Will cut the metoprolol 50 mg twice a day back to 1/2 a tab twice a day and increase the chlorthalidone 25 mg tab to a full tab once a day. - Goal of BP <130/80 - URINALYSIS WITH MICROSCOPIC - [place] BP check in 4 weeks 6. Hypothyroidism (acquired) - ICD9: 244.9, ICD10: E03.9 - Instructed patient on importance of taking on an empty stomach either first thing in the morning or at bedtime. - continue current dose of Synthroid 0.100 mg 7. Mixed hyperlipidemia - ICD9: 272.2, ICD10: E78.2 - stable control with what he can tolerate medication eric. - Continue current medication. - Encouraged following a low fat, low cholesterol diet. - Discussed the benefits of regular aerobic exercise and weight loss. - Encouraged following a low carbohydrate, healthy oil intake diet. - URINALYSIS WITH MICROSCOPIC 8. COPD, mild (HCC) - ICD9: 496, ICD10: J44.9 - Improved with use of Dulera, no changes 9. Mild intermittent asthma without complication - ICD9: 493.90, ICD10: J45.20 - as above - Continue current meds - Avoidance of triggers recommended 10. Coronary artery disease due to lipid rich plaque - ICD9: 414.00, 414.3, ICD10: I25.10, I25.83 - Clinically stable no changes and cont cardio f/u 11. Atrial flutter, unspecified type (HCC) - ICD9: 427.32, ICD10: I48.92 - As above and cont anticoagulation with coumadin 12. Gastroesophageal reflux disease without esophagitis - ICD9: 530.81, ICD10: K21.9 - Will adjust omeprazole to 20 mg twice A day to see if reduces evening symptoms of GERD. 13. Iron deficiency anemia secondary to inadequate dietary iron intake - ICD9: 280.1, ICD10: D50.8 - Improved and f/u with hematology 14. Bilateral carotid artery disease (HCC) - ICD9: 447.9, ICD10: I77.9 - f/u with vascular Dr. Baig 15. Subclavian artery stenosis (HCC) - ICD9: 447.1, ICD10: I77.1 - As above 16. Intestinal malabsorption, unspecified type - ICD9: 579.9, ICD10: K90.9 - Cont to monitor yearly labs 17. Albuminuria - ICD9: 791.0, ICD10: R80.9 - Cont to maximize A1c control 18. THO (obstructive sleep apnea) - ICD9: 327.23, ICD10: G47.33 - benefiting from CPAP and to continue. 19. Vitamin D deficiency - ICD9: 268.9, ICD10: E55.9 - Stable with replacement 20. Morbid obesity due to excess calories (HCC) - ICD9: 278.01, ICD10: E66.01 - Stable. Signed Prescriptions Disp Refills omeprazole (PRILOSEC) 20 mg capsule 180 capsule 1 Sig: Take 1 capsule by mouth twice daily. JOHNNY: No metoprolol tartrate, short acting, (LOPRESSOR) 50 mg tablet 180 tablet 1 Sig: Take one tablet after breakfast and one tablet after supper JOHNNY: No blood sugar diagnostic (EASY TOUCH TEST STRIP) test strip 100 Strip 5 Sig: Use as instructed JOHNNY: No chlorthalidone (HYGROTON) 25 mg tablet 90 tablet 1 Sig: Take 1 tablet by mouth once daily. JOHNNY: No [place] BP check in 4 weeks. Routine f/u in 4 months check CMP, FLP, TSH, CBC, B12, Mg, folate, iron, Zinc, Vit A, Vit D and A1c piror. Time with patient face to face was 40 min for extensive exam and 10 min for medicare wellness. MD Jonel Nix MD 11/26/2017 11:39 AM Addendum Will cut the metoprolol 50 mg twice a day back to 1/2 a tab twice a day and increase the chlorthalidone 25 mg tab to a full tab once a day. Please get fasting labs on or after 03/21/2018 piror to next visit. Referring Provider: JONEL DON [[id number]] Allergies As of Date: 11/26/2017 Noted Allergy Reaction PAMELLA INHIBITORS 07/18/2004 3 - Cough Comments: accupril ATORVASTATIN 07/18/2004 14 - Other: See Comments Comments: lipitor- muscle weakness, elevated LFT's CRESTOR (ROSUVASTATIN CALCIUM) 10/30/2016 17 - Myalgia INDOCIN (INDOMETHACIN SODIUM) 04/06/2005 8 - GI Upset NAPROXEN 07/18/2004 8 - GI Upset PRAVASTATIN 07/18/2004 14 - Other: See Comments Comments: pravachol- muscle weakness, elevated LFT's Date Reviewed: 11/26/2017 Reviewed by: Jonel Don - Fully Assessed Reason for Visit: Physical [83] Primary Visit Diagnosis:Medicare annual wellness visit, subsequent [Z00.00] Other Visit Diagnoses:Type 2 diabetes mellitus with proteinuria (HCC) [E11.29, R80.9] Type 2 diabetes mellitus with diabetic neuropathy, with long-term current use of insulin (HCC) [E11.40, Z79.4] 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, macular edema presence unspecified (HCC) [E11.3293] Hypertension goal BP (blood pressure) < 140/80 [I10] Hypothyroidism (acquired) [E03.9] Mixed hyperlipidemia [E78.2] COPD, mild (HCC) [J44.9] Mild intermittent asthma without complication [J45.20] Coronary artery disease due to lipid rich plaque [I25.10, I25.83] Atrial flutter, unspecified type (HCC) [I48.92] Gastroesophageal reflux disease without esophagitis [K21.9] Iron deficiency anemia secondary to inadequate dietary iron intake [D50.8] Bilateral carotid artery disease (HCC) [I77.9] Subclavian artery stenosis (HCC) [I77.1] Intestinal malabsorption, unspecified type [K90.9] Albuminuria [R80.9] THO (obstructive sleep apnea) [G47.33] Vitamin D deficiency [E55.9] Morbid obesity due to excess calories (HCC) [E66.01] Current use of proton pump inhibitor [Z79.899] Order(s):omeprazole (PRILOSEC) 20 mg capsuleTake 1 capsule by mouth twice daily.Disp: 180 capsuleRfl: 1 metoprolol tartrate, short acting, (LOPRESSOR) 50 mg tabletTake one tablet after breakfast and one tablet after supperDisp: 180 tabletRfl: 1 blood sugar diagnostic (EASY TOUCH TEST STRIP) test stripUse as instructedDisp: 100 StripRfl: 5 URINALYSIS WITH MICROSCOPIC [SQUAWMIC] Order #: [id number] FUTURE chlorthalidone (HYGROTON) 25 mg tabletTake 1 tablet by mouth once daily.Disp: 90 tabletRfl: 1 COMP METABOLIC PANEL [SQCMP] Order #: [id number] FUTURE LIPID PANEL BASIC [SQLIPB] Order #: [id number] FUTURE HGB A1C [WPFNZ3K] Order #: [id number] FUTURE VITAMIN B12 BLOOD [SQB12] Order #: [id number] FUTURE FOLATE SERUM [SQSERFOL] Order #: [id number] FUTURE CBC + DIFF [SQCBCDIF] Order #: [id number] FUTURE IRON + TIBC [SQIRON] Order #: [id number] FUTURE MAGNESIUM BLD [SQMG1] Order #: [id number] FUTURE VITAMIN A/RETINOL [SQVITA] Order #: [id number] FUTURE VITAMIN D 25 HYDROXY [SQVITD] Order #: [id number] FUTURE ZINC BLD [SQZINC] Order #: [id number] FUTURE TSH BLD [SQTSH] Order #: [id number] FUTURE INR (POC) [5860280] Order #: [id number]. #:[id number] Prescriptions as of 11/26/2017 Sig: OMEPRAZOLE 20 MG CAPSULE,DEMARCO* Take 1 capsule by mouth twice* METOPROLOL TARTRATE 50 MG TAB* Take one tablet after breakfa* BLOOD SUGAR DIAGNOSTIC STRIPS Use as instructed CHLORTHALIDONE 25 MG TABLET Take 1 tablet by mouth once d* WARFARIN 4 MG TABLET Take as directed per physician MOMETASONE-FORMOTEROL HFA 100* Inhale 2 Puffs as instructed * TAMSULOSIN 0.4 MG CAPSULE TAKE 1 CAPSULE ONCE DAILY INSULIN GLARGINE (U-100) 100 * Inject 50 Units subcutaneousl* MONTELUKAST 10 MG TABLET Take 1 tablet by mouth once d* RAMIPRIL 10 MG CAPSULE Take 1 capsule by mouth once * LEVOTHYROXINE 100 MCG TABLET Take 1 tablet by mouth once d* BETAMETHASONE DIPROPIONATE 0.* Apply 1 Tube to affected area* CLOPIDOGREL 75 MG TABLET Take 1 tablet by mouth once d* FLUTICASONE 50 MCG/ACTUATION * Use 2 Sprays in each nostril * ROSUVASTATIN 10 MG TABLET Take 1/2 a tab every day WARFARIN 5 MG TABLET 10 mg on and 5mg Sat/* INSULIN LISPRO (U-100) 100 UN* 14-16 units with breakfast an* INSULIN SYRINGE-NEEDLE U-100 * 1 Each once daily. Dx: E11.29* EASY TOUCH 31 GAUGE X 5/16 N* USE 1 NEEDLE PER DOSE THREE T* ACETAMINOPHEN 500 MG TABLET Take 500 mg by mouth as neede* CHOLECALCIFEROL (VITAMIN D3) * Take 4,000 Units by mouth onc* DOCUSATE SODIUM 100 MG TABLET Take two tabs daily PENICILLIN V POTASSIUM 500 MG* Take 1 tablet by mouth twice * CYANOCOBALAMIN (VIT B-12) 500* Take 1 tablet by mouth once d* PSYLLIUM HUSK 0.4 GRAM CAPSULE Take 2 capsules by mouth once* BIOTIN ORAL Take by mouth three times da* FERROUS GLUCONATE 246 MG (27 * Take 1 tablet by mouth once d* * CALCIUM CARBONATE 600 MG CALC* Take 1 tablet by mouth twice * * ASCORBIC ACID (VITAMIN C) 500* Take 500 mg by mouth once albina* * TRIAMCINOLONE ACETONIDE 0.1 %* bid prn--not to face/axillae/* * MULTIVITAMIN TABLET Take one(1) tablet daily. ALBUTEROL SULFATE HFA 90 MCG/* Inhale 2 Puffs as instructed * More... Problem List As Of Date 11/26/2017 Noted Resolved Hypothyroidism (acquired) [E03.9] Priority: A Mixed hyperlipidemia [E78.2] Priority: A Allergic rhinitis, cause unspecified [J30.9] Priority: B Morbid Obesity [E66.01] 09/07/2009 More... Degeneration of lumbar or lumbosacral intervert* Priority: M More... Coronary artery disease due to lipid rich plaqu*INVALID FOR* Priority: A More... Mild intermittent asthma without complication [*INVALID FOR* Priority: A More... More... Hip joint replacement by other means [Z96.649] INVALID FOR*06/06/2016 Priority: M Personal history of other malignant neoplasm of*INVALID FOR* Priority: D More... Special Screening for Malignant Neoplasms, [place]*INVALID FOR*09/07/2009 Acute Gastritis without Mention of Hemorrhage [*INVALID FOR*09/07/2009 More... Urinary frequency [R35.0] INVALID FOR* Priority: C More... More... More... MGUS (monoclonal gammopathy of unknown signific*INVALID FOR* Priority: B More... Atrial flutter [I48.92] INVALID FOR* Priority: A More... THO (obstructive sleep apnea) [G47.33] INVALID FOR* Priority: B More... 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 AV block, 1st degree [I44.0] Priority: A Diabetic eye exam (HCC) [Z01.00, E11.9] INVALID FOR* Priority: A More... Type 2 diabetes mellitus with proteinuria (HCC)*INVALID FOR* Priority: A Gastroesophageal reflux disease without esophag*INVALID FOR* Priority: A Iron deficiency anemia secondary to inadequate *INVALID FOR* Priority: A More... Non-proliferative diabetic retinopathy, mild, b*INVALID FOR* Priority: A Bilateral carotid artery disease (HCC) [I77.9] INVALID FOR* Priority: A More... Corns and callus [L84] INVALID FOR* Priority: D Morbid obesity due to excess calories (HCC) [E6*INVALID FOR* Priority: B More... Well adult exam [Z00.00] INVALID FOR* Priority: E More... Ex-smoker [Z87.891] INVALID FOR* Priority: C More... Colon cancer screening [Z12.11] INVALID FOR* Type 2 diabetes mellitus with diabetic neuropat*INVALID FOR* Priority: A H/O gastric bypass [Z98.84] INVALID FOR* Priority: A Malabsorption syndrome [K90.9] INVALID FOR* Priority: A More... Iron malabsorption [K90.9] INVALID FOR* Priority: B Disorder of prostate [N42.9] INVALID FOR* Hypertension goal BP (blood pressure) < 140/80 *INVALID FOR* Priority: A Medicare annual wellness visit, subsequent [Z00*INVALID FOR* Priority: E More... Current use of proton pump inhibitor [Z79.899] INVALID FOR* Albuminuria [R80.9] INVALID FOR* Priority: A Abnormal carotid duplex scan [R94.39] INVALID FOR* Subclavian artery stenosis (HCC) [I77.1] INVALID FOR* Priority: A More... COPD, mild (HCC) [J44.9] INVALID FOR* Priority: A Other instructions from your clinician: Will cut the metoprolol 50 mg twice a day back to 1/2 a tab twice a day and increase the chlorthalidone 25 mg tab to a full tab once a day. Please get fasting labs on or after 03/21/2018 piror to next visit. Prescriptions ordered this encounter Disp Refills Start End OMEPRAZOLE 20 MG CAPSULE,DELAYED REL* 11/26/2017 11/26/2017 Class: Med Update Route: ORAL Sig: Take 1 capsule by mouth twice daily. OMEPRAZOLE 20 MG CAPSULE,DELAYED REL* 180 * 1 11/26/2017 Route: ORAL Sig: Take 1 capsule by mouth twice daily. METOPROLOL TARTRATE 50 MG TABLET 180 * 1 11/26/2017 Sig: Take one tablet after breakfast and one tablet after supper BLOOD SUGAR DIAGNOSTIC STRIPS 100 * 5 11/26/2017 Sig: Use as instructed CHLORTHALIDONE 25 MG TABLET 90 t* 1 11/26/2017 Route: ORAL Sig: Take 1 tablet by mouth once daily. Medications Discontinued During This Encounter omeprazole (PRILOSEC) 20 mg capsule 90 c* 3 03/19/2017 11/26/2017 Class: Print RX Route: ORAL Sig: Take 1 capsule by mouth once daily. Disc: Reason for discontinue is not on file. omeprazole (PRILOSEC) 20 mg capsule 11/26/2017 11/26/2017 Class: Med Update Route: ORAL Sig: Take 1 capsule by mouth twice daily. Disc: Reason for discontinue is not on file. metoprolol tartrate, short acting, (* 90 t* 3 09/23/2017 11/26/2017 Class: Med Update Sig: Take one tablet after breakfast and one tablet after supper Disc: Reason for discontinue is not on file. blood sugar diagnostic (EASY TOUCH T* 100 * 5 11/14/2016 11/26/2017 Class: Print RX Sig: Use as instructed Disc: Reason for discontinue is not on file. chlorthalidone (HYGROTON) 25 mg tabl* 45 t* 3 11/14/2016 11/26/2017 Class: Print RX Route: ORAL Sig: Take 0.5 tablets by mouth once daily. Disc: Reason for discontinue is not on file. Disposition: Return in about 4 months (around 03/29/2018) for rouchristopher. Follow-up and Disposition History Recorded Encounter Status:Closed by JONEL DON on 11/26/17 PROGRESS Observed: 11/12/2017 Status: COMPLETED Source: [place] 8:34 AM [facility] REPOSITORY HNO ID: [id number] Author: Jaye Kuhn Ma Service: (none) Author Type: (none) Type: Progress Notes Filed: 11/12/2017 8:35 AM Note Text: Pt notified, tracker updated. Jaye Kuhn Ma CNPTOUTREACH Observed: 11/12/2017 Status: COMPLETED Source: [place] 12:00 AM [facility] REPOSITORY Patient Outreach (FAMPST) KIP GUAMAN ([id number]) 1945 M Date Time Provider Department 11/12/17 JONEL DON [facility] During your visit today, we recorded the following information about you: Allergies As of Date: 11/12/2017 Noted Allergy Reaction PAMELLA INHIBITORS 07/18/2004 3 - Cough Comments: accupril ATORVASTATIN 07/18/2004 Comments: lipitor- muscle weakness, elevated LFT's CRESTOR (ROSUVASTATIN CALCIUM) 10/30/2016 17 - Myalgia INDOCIN (INDOMETHACIN SODIUM) 04/06/2005 8 - GI Upset NAPROXEN 07/18/2004 8 - GI Upset PRAVASTATIN 07/18/2004 Comments: pravachol- muscle weakness, elevated LFT's Date Reviewed: 11/11/2017 Reviewed by: Erin Awan RN - Fully Assessed Primary Visit Diagnosis:Disorder of prostate [N42.9] Other Visit Diagnosis:Medication management [Z79.899] Order(s):CBC [SQCBC] Order #: [id number] FUTURE ALBUMIN/CREAT RATIO RND UR [SQUACR] Order #: [id number] FUTURE PSA/PROSTSPECAG DIAG [SQPSA] Order #: [id number] FUTURE Prescriptions as of 11/12/2017 Sig: WARFARIN 4 MG TABLET Take as directed per physician MOMETASONE-FORMOTEROL HFA 100* Inhale 2 Puffs as instructed * X METOPROLOL TARTRATE 50 MG TAB* Take one tablet after breakfa* TAMSULOSIN 0.4 MG CAPSULE TAKE 1 CAPSULE ONCE DAILY INSULIN GLARGINE (U-100) 100 * Inject 50 Units subcutaneousl* MONTELUKAST 10 MG TABLET Take 1 tablet by mouth once d* RAMIPRIL 10 MG CAPSULE Take 1 capsule by mouth once * LEVOTHYROXINE 100 MCG TABLET Take 1 tablet by mouth once d* BETAMETHASONE DIPROPIONATE 0.* Apply 1 Tube to affected area* CLOPIDOGREL 75 MG TABLET Take 1 tablet by mouth once d* FLUTICASONE 50 MCG/ACTUATION * Use 2 Sprays in each nostril * ROSUVASTATIN 10 MG TABLET Take 1/2 a tab every day INSULIN SYRINGE-NEEDLE U-100 * 1 Each once daily. Dx: E11.29* X WARFARIN 5 MG TABLET 10 mg on and 5mg Sat/* X OMEPRAZOLE 20 MG CAPSULE,DEMARCO* Take 1 capsule by mouth once * X INSULIN LISPRO (U-100) 100 UN* 14-16 units with breakfast an* X EASY TOUCH 31 GAUGE X 5/16 N* USE 1 NEEDLE PER DOSE THREE T* X CHLORTHALIDONE 25 MG TABLET Take 0.5 tablets by mouth onc* X BLOOD SUGAR DIAGNOSTIC STRIPS Use as instructed ALBUTEROL SULFATE HFA 90 MCG/* Inhale 2 Puffs as instructed * ACETAMINOPHEN 500 MG TABLET Take 500 mg by mouth as neede* CHOLECALCIFEROL (VITAMIN D3) * Take 4,000 Units by mouth onc* DOCUSATE SODIUM 100 MG TABLET Take two tabs daily CYANOCOBALAMIN (VIT B-12) 500* Take 1 tablet by mouth once d* PSYLLIUM HUSK 0.4 GRAM CAPSULE Take 2 capsules by mouth once* X PENICILLIN V POTASSIUM 500 MG* Take 1 tablet by mouth twice * Patient not taking: Reported on 01/07/2018 X BIOTIN ORAL Take 10,000 mcg by mouth once* FERROUS GLUCONATE 246 MG (27 * Take 1 tablet by mouth once d* * CALCIUM CARBONATE 600 MG CALC* Take 1 tablet by mouth twice * * ASCORBIC ACID (VITAMIN C) 500* Take 500 mg by mouth once albina* * TRIAMCINOLONE ACETONIDE 0.1 %* bid prn--not to face/axillae/* * MULTIVITAMIN TABLET Take one(1) tablet daily. More... Problem List As Of Date 11/12/2017 Noted Resolved Hypothyroidism (acquired) [E03.9] Priority: A Mixed hyperlipidemia [E78.2] Priority: A Allergic rhinitis, cause unspecified [J30.9] Priority: B Morbid Obesity [E66.01] 09/07/2009 More... Degeneration of lumbar or lumbosacral intervert* Priority: M More... Coronary artery disease due to lipid rich plaqu*INVALID FOR* Priority: A More... Mild intermittent asthma without complication [*INVALID FOR* Priority: A More... More... Hip joint replacement by other means [Z96.649] INVALID FOR*06/06/2016 Priority: M Personal history of other malignant neoplasm of*INVALID FOR* Priority: D More... Special Screening for Malignant Neoplasms, [place]*INVALID FOR*09/07/2009 Acute Gastritis without Mention of Hemorrhage [*INVALID FOR*09/07/2009 More... Urinary frequency [R35.0] INVALID FOR* Priority: C More... More... More... MGUS (monoclonal gammopathy of unknown signific*INVALID FOR* Priority: B More... Atrial flutter [I48.92] INVALID FOR* Priority: A More... THO (obstructive sleep apnea) [G47.33] INVALID FOR* Priority: B More... 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 AV block, 1st degree [I44.0] Priority: A Diabetic eye exam (HCC) [Z01.00, E11.9] INVALID FOR* Priority: A More... Type 2 diabetes mellitus with proteinuria (HCC)*INVALID FOR* Priority: A Gastroesophageal reflux disease without esophag*INVALID FOR* Priority: A Iron deficiency anemia secondary to inadequate *INVALID FOR* Priority: A More... Non-proliferative diabetic retinopathy, mild, b*INVALID FOR* Priority: A Bilateral carotid artery disease (HCC) [I77.9] INVALID FOR* Priority: A More... Corns and callus [L84] INVALID FOR* Priority: D Morbid obesity due to excess calories (HCC) [E6*INVALID FOR* Priority: B More... Well adult exam [Z00.00] INVALID FOR* Priority: E More... Ex-smoker [Z87.891] INVALID FOR* Priority: C More... Colon cancer screening [Z12.11] INVALID FOR* Type 2 diabetes mellitus with diabetic neuropat*INVALID FOR* Priority: A H/O gastric bypass [Z98.84] INVALID FOR* Priority: A Malabsorption syndrome [K90.9] INVALID FOR* Priority: A More... Iron malabsorption [K90.9] INVALID FOR* Priority: B Disorder of prostate [N42.9] INVALID FOR* Hypertension goal BP (blood pressure) < 140/80 *INVALID FOR* Priority: A Medicare annual wellness visit, subsequent [Z00*INVALID FOR* Priority: E More... Current use of proton pump inhibitor [Z79.899] INVALID FOR* Albuminuria [R80.9] INVALID FOR* Priority: A Abnormal carotid duplex scan [R94.39] INVALID FOR* Subclavian artery stenosis (HCC) [I77.1] INVALID FOR* Priority: A More... COPD, mild (HCC) [J44.9] INVALID FOR* Priority: A Encounter Status:Closed by [employer] MDdatacorREE on 04/11/18 PROGRESS Observed: 11/11/2017 Status: COMPLETED Source: [place] 12:44 PM [facility] REPOSITORY HNO ID: [id number] Author: Jonel Don Service: (none) Author Type: Physician Type: Progress Notes Filed: 11/12/2017 8:35 AM Note Text: This note was created using Zarporiter. Subjective Kip Guaman is a 72 year old male. Review of Systems Objective There were no vitals taken for this visit. Physical Exam Assessment and Plan Let patient know to hold coumadin today and then tomorrow start doing 4 mg on Sat and 7.5 mg all other days. I did send in a script for the 4 mg tabs. Agree with repeat INR in 2 weeks. PROGRESS Observed: 11/11/2017 Status: COMPLETED Source: [place] 11:41 AM [facility] REPOSITORY HNO ID: [id number] Author: Erin Awan RN Service: (none) Author Type: (none) Type: Progress Notes Filed: 11/11/2017 11:43 AM Note Text: patient had inr completed at [facility] patients inr 3.2 (patients inr range is 2.0-3.0) patient is currently taking 5mg Sat and 7.5mg all other days patients last dose change was on 08/27/17 due to a high level of 3.3 (dose at that time was 7.5mg daily) patient has had no changes in medication and no missed doses and no change in diet Advised patient that they would be contacted regarding medication dose and when to follow up after information is reviewed by provider. After provider review please contact the patient with information and schedule follow up appointment with coumadin clinic. FYI - patient has been scheduled for a 2 week follow up on 11/26/17 due to he also has appt with pcp this day PROGRESS Observed: 10/14/2017 Status: COMPLETED Source: [place] 1:11 PM [facility] REPOSITORY HNO ID: [id number] Author: Jonel Don Service: (none) Author Type: Physician Type: Progress Notes Filed: 10/14/2017 2:10 PM Note Text: This note was created using PollVaultrter. Subjective Kip uGaman is a 72 year old male. Review of Systems Objective There were no vitals taken for this visit. Physical Exam Assessment and Plan Agree with plan. PROGRESS Observed: 10/14/2017 Status: COMPLETED Source: [place] 10:58 AM [facility] REPOSITORY HNO ID: [id number] Author: Erin Awan RN Service: (none) Author Type: (none) Type: Progress Notes Filed: 10/14/2017 10:59 AM Note Text: patient had inr completed at [facility] patients inr is 2.5 (patients inr range is 2.0-3.0) patient is currently taking 5mg Sat and 7.5mg all other days patients last dose change was on 08/27/17 due to a high level of 3.3 (dose at that time ws 7.5mg daily) patient has had no changes in medication and no missed doses and no change in diet Advised patient to continue on the same dose(s) and that they would only be contacted regarding dosage and follow up instructions after review with provider, if a change is needed. Written instructions given and patient verbalized understanding. Presently scheduled in 4 weeks (11/11/17) for follow up INR. RUSS ABS GR + CBC Collected: 10/07/2017 Status: F Source: [place] 8:00 [facility] REPOSITORY TYPE CODE TESTS RESULT OUT OF REFERENCE UNITS RANGE LAB WWBC 3.70-11.00 k/uL [place] WBC 6.05 LAB WRBC 4.20-6.00 m/uL Low [place] RBC 3.61 LAB WHGB 13.0-17.0 g/dL Low [place] Hemoglobin 11.3 LAB WHCT 39.0-51.0 % Low [place] Hematocrit 35.3 LAB WMCV 80.0-100.0 fL [place] MCV 97.8 LAB WMCH 26.0-34.0 pg [place] MCH 31.3 LAB WMCHC 30.5-36.0 g/dL [place] MCHC 32.0 LAB WRDW 11.5-15.0 % [place] RDW 13.7 LAB WPLT 150-400 k/uL [place] Platelet Cnt 157 LAB WMPV 9.0-12.7 fL [place] MPV 9.6 Result Comment: Test performed at: [facility], [address] [place] [address] Rd[address] [place] [address]. LAB ABGRAN 1.45-7.50 k/uL Absol Gran 4.28 Count HEMOGLOBIN A1C Collected: 10/07/2017 Status: F Source: [place] 8:00 [facility] REPOSITORY TYPE CODE TESTS RESULT OUT OF REFERENCE UNITS RANGE LAB HGBA1C 4.3-5.6 % High Hemoglobin A1c 6.3 LAB HBA0 mg/dL Est. Average Glucose 134 Result Comment: eAG: (Estimated average glucose) is a calculated value from HgbA1c and is home furnishings sales representative of the average blood glucose level in the last 2-3 month period. Performed By: #### HBA1C, CMP, LIPB #### [facility] [address] [place], [place] [address] COMP METABOLIC PANEL Collected: 10/07/2017 Status: F Source: [place] 8:00 [facility] REPOSITORY TYPE CODE TESTS RESULT OUT OF REFERENCE UNITS RANGE LAB TP 6.3-8.0 g/dL Protein, Total 6.9 LAB ALB 3.9-4.9 g/dL Albumin 4.1 LAB CA 8.5-10.2 mg/dL Calcium, Total 8.9 LAB TBIL 0.2-1.3 mg/dL Bilirubin, Total 0.3 LAB ALKP 36-108 U/L Alkaline Phosphatase 68 LAB AST 14-40 U/L AST 27 LAB GLU 74-99 mg/dL Glucose 84 Result Comment: The [place] Diabetes Association (ADA) provides guidance for cutoff values for fasting glucose and random glucose. The ADA defines fasting as no caloric intake for at least 8 hours. Fas ting plasma glucose results between 100 to 125 mg/dL indicate increased risk for diabetes (prediabetes). Fasting plasma glucose results greater than or equal to 126 mg/dL meet the criteria for diagnosis of diabetes. In the absence of unequivocal hyperglycemia, results should be confirmed by repeat testing. In a patient with classic symptoms of hyperglycemia or hyperglycemic crisis, random plasma glucose results greater than or equal to 200 mg/dL meet the criteria for diagnosis of diabetes. Reference: Standards of Medical Care in Diabetes 2016, [place] [employer] Association. Diabetes Care. 2016.39(Suppl 1). LAB BUN 9-24 mg/dL BUN High 39 LAB CRET 0.73-1.22 mg/dL Creatinine High 1.39 LAB NA 136-144 mmol/L Sodium 143 LAB K 3.7-5.1 mmol/L Potassium 4.3 LAB CL 97-105 mmol/L Chloride 104 LAB CO2 22-30 mmol/L CO2 24 LAB AGAP 9-18 mmol/L Anion Gap 15 LAB ALT 10-54 U/L ALT 25 LAB GFRAA eGFR- Amer. >60 LAB GFRNAA . eGFR-All Other Races 50 Result Comment: eGFR (Estimated GFR) Units of measure: mL/min/1.73 meters squared eGFR is derived from the reexpressed MDRD Study equation using the following parameters: serum creatinine, age, gender and race. The creatinine assay has been calibrated to be traceable to IDMS. An eGFR <60 mL/min/1.73m2 for >3 months is consistent with chronic kidney disease. Refer to KDOQI guidelines for clinical interpretation. In patients with unstable renal function, e.g. those with acute kidney injury, the eGFR may not accurately reflect actual GFR. Performed By: #### HBA1C, CMP, LIPB #### [facility] [address] [place], [place] [address] LIPID PANEL, BASIC Collected: 10/07/2017 Status: F Source: [place] 8:[address] [facility] REPOSITORY TYPE CODE TESTS RESULT OUT OF REFERENCE UNITS RANGE LAB CHOL <200 mg/dL Cholesterol 164 Result Comment: <200 mg/dL, Desirable 200-239 mg/dL, Borderline high >239 mg/dL, High LAB TRIGLY <150 mg/dL Triglyceride 95 Result Comment: <150 mg/dL, Normal 150-199 mg/dL, Borderline high 200-499 mg/dL, High >499 mg/dL, Very high LAB HDL >39 mg/dL HDL-Cholesterol 46 Result Comment: 40-59 mg/dL, Acceptable >59 mg/dL, High: Negative risk factor for coronary heart disease <40 mg/dL, Low: Positive risk factor for coronary heart disease LAB LDL <100 mg/dL LDL-Cholesterol 99 Result Comment: <100 mg/dL, Optimal 100-129 mg/dL, Near optimal/above optimal 130-159 mg/dL, Borderline high 160-189 mg/dL, High >189 mg/dL, Very high Secondary prevention optimal LDL Cholesterol levels are recommended to be < 70 mg/dL LAB NONHDL <130 mg/dL Non HDL Cholesterol 118 Result Comment: <130 mg/dL, Optimal 130-159 mg/dL, Near optimal/above optimal 160-189 mg/dL, Borderline high 190-219 mg/dL, High >219 mg/dL, Very high Secondary prevention optimal non HDL Cholesterol levels are recommended to be < 100 mg/dL LAB FT hrs Fasting Time 12 LAB VLDL <30 mg/dL VLDL Cholesterol 19 LAB TCHDL <5.10 TC:HDL Ratio 3.57 LAB LDLHDL <2.54 LDL:HDL Ratio 2.15 Result Comment: Reference: 1. National Cholesterol Education Program ATP III Guideline At-A-Glance Quick Desk Reference: National Heart, Lung, and Blood Atco. National Institutes of Health. 2001: NIH Publication No. 01-3305. 2. An International Atherosclerosis Society position paper: global recommendations for the management of dyslipidemia: executive summary, Atherosclerosis. 2014: 232(2):410-413. Performed By: #### HBA1C, CMP, LIPB #### [facility] [address] [place], [place] [address] IRON AND TIBC Collected: 10/07/2017 Status: F Source: [place] 8:[address] [facility] REPOSITORY TYPE CODE TESTS RESULT OUT OF REFERENCE UNITS RANGE LAB IRN 41-186 ug/dL Iron 46 LAB TIBC 232-386 ug/dL TIBC 261 LAB SAT 15-57 % Transferrin Saturatn 18 Performed By: #### IRON, FERR #### [facility] [address] [place], [place] [address] FERRITIN Collected: 10/07/2017 Status: F Source: [place] 8:00 AM [facility] REPOSITORY TYPE CODE TESTS RESULT OUT OF REFERENCE UNITS RANGE LAB FERR 30.3-565.7 ng/mL Ferritin 213.3 Performed By: #### IRON, FERR #### [facility] [address] [place], [place] [address] PROGRESS Observed: 09/24/2017 Status: COMPLETED Source: [place] 12:57 PM [facility] REPOSITORY HNO ID: [id number] Author: Jonel Don Service: (none) Author Type: Physician Type: Progress Notes Filed: 09/24/2017 1:15 PM Note Text: This note was created using Geodruid. Subjective Kip Guaman is a 72 year old male. Review of Systems Objective There were no vitals taken for this visit. Physical Exam Assessment and Plan Agree with plan. PROGRESS Observed: 09/24/2017 Status: COMPLETED Source: [place] 10:45 AM [facility] REPOSITORY HNO ID: [id number] Author: Erin Awan RN Service: (none) Author Type: (none) Type: Progress Notes Filed: 09/24/2017 10:46 AM Note Text: patient had inr completed at [facility] patients inr is 2.5 (patients inr range is 2.0-3.0) patient is currently taking 5mg Sat and 7.5mg all other days patients last dose change was on 08/27/17 due to a high level of 3.3 (dose at that time was 7.5mg daily) patient has had no changes in medication and no missed doses and no change in diet Advised patient to continue on the same dose(s) and that they would only be contacted regarding dosage and follow up instructions after review with provider, if a change is needed. Written instructions given and patient verbalized understanding. Presently scheduled in 3 weeks (10/14/17) for follow up INR. PROGRESS Observed: 09/10/2017 Status: COMPLETED Source: [place] 2:09 PM [facility] REPOSITORY HNO ID: [id number] Author: Jonel Don Service: (none) Author Type: Physician Type: Progress Notes Filed: 09/10/2017 3:20 PM Note Text: This note was created using NoteWriter. Subjective Kip Guaman is a 72 year old male. Review of Systems Objective There were no vitals taken for this visit. Physical Exam Assessment and Plan Agree with plan. PROGRESS Observed: 09/10/2017 Status: COMPLETED Source: [place] 9:28 AM [facility] REPOSITORY HNO ID: [id number] Author: Erin Awan RN Service: (none) Author Type: (none) Type: Progress Notes Filed: 09/10/2017 9:29 AM Note Text: patient had inr completed at [facility] patients inr is 2.5 (patients inr range is 2.0-3.0) patient is currently taking 5mg Sat and 7.5mg all other days patients last dose change was on 08/27/17 due to a high level of 3.3 (dose at that time was 7.5mg daily) patient has had no changes in medication and no missed doses and no change in diet Advised patient to continue on the same dose(s) and that they would only be contacted regarding dosage and follow up instructions after review with provider, if a change is needed. Written instructions given and patient verbalized understanding. Presently scheduled in 2 weeks (09/24/17) for follow up INR since this is the first normal reading since dose change. PROGRESS Observed: 08/27/2017 Status: COMPLETED Source: [place] 4:50 PM [facility] REPOSITORY HNO ID: [id number] Author: Anita Mckinney Ma Service: (none) Author Type: (none) Type: Progress Notes Filed: 08/27/2017 4:53 PM Note Text: Patient notified of results, verbalizes understanding of instructions. Tracker updated apt was made for 09/10 by previous nurse Anita Mckinney Ma PROGRESS Observed: 08/27/2017 Status: COMPLETED Source: [place] 4:38 PM [facility] REPOSITORY HNO ID: [id number] Author: Jonel Don Service: (none) Author Type: Physician Type: Progress Notes Filed: 08/27/2017 4:53 PM Note Text: This note was created using NoteWriter. Subjective Kip Guaman is a 72 year old male. Review of Systems Objective There were no vitals taken for this visit. Physical Exam Assessment and Plan Have patient hold his coumadin today. On Sat start back on coumadin with 5 mg on Sa and 7.5 mg all other days. Recheck INR in 2 weeks PROGRESS Observed: 08/27/2017 Status: COMPLETED Source: [place] 9:42 AM [facility] REPOSITORY HNO ID: [id number] Author: Erin Awan RN Service: (none) Author Type: (none) Type: Progress Notes Filed: 08/27/2017 9:44 AM Note Text: patient had inr completed at [facility] patients inr is 3.3 (patients inr range is 2.0-3.0) patient is currently taking 7.5mg daily patients last dose change was on 08/06/17 due to a low level of 1.9 (dose at that time was 5mg Sun and 7.5mg all other days) patient has had a change in medication as he was started on symbicort 1 week a go and no change in diet Advised patient that they would be contacted regarding medication dose and when to follow up after information is reviewed by provider. After provider review please contact the patient with information and schedule follow up appointment with coumadin clinic. FYI - patient has been scheduled for a 2 week follow up inr on 09/10/17 PROGRESS Observed: 08/16/2017 Status: COMPLETED Source: [place] 8:14 AM [facility] REPOSITORY HNO ID: [id number] Author: Leslie Lind Service: (none) Author Type: Nurse Practitioner Type: Progress Notes Filed: 08/16/2017 8:29 AM Note Text: 08/16/2017 Patient presents with: COPD diagnosis and inahler education SUBJECTIVE: This is a 72 year old that is here today for discussion of COPD diagnosis and need for inhaler. He has spirometry completed 08/07/17 that showed severe obstruction. He states that this diagnosis has taken a long time to get to because he had to have the stress testing and work up for carotid arteries. He is also dealing with stress at home with having to live in a correction now. He knows that he needs all of the medications that he is on, but wishes he didn't need them. He is hopeful that the new inhaler will help with his dyspnea on exertion. He states that he has not noticed any SOB at rest. Denies cough when well. He states that he has just gotten over a head cold and had been taking coricidin HBP. PAST MEDICAL HISTORY Diagnosis Date - Acute gastritis without mention of hemorrhage - Allergic rhinitis, cause unspecified - Atrial fibrillation or flutter - AV block, 1st degree - Background diabetic retinopathy(362.01) - CAD (coronary artery disease) - Contact dermatitis - COPD, mild ([facility]) 08/14/2017 - Degeneration of lumbar or lumbosacral intervertebral disc Spondylolisthesis of L5-S1 - Diabetes mellitus, type 2 ([facility]) retinopathy, neuropathy, nephropathy - Esophagitis, unspecified - Generalized osteoarthrosis, unspecified site - GERD (gastroesophageal reflux disease) - 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 - Surgical wound infection Dr Adams, chronic PNC - Type II or unspecified type diabetes mellitus without mention of complication, not stated as uncontrolled ALLERGIES Pamella Inhibitors; Atorvastatin; Crestor [Rosuvastatin Calcium]; Indocin [Indomethacin Sodium]; Naproxen; Pravastatin MEDICATIONS Current Outpatient Prescriptions: insulin glargine (LANTUS) 100 unit/mL injection Inject 50 Units subcutaneously once daily. If sugars slightly low take 45 units once daily instead of 47. montelukast (SINGULAIR) 10 mg tablet Take 1 tablet by mouth once daily. ramipril (ALTACE) 10 mg capsule Take 1 capsule by mouth once daily. levothyroxine (SYNTHROID) 100 mcg tablet Take 1 tablet by mouth once daily. betamethasone dipropionate 0.05 % ointment Apply 1 Tube to affected area as needed (for hand dermatitis). clopidogrel (PLAVIX) 75 mg tablet Take 1 tablet by mouth once daily. fluticasone (FLONASE) 50 mcg/actuation nasal spray Use 2 Sprays in each nostril once daily. rosuvastatin (CRESTOR) 10 mg tablet Take 1/2 a tab every day warfarin (COUMADIN) 5 mg tablet 10 mg on and 5mg Sat/Sat/Sun and 7.5mg Sat//Sat or as directed. metoprolol tartrate, short acting, (LOPRESSOR) 50 mg tablet Take half tablet after breakfast and half tablet after supper omeprazole (PRILOSEC) 20 mg capsule Take 1 capsule by mouth once daily. Insulin Lispro, Human, (HUMALOG KWIKPEN) 100 unit/mL inpn 14-16 units with breakfast and lunch and 20-24 units with dinner, Correction per sliding scale total up to 70 units daily Insulin Syringe-Needle U-100 (BD INSULIN SYRINGE MF) 1/2 mL 28 gauge x 1/2 syrg 1 Each once daily. Dx: E11.29 Insulin: yes EASY TOUCH 31 gauge x 5/16 ndle USE 1 NEEDLE PER DOSE THREE TIMES A DAY chlorthalidone (HYGROTON) 25 mg tablet Take 0.5 tablets by mouth once daily. blood sugar diagnostic (EASY TOUCH TEST STRIP) test strip Use as instructed albuterol HFA (PROAIR HFA) 90 mcg/actuation inhaler Inhale 2 Puffs as instructed every 4 hours as needed. tamsulosin ER (FLOMAX) 0.4 mg cp24 Take 1 capsule by mouth once daily. acetaminophen (TYLENOL EXTRA STRENGTH) 500 mg tablet Take 500 mg by mouth as needed. Cholecalciferol, Vitamin D3, 2,000 unit cap Take 4,000 Units by mouth once daily. Docusate Sodium 100 mg tab Take two tabs daily penicillin V potassium (V-CILLIN, VEETIDS) 500 mg tablet Take 1 tablet by mouth twice daily. cyanocobalamin (VITAMIN B-12) 500 mcg tab Take 1 tablet by mouth once daily. psyllium husk 0.4 gram cap Take 2 capsules by mouth once daily. BIOTIN ORAL Take by mouth three times daily. Ferrous Gluconate 246 mg (27 mg iron) Tab Take 1 tablet by mouth once daily. calcium carbonate (CALTRATE 600) 600 mg (1,500 mg) Tab Take 1 tablet by mouth twice daily. Ascorbic Acid (VITAMIN C) Chew Take 500 mg by mouth once daily. TRIAMCINOLONE ACETONIDE 0.1 % TOPICAL CREAM bid prn--not to face/axillae/groin MULTIVITAMIN TABLET Take one(1) tablet daily. budesonide-formoterol (SYMBICORT) 160-4.5 mcg/actuation inhaler Inhale 2 Puffs as instructed twice daily. No current facility-administered medications for this visit. Medications and allergies reviewed by this provider. SOCIAL HISTORY Social History Marital status: Spouse name: Randa Years of education: Number of children: 0 Occupational History Occupation Employer Comment TEACHER, [employer]/phys* [employer]* Social History Main Topics Smoking status: Former Smoker Packs/day: 0.00 Years: 25.00 Types: Pipe Smokeless status: Never Used Comment: Quit in 1999 Alcohol use: No Drug use: No Sexual activity: No REVIEW OF SYSTEMS GENERAL: No weight loss, malaise or fevers HEENT: Negative for frequent or significant headaches, No changes in hearing or vision, no nose bleeds or other nasal problems NECK: Negative for lumps, goiter, pain and significant neck swelling RESPIRATORY: See HPI CARDIOVASCULAR: Negative for chest pain, leg swelling, hypertension, CHF or palpitations OBJECTIVE: BP 130/56 (BP Site: Left Arm, BP Position: Sitting, BP Cuff Size: Large Adult) Pulse 71 Temp 36.3 ?C (97.4 ?F) (Right Tympanic) Resp 12 Wt 129.6 kg (285 lb 12.8 oz) SpO2 98% BMI 42.21 kg/m2. Vital signs reviewed by this provider. PHYSICAL EXAMINATION: General appearance: Well appearing, alert, in no acute distress, well-hydrated, well nourished., Morbidly obese Neck: Supple, no adenopathy; thyroid symmetric, normal size, no bruits Lungs: Lungs clear to auscultation. No wheezing, rhonchi, rales Heart: RRR without murmur, gallop, or rubs. No ectopy ASSESSMENT/PLAN: 1. Chronic obstructive pulmonary disease, unspecified COPD type (HCC) - ICD9: 496, ICD10: J44.9 - Discussed COPD and what the spirometry showed - Discussed the medication, how it works, SE. Encouraged to ask pharmacist to show how that specific inhaler works because we do not have a demo here. - Begin BUDESONIDE-FORMOTEROL HFA 160 MCG-4.5 MCG/ACTUATION AEROSOL INHALER - Discussed his feeling of being overwhelmed and offered to discuss further, prescribe a medication for depression, or give referral for psych or counseling- he declines at this time, but agrees to reach out to us if needed. Leslie Lind CNP SURGERY VISIT REPORT Observed: 08/14/2017 Status: F Source: [place] 4:15 PM [facility] [address] [place] [address] OFFICE VISIT Date of Service: 08/14/17 MR#: [id number] Acct: [id number] Name: KIP GUAMAN Rep #: [id number] : 1945 Provider: Saurav Baig MD Age/Sex: 72/M Location: [facility] Status: Signed Intake Vital Signs08/14/17 Height 5 ft 9 in 08/14/17 Weight: 275 lb Intake Visit Reasons: CAROTID STENOSIS, U/S @ [facility] [employer] Helper Required: No Is patient in pain?: No Allergies pravastatin [From Pravachol] Allergy (Verified 08/14/17 15:43) Other atorvastatin [From Lipitor] Adverse Reaction (Verified 08/14/17 15:43) Other naproxen Adverse Reaction (Verified 08/14/17 15:43) Upset Stomach quinapril [From Accupril] Adverse Reaction (Verified 08/14/17 15:43) Other Medications Ascorbic Acid [Vitamin C] 500 mg PO DAILY@0800 05/14/16 [History Confirmed 08/14/17] Biotin 5,000 mcg PO DAILY 05/14/16 [History Confirmed 08/14/17] Calcium Carb/Vitamin D [Caltrate-600 With Vit D Tab] 1 tab PO BID 05/14/16 [History Confirmed 08/14/17] Chlorthalidone [Hygroton] 12.5 mg PO DAILY 05/14/16 [History Confirmed 08/14/17] Cholecalciferol (VIT D3) [Vitamin D3] 2,000 unit PO DAILY 05/14/16 [History Confirmed 08/14/17] Clopidogrel Bisulfate [Plavix] 75 mg PO DAILY 05/14/16 [History Confirmed 08/14/17] Cyanocobalamin [Vitamin B12] 500 mcg PO QHS 05/14/16 [History Confirmed 08/14/17] Docusate Sodium [Colace] 100 mg PO BID 05/14/16 [History Confirmed 08/14/17] Fluticasone 0.05% [Flonase Nasal [place]] 2 spray NASAL DAILY 05/14/16 [History Confirmed 08/14/17] Insulin Glargine,Hum.rec.anlog [Lantus] 45 unit SC QHS 05/14/16 [History Confirmed 08/14/17] Insulin Lispro [Humalog] 10 - 20 unit SC TID 05/14/16 [History Confirmed 08/14/17] Iron Bis-Gly/FA/C/B12/Ca/Succ [Iron 21/7 Tablet] 1 ea PO DAILY 05/14/16 [History Confirmed 08/14/17] Levothyroxine [Synthroid] 100 mcg PO DAILY 05/14/16 [History Confirmed 08/14/17] Metoprolol Tartrate [Lopressor (beta atilio)] 25 mg PO BID 05/14/16 [History Confirmed 08/14/17] Montelukast [Singulair] 10 mg PO QHS 05/14/16 [History Confirmed 08/14/17] Multivitamins,Therapeutic [Multivitamin] 1 tab PO DAILY 05/14/16 [History Confirmed 08/14/17] Omeprazole [Prilosec] 20 mg PO DAILY 05/14/16 [History Confirmed 08/14/17] Penicillin Vk [Pen-Vee K 250MG] 500 mg PO BID 05/14/16 [History Confirmed 08/14/17] Polyvinyl Alcohol [Artificial Tears] 15 ml OP 4X/DAY #1 bottle 05/14/16 [Rx] Psyllium Husk [Psyllium] 0.4 gm PO DAILY 05/14/16 [History Confirmed 08/14/17] Ramipril [Altace] 10 mg PO DAILY 05/14/16 [History Confirmed 08/14/17] Rosuvastatin Calcium [Crestor] 10 mg PO QODAY 05/14/16 [History Confirmed 08/14/17] Tamsulosin HCl [Flomax] 0.4 mg PO DAILY 05/14/16 [History Confirmed 08/14/17] Warfarin [Coumadin] 7.5 mg PO MOTUTHSA 05/14/16 [History Confirmed 08/14/17] PFSH Medical History BPH loc w urin obs/LUTS (Acute) Vitamin D deficiency (Acute) Allergic rhinitis (Acute) Bilateral carotid artery disease (Acute) Albuminuria (Acute) Hypertension (Chronic) Coronary artery disease due to lipid rich plaque (Acute) Iron deficiency anemia (Acute) Non-proliferative diabetic retinopathy (Acute) Type 2 diabetes mellitus (Acute) Hyperlipidemia (Acute) Hypothyroidism (Acute) GERD without esophagitis (Acute) Atrial fibrillation (Acute) AV block, 1st degree (Acute) Surgical History Hx of cardiac cath (Acute) Hx of coronary artery bypass surgery (Acute) S/P cataract extraction (Acute) S/P gastric bypass (Acute) Hx of bilateral hip replacements (Acute) Hx of gastric bypass (Acute) Family History Mother Diabetes Heart disease Father Heart disease Social History Smoking Status: Never smoker second hand exposure: No alcohol intake: never substance use type: does not use caffeine: No what type of physical activity do you participate in: none frequency: does not exercise seatbelt use: always HPI HPI HPI: KIP GUAMAN, is a 72 M who presents to the office today for surgical consultation regarding asymptomatic extracranial carotid artery occlusive disease. The patient is kindly referred by Dr. Don and a written copy of my surgical consult and recommendations will be returned to him. The patient provides me with information stating approximately March 2017 he had problems of dyspnea on exertion. He states that one year ago he had a similar problem. He was evaluated apparently at that time by Dr. Korey Bernal because of anemia. He received IV iron supplementation and his symptoms improved. This time again he was referred back to Dr. Bernal up by patient report the iron infusion protocol had change. Rather than multiple infusions the patient this time received 2 infusions. The patient states that his symptoms improved some but have not resolved. As part of his evaluation on August 07, 2017 at the [facility] he had carotid duplex imaging. Peak systolic velocity within the right internal carotid was 96 cm second peak systolic flow with moderate calcific shadowing plaque at the origin to mid. On the left peak systolic velocity was 113 cm second peak systolic flow there was shadowing plaque 0.8 cm in length. There is felt to be 20-39% stenosis on the right and 40-59% stenosis on the left. This was felt to have progressed since September 10, 2015 on the left. Patient also has some right subclavian stenosis with a peak systolic velocity of 319 cm/s. There was suggested to be an abnormal right vertebral signal but I actually do not see the right vertebral velocity. The left vertebral velocities and peak systolic velocity of 90 cm/s. The patient does not have any right upper extremity symptoms. His past medical history is replete for morbid obesity with a BMI of 47.3. Atrial fibrillation and flutter. First-degree AV block. Aphthous chronic cardiovascular disease with history of coronary artery bypass surgery in 2000 6 grafts. Type 2 diabetes mellitus. Hypertension. Hyperlipidemia. Iron deficiency anemia. Sleep apnea. He denies any previous history of TIA or stroke. In addition to his other medications he is on both warfarin and clopidogrel. He did have his aspirin stopped by cardiology. ROS General General: Yes fatigue; no weight change, appetite, colon cancer, breast cancer or weakness HEENT HEENT: No difficulty swallowing, eye injury, eye surgery, swollen glands or hoarseness Endo Endocrine: Yes thyroid disease and diabetes mellitus; no thyroid cancer, Hair loss, heat intolerance or cold intolerance Skin Skin: No rash or changing moles Musc Musculoskeletal: Yes back problems and arthritis; no rheumatoid arthritis, gout or joint pain Cardio Cardiovascular: Yes heart disease, atrial fibrillation, high blood pressure and murmur; no pacemaker, heart attack, heart stent, palpitations, shortness of breat with exertion or chest pain Psych Psychiatric: No depression, anxiety or hearing voices Resp Respiratory: Yes shortness of breath, Yes sleep apnea, No cough, No COPD, Yes asthma, No emphysema, No wheezing Gastro Gastrointestinal: No abdominal pain, No nausea or vomiting, No diarrhea, No constipation, No blood in stool, No acid reflux, Yes hemorrhoids, No ulcers, No gallbladder problem, No black,tarry stools Mina Hematologic: Yes blood thinners, Yes blood disorders, No bleeding, Yes anemia, No blood clots Neuro Neurologic: No system reviewed and no additional complaints, except as docu, No as per HPI, No abnormal walking, No abnormal hearing, No abnormal movements, No abnormal speech, No behavioral changes, No burning sensations, No confusion, No seizure-like activity, No unsteadiness, No dizziness, No localized weakness, No frequent falls, No headache(s), No lack of coordination, No loss of vision, No memory loss, No numbness, No other visual disturbances, No radiating pain, No restless legs, No sensory deficit, No fainting, No tingling, No tremor(s), No weakness, No other Exam Const General: cooperative, no acute distress Nutritional Appearance: obese morbidly obese Orientation: oriented x3, alert Neck Neck: normal visual inspection Neck mass: No Other: Right carotid upstroke appears pulsatile. 3+ right carotid pulse. 3+ left carotid pulse. Very minimal soft base of neck bruit on the right. Resp Effort AND Inspection: normal respiratory effort Auscultation: clear to auscultation bilaterally Cardio Rate: regular rate Heart Sounds: murmur Other: Bilateral brachials are 3+. Left radial surgically absent. Right radial was 3+ Assessment AND Plan 1. Bilateral carotid artery disease I77.9 Plan 72-year-old gentleman who has significant medical comorbidities. He has ongoing dyspnea with exertion. He realizes that he will likely need further follow- up with his [facility] private branch exchange service advisor He does not appear to be symptomatic from his extracranial carotid artery occlusive disease. He does not appear to be symptomatic from his right subclavian artery stenosis. The duplex report does not define that he has a subclavian steal but that may be a future impending issue if the subclavian stenosis worsens. However the patient denies central neurologic symptoms. The patient will continue to pursue investigation regarding his dyspnea and fatigue. I am recommending to him that he obtain a carotid duplex exam at 1 year. The patient requests that this be pursued at the [facility] and states that he will ask Dr. Don to help schedule that. Obviously if the patient were to become symptomatic then I would be more than pleased to see him in return sooner. I appreciate the opportunity of assisting with his surgical care I have additionally taken time today to strongly encourage the patient that he needs to be an active participant in maximizing his medical care. We discussed issues like cholesterol and blood pressure and salt intake and general plant-based diet and exercise and weight loss. Cc: Dr. Florencia Baig M.D., F.A.C.S. Coding Level of Care Code Detailed, Low Diagnoses Bilateral carotid artery disease I77.9 08/14/17 9585 <Electronically signed by Saurav Baig MD> Date Saurav Baig MD Cosigner Signature: Date (if applicable) CC: oJnel Don MD PROGRESS Observed: 08/13/2017 Status: COMPLETED Source: [place] 11:08 AM [facility] REPOSITORY HNO ID: [id number] Author: Jonel Don Service: (none) Author Type: Physician Type: Progress Notes Filed: 08/13/2017 3:31 PM Note Text: This note was created using Zarporiter. Subjective Kip Guaman is a 72 year old male. Review of Systems Objective There were no vitals taken for this visit. Physical Exam Assessment and Plan Agree with plan. PROGRESS Observed: 08/13/2017 Status: COMPLETED Source: [place] 10:34 AM [facility] REPOSITORY HNO ID: [id number] Author: Erin Awan RN Service: (none) Author Type: (none) Type: Progress Notes Filed: 08/13/2017 10:35 AM Note Text: patient had inr completed at [facility] patients inr is 3.0 (patients inr range is 2.0-3.0) patient is currently taking 7.5mg daily patients last dose change was on 08/06/17 due to a low level of 1.9 (dose at this time was 5mg Sun and 7.5mg all other days) patient has had no changes in medication except for the coumadin and no change in diet Advised patient to continue on the same dose(s) and that they would only be contacted regarding dosage and follow up instructions after review with provider, if a change is needed. Written instructions given and patient verbalized understanding. Presently scheduled in 2 weeks (08/27/17) for follow up INR. PROGRESS Observed: 08/06/2017 Status: COMPLETED Source: [place] 1:54 PM [facility] REPOSITORY HNO ID: [id number] Author: Anita Mckinney Ma Service: (none) Author Type: (none) Type: Progress Notes Filed: 08/06/2017 1:54 PM Note Text: Patient notified of results, verbalizes understanding of instructions. Tracker updated and apt changed to 08/13 Anita Mckinney Ma PROGRESS Observed: 08/06/2017 Status: COMPLETED Source: [place] 1:12 PM [facility] REPOSITORY HNO ID: [id number] Author: Jonel Don Service: (none) Author Type: Physician Type: Progress Notes Filed: 08/06/2017 1:54 PM Note Text: This note was created using Zarporiter. Subjective Kip Guaman is a 72 year old male. Review of Systems Objective There were no vitals taken for this visit. Physical Exam Assessment and Plan Have patient go to taking 7.5 mg of coumadin every day. Please change INR check to one week PROGRESS Observed: 08/06/2017 Status: COMPLETED Source: [place] 9:34 AM [facility] REPOSITORY HNO ID: [id number] Author: Erin Awan RN Service: (none) Author Type: (none) Type: Progress Notes Filed: 08/06/2017 9:35 AM Note Text: patient had inr completed at [facility] patients inr is 1.9 (patients inr range is 2.0-3.0) patient is currently taking 5mg Sun and 7.5mg all other days patients last dose change was on 07/30/17 due to a low level of 1.9 (dose at that time was 5mg Wed,Sun and 7.5mg all other days) patient has had no changes in medication and no change in diet Advised patient that they would be contacted regarding medication dose and when to follow up after information is reviewed by provider. After provider review please contact the patient with information and schedule follow up appointment with coumadin clinic. FYI - patient has been scheduled for a 2 week follow up inr on 08/20/17 PROGRESS Observed: 07/30/2017 Status: COMPLETED Source: [place] 10:58 AM [facility] REPOSITORY HNO ID: [id number] Author: Renata Feldman Ma Service: (none) Author Type: (none) Type: Progress Notes Filed: 07/30/2017 10:58 AM Note Text: Patient notified of results, verbalizes understanding of instructions. Tracker updated and patient previously scheduled for recheck. PROGRESS Observed: 07/30/2017 Status: COMPLETED Source: [place] 10:41 AM [facility] REPOSITORY HNO ID: [id number] Author: Jonel Don Service: (none) Author Type: Physician Type: Progress Notes Filed: 07/30/2017 10:58 AM Note Text: This note was created using Zarporiter. Subjective Kip Guaman is a 72 year old male. Review of Systems Objective There were no vitals taken for this visit. Physical Exam Assessment and Plan Have patient go to taking 7.5 mg of coumadin every day except for Saturday when he should take just 5 mg. Agree with INR in a week. PROGRESS Observed: 07/30/2017 Status: COMPLETED Source: [place] 9:56 AM [facility] REPOSITORY HNO ID: [id number] Author: Erin Awan RN Service: (none) Author Type: (none) Type: Progress Notes Filed: 07/30/2017 9:58 AM Note Text: patient had inr completed at [facility] patients inr is 1.9 (patients inr range is 2.0-3.0) patient is currently taking 5mg Sat,Sat and 7.5mg all other days patients last dose change was on 04/02/17 due to a low level of 1.8 (dose at that time was 5mg Sun Sat and 7.5mg all other days) patient has had no changes in medication and no change in diet FYI - patient inr level last week was 1.7 on the same dose Advised patient to continue on the same dose(s) and that they would only be contacted regarding dosage and follow up instructions after review with provider, if a change is needed. Written instructions given and patient verbalized understanding. Presently scheduled in 1 week (08/06/17) for follow up INR since level is just slightly below the normal range. HOSP Observed: 07/30/2017 Status: COMPLETED Source: [place] 8:45 AM [facility] REPOSITORY Anticoagulation Visit (COUMWS) KIP GUAMAN ([id number]) 1945 M Date Time Provider Department 07/30/17 8:45 AM [facility]WS During your visit today, we recorded the following information about you: Erin Awan RN 07/30/2017 9:58 AM Signed patient had inr completed at [facility] patients inr is 1.9 (patients inr range is 2.0-3.0) patient is currently taking 5mg Wed,Sun and 7.5mg all other days patients last dose change was on 04/02/17 due to a low level of 1.8 (dose at that time was 5mg Sun Sat and 7.5mg all other days) patient has had no changes in medication and no change in diet FYI - patient inr level last week was 1.7 on the same dose Advised patient to continue on the same dose(s) and that they would only be contacted regarding dosage and follow up instructions after review with provider, if a change is needed. Written instructions given and patient verbalized understanding. Presently scheduled in 1 week (08/06/17) for follow up INR since level is just slightly below the normal range. Jonel Don MD 07/30/2017 10:58 AM Signed This note was created using Zarporiter. Subjective Kip Guaman is a 72 year old male. Review of Systems Objective There were no vitals taken for this visit. Physical Exam Assessment and Plan Have patient go to taking 7.5 mg of coumadin every day except for Saturday when he should take just 5 mg. Agree with INR in a week. Renata Feldman Ma 07/30/2017 10:58 AM Signed Patient notified of results, verbalizes understanding of instructions. Tracker updated and patient previously scheduled for recheck. Referring Provider: JONEL DON [[id number]] Allergies As of Date: 07/30/2017 Noted Allergy Reaction PAMELLA INHIBITORS 07/18/2004 3 - Cough Comments: accupril ATORVASTATIN 07/18/2004 Comments: lipitor- muscle weakness, elevated LFT's CRESTOR (ROSUVASTATIN CALCIUM) 10/30/2016 17 - Myalgia INDOCIN (INDOMETHACIN SODIUM) 04/06/2005 8 - GI Upset NAPROXEN 07/18/2004 8 - GI Upset PRAVASTATIN 07/18/2004 Comments: pravachol- muscle weakness, elevated LFT's Date Reviewed: 07/30/2017 Reviewed by: Erin Awan RN - Fully Assessed Reason for Visit: Anticoagulation [8] Primary Visit Diagnosis:Atrial flutter, unspecified type (HCC) [I48.92] Prescriptions as of 07/30/2017 Sig: INSULIN GLARGINE 100 UNIT/ML * Inject 50 Units subcutaneousl* MONTELUKAST 10 MG TABLET Take 1 tablet by mouth once d* RAMIPRIL 10 MG CAPSULE Take 1 capsule by mouth once * LEVOTHYROXINE 100 MCG TABLET Take 1 tablet by mouth once d* BETAMETHASONE DIPROPIONATE 0.* Apply 1 Tube to affected area* CLOPIDOGREL 75 MG TABLET Take 1 tablet by mouth once d* FLUTICASONE 50 MCG/ACTUATION * Use 2 Sprays in each nostril * ROSUVASTATIN 10 MG TABLET Take 1/2 a tab every day WARFARIN 5 MG TABLET 10 mg on and 5mg * METOPROLOL TARTRATE 50 MG TAB* Take half tablet after breakf* OMEPRAZOLE 20 MG CAPSULE,DEMARCO* Take 1 capsule by mouth once * INSULIN LISPRO 100 UNIT/ML ARBOLEDA* 14-16 units with breakfast an* INSULIN SYRINGE-NEEDLE U-100 * 1 Each once daily. Dx: E11.29* EASY TOUCH 31 GAUGE X 5/16 N* USE 1 NEEDLE PER DOSE THREE T* CHLORTHALIDONE 25 MG TABLET Take 0.5 tablets by mouth onc* BLOOD SUGAR DIAGNOSTIC STRIPS Use as instructed ALBUTEROL SULFATE HFA 90 MCG/* Inhale 2 Puffs as instructed * TAMSULOSIN 0.4 MG CAPSULE Take 1 capsule by mouth once * ACETAMINOPHEN 500 MG TABLET Take 500 mg by mouth as neede* CHOLECALCIFEROL (VITAMIN D3) * Take 4,000 Units by mouth onc* DOCUSATE SODIUM 100 MG TABLET Take two tabs daily PENICILLIN V POTASSIUM 500 MG* Take 1 tablet by mouth twice * CYANOCOBALAMIN (VIT B-12) 500* Take 1 tablet by mouth once d* PSYLLIUM HUSK 0.4 GRAM CAPSULE Take 2 capsules by mouth once* BIOTIN ORAL Take by mouth three times da* FERROUS GLUCONATE 246 MG (27 * Take 1 tablet by mouth once d* * CALCIUM CARBONATE 600 MG CALC* Take 1 tablet by mouth twice * * ASCORBIC ACID (VITAMIN C) 500* Take 500 mg by mouth once albina* * TRIAMCINOLONE ACETONIDE 0.1 %* bid prn--not to face/axillae/* * MULTIVITAMIN TABLET Take one(1) tablet daily. More... Problem List As Of Date 07/30/2017 Noted Resolved Hypothyroidism (acquired) [E03.9] Priority: A Mixed hyperlipidemia [E78.2] Priority: A Allergic rhinitis, cause unspecified [J30.9] Priority: B Morbid Obesity [E66.01] 09/07/2009 More... Degeneration of lumbar or lumbosacral intervert* Priority: M More... Coronary artery disease due to lipid rich plaqu*INVALID FOR* Priority: A More... Mild intermittent asthma without complication [*INVALID FOR* Priority: A More... More... Hip joint replacement by other means [Z96.649] INVALID FOR*06/06/2016 Priority: M Personal history of other malignant neoplasm of*INVALID FOR* Priority: D More... Special Screening for Malignant Neoplasms, [place]*INVALID FOR*09/07/2009 Acute Gastritis without Mention of Hemorrhage [*INVALID FOR*09/07/2009 More... Urinary frequency [R35.0] INVALID FOR* Priority: C More... More... More... MGUS (monoclonal gammopathy of unknown signific*INVALID FOR* Priority: B More... Atrial flutter [I48.92] INVALID FOR* Priority: A More... THO (obstructive sleep apnea) [G47.33] INVALID FOR* Priority: B More... 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 AV block, 1st degree [I44.0] Priority: A Diabetic eye exam (HCC) [E11.9, Z01.00] INVALID FOR* Priority: A More... Type 2 diabetes mellitus with proteinuria (HCC)*INVALID FOR* Priority: A Gastroesophageal reflux disease without esophag*INVALID FOR* Priority: A Iron deficiency anemia secondary to inadequate *INVALID FOR* Priority: A More... Non-proliferative diabetic retinopathy, mild, b*INVALID FOR* Priority: A Bilateral carotid artery disease (HCC) [I77.9] INVALID FOR* Priority: A More... Corns and callus [L84] INVALID FOR* Priority: D Morbid obesity due to excess calories (HCC) [E6*INVALID FOR* Priority: B More... Well adult exam [Z00.00] INVALID FOR* Priority: E More... Ex-smoker [Z87.891] INVALID FOR* Priority: C More... Colon cancer screening [Z12.11] INVALID FOR* Type 2 diabetes mellitus with diabetic neuropat*INVALID FOR* Priority: A H/O gastric bypass [Z98.84] INVALID FOR* Priority: A Malabsorption syndrome [K90.9] INVALID FOR* Priority: A More... Iron malabsorption [K90.9] INVALID FOR* Priority: B Disorder of prostate [N42.9] INVALID FOR* Hypertension goal BP (blood pressure) < 140/80 *INVALID FOR* Priority: A Medicare annual wellness visit, subsequent [Z00*INVALID FOR* Priority: E More... Current use of proton pump inhibitor [Z79.899] INVALID FOR* Albuminuria [R80.9] INVALID FOR* Priority: A Follow-up and Disposition History Recorded Encounter Status:Closed by RENATA FELDMAN MA on 07/30/17 PROGRESS Observed: 07/23/2017 Status: COMPLETED Source: [place] 9:44 AM [facility] REPOSITORY HNO ID: [id number] Author: Jonel Don Service: (none) Author Type: Physician Type: Progress Notes Filed: 07/23/2017 10:53 AM Note Text: This note was created using Zarporiter. Subjective Kip Guaman is a 72 year old male. Review of Systems Objective There were no vitals taken for this visit. Physical Exam Assessment and Plan Will continue the same dosing since has been on this since 2016. Will need repeat INR in a Week. Will have Anita set up. PROGRESS Observed: 07/23/2017 Status: COMPLETED Source: [place] 9:31 AM [facility] REPOSITORY HNO ID: [id number] Author: Jonel Don Service: (none) Author Type: Physician Type: Progress Notes Filed: 07/23/2017 12:57 PM Note Text: Chief Complaint Patient presents with: Recheck: 4 months HPI Kip Guaman is a 72 year old male who presents here today for Chronic Medical Conditions.. Patient with Hx as documented and reviewed below. Has been doing ok. Still dealing with the EGAN he has been getting since 03/2017. No shortness of breath with sitting or at night. Did have Asthma as a child and was a pipe smoker. Did see cardio and was not impressed that this was a cardiac issue since his Stress test was fairly similar to previous ones and no new findings. Past medical history, appointments, medications, allergies reviewed. Previous Medical History PAST MEDICAL HISTORY Diagnosis Date - Acute gastritis without mention of hemorrhage - Allergic rhinitis, cause unspecified - Atrial fibrillation or flutter - AV block, 1st degree - Background diabetic retinopathy(362.01) - CAD (coronary artery disease) - Contact dermatitis - Degeneration of lumbar or lumbosacral intervertebral disc Spondylolisthesis of L5-S1 - Diabetes mellitus, type 2 (HCC) retinopathy, neuropathy, nephropathy - Esophagitis, unspecified - Generalized osteoarthrosis, unspecified site - GERD (gastroesophageal reflux disease) - Hip joint replacement by other means 12/19/2005 - Hyperlipidemia - Hypertension - Hypertension goal BP (blood pressure) < 140/80 09/26/2016 - Hypothyroidism - Iron deficiency anemia, unspecified - Morbid obesity (HCC) 01-04-11 stated BMI 47.3 Ht: 70 Wt: 330 lbs - Obstructive sleep apnea - Osteoarthritis 11/09/2011 - S/P gastric bypass 09/21/2011 - Surgical wound infection Dr Adams, chronic PNC - Type II or unspecified type diabetes mellitus without mention of complication, not stated as uncontrolled Previous Surgical History PAST SURGICAL HISTORY Procedure Laterality Date - 2D ECHO (EXEP) 03/2017 EF=60%, no valve issues - BYPASS GRAFT OTHR,COMPOSITE 2000 CABG x 6, Dr. Do - COLONOSCOP W/ OR W/O BRSH SPEC 11/03/08 repeat due 2018 - ECHO 08/2000 - EGD W/O BRSH SPECIMEN W/BX 11/03/08 - EGD W/O OR W/BRUSH/WASH 05/14/16 EGD [facility] - LAP. GASTRECT W/ JARAD-EN-Y 09/10/11 [facility] - PAST SURGICAL HISTORY OF left hip surgery post-replacement for infection - PAST SURGICAL HISTORY OF heart cath - REMV CATARACT EXTRACAP,INSERT LENS Cataract Removal - TOTAL HIP REPLACEMENT bilateral Family History FAMILY HISTORY Problem Relation Age of Onset - Ischemic Heart Disease Father - Ischemic Heart Disease Mother - Diabetes Mother - Hypertension Brother - Stroke Brother Patient Allergies ALLERGIES Allergen Reactions - Pamella Inhibitors Cough accupril - Atorvastatin lipitor- muscle weakness, elevated LFT's - Crestor [Rosuvastat* Myalgia - Indocin [Indomethac* GI Upset - Naproxen GI Upset - Pravastatin pravachol- muscle weakness, elevated LFT's Current Medications Current Outpatient Prescriptions on File Prior to Visit: fluticasone (FLONASE) 50 mcg/actuation nasal spray Use 2 Sprays in each nostril once daily. rosuvastatin (CRESTOR) 10 mg tablet Take 1/2 a tab every day warfarin (COUMADIN) 5 mg tablet 10 mg on and 5mg Sat/Sat/Sat and 7.5mg Sat//Sat or as directed. metoprolol tartrate, short acting, (LOPRESSOR) 50 mg tablet Take half tablet after breakfast and half tablet after supper clopidogrel (PLAVIX) 75 mg tablet Take 1 tablet by mouth once daily. omeprazole (PRILOSEC) 20 mg capsule Take 1 capsule by mouth once daily. Insulin Lispro, Human, (HUMALOG KWIKPEN) 100 unit/mL inpn 14-16 units with breakfast and lunch and 20-24 units with dinner, Correction per sliding scale total up to 70 units daily Insulin Syringe-Needle U-100 (BD INSULIN SYRINGE MF) 1/2 mL 28 gauge x 1/2 syrg 1 Each once daily. Dx: E11.29 Insulin: yes insulin glargine (LANTUS) 100 unit/mL injection Inject 50 Units subcutaneously once daily. If sugars slightly low take 45 units once daily instead of 47. EASY TOUCH 31 gauge x 5/16 ndle USE 1 NEEDLE PER DOSE THREE TIMES A DAY chlorthalidone (HYGROTON) 25 mg tablet Take 0.5 tablets by mouth once daily. blood sugar diagnostic (EASY TOUCH TEST STRIP) test strip Use as instructed albuterol HFA (PROAIR HFA) 90 mcg/actuation inhaler Inhale 2 Puffs as instructed every 4 hours as needed. levothyroxine (SYNTHROID) 100 mcg tablet Take 1 tablet by mouth once daily. montelukast (SINGULAIR) 10 mg tablet Take 1 tablet by mouth once daily. tamsulosin ER (FLOMAX) 0.4 mg cp24 Take 1 capsule by mouth once daily. ramipril (ALTACE) 10 mg capsule Take 1 capsule by mouth once daily. acetaminophen (TYLENOL EXTRA STRENGTH) 500 mg tablet Take 500 mg by mouth as needed. Cholecalciferol, Vitamin D3, 2,000 unit cap Take 4,000 Units by mouth once daily. Docusate Sodium 100 mg tab Take two tabs daily penicillin V potassium (V-CILLIN, VEETIDS) 500 mg tablet Take 1 tablet by mouth twice daily. cyanocobalamin (VITAMIN B-12) 500 mcg tab Take 1 tablet by mouth once daily. psyllium husk 0.4 gram cap Take 2 capsules by mouth once daily. betamethasone dipropionate 0.05 % ointment Apply 1 Tube to affected area as needed (for hand dermatitis). BIOTIN ORAL Take by mouth three times daily. Ferrous Gluconate 246 mg (27 mg iron) Tab Take 1 tablet by mouth once daily. calcium carbonate (CALTRATE 600) 600 mg (1,500 mg) Tab Take 1 tablet by mouth twice daily. Ascorbic Acid (VITAMIN C) Chew Take 500 mg by mouth once daily. TRIAMCINOLONE ACETONIDE 0.1 % TOPICAL CREAM bid prn--not to face/axillae/groin MULTIVITAMIN TABLET Take one(1) tablet daily. No current facility-administered medications on file prior to visit. 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[employer] Social History Main Topics Smoking status: Former Smoker Packs/day: 0.00 Years: 25.00 Types: Pipe Smokeless status: Never Used Comment: Quit in 1999 Alcohol use: No Drug use: No Sexual activity: No Review of Symptoms REVIEW OF SYSTEMS GENERAL: No weight loss, malaise or fevers NECK: Negative for lumps, goiter, pain and significant neck swelling RESPIRATORY: Negative for cough, hemoptysis, wheezing, COPD. See HPI CARDIOVASCULAR: Negative for chest pain, increased leg swelling, hypertension, CHF or palpitations GI: No nausea, vomiting, or diarrhea and No heartburn or reflux symptoms : No history of dysuria or blood ENDOCRINE: FBS: typically below 115. Has had a few lows and 1-2 above 130. NEURO: No history of headaches, syncope, paralysis, seizures or tremors EXAM: BP 138/58 (BP Site: Left Arm, BP Position: Sitting, BP Cuff Size: Large Adult) Pulse 60 Resp 16 Ht 175.3 cm (5' 9) Wt 129.3 kg (285 lb) BMI 42.09 kg/m2 Last 6 Encounter Wt Readings: Date: Wt: 07/23/2017 129.3 kg (285 lb) 07/08/2017 132.2 kg (291 lb 8 oz) 04/16/2017 129.7 kg (286 lb) 03/19/2017 134.7 kg (297 lb) 11/14/2016 125.8 kg (277 lb 6.4 oz) 10/04/2016 124.7 kg (275 lb) General Appearance: Well appearing, alert, in no acute distress, well-hydrated, well nourished., Morbidly obese. Eyes: Anicteric sclera. Pupils are equally round and reactive to light. Extraocular movements are intact. . Oropharynx: Lips, mucosa, and tongue normal, teeth and gums normal, oropharynx normal. Neck: Supple, no adenopathy; thyroid symmetric, normal size, no bruits. Lungs: Lungs clear to auscultation. No wheezing, rhonchi, rales. Heart: RRR without murmur, gallop, or rubs. No ectopy. Abdomen: Normal abdominal exam, Abdomen soft, non-tender. Bowel sounds normal. No masses, organomegaly. Extremities: No deformities, edema. Musculoskeletal: Muscular strength intact, No joint swelling, deformity, or tenderness. Peripheral Pulses: Normal. Neurologic: Gait normal. Reflexes normal and symmetric. Sensation to light touch and crainal nerves 2-12 intact.. Health Maintenance List DIABETIC FOOT EXAM due on 11/14/2017 HBA1C due on 01/05/2018 DILATED RETINAL EXAM due on 04/29/2018 LDL due on 07/08/2018 TETANUS due on 09/14/2018 COLORECTAL CANCER SCREENING,SEE MODIFIER due on 12/06/2025 PROSTATE CANCER SCREENING DISCUSSION Completed ADULT PREVNAR-13 Completed INFLUENZA Completed HEPATITIS C SCREENING Completed PNEUMOVAX AGE 65 AND OVER WITH 5YR LOOKBACK Completed Data reviewed Component Latest Ref Rng AND Units 03/05/2017 07/08/2017 Protein, Total 6.3 - 8.0 g/dL 7.1 Albumin 3.9 - 4.9 g/dL 3.9 Calcium 8.5 - 10.2 mg/dL 9.0 Bilirubin, Total 0.2 - 1.3 mg/dL 0.5 Alkaline Phosphatase 36 - 108 U/L 73 AST 14 - 40 U/L 26 Glucose 74 - 99 mg/dL 96 BUN 9 - 24 mg/dL 27 (H) Creatinine 0.73 - 1.22 mg/dL 1.25 (H) Sodium 136 - 144 mmol/L 142 Potassium 3.7 - 5.1 mmol/L 4.8 Chloride 97 - 105 mmol/L 105 CO2 22 - 30 mmol/L 27 Anion Gap 9 - 18 mmol/L 10 ALT 10 - 54 U/L 27 eGFR- >60 eGFR-All Other Races . 57 Triglyceride 30 - 149 mg/dL 149 88 Cholesterol, Total 100 - 199 mg/dL 255 (H) 163 HDL Cholesterol >45 mg/dL 48 44 (L) VLDL Cholesterol 6 - 40 mg/dL 30 18 LDL Cholesterol 60 - 129 mg/dL 177 (H) 101 Fasting Time hrs 10 12 TC:HDL Ratio 1.00 - 5.00 5.31 (H) 3.70 LDL:HDL Ratio 0.50 - 3.55 3.69 (H) 2.30 Non HDL Cholesterol 90 - 159 mg/dL 207 (H) 119 Hemoglobin A1C 4.3 - 5.6 % 6.9 (H) 6.5 (H) Estimated Average Glucose mg/dL 151 140 Magnesium 1.7 - 2.3 mg/dL 2.1 A/P ASSESSMENT/PLAN: 1. Type 2 diabetes mellitus with proteinuria (HCC) - ICD9: 250.40, 791.0, ICD10: E11.29, R80.9 (primary diagnosis) Controlled. - Continue current medications - Encouraged regular aerobic exercise and weight loss - BP goal of <130/80 - LDL goal of <100 2. Type 2 diabetes mellitus with diabetic neuropathy, with long-term current use of insulin (HCC) - ICD9: 250.60, 357.2, V58.67, ICD10: E11.40, Z79.4 Controlled. - Continue current medications - Encouraged regular aerobic exercise and weight loss - BP goal of <130/80 - LDL goal of <100 3. 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 Hypertension goal BP (blood pressure) < 140/80 - ICD9: 401.9, ICD10: I10 - good control - Continue current medication(s) - Recommended regular aerobic exercise. - Recommend home blood pressure monitoring, to bring results in on next visit - Goal of BP <130/80 5. Mixed hyperlipidemia - ICD9: 272.2, ICD10: E78.2 - improved control - Continue current medication. 6. Hypothyroidism (acquired) - ICD9: 244.9, ICD10: E03.9 - Instructed patient on importance of taking on an empty stomach either first thing in the morning or at bedtime. - continue current dose of Synthroid 0.100 mg 7. Coronary artery disease due to lipid rich plaque - ICD9: 414.00, 414.3, ICD10: I25.10, I25.83 - Stable at this time no changes and cont f/u with cardio 8. EGAN (dyspnea on exertion) - ICD9: 786.09, ICD10: R06.09 Check - OXIMETRY WITH AMBULATION - OXIMETRY AT REST - SPIROMETRY - BASELINE AND POST DILATOR 9. Mild intermittent asthma without complication - ICD9: 493.90, ICD10: J45.20 Check - OXIMETRY WITH AMBULATION - OXIMETRY AT REST - SPIROMETRY - BASELINE AND POST DILATOR 10. Atrial flutter, unspecified type (HCC) - ICD9: 427.32, ICD10: I48.92 - cont coumadin. Will not change dosing at this time. Will need INR in a week. Cont cardio f/u 11. Gastroesophageal reflux disease without esophagitis - ICD9: 530.81, ICD10: K21.9 - Continue treatment with Prilosec 20 mg QD 12. Iron deficiency anemia secondary to inadequate dietary iron intake - ICD9: 280.1, ICD10: D50.8 - Cont hematology f/u as needed. 13. Bilateral carotid artery disease (HCC) - ICD9: 447.9, ICD10: I77.9 Check - US CAROTID ARTERIES [facility] 14. H/O gastric bypass - ICD9: V45.86, ICD10: Z98.84 - Will monitor labs yearly 15. Intestinal malabsorption, unspecified type - ICD9: 579.9, ICD10: K90.9 - as above 16. THO (obstructive sleep apnea) - ICD9: 327.23, ICD10: G47.33 - Cont CPAP with benefit 17. Vitamin D deficiency - ICD9: 268.9, ICD10: E55.9 - Stable with replacement 18. Morbid obesity due to excess calories (HCC) - ICD9: 278.01, ICD10: E66.01 - Patient to work on weight loss Signed Prescriptions Disp Refills insulin glargine (LANTUS) 100 unit/mL injection 5 Vial 3 Sig: Inject 50 Units subcutaneously once daily. If sugars slightly low take 45 units once daily instead of 47. JOHNNY: No montelukast (SINGULAIR) 10 mg tablet 90 tablet 3 Sig: Take 1 tablet by mouth once daily. JOHNNY: No ramipril (ALTACE) 10 mg capsule 90 capsule 3 Sig: Take 1 capsule by mouth once daily. JOHNNY: No levothyroxine (SYNTHROID) 100 mcg tablet 90 tablet 3 Sig: Take 1 tablet by mouth once daily. JOHNNY: No betamethasone dipropionate 0.05 % ointment 15 g 2 Sig: Apply 1 Tube to affected area as needed (for hand dermatitis). JOHNNY: No clopidogrel (PLAVIX) 75 mg tablet 90 tablet 3 Sig: Take 1 tablet by mouth once daily. JOHNNY: No F/u in 4 months WAE check CMP, FLP and A1c prior. Time with patient face to face was 30 min Jonel Don MD CNOV Observed: 07/23/2017 Status: COMPLETED Source: [place] 9:20 AM [facility] REPOSITORY Office Visit (FAMPWS) KIP GUAMAN ([id number]) 1945 M Date Time Provider Department 07/23/17 9:20 AM [facility] During your visit today, we recorded the following information about you: Pulse Respiration Blood pressure Weight 60/minute 16/minute 138/58 129.3 kg Height 1.753 m Jonel Don MD 07/23/2017 12:57 PM Signed Chief Complaint Patient presents with: Recheck: 4 months HPI Kip Gallego Rowena is a 72 year old male who presents here today for Chronic Medical Conditions.. Patient with Hx as documented and reviewed below. Has been doing ok. Still dealing with the EGAN he has been getting since 03/2017. No shortness of breath with sitting or at night. Did have Asthma as a child and was a pipe smoker. Did see cardio and was not impressed that this was a cardiac issue since his Stress test was fairly similar to previous ones and no new findings. Past medical history, appointments, medications, allergies reviewed. Previous Medical History PAST MEDICAL HISTORY Diagnosis Date - Acute gastritis without mention of hemorrhage - Allergic rhinitis, cause unspecified - Atrial fibrillation or flutter - AV block, 1st degree - Background diabetic retinopathy(362.01) - CAD (coronary artery disease) - Contact dermatitis - Degeneration of lumbar or lumbosacral intervertebral disc Spondylolisthesis of L5-S1 - Diabetes mellitus, type 2 (HCC) retinopathy, neuropathy, nephropathy - Esophagitis, unspecified - Generalized osteoarthrosis, unspecified site - GERD (gastroesophageal reflux disease) - Hip joint replacement by other means 12/19/2005 - Hyperlipidemia - Hypertension - Hypertension goal BP (blood pressure) ANDlt; 140/80 09/26/2016 - Hypothyroidism - Iron deficiency anemia, unspecified - Morbid obesity (HCC) 01-04-11 stated BMI 47.3 Ht: 70ANDquot; Wt: 330 lbs - Obstructive sleep apnea - Osteoarthritis 11/09/2011 - S/P gastric bypass 09/21/2011 - Surgical wound infection Dr Adams, chronic PNC - Type II or unspecified type diabetes mellitus without mention of complication, not stated as uncontrolled Previous Surgical History PAST SURGICAL HISTORY Procedure Laterality Date - 2D ECHO (EXEP) 03/2017 EF=60%, no valve issues - BYPASS GRAFT OTHR,COMPOSITE 2000 CABG x 6, Dr. Do - COLONOSCOP W/ OR W/O [facility] SPEC 11/03/08 repeat due 2019 - ECHO 08/2000 - EGD W/O [facility] SPECIMEN W/BX 11/03/08 - EGD W/O OR W/BRUSH/WASH 05/14/16 EGD [facility] - LAP. GASTRECT W/ JARAD-EN-Y 09/10/11 [facility] - PAST SURGICAL HISTORY OF left hip surgery post-replacement for infection - PAST SURGICAL HISTORY OF heart cath - REMV CATARACT EXTRACAP,INSERT LENS Cataract Removal - TOTAL HIP REPLACEMENT bilateral Family History FAMILY HISTORY Problem Relation Age of Onset - Ischemic Heart Disease Father - Ischemic Heart Disease Mother - Diabetes Mother - Hypertension Brother - Stroke Brother Patient Allergies ALLERGIES Allergen Reactions - Pamella Inhibitors Cough accupril - Atorvastatin lipitor- muscle weakness, elevated LFT's - Crestor [Rosuvastat* Myalgia - Indocin [Indomethac* GI Upset - Naproxen GI Upset - Pravastatin pravachol- muscle weakness, elevated LFT's Current Medications Current Outpatient Prescriptions on File Prior to Visit: fluticasone (FLONASE) 50 mcg/actuation nasal spray Use 2 Sprays in each nostril once daily. rosuvastatin (CRESTOR) 10 mg tablet Take 1/2 a tab every day warfarin (COUMADIN) 5 mg tablet 10 mg on and 5mg Sat/Sat/Sat and 7.5mg Sat//Sat or as directed. metoprolol tartrate, short acting, (LOPRESSOR) 50 mg tablet Take half tablet after breakfast and half tablet after supper clopidogrel (PLAVIX) 75 mg tablet Take 1 tablet by mouth once daily. omeprazole (PRILOSEC) 20 mg capsule Take 1 capsule by mouth once daily. Insulin Lispro, Human, (HUMALOG KWIKPEN) 100 unit/mL inpn 14-16 units with breakfast and lunch and 20-24 units with dinner, Correction per sliding scale total up to 70 units daily Insulin Syringe-Needle U-100 (BD INSULIN SYRINGE MF) 1/2 mL 28 gauge x 1/2ANDquot; syrg 1 Each once daily. Dx: E11.29 Insulin: yes insulin glargine (LANTUS) 100 unit/mL injection Inject 50 Units subcutaneously once daily. If sugars slightly low take 45 units once daily instead of 47. EASY TOUCH 31 gauge x 5/16ANDquot; ndle USE 1 NEEDLE PER DOSE THREE TIMES A DAY chlorthalidone (HYGROTON) 25 mg tablet Take 0.5 tablets by mouth once daily. blood sugar diagnostic (EASY TOUCH TEST STRIP) test strip Use as instructed albuterol HFA (PROAIR HFA) 90 mcg/actuation inhaler Inhale 2 Puffs as instructed every 4 hours as needed. levothyroxine (SYNTHROID) 100 mcg tablet Take 1 tablet by mouth once daily. montelukast (SINGULAIR) 10 mg tablet Take 1 tablet by mouth once daily. tamsulosin ER (FLOMAX) 0.4 mg cp24 Take 1 capsule by mouth once daily. ramipril (ALTACE) 10 mg capsule Take 1 capsule by mouth once daily. acetaminophen (TYLENOL EXTRA STRENGTH) 500 mg tablet Take 500 mg by mouth as needed. Cholecalciferol, Vitamin D3, 2,000 unit cap Take 4,000 Units by mouth once daily. Docusate Sodium 100 mg tab Take two tabs daily penicillin V potassium (V-CILLIN, VEETIDS) 500 mg tablet Take 1 tablet by mouth twice daily. cyanocobalamin (VITAMIN B-12) 500 mcg tab Take 1 tablet by mouth once daily. psyllium husk 0.4 gram cap Take 2 capsules by mouth once daily. betamethasone dipropionate 0.05 % ointment Apply 1 Tube to affected area as needed (for hand dermatitis). BIOTIN ORAL Take by mouth three times daily. Ferrous Gluconate 246 mg (27 mg iron) Tab Take 1 tablet by mouth once daily. calcium carbonate (CALTRATE 600) 600 mg (1,500 mg) Tab Take 1 tablet by mouth twice daily. Ascorbic Acid (VITAMIN C) Chew Take 500 mg by mouth once daily. TRIAMCINOLONE ACETONIDE 0.1 % TOPICAL CREAM bid prn--not to face/axillae/groin MULTIVITAMIN TABLET Take one(1) tablet daily. No current facility-administered medications on file prior to visit. 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[employer]* Social History Main Topics Smoking status: Former Smoker Packs/day: 0.00 Years: 25.00 Types: Pipe Smokeless status: Never Used Comment: Quit in 1999 Alcohol use: No Drug use: No Sexual activity: No Review of Symptoms REVIEW OF SYSTEMS GENERAL: No weight loss, malaise or fevers NECK: Negative for lumps, goiter, pain and significant neck swelling RESPIRATORY: Negative for cough, hemoptysis, wheezing, COPD. See HPI CARDIOVASCULAR: Negative for chest pain, increased leg swelling, hypertension, CHF or palpitations GI: No nausea, vomiting, or diarrhea and No heartburn or reflux symptoms : No history of dysuria or blood ENDOCRINE: FBS: typically below 115. Has had a few lows and 1-2 above 130. NEURO: No history of headaches, syncope, paralysis, seizures or tremors EXAM: BP 138/58 (BP Site: Left Arm, BP Position: Sitting, BP Cuff Size: Large Adult) Pulse 60 Resp 16 Ht 175.3 cm (5' 9ANDquot;) Wt 129.3 kg (285 lb) BMI 42.09 kg/m2 Last 6 Encounter Wt Readings: Date: Wt: 07/23/2017 129.3 kg (285 lb) 07/08/2017 132.2 kg (291 lb 8 oz) 04/16/2017 129.7 kg (286 lb) 03/19/2017 134.7 kg (297 lb) 11/14/2016 125.8 kg (277 lb 6.4 oz) 10/04/2016 124.7 kg (275 lb) General Appearance: Well appearing, alert, in no acute distress, well-hydrated, well nourished., Morbidly obese. Eyes: Anicteric sclera. Pupils are equally round and reactive to light. Extraocular movements are intact. . Oropharynx: Lips, mucosa, and tongue normal, teeth and gums normal, oropharynx normal. Neck: Supple, no adenopathy; thyroid symmetric, normal size, no bruits. Lungs: Lungs clear to auscultation. No wheezing, rhonchi, rales. Heart: RRR without murmur, gallop, or rubs. No ectopy. Abdomen: Normal abdominal exam, Abdomen soft, non-tender. Bowel sounds normal. No masses, organomegaly. Extremities: No deformities, edema. Musculoskeletal: Muscular strength intact, No joint swelling, deformity, or tenderness. Peripheral Pulses: Normal. Neurologic: Gait normal. Reflexes normal and symmetric. Sensation to light touch and crainal nerves 2-12 intact.. Health Maintenance List DIABETIC FOOT EXAM due on 11/14/2017 HBA1C due on 01/05/2018 DILATED RETINAL EXAM due on 04/29/2018 LDL due on 07/08/2018 TETANUS due on 09/14/2018 COLORECTAL CANCER SCREENING,SEE MODIFIER due on 12/06/2025 PROSTATE CANCER SCREENING DISCUSSION Completed ADULT PREVNAR-13 Completed INFLUENZA Completed HEPATITIS C SCREENING Completed PNEUMOVAX AGE 65 AND OVER WITH 5YR LOOKBACK Completed Data reviewed Component Latest Ref Rng ANDamp; Units 03/05/2017 07/08/2017 Protein, Total 6.3 - 8.0 g/dL 7.1 Albumin 3.9 - 4.9 g/dL 3.9 Calcium 8.5 - 10.2 mg/dL 9.0 Bilirubin, Total 0.2 - 1.3 mg/dL 0.5 Alkaline Phosphatase 36 - 108 U/L 73 AST 14 - 40 U/L 26 Glucose 74 - 99 mg/dL 96 BUN 9 - 24 mg/dL 27 (H) Creatinine 0.73 - 1.22 mg/dL 1.25 (H) Sodium 136 - 144 mmol/L 142 Potassium 3.7 - 5.1 mmol/L 4.8 Chloride 97 - 105 mmol/L 105 CO2 22 - 30 mmol/L 27 Anion Gap 9 - 18 mmol/L 10 ALT 10 - 54 U/L 27 eGFR- ANDgt;60 eGFR-All Other Races . 57 Triglyceride 30 - 149 mg/dL 149 88 Cholesterol, Total 100 - 199 mg/dL 255 (H) 163 HDL Cholesterol ANDgt;45 mg/dL 48 44 (L) VLDL Cholesterol 6 - 40 mg/dL 30 18 LDL Cholesterol 60 - 129 mg/dL 177 (H) 101 Fasting Time hrs 10 12 TC:HDL Ratio 1.00 - 5.00 5.31 (H) 3.70 LDL:HDL Ratio 0.50 - 3.55 3.69 (H) 2.30 Non HDL Cholesterol 90 - 159 mg/dL 207 (H) 119 Hemoglobin A1C 4.3 - 5.6 % 6.9 (H) 6.5 (H) Estimated Average Glucose mg/dL 151 140 Magnesium 1.7 - 2.3 mg/dL 2.1 A/P ASSESSMENT/PLAN: 1. Type 2 diabetes mellitus with proteinuria (HCC) - ICD9: 250.40, 791.0, ICD10: E11.29, R80.9 (primary diagnosis) Controlled. - Continue current medications - Encouraged regular aerobic exercise and weight loss - BP goal of ANDlt;130/80 - LDL goal of ANDlt;100 2. Type 2 diabetes mellitus with diabetic neuropathy, with long-term current use of insulin (HCC) - ICD9: 250.60, 357.2, V58.67, ICD10: E11.40, Z79.4 Controlled. - Continue current medications - Encouraged regular aerobic exercise and weight loss - BP goal of ANDlt;130/80 - LDL goal of ANDlt;100 3. 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 Hypertension goal BP (blood pressure) ANDlt; 140/80 - ICD9: 401.9, ICD10: I10 - good control - Continue current medication(s) - Recommended regular aerobic exercise. - Recommend home blood pressure monitoring, to bring results in on next visit - Goal of BP ANDlt;130/80 5. Mixed hyperlipidemia - ICD9: 272.2, ICD10: E78.2 - improved control - Continue current medication. 6. Hypothyroidism (acquired) - ICD9: 244.9, ICD10: E03.9 - Instructed patient on importance of taking on an empty stomach either first thing in the morning or at bedtime. - continue current dose of Synthroid 0.100 mg 7. Coronary artery disease due to lipid rich plaque - ICD9: 414.00, 414.3, ICD10: I25.10, I25.83 - Stable at this time no changes and cont f/u with cardio 8. EGAN (dyspnea on exertion) - ICD9: 786.09, ICD10: R06.09 Check - OXIMETRY WITH AMBULATION - OXIMETRY AT REST - SPIROMETRY - BASELINE AND POST DILATOR 9. Mild intermittent asthma without complication - ICD9: 493.90, ICD10: J45.20 Check - OXIMETRY WITH AMBULATION - OXIMETRY AT REST - SPIROMETRY - BASELINE AND POST DILATOR 10. Atrial flutter, unspecified type (HCC) - ICD9: 427.32, ICD10: I48.92 - cont coumadin. Will not change dosing at this time. Will need INR in a week. Cont cardio f/u 11. Gastroesophageal reflux disease without esophagitis - ICD9: 530.81, ICD10: K21.9 - Continue treatment with Prilosec 20 mg QD 12. Iron deficiency anemia secondary to inadequate dietary iron intake - ICD9: 280.1, ICD10: D50.8 - Cont hematology f/u as needed. 13. Bilateral carotid artery disease (HCC) - ICD9: 447.9, ICD10: I77.9 Check - US CAROTID ARTERIES [facility]A [facility] 14. H/O gastric bypass - ICD9: V45.86, ICD10: Z98.84 - Will monitor labs yearly 15. Intestinal malabsorption, unspecified type - ICD9: 579.9, ICD10: K90.9 - as above 16. THO (obstructive sleep apnea) - ICD9: 327.23, ICD10: G47.33 - Cont CPAP with benefit 17. Vitamin D deficiency - ICD9: 268.9, ICD10: E55.9 - Stable with replacement 18. Morbid obesity due to excess calories (HCC) - ICD9: 278.01, ICD10: E66.01 - Patient to work on weight loss Signed Prescriptions Disp Refills insulin glargine (LANTUS) 100 unit/mL injection 5 Vial 3 Sig: Inject 50 Units subcutaneously once daily. If sugars slightly low take 45 units once daily instead of 47. JOHNNY: No montelukast (SINGULAIR) 10 mg tablet 90 tablet 3 Sig: Take 1 tablet by mouth once daily. JOHNNY: No ramipril (ALTACE) 10 mg capsule 90 capsule 3 Sig: Take 1 capsule by mouth once daily. JOHNNY: No levothyroxine (SYNTHROID) 100 mcg tablet 90 tablet 3 Sig: Take 1 tablet by mouth once daily. JOHNNY: No betamethasone dipropionate 0.05 % ointment 15 g 2 Sig: Apply 1 Tube to affected area as needed (for hand dermatitis). JOHNNY: No clopidogrel (PLAVIX) 75 mg tablet 90 tablet 3 Sig: Take 1 tablet by mouth once daily. JOHNNY: No F/u in 4 months WAE check CMP, FLP and A1c prior. Time with patient face to face was 30 min MD Jonel Nix MD 07/23/2017 10:02 AM Signed please get fasting labs on or after 11/08/2017 prior to next visit. Referring Provider: JONEL DON [[id number]] Allergies As of Date: 07/23/2017 Noted Allergy Reaction PAMELLA INHIBITORS 07/18/2004 3 - Cough Comments: accupril ATORVASTATIN 07/18/2004 Comments: lipitor- muscle weakness, elevated LFT's CRESTOR (ROSUVASTATIN CALCIUM) 10/30/2016 17 - Myalgia INDOCIN (INDOMETHACIN SODIUM) 04/06/2005 8 - GI Upset NAPROXEN 07/18/2004 8 - GI Upset PRAVASTATIN 07/18/2004 Comments: pravachol- muscle weakness, elevated LFT's Date Reviewed: 07/23/2017 Reviewed by: Jonel Don - Fully Assessed Reason for Visit: Recheck [92] Cmt: 4 months Primary Visit Diagnosis:Type 2 diabetes mellitus with proteinuria ([facility]) [E11.29, R80.9] Other Visit Diagnoses:Type 2 diabetes mellitus with diabetic neuropathy, with long-term current use of insulin ([facility]) [E11.40, Z79.4] 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, macular edema presence unspecified ([facility]) [E11.3293] Hypertension goal BP (blood pressure) < 140/80 [I10] Mixed hyperlipidemia [E78.2] Hypothyroidism (acquired) [E03.9] Coronary artery disease due to lipid rich plaque [I25.10, I25.83] EGAN (dyspnea on exertion) [R06.09] Mild intermittent asthma without complication [J45.20] Atrial flutter, unspecified type ([facility]) [I48.92] Gastroesophageal reflux disease without esophagitis [K21.9] Iron deficiency anemia secondary to inadequate dietary iron intake [D50.8] Bilateral carotid artery disease ([facility]) [I77.9] H/O gastric bypass [Z98.84] Intestinal malabsorption, unspecified type [K90.9] THO (obstructive sleep apnea) [G47.33] Vitamin D deficiency [E55.9] Morbid obesity due to excess calories ([facility]) [E66.01] Order(s):insulin glargine (LANTUS) 100 unit/mL injectionInject 50 Units subcutaneously once daily. If sugars slightly low take 45 units once daily instead of 47.Disp: 5 VialRfl: 3 montelukast (SINGULAIR) 10 mg tabletTake 1 tablet by mouth once daily.Disp: 90 tabletRfl: 3 ramipril (ALTACE) 10 mg capsuleTake 1 capsule by mouth once daily.Disp: 90 capsuleRfl: 3 levothyroxine (SYNTHROID) 100 mcg tabletTake 1 tablet by mouth once daily.Disp: 90 tabletRfl: 3 betamethasone dipropionate 0.05 % ointmentApply 1 Tube to affected area as needed (for hand dermatitis).Disp: 15 gRfl: 2 clopidogrel (PLAVIX) 75 mg tabletTake 1 tablet by mouth once daily.Disp: 90 tabletRfl: 3 US CAROTID ARTERIES [facility] [[id number]] Order #: [id number] FUTURE OXIMETRY WITH AMBULATION [] Order #: [id number] FUTURE OXIMETRY AT REST [] Order #: [id number] FUTURE SPIROMETRY - BASELINE AND POST DILATOR [5709410] Order #: [id number] FUTURE COMP METABOLIC PANEL [SQCMP] Order #: [id number] FUTURE HGB A1C [VSPSA8H] Order #: [id number] FUTURE LIPID PANEL BASIC [SQLIPB] Order #: [id number] FUTURE INR (POC) [[id number]] Order #: [id number]. #:[id number] Prescriptions as of 07/23/2017 Sig: INSULIN GLARGINE 100 UNIT/ML * Inject 50 Units subcutaneousl* MONTELUKAST 10 MG TABLET Take 1 tablet by mouth once d* RAMIPRIL 10 MG CAPSULE Take 1 capsule by mouth once * LEVOTHYROXINE 100 MCG TABLET Take 1 tablet by mouth once d* BETAMETHASONE DIPROPIONATE 0.* Apply 1 Tube to affected area* CLOPIDOGREL 75 MG TABLET Take 1 tablet by mouth once d* FLUTICASONE 50 MCG/ACTUATION * Use 2 Sprays in each nostril * ROSUVASTATIN 10 MG TABLET Take 1/2 a tab every day WARFARIN 5 MG TABLET 10 mg on and 5mg * METOPROLOL TARTRATE 50 MG TAB* Take half tablet after breakf* OMEPRAZOLE 20 MG CAPSULE,DEMARCO* Take 1 capsule by mouth once * INSULIN LISPRO 100 UNIT/ML ARBOLEDA* 14-16 units with breakfast an* INSULIN SYRINGE-NEEDLE U-100 * 1 Each once daily. Dx: E11.29* EASY TOUCH 31 GAUGE X 5/16 N* USE 1 NEEDLE PER DOSE THREE T* CHLORTHALIDONE 25 MG TABLET Take 0.5 tablets by mouth onc* BLOOD SUGAR DIAGNOSTIC STRIPS Use as instructed ALBUTEROL SULFATE HFA 90 MCG/* Inhale 2 Puffs as instructed * TAMSULOSIN 0.4 MG CAPSULE Take 1 capsule by mouth once * ACETAMINOPHEN 500 MG TABLET Take 500 mg by mouth as neede* CHOLECALCIFEROL (VITAMIN D3) * Take 4,000 Units by mouth onc* DOCUSATE SODIUM 100 MG TABLET Take two tabs daily PENICILLIN V POTASSIUM 500 MG* Take 1 tablet by mouth twice * CYANOCOBALAMIN (VIT B-12) 500* Take 1 tablet by mouth once d* PSYLLIUM HUSK 0.4 GRAM CAPSULE Take 2 capsules by mouth once* BIOTIN ORAL Take by mouth three times da* FERROUS GLUCONATE 246 MG (27 * Take 1 tablet by mouth once d* * CALCIUM CARBONATE 600 MG CALC* Take 1 tablet by mouth twice * * ASCORBIC ACID (VITAMIN C) 500* Take 500 mg by mouth once albina* * TRIAMCINOLONE ACETONIDE 0.1 %* bid prn--not to face/axillae/* * MULTIVITAMIN TABLET Take one(1) tablet daily. More... Problem List As Of Date 07/23/2017 Noted Resolved Hypothyroidism (acquired) [E03.9] Priority: A Mixed hyperlipidemia [E78.2] Priority: A Allergic rhinitis, cause unspecified [J30.9] Priority: B Morbid Obesity [E66.01] 09/07/2009 More... Degeneration of lumbar or lumbosacral intervert* Priority: M More... Coronary artery disease due to lipid rich plaqu*INVALID FOR* Priority: A More... Mild intermittent asthma without complication [*INVALID FOR* Priority: A More... More... Hip joint replacement by other means [Z96.649] INVALID FOR*06/06/2016 Priority: M Personal history of other malignant neoplasm of*INVALID FOR* Priority: D More... Special Screening for Malignant Neoplasms, [place]*INVALID FOR*09/07/2009 Acute Gastritis without Mention of Hemorrhage [*INVALID FOR*09/07/2009 More... Urinary frequency [R35.0] INVALID FOR* Priority: C More... More... More... MGUS (monoclonal gammopathy of unknown signific*INVALID FOR* Priority: B More... Atrial flutter [I48.92] INVALID FOR* Priority: A More... THO (obstructive sleep apnea) [G47.33] INVALID FOR* Priority: B More... 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 AV block, 1st degree [I44.0] Priority: A Diabetic eye exam (HCC) [E11.9, Z01.00] INVALID FOR* Priority: A More... Type 2 diabetes mellitus with proteinuria (HCC)*INVALID FOR* Priority: A Gastroesophageal reflux disease without esophag*INVALID FOR* Priority: A Iron deficiency anemia secondary to inadequate *INVALID FOR* Priority: A More... Non-proliferative diabetic retinopathy, mild, b*INVALID FOR* Priority: A Bilateral carotid artery disease (HCC) [I77.9] INVALID FOR* Priority: A More... Corns and callus [L84] INVALID FOR* Priority: D Morbid obesity due to excess calories (HCC) [E6*INVALID FOR* Priority: B More... Well adult exam [Z00.00] INVALID FOR* Priority: E More... Ex-smoker [Z87.891] INVALID FOR* Priority: C More... Colon cancer screening [Z12.11] INVALID FOR* Type 2 diabetes mellitus with diabetic neuropat*INVALID FOR* Priority: A H/O gastric bypass [Z98.84] INVALID FOR* Priority: A Malabsorption syndrome [K90.9] INVALID FOR* Priority: A More... Iron malabsorption [K90.9] INVALID FOR* Priority: B Disorder of prostate [N42.9] INVALID FOR* Hypertension goal BP (blood pressure) < 140/80 *INVALID FOR* Priority: A Medicare annual wellness visit, subsequent [Z00*INVALID FOR* Priority: E More... Current use of proton pump inhibitor [Z79.899] INVALID FOR* Albuminuria [R80.9] INVALID FOR* Priority: A Other instructions from your clinician: please get fasting labs on or after 11/08/2017 prior to next visit. Prescriptions ordered this encounter Disp Refills Start End INSULIN GLARGINE 100 UNIT/ML SUBCUTA* 5 Vi* 3 07/23/2017 Class: Print RX Route: SUBCUTANEOUS Sig: Inject 50 Units subcutaneously once daily. If sugars slightly low take 45 units once daily instead of 47. MONTELUKAST 10 MG TABLET 90 t* 07/23/2017 Class: Print RX Route: ORAL Sig: Take 1 tablet by mouth once daily. RAMIPRIL 10 MG CAPSULE 90 c* 07/23/2017 Class: Print RX Route: ORAL Sig: Take 1 capsule by mouth once daily. LEVOTHYROXINE 100 MCG TABLET 90 t* 07/23/2017 Class: Print RX Route: ORAL Sig: Take 1 tablet by mouth once daily. BETAMETHASONE DIPROPIONATE 0.05 % TO* 15 g 2 07/23/2017 Class: Print RX Route: TOPICAL Sig: Apply 1 Tube to affected area as needed (for hand dermatitis). CLOPIDOGREL 75 MG TABLET 90 t* 3 07/23/2017 Class: Print RX Route: ORAL Sig: Take 1 tablet by mouth once daily. Medications Discontinued During This Encounter insulin glargine (LANTUS) 100 unit/m* 5 Vi* 3 03/19/2017 07/23/2017 Class: Med Update Route: SUBCUTANEOUS Sig: Inject 50 Units subcutaneously once daily. If sugars slightly low take 45 units once daily instead of 47. Disc: Reason for discontinue is not on file. montelukast (SINGULAIR) 10 mg tablet 90 t* 3 07/13/2016 07/23/2017 Class: Print RX Route: ORAL Sig: Take 1 tablet by mouth once daily. Disc: Reason for discontinue is not on file. ramipril (ALTACE) 10 mg capsule 90 c* 3 07/13/2016 07/23/2017 Class: Print RX Route: ORAL Sig: Take 1 capsule by mouth once daily. Disc: Reason for discontinue is not on file. levothyroxine (SYNTHROID) 100 mcg ta* 90 t* 3 07/13/2016 07/23/2017 Class: Print RX Route: ORAL Sig: Take 1 tablet by mouth once daily. Disc: Reason for discontinue is not on file. betamethasone dipropionate 0.05 % oi* 15 g 2 11/16/2015 07/23/2017 Route: TOPICAL Sig: Apply 1 Tube to affected area as needed (for hand dermatitis). Disc: Reason for discontinue is not on file. clopidogrel (PLAVIX) 75 mg tablet 90 t* 3 03/19/2017 07/23/2017 Class: Print RX Route: ORAL Sig: Take 1 tablet by mouth once daily. Disc: Reason for discontinue is not on file. Disposition: Return in about 4 months (around 11/20/2017) for complete PE. Follow-up and Disposition History Recorded Encounter Status:Closed by JONEL DON on 07/23/17 HOSP Observed: 07/23/2017 Status: COMPLETED Source: [place] 8:[address] [facility] REPOSITORY Anticoagulation Visit (COUMWS) KIP GUAMAN ([id number]) 1945 M Date Time Provider Department 07/23/17 8:45 AM [facility] COUMWS During your visit today, we recorded the following information about you: Dania Acevedo RN 07/23/2017 8:43 AM Signed Patient had INR completed at [facility] Patient's INR is 1.7 Patient is currently taking 5 mg Wed Sun 7.5 mg all other days Patient's last dose change was 04/02/17 due to low INR at 1.8 Patient has had no medication and no change in diet. Advised patient that they would be contacted regarding medication dose and follow-up once reviewed by provider. After provider review, please contact patient with information and schedule follow-up appointment with coumadin clinic. Patient has appt with PCP today. Dania Don MD 07/23/2017 10:53 AM Signed This note was created using Zar[employer]. Subjective Kip Guaman is a 72 year old male. Review of Systems Objective There were no vitals taken for this visit. Physical Exam Assessment and Plan Will continue the same dosing since has been on this since 2016. Will need repeat INR in a Week. Will have Anita set up. Referring Provider: JONEL DON [[id number]] Allergies As of Date: 07/23/2017 Noted Allergy Reaction PAMELLA INHIBITORS 07/18/2004 3 - Cough Comments: accupril ATORVASTATIN 07/18/2004 Comments: lipitor- muscle weakness, elevated LFT's CRESTOR (ROSUVASTATIN CALCIUM) 10/30/2016 17 - Myalgia INDOCIN (INDOMETHACIN SODIUM) 04/06/2005 8 - GI Upset NAPROXEN 07/18/2004 8 - GI Upset PRAVASTATIN 07/18/2004 Comments: pravachol- muscle weakness, elevated LFT's Date Reviewed: 07/23/2017 Reviewed by: Jonel Don - Fully Assessed Reason for Visit: Coumadin/INR [1207] Primary Visit Diagnosis:Type 2 diabetes mellitus with proteinuria ([facility]) [E11.29, R80.9] Other Visit Diagnoses:Type 2 diabetes mellitus with diabetic neuropathy, with long-term current use of insulin ([facility]) [E11.40, Z79.4] 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, macular edema presence unspecified ([facility]) [E11.3293] Hypertension goal BP (blood pressure) < 140/80 [I10] Mixed hyperlipidemia [E78.2] Hypothyroidism (acquired) [E03.9] EGAN (dyspnea on exertion) [R06.09] Coronary artery disease due to lipid rich plaque [I25.10, I25.83] Atrial flutter, unspecified type ([facility]) [I48.92] Mild intermittent asthma without complication [J45.20] Gastroesophageal reflux disease without esophagitis [K21.9] Iron deficiency anemia secondary to inadequate dietary iron intake [D50.8] Bilateral carotid artery disease ([facility]) [I77.9] H/O gastric bypass [Z98.84] Intestinal malabsorption, unspecified type [K90.9] Vitamin D deficiency [E55.9] THO (obstructive sleep apnea) [G47.33] Morbid obesity due to excess calories ([facility]) [E66.01] Prescriptions as of 07/23/2017 Sig: FLUTICASONE 50 MCG/ACTUATION * Use 2 Sprays in each nostril * ROSUVASTATIN 10 MG TABLET Take 1/2 a tab every day WARFARIN 5 MG TABLET 10 mg on and 5mg Sat/* METOPROLOL TARTRATE 50 MG TAB* Take half tablet after breakf* OMEPRAZOLE 20 MG CAPSULE,DEMARCO* Take 1 capsule by mouth once * INSULIN LISPRO 100 UNIT/ML ARBOLEDA* 14-16 units with breakfast an* INSULIN SYRINGE-NEEDLE U-100 * 1 Each once daily. Dx: E11.29* X CLOPIDOGREL 75 MG TABLET Take 1 tablet by mouth once d* X INSULIN GLARGINE 100 UNIT/ML * Inject 50 Units subcutaneousl* EASY TOUCH 31 GAUGE X 5/16 N* USE 1 NEEDLE PER DOSE THREE T* CHLORTHALIDONE 25 MG TABLET Take 0.5 tablets by mouth onc* BLOOD SUGAR DIAGNOSTIC STRIPS Use as instructed ALBUTEROL SULFATE HFA 90 MCG/* Inhale 2 Puffs as instructed * TAMSULOSIN 0.4 MG CAPSULE Take 1 capsule by mouth once * X LEVOTHYROXINE 100 MCG TABLET Take 1 tablet by mouth once d* X MONTELUKAST 10 MG TABLET Take 1 tablet by mouth once d* X RAMIPRIL 10 MG CAPSULE Take 1 capsule by mouth once * ACETAMINOPHEN 500 MG TABLET Take 500 mg by mouth as neede* CHOLECALCIFEROL (VITAMIN D3) * Take 4,000 Units by mouth onc* DOCUSATE SODIUM 100 MG TABLET Take two tabs daily PENICILLIN V POTASSIUM 500 MG* Take 1 tablet by mouth twice * CYANOCOBALAMIN (VIT B-12) 500* Take 1 tablet by mouth once d* PSYLLIUM HUSK 0.4 GRAM CAPSULE Take 2 capsules by mouth once* X BETAMETHASONE DIPROPIONATE 0.* Apply 1 Tube to affected area* BIOTIN ORAL Take by mouth three times da* FERROUS GLUCONATE 246 MG (27 * Take 1 tablet by mouth once d* * CALCIUM CARBONATE 600 MG CALC* Take 1 tablet by mouth twice * * ASCORBIC ACID (VITAMIN C) 500* Take 500 mg by mouth once albina* * TRIAMCINOLONE ACETONIDE 0.1 %* bid prn--not to face/axillae/* * MULTIVITAMIN TABLET Take one(1) tablet daily. More... Problem List As Of Date 07/23/2017 Noted Resolved Hypothyroidism (acquired) [E03.9] Priority: A Mixed hyperlipidemia [E78.2] Priority: A Allergic rhinitis, cause unspecified [J30.9] Priority: B Morbid Obesity [E66.01] 09/07/2009 More... Degeneration of lumbar or lumbosacral intervert* Priority: M More... Coronary artery disease due to lipid rich plaqu*INVALID FOR* Priority: A More... Mild intermittent asthma without complication [*INVALID FOR* Priority: A More... More... Hip joint replacement by other means [Z96.649] INVALID FOR*06/06/2016 Priority: M Personal history of other malignant neoplasm of*INVALID FOR* Priority: D More... Special Screening for Malignant Neoplasms, [place]*INVALID FOR*09/07/2009 Acute Gastritis without Mention of Hemorrhage [*INVALID FOR*09/07/2009 More... Urinary frequency [R35.0] INVALID FOR* Priority: C More... More... More... MGUS (monoclonal gammopathy of unknown signific*INVALID FOR* Priority: B More... Atrial flutter [I48.92] INVALID FOR* Priority: A More... THO (obstructive sleep apnea) [G47.33] INVALID FOR* Priority: B More... 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 AV block, 1st degree [I44.0] Priority: A Diabetic eye exam (HCC) [E11.9, Z01.00] INVALID FOR* Priority: A More... Type 2 diabetes mellitus with proteinuria (HCC)*INVALID FOR* Priority: A Gastroesophageal reflux disease without esophag*INVALID FOR* Priority: A Iron deficiency anemia secondary to inadequate *INVALID FOR* Priority: A More... Non-proliferative diabetic retinopathy, mild, b*INVALID FOR* Priority: A Bilateral carotid artery disease (HCC) [I77.9] INVALID FOR* Priority: A More... Corns and callus [L84] INVALID FOR* Priority: D Morbid obesity due to excess calories (HCC) [E6*INVALID FOR* Priority: B More... Well adult exam [Z00.00] INVALID FOR* Priority: E More... Ex-smoker [Z87.891] INVALID FOR* Priority: C More... Colon cancer screening [Z12.11] INVALID FOR* Type 2 diabetes mellitus with diabetic neuropat*INVALID FOR* Priority: A H/O gastric bypass [Z98.84] INVALID FOR* Priority: A Malabsorption syndrome [K90.9] INVALID FOR* Priority: A More... Iron malabsorption [K90.9] INVALID FOR* Priority: B Disorder of prostate [N42.9] INVALID FOR* Hypertension goal BP (blood pressure) < 140/80 *INVALID FOR* Priority: A Medicare annual wellness visit, subsequent [Z00*INVALID FOR* Priority: E More... Current use of proton pump inhibitor [Z79.899] INVALID FOR* Albuminuria [R80.9] INVALID FOR* Priority: A Disposition: Return in about 4 months (around 11/20/2017) for complete PE. Follow-up and Disposition History Recorded Encounter Status:Closed by ANITA MCKINNEY MA on 07/23/17 PROGRESS Observed: 07/23/2017 Status: COMPLETED Source: [place] 8:42 AM [facility] REPOSITORY HNO ID: [id number] Author: Dania Acevedo RN Service: (none) Author Type: (none) Type: Progress Notes Filed: 07/23/2017 8:43 AM Note Text: Patient had INR completed at [facility] Patient's INR is 1.7 Patient is currently taking 5 mg Wed Sun 7.5 mg all other days Patient's last dose change was 04/02/17 due to low INR at 1.8 Patient has had no medication and no change in diet. Advised patient that they would be contacted regarding medication dose and follow-up once reviewed by provider. After provider review, please contact patient with information and schedule follow-up appointment with coumadin clinic. Patient has appt with PCP today. Dania Acevedo RN CNPTOUTREACH Observed: 07/09/2017 Status: COMPLETED Source: [place] 12:00 AM [facility] REPOSITORY Patient Outreach (FAMPST) KIP GUAMAN ([id number]) 1945 M Date Time Provider Department 07/09/17 JONEL DON FAMPST During your visit today, we recorded the following information about you: Allergies As of Date: 07/09/2017 Noted Allergy Reaction PAMELLA INHIBITORS 07/18/2004 3 - Cough Comments: accupril ATORVASTATIN 07/18/2004 Comments: lipitor- muscle weakness, elevated LFT's CRESTOR (ROSUVASTATIN CALCIUM) 10/30/2016 17 - Myalgia INDOCIN (INDOMETHACIN SODIUM) 04/06/2005 8 - GI Upset NAPROXEN 07/18/2004 8 - GI Upset PRAVASTATIN 07/18/2004 Comments: pravachol- muscle weakness, elevated LFT's Date Reviewed: 07/08/2017 Reviewed by: Korey Bernal - Fully Assessed Visit Diagnosis:Medication management [Z79.899] Prescriptions as of 07/09/2017 Sig: FLUTICASONE 50 MCG/ACTUATION * Use 2 Sprays in each nostril * ROSUVASTATIN 10 MG TABLET Take 1/2 a tab every day WARFARIN 5 MG TABLET 10 mg on and 5mg * METOPROLOL TARTRATE 50 MG TAB* Take half tablet after breakf* OMEPRAZOLE 20 MG CAPSULE,DEMARCO* Take 1 capsule by mouth once * INSULIN LISPRO 100 UNIT/ML ARBOLEDA* 14-16 units with breakfast an* INSULIN SYRINGE-NEEDLE U-100 * 1 Each once daily. Dx: E11.29* X CLOPIDOGREL 75 MG TABLET Take 1 tablet by mouth once d* X INSULIN GLARGINE 100 UNIT/ML * Inject 50 Units subcutaneousl* EASY TOUCH 31 GAUGE X 5/16 N* USE 1 NEEDLE PER DOSE THREE T* CHLORTHALIDONE 25 MG TABLET Take 0.5 tablets by mouth onc* BLOOD SUGAR DIAGNOSTIC STRIPS Use as instructed ALBUTEROL SULFATE HFA 90 MCG/* Inhale 2 Puffs as instructed * TAMSULOSIN 0.4 MG CAPSULE Take 1 capsule by mouth once * X LEVOTHYROXINE 100 MCG TABLET Take 1 tablet by mouth once d* X MONTELUKAST 10 MG TABLET Take 1 tablet by mouth once d* X RAMIPRIL 10 MG CAPSULE Take 1 capsule by mouth once * ACETAMINOPHEN 500 MG TABLET Take 500 mg by mouth as neede* CHOLECALCIFEROL (VITAMIN D3) * Take 4,000 Units by mouth onc* DOCUSATE SODIUM 100 MG TABLET Take two tabs daily PENICILLIN V POTASSIUM 500 MG* Take 1 tablet by mouth twice * CYANOCOBALAMIN (VIT B-12) 500* Take 1 tablet by mouth once d* PSYLLIUM HUSK 0.4 GRAM CAPSULE Take 2 capsules by mouth once* X BETAMETHASONE DIPROPIONATE 0.* Apply 1 Tube to affected area* BIOTIN ORAL Take by mouth three times da* FERROUS GLUCONATE 246 MG (27 * Take 1 tablet by mouth once d* * CALCIUM CARBONATE 600 MG CALC* Take 1 tablet by mouth twice * * ASCORBIC ACID (VITAMIN C) 500* Take 500 mg by mouth once albina* * TRIAMCINOLONE ACETONIDE 0.1 %* bid prn--not to face/axillae/* * MULTIVITAMIN TABLET Take one(1) tablet daily. More... Problem List As Of Date 07/09/2017 Noted Resolved Hypothyroidism (acquired) [E03.9] Priority: A Mixed hyperlipidemia [E78.2] Priority: A Allergic rhinitis, cause unspecified [J30.9] Priority: B Morbid Obesity [E66.01] 09/07/2009 More... Degeneration of lumbar or lumbosacral intervert* Priority: M More... Coronary artery disease due to lipid rich plaqu*INVALID FOR* Priority: A More... Mild intermittent asthma without complication [*INVALID FOR* Priority: A More... More... Hip joint replacement by other means [Z96.649] INVALID FOR*06/06/2016 Priority: M Personal history of other malignant neoplasm of*INVALID FOR* Priority: D More... Special Screening for Malignant Neoplasms, [place]*INVALID FOR*09/07/2009 Acute Gastritis without Mention of Hemorrhage [*INVALID FOR*09/07/2009 More... Urinary frequency [R35.0] INVALID FOR* Priority: C More... More... More... MGUS (monoclonal gammopathy of unknown signific*INVALID FOR* Priority: B More... Atrial flutter [I48.92] INVALID FOR* Priority: A More... THO (obstructive sleep apnea) [G47.33] INVALID FOR* Priority: B More... 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 AV block, 1st degree [I44.0] Priority: A Diabetic eye exam (HCC) [E11.9, Z01.00] INVALID FOR* Priority: A More... Type 2 diabetes mellitus with proteinuria (HCC)*INVALID FOR* Priority: A Gastroesophageal reflux disease without esophag*INVALID FOR* Priority: A Iron deficiency anemia secondary to inadequate *INVALID FOR* Priority: A More... Non-proliferative diabetic retinopathy, mild, b*INVALID FOR* Priority: A Bilateral carotid artery stenosis [I65.23] INVALID FOR* Priority: A More... Corns and callus [L84] INVALID FOR* Priority: D Morbid obesity due to excess calories (HCC) [E6*INVALID FOR* Priority: B More... Well adult exam [Z00.00] INVALID FOR* Priority: E More... Ex-smoker [Z87.891] INVALID FOR* Priority: C More... Colon cancer screening [Z12.11] INVALID FOR* Type 2 diabetes mellitus with diabetic neuropat*INVALID FOR* Priority: A H/O gastric bypass [Z98.84] INVALID FOR* Priority: A Malabsorption syndrome [K90.9] INVALID FOR* Priority: A More... Iron malabsorption [K90.9] INVALID FOR* Priority: B Disorder of prostate [N42.9] INVALID FOR* Hypertension goal BP (blood pressure) < 140/80 *INVALID FOR* Priority: A Medicare annual wellness visit, subsequent [Z00*INVALID FOR* Priority: E More... Current use of proton pump inhibitor [Z79.899] INVALID FOR* Albuminuria [R80.9] INVALID FOR* Priority: A Encounter Status:Closed by Jou[employer] UnlimitedCARLOSUSELanden on 08/18/17 B2 MICROGLOBULIN Collected: 07/08/2017 Status: F Source: [place] 11:00 AM [facility] REPOSITORY TYPE CODE TESTS RESULT OUT OF REFERENCE UNITS RANGE LAB B2M 0.8-2.2 mg/L B2 Microglobulin High 4.0 Performed By: #### B2M, SERVIS #### [facility] [employer] [address] [address] VISCOSITY, SERUM Collected: 07/08/2017 Status: F Source: [place] 11:00 AM [facility] REPOSITORY TYPE CODE TESTS RESULT OUT OF REFERENCE UNITS RANGE LAB SERVIS 1.3-1.8 1.5 Viscosity, Serum Performed By: #### B2M, SERVIS #### [facility] [employer] [address] [place] [address] LD Collected: 07/08/2017 Status: F Source: [facility] 10:59 AM [facility] REPOSITORY TYPE CODE TESTS RESULT OUT OF RANGE REFERENCE UNITS LAB LD 135-225 U/L High LD 328 Performed By: #### LD6, KLFRS, SEPG, MPASRM #### [facility] [employer] [address] [place] [address] KAPPA/AREVALO,FREE,SER Collected: Status: F Source: [place] 07/08/2017 10:59 AM [facility] REPOSITORY TYPE CODE TESTS RESULT OUT OF REFERENCE UNITS RANGE LAB FKAPS 3.30-19.40 mg/L High [place], 37.4 Free, Serum Result Comment: Rarely, increased serum free light chains values may not be detected due to antigen excess phenomenon. Results should always be correlated with other laboratory results and clinical findings. LAB FLAMS 5.7-26.3 mg/L Lambda, Free, 23.0 Serum Result Comment: Rarely, increased serum free light chains values may not be detected due to antigen excess phenomenon. Results should always be correlated with other laboratory results and clinical findings. LAB KLRAT 0.26-1.65 K/L Ratio, 1.63 Serum Performed By: #### LD6, KLFRS, SEPJeanmarie, MPASRM #### [facility] [employer] [address], [place] [address] PROTEIN ELECTROPHOR. Collected: 07/08/2017 Status: F Source: [place] 10:59 AM [facility] REPOSITORY TYPE CODE TESTS RESULT OUT OF REFERENCE UNITS RANGE LAB TPSPE 6.0-8.4 g/dL Total Protein, SPE 6.6 LAB ALBE 3.37-4.23 gm/dL Albumin 3.67 LAB A1GL 0.18-0.31 gm/dL Alpha 1 Globulin 0.25 LAB A2GL 0.52-0.97 gm/dL Alpha 2 Globulin 0.72 LAB BEGL 0.84-1.36 gm/dL Beta Globulin 1.00 LAB GAGL 0.70-1.44 gm/dL Gamma Globulin 0.97 LAB SPEINT Interpretation SEE COMMENT Result Comment: No definitive M protein is identified on protein electrophoresis. LAB LOC M Protein N/A Location LAB GPERDL 0.00 gm/dL M Malachi 0.00 Concentratn LAB SPESTF SPE Staff Review Reviewed by Hugo Franz M.D. ([id number]) Performed By: #### LD6, KLFRS, SEPG, MPASRM #### [facility] [employer] [address], [place] [address] MONOCLONL PROTEIN,BL Collected: 07/08/2017 Status: F Source: [place] 10:59 AM [facility] REPOSITORY TYPE CODE TESTS RESULT OUT OF RANGE REFERENCE UNITS LAB MPAIGG 717-1411 mg/dL MPA Serum IgG 842 LAB MPAIGA 78-391 mg/dL MPA Serum IgA 250 LAB MPAIGM 53-334 mg/dL Low MPA Serum IgM 42 LAB MPAK 534-1267 mg/dL Serum Emmons 854 LAB MPAL 253-653 mg/dL Serum Lambda 318 LAB MPAKL 1-3 MPA Yadira/Otero Ratio 2.69 LAB MPAR No M protein is MPA Result A Abnormal identified. poorly defined Alert region of restricted mobility is present that may represent an M protein. LAB INTP MPA Interpretation SEE COMMENT Result Comment: Poorly defined region of restricted mobility in IgG and kappa lanes. Pattern is less well defined or fainter than typically seen in monoclonal gammopathy. This could represent either an atypical presentation of polyclonal immunoglobulins or the presence of a low level IgG kappa monoclonal gammopathy. If clinically indicated, urine monoclonal protein analysis and serum free light chain measurements are recommended to evaluate further for monoclonal gammopathy. Clinical correlation is necessary. LAB MPASTF Staff Reviewed by Review Hguo Franz M.D. ([id number]) Performed By: #### LD6, KLFRS, SEPG, MPASRM #### [facility] [employer] [address] [place] [id number] PROTEIN ELEC,UR RAND Collected: 07/08/2017 Status: F Source: [place] 10:53 AM [facility] REPOSITORY TYPE CODE TESTS RESULT OUT OF REFERENCE UNITS RANGE LAB UTPR 0-20 mg/dL Protein Urine High Random 69 LAB UALB % Albumin 79.3 LAB UA1G >0 % Alpha 1 Globulin 3.9 LAB UA2G % Alpha 2 Globulin 4.3 LAB UBEG % Beta Globulin 6.5 LAB UGAG % Gamma Globulin 6.0 LAB UPEINT Interpretation SEE COMMENT Result Comment: No definitive M protein is identified on protein electrophoresis. LAB UPESTF Staff Reviewed by Review Hugo Franz M.D. ([id number]) Performed By: #### UEPG, URMPA #### [facility] [employer] [address] [place], [place] [address] MONOCLONAL PROT UR Collected: 07/08/2017 Status: F Source: [place] 10:53 AM [facility] REPOSITORY TYPE CODE TESTS RESULT OUT OF REFERENCE UNITS RANGE LAB UMPA No M protein is identified. No UMPA M protein is Result identified. LAB UMPSTF UMPA Reviewed by Staff Review Hugo Franz M.D. ([id number]) Performed By: #### UEPGPRINCE #### [facility] [address] [place], [place] [address] PROGRESS Observed: 07/08/2017 Status: COMPLETED Source: [place] 10:16 AM [facility] REPOSITORY HNO ID: [id number] Author: Korey Bernal Service: (none) Author Type: Physician Type: Progress Notes Filed: 07/08/2017 10:45 AM Note Text: Diagnoses: 1) MGUS (IgM lambda). 2) Previous mild anemia. 3) Mild thrombocytopenia. 4) CAD with previous CABG--gets annual stress test. Was incidentally found to have paroxysmal atrial fibrillation when undergoing routine annual stress test. Was put on warfarin. In October 2015 he had a positive Hemoccult blood test. This led to a workup for GI bleeding. He was assessed by Dr. Brown and because of a large umbilical hernia, he was sent to for [facility]. An air contrast barium enema done in November showed no mucosal abnormalities. Hhe developed, a funny sensation in the chest. Admitted to [facility] on 05/14/2016. Initial hemoglobin was 7.5 g/dL. The MCV was normal. His INR was 2.0. Chemistries were unremarkable. He received a 2 unit red blood cell transfusion. Hemoglobin increased 8.9 g/dL when he was discharged on 11:15. He also underwent an EGD due to his history of possible GI bleed and Jarad-en-Y gastric bypass procedure. The study demonstrated no mucosal abnormalities and no anastomotic ulcerations. Biopsies were not performed because the patient had a history of prosthetic hip replacement and was on antibiotics. Was found to be iron deficient and received a course of parenteral iron. Presents for ongoing hematologic management. Interim history: He still having dyspnea with exertion and generalized fatigue. He had a mother cardiac workup [facility] and had a suggestion of ischemia in the territory of the LAD. Apparently this has been seen on his previous stress tests from time to time and he was recently told by his new private branch exchange service advisor at of his symptoms continue however will require catheterization. He has not had any signs of GI bleeding. He is on Coumadin and Plavix benign aspirin. No other unusual bleeding. He bruises easily particularly the backs of the forearms. Stable lower extremity swelling. No symptoms of neuropathy. PMH, medications and allergies personally reviewed by me today. Any changes documented in appropriate section. ROS: Complete 10 system review is otherwise noncontributory. PHYSICAL EXAM: Vitals: Blood pressure 173/73, temperature 36.8 ?C (98.3 ?F), weight 132.2 kg (291 lb 8 oz). Well-appearing and in no acute distress. EYES: Sclerae are anicteric bilaterally. NECK: Supple. LYMPHATIC: There is no palpable cervical, supraclavicular adenopathy. RESPIRATORY: Inspiratory breath sounds are of diminished intensity in all delacruz. CARDIOVASCULAR: Rhythm is regular. Normal intensity S1/S2. ABDOMEN: The abdomen is obese and is nondistended. There is no organomegaly. No tenderness. Extremities: Trace edema. SKIN: No jaundice or rash. No petechiae. NEUROLOGIC: imposer II-XII are grossly intact. No focal motor weakness. ASSESSMENT/PLAN: (D47.2) MGUS (monoclonal gammopathy of unknown significance) Assessment: -Incidentally found 2009 when undergoing work up for mild anemia. -Initially IgM lambda MGUS that was very low at diagnosis, but then became undetectable. -Previous CT A/P in 05/09 showed no lymphadenopathy. -No recent quantifiable MP in blood and no MP on electrophoresis or immunofixation in the urine. Plan: -Recheck today. (D50.0) Iron deficiency anemia due to chronic blood loss Assessment: -He had documented low serum iron in 12/2008. -Recent decline in serum iron again. -Has had GI work up just short of capsule endoscopy. Plan: -Monitor counts and serum iron every 3 months. -He will be getting in touch with his private branch exchange service advisor at [facility] about his continued symptomatology. DO RED TerrellOVSNawaf Observed: 07/08/2017 Status: COMPLETED Source: [place] 10:10 AM [facility] REPOSITORY Visit (SP) Office (HEMAWS) KIP GUAMAN ([id number]) 1945 M Date Time Provider Department 07/08/17 10:10 AM KOREY BERNAL During your visit today, we recorded the following information about you: Temperature Blood pressure Weight 98.3 degrees 173/73 132.2 kg Maylin Carter LPN, TRACY 07/08/2017 10:30 AM Signed Est pt, discuss recent lab results TRACY Rasheed, 07/08/2017 10:45 AM Signed Diagnoses: 1) MGUS (IgM lambda). 2) Previous mild anemia. 3) Mild thrombocytopenia. 4) CAD with previous CABG--gets annual stress test. Was incidentally found to have paroxysmal atrial fibrillation when undergoing routine annual stress test. Was put on warfarin. In October 2015 he had a positive Hemoccult blood test. This led to a workup for GI bleeding. He was assessed by Dr. Brown and because of a large umbilical hernia, he was sent to for [facility]. An air contrast barium enema done in November showed no mucosal abnormalities. Hhe developed, ANDquot;a funny sensation in the chest.ANDquot; Admitted to [facility] on 05/14/2016. Initial hemoglobin was 7.5 g/dL. The MCV was normal. His INR was 2.0. Chemistries were unremarkable. He received a 2 unit red blood cell transfusion. Hemoglobin increased 8.9 g/dL when he was discharged on 11:15. He also underwent an EGD due to his history of possible GI bleed and Jarad-en-Y gastric bypass procedure. The study demonstrated no mucosal abnormalities and no anastomotic ulcerations. Biopsies were not performed because the patient had a history of prosthetic hip replacement and was on antibiotics. Was found to be iron deficient and received a course of parenteral iron. Presents for ongoing hematologic management. Interim history: He still having dyspnea with exertion and generalized fatigue. He had a [facility] and had a suggestion of ischemia in the territory of the LAD. Apparently this has been seen on his previous stress tests from time to time and he was recently told by his new private branch exchange service advisor at of his symptoms continue however will require catheterization. He has not had any signs of GI bleeding. He is on Coumadin and Plavix benign aspirin. No other unusual bleeding. He bruises easily particularly the backs of the forearms. Stable lower extremity swelling. No symptoms of neuropathy. PMH, medications and allergies personally reviewed by me today. Any changes documented in appropriate section. ROS: Complete 10 system review is otherwise noncontributory. PHYSICAL EXAM: Vitals: Blood pressure 173/73, temperature 36.8 ?C (98.3 ?F), weight 132.2 kg (291 lb 8 oz). Well-appearing and in no acute distress. EYES: Sclerae are anicteric bilaterally. NECK: Supple. LYMPHATIC: There is no palpable cervical, supraclavicular adenopathy. RESPIRATORY: Inspiratory breath sounds are of diminished intensity in all delacruz. CARDIOVASCULAR: Rhythm is regular. Normal intensity S1/S2. ABDOMEN: The abdomen is obese and is nondistended. There is no organomegaly. No tenderness. Extremities: Trace edema. SKIN: No jaundice or rash. No petechiae. NEUROLOGIC: imposer II-XII are grossly intact. No focal motor weakness. ASSESSMENT/PLAN: (D47.2) MGUS (monoclonal gammopathy of unknown significance) Assessment: -Incidentally found 2009 when undergoing work up for mild anemia. -Initially IgM lambda MGUS that was very low at diagnosis, but then became undetectable. -Previous CT A/P in 05/09 showed no lymphadenopathy. -No recent quantifiable MP in blood and no MP on electrophoresis or immunofixation in the urine. Plan: -Recheck today. (D50.0) Iron deficiency anemia due to chronic blood loss Assessment: -He had documented low serum iron in 12/2008. -Recent decline in serum iron again. -Has had GI work up just short of capsule endoscopy. Plan: -Monitor counts and serum iron every 3 months. -He will be getting in touch with his private branch exchange service advisor at [facility] about his continued symptomatology. Korey Bernal DO Referring Provider: KOREY BERNAL [[id number]] Allergies As of Date: 07/08/2017 Noted Allergy Reaction PAMELLA INHIBITORS 07/18/2004 3 - Cough Comments: accupril ATORVASTATIN 07/18/2004 Comments: lipitor- muscle weakness, elevated LFT's CRESTOR (ROSUVASTATIN CALCIUM) 10/30/2016 17 - Myalgia INDOCIN (INDOMETHACIN SODIUM) 04/06/2005 8 - GI Upset NAPROXEN 07/18/2004 8 - GI Upset PRAVASTATIN 07/18/2004 Comments: pravachol- muscle weakness, elevated LFT's Date Reviewed: 07/08/2017 Reviewed by: Korey Bernal - Fully Assessed Reason for Visit: Established Patient [175] Primary Visit Diagnosis:MGUS (monoclonal gammopathy of unknown significance) [D47.2] Other Visit Diagnosis:Iron deficiency anemia secondary to inadequate dietary iron intake [D50.8] Order(s):KAPPA/AREVALO,FREE,SER [SQKLFRS] Order #: [id number] FUTURE PROTEIN ELECTROPHORESIS W/INTERP [SQSEPG] Order #: [id number] FUTURE MONOCLONAL PROT BLD W/INTERP [SQMPASRM] Order #: [id number] FUTURE MONOCLONAL PROT UR W/INTERP [SQURMPA] Order #: [id number] FUTURE PROTEIN ELECT RND UR W/INTERP [SQUEPG] Order #: [id number] FUTURE LD LACTATE DEHYDRO [SQLD6] Order #: [id number] FUTURE SERUM VISCOSITY [SQSERVIS] Order #: [id number] B2 MICROGLOBULIN B [SQB2M] Order #: [id number] Follow-up and Disposition History Recorded Prescriptions as of 07/08/2017 Sig: FLUTICASONE 50 MCG/ACTUATION * Use 2 Sprays in each nostril * ROSUVASTATIN 10 MG TABLET Take 1/2 a tab every day WARFARIN 5 MG TABLET 10 mg on and 5mg Sat/* METOPROLOL TARTRATE 50 MG TAB* Take half tablet after breakf* CLOPIDOGREL 75 MG TABLET Take 1 tablet by mouth once d* OMEPRAZOLE 20 MG CAPSULE,DEMARCO* Take 1 capsule by mouth once * INSULIN LISPRO 100 UNIT/ML ARBOLEDA* 14-16 units with breakfast an* INSULIN SYRINGE-NEEDLE U-100 * 1 Each once daily. Dx: E11.29* INSULIN GLARGINE 100 UNIT/ML * Inject 50 Units subcutaneousl* EASY TOUCH 31 GAUGE X 5/16 N* USE 1 NEEDLE PER DOSE THREE T* CHLORTHALIDONE 25 MG TABLET Take 0.5 tablets by mouth onc* BLOOD SUGAR DIAGNOSTIC STRIPS Use as instructed ALBUTEROL SULFATE HFA 90 MCG/* Inhale 2 Puffs as instructed * LEVOTHYROXINE 100 MCG TABLET Take 1 tablet by mouth once d* MONTELUKAST 10 MG TABLET Take 1 tablet by mouth once d* TAMSULOSIN 0.4 MG CAPSULE Take 1 capsule by mouth once * RAMIPRIL 10 MG CAPSULE Take 1 capsule by mouth once * ACETAMINOPHEN 500 MG TABLET Take 500 mg by mouth as neede* CHOLECALCIFEROL (VITAMIN D3) * Take 4,000 Units by mouth onc* DOCUSATE SODIUM 100 MG TABLET Take two tabs daily PENICILLIN V POTASSIUM 500 MG* Take 1 tablet by mouth twice * CYANOCOBALAMIN (VIT B-12) 500* Take 1 tablet by mouth once d* PSYLLIUM HUSK 0.4 GRAM CAPSULE Take 2 capsules by mouth once* BETAMETHASONE DIPROPIONATE 0.* Apply 1 Tube to affected area* BIOTIN ORAL Take by mouth three times da* FERROUS GLUCONATE 246 MG (27 * Take 1 tablet by mouth once d* * CALCIUM CARBONATE 600 MG CALC* Take 1 tablet by mouth twice * * ASCORBIC ACID (VITAMIN C) 500* Take 500 mg by mouth once albina* * TRIAMCINOLONE ACETONIDE 0.1 %* bid prn--not to face/axillae/* * MULTIVITAMIN TABLET Take one(1) tablet daily. Medication notes this encounter ROSUVASTATIN 10 MG TABLET >> Maylin Carter LPN, TRACY 07/08/2017 9:49 AM >> MAYLIN CARTER Mon Jul 08, 2017 9:49 AM Using everyother day More... Problem List As Of Date 07/08/2017 Noted Resolved Hypothyroidism (acquired) [E03.9] Priority: A Mixed hyperlipidemia [E78.2] Priority: A Allergic rhinitis, cause unspecified [J30.9] Priority: B Morbid Obesity [E66.01] 09/07/2009 More... Degeneration of lumbar or lumbosacral intervert* Priority: M More... Coronary artery disease due to lipid rich plaqu*INVALID FOR* Priority: A More... Mild intermittent asthma without complication [*INVALID FOR* Priority: A More... More... Hip joint replacement by other means [Z96.649] INVALID FOR*06/06/2016 Priority: M Personal history of other malignant neoplasm of*INVALID FOR* Priority: D More... Special Screening for Malignant Neoplasms, [place]*INVALID FOR*09/07/2009 Acute Gastritis without Mention of Hemorrhage [*INVALID FOR*09/07/2009 More... Urinary frequency [R35.0] INVALID FOR* Priority: C More... More... More... MGUS (monoclonal gammopathy of unknown signific*INVALID FOR* Priority: B More... Atrial flutter [I48.92] INVALID FOR* Priority: A More... THO (obstructive sleep apnea) [G47.33] INVALID FOR* Priority: B More... 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 AV block, 1st degree [I44.0] Priority: A Diabetic eye exam (HCC) [E11.9, Z01.00] INVALID FOR* Priority: A More... Type 2 diabetes mellitus with proteinuria (HCC)*INVALID FOR* Priority: A Gastroesophageal reflux disease without esophag*INVALID FOR* Priority: A Iron deficiency anemia secondary to inadequate *INVALID FOR* Priority: A More... Non-proliferative diabetic retinopathy, mild, b*INVALID FOR* Priority: A Bilateral carotid artery stenosis [I65.23] INVALID FOR* Priority: A More... Corns and callus [L84] INVALID FOR* Priority: D Morbid obesity due to excess calories (HCC) [E6*INVALID FOR* Priority: B More... Well adult exam [Z00.00] INVALID FOR* Priority: E More... Ex-smoker [Z87.891] INVALID FOR* Priority: C More... Colon cancer screening [Z12.11] INVALID FOR* Type 2 diabetes mellitus with diabetic neuropat*INVALID FOR* Priority: A H/O gastric bypass [Z98.84] INVALID FOR* Priority: A Malabsorption syndrome [K90.9] INVALID FOR* Priority: A More... Iron malabsorption [K90.9] INVALID FOR* Priority: B Disorder of prostate [N42.9] INVALID FOR* Hypertension goal BP (blood pressure) < 140/80 *INVALID FOR* Priority: A Medicare annual wellness visit, subsequent [Z00*INVALID FOR* Priority: E More... Current use of proton pump inhibitor [Z79.899] INVALID FOR* Albuminuria [R80.9] INVALID FOR* Priority: A Visit Notes: >> Maylin Carolina (Knitter Operator) TRACY Carter Mon Jul 08, 2017 9:51 AM Status: Signed Est pt, discuss recent lab results Maylin Figueroa TRACY Carter Encounter Status:Closed by KOREY BERNAL DO on 07/08/17 RUSS ABS GR + CBC Collected: 07/08/2017 Status: F Source: [place] 9:37 AM [facility] REPOSITORY TYPE CODE TESTS RESULT OUT OF REFERENCE UNITS RANGE LAB WWBC 3.70-11.00 k/uL [place] WBC 6.42 LAB WRBC 4.20-6.00 m/uL Low [place] RBC 3.92 LAB WHGB 13.0-17.0 g/dL Low [place] Hemoglobin 12.2 LAB WHCT 39.0-51.0 % Low [place] Hematocrit 37.7 LAB WMCV 80.0-100.0 fL [place] MCV 96.2 LAB WMCH 26.0-34.0 pg Urss MCH 31.1 LAB WMCHC 30.5-36.0 g/dL Russ MCHC 32.4 LAB WRDW 11.5-15.0 % [place] RDW 15.0 LAB WPLT 150-400 k/uL Low [place] Platelet Cnt 136 LAB WMPV 9.0-12.7 fL [place] MPV 9.6 Result Comment: Test performed at: [facility], [address] [place] [address] Rd[address] [place] [address]. LAB ABGRAN 1.45-7.50 k/uL Absol Gran 4.80 Count HEMOGLOBIN A1C Collected: 07/08/2017 Status: F Source: [place] 9:37 AM [facility] REPOSITORY TYPE CODE TESTS RESULT OUT OF REFERENCE UNITS RANGE LAB HGBA1C 4.3-5.6 % High Hemoglobin A1c 6.5 LAB HBA0 mg/dL Est. Average Glucose 140 Result Comment: eAG: (Estimated average glucose) is a calculated value from HgbA1c and is home furnishings sales representative of the average blood glucose level in the last 2-3 month period. Performed By: #### HBA1C, IRON, CMP, LIPB, FERR #### [facility] [address] [place], [place] [address] IRON AND TIBC Collected: 07/08/2017 Status: F Source: [place] 9:[address] [facility] REPOSITORY TYPE CODE TESTS RESULT OUT OF REFERENCE UNITS RANGE LAB IRN 41-186 ug/dL Iron 59 LAB TIBC 232-386 ug/dL TIBC 248 LAB SAT 15-57 % Transferrin Saturatn 24 Performed By: #### HBA1C, IRON, CMP, LIPB, FERR #### [facility] [address] [place] [address] COMP METABOLIC PANEL Collected: 07/08/2017 Status: F Source: [place] 9:[address] [facility] REPOSITORY TYPE CODE TESTS RESULT OUT OF REFERENCE UNITS RANGE LAB TP 6.3-8.0 g/dL Protein, Total 7.1 LAB ALB 3.9-4.9 g/dL Albumin 3.9 LAB CA 8.5-10.2 mg/dL Calcium, Total 9.0 LAB TBIL 0.2-1.3 mg/dL Bilirubin, Total 0.5 LAB ALKP 36-108 U/L Alkaline Phosphatase 73 LAB AST 14-40 U/L AST 26 LAB GLU 74-99 mg/dL Glucose 96 Result Comment: The [place] [employer] (ADA) provides guidance for cutoff values for fasting glucose and random glucose. The ADA defines fasting as no caloric intake for at least 8 hours. Fas ting plasma glucose results between 100 to 125 mg/dL indicate increased risk for diabetes (prediabetes). Fasting plasma glucose results greater than or equal to 126 mg/dL meet the criteria for diagnosis of diabetes. In the absence of unequivocal hyperglycemia, results should be confirmed by repeat testing. In a patient with classic symptoms of hyperglycemia or hyperglycemic crisis, random plasma glucose results greater than or equal to 200 mg/dL meet the criteria for diagnosis of diabetes. Reference: Standards of Medical Care in Diabetes 2016, [place] [employer]. Diabetes Care. 2016.39(Suppl 1). LAB BUN 9-24 mg/dL BUN High 27 LAB CRET 0.73-1.22 mg/dL Creatinine High 1.25 LAB NA 136-144 mmol/L Sodium 142 LAB K 3.7-5.1 mmol/L Potassium 4.8 LAB CL 97-105 mmol/L Chloride 105 LAB CO2 22-30 mmol/L CO2 27 LAB AGAP 9-18 mmol/L Anion Gap 10 LAB ALT 10-54 U/L ALT 27 LAB GFRAA eGFR- Amer. >60 LAB GFRNAA . eGFR-All Other Races 57 Result Comment: eGFR (Estimated GFR) Units of measure: mL/min/1.73 meters squared eGFR is derived from the reexpressed MDRD Study equation using the following parameters: serum creatinine, age, gender and race. The creatinine assay has been calibrated to be traceable to IDMS. An eGFR <60 mL/min/1.73m2 for >3 months is consistent with chronic kidney disease. Refer to KDOQI guidelines for clinical interpretation. In patients with unstable renal function, e.g. those with acute kidney injury, the eGFR may not accurately reflect actual GFR. Performed By: #### HBA1C, IRON, CMP, LIPB, FERR #### [facility] [employer] [address] [place], [place] [address] LIPID PANEL, BASIC Collected: 07/08/2017 Status: F Source: [place] 9:37 AM [facility] REPOSITORY TYPE CODE TESTS RESULT OUT OF REFERENCE UNITS RANGE LAB TRIGLY 30-149 mg/dL Triglyceride 88 LAB CHOL 100-199 mg/dL Cholesterol 163 LAB HDL >45 mg/dL Low HDL-Cholesterol 44 LAB VLDL 6-40 mg/dL VLDL Cholesterol 18 LAB LDL 60-129 mg/dL LDL-Cholesterol 101 LAB FT hrs Fasting Time 12 LAB TCHDL 1.00-5.00 TC:HDL Ratio 3.70 LAB LDLHDL 0.50-3.55 LDL:HDL Ratio 2.30 LAB NONHDL 90-159 mg/dL Non HDL Cholesterol 119 Performed By: #### HBA1C, IRON, CMP, LIPB, FERR #### [facility] [employer] [address] [place], [place] [address] FERRITIN Collected: 07/08/2017 Status: F Source: [place] 9:37 AM [facility] REPOSITORY TYPE CODE TESTS RESULT OUT OF REFERENCE UNITS RANGE LAB FERR 30.3-565.7 ng/mL High Ferritin 573.1 Performed By: #### HBA1C, IRON, CMP, LIPB, FERR #### [facility] [employer] [address] [place], [place] [address] PROGRESS Observed: 06/18/2017 Status: COMPLETED Source: [place] 9:35 AM [facility] REPOSITORY HNO ID: [id number] Author: Jonel Don Service: (none) Author Type: Physician Type: Progress Notes Filed: 06/18/2017 4:38 PM Note Text: This note was created using [employer]. Subjective Kpi Guaman is a 72 year old male. Review of Systems Objective There were no vitals taken for this visit. Physical Exam Assessment and Plan Agree with plan. PROGRESS Observed: 06/18/2017 Status: COMPLETED Source: [place] 9:03 AM [facility] REPOSITORY HNO ID: [id number] Author: Erin Awan RN Service: (none) Author Type: (none) Type: Progress Notes Filed: 06/18/2017 9:04 AM Note Text: patient had inr completed at [facility] patients inr is 2.1 (patients inr range is 2.0-3.0) patient is currently taking 5mg Wed,Sun and 7.5mg all other days patients last dose change was on 04/02/17 due to a low level of 1.8 (dose at that time was 5mg Sun,Wed,Fri and 7.5mg all other days) patient has had no changes in medication and no change in diet Advised patient to continue on the same dose(s) and that they would only be contacted regarding dosage and follow up instructions after review with provider, if a change is needed. Written instructions given and patient verbalized understanding. Presently scheduled in 5 weeks (07/23/17 - pt going 5 weeks this time d/t appt with pcp at that time) for follow up INR. HOSP Observed: 06/18/2017 Status: COMPLETED Source: [place] 9:00 AM [facility] REPOSITORY Anticoagulation Visit (COUMWS) AAMIRKIP AGUILAR ([id number]) 1945 M Date Time Provider Department 06/18/17 9:00 AM [facility] COUMWS During your visit today, we recorded the following information about you: Erin Awan RN 06/18/2017 9:04 AM Signed patient had inr completed at [facility] patients inr is 2.1 (patients inr range is 2.0-3.0) patient is currently taking 5mg Wed,Sun and 7.5mg all other days patients last dose change was on 04/02/17 due to a low level of 1.8 (dose at that time was 5mg Sun,Wed,Fri and 7.5mg all other days) patient has had no changes in medication and no change in diet Advised patient to continue on the same dose(s) and that they would only be contacted regarding dosage and follow up instructions after review with provider, if a change is needed. Written instructions given and patient verbalized understanding. Presently scheduled in 5 weeks (07/23/17 - pt going 5 weeks this time d/t appt with pcp at that time) for follow up INR. Jonel Don MD 06/18/2017 4:38 PM Signed This note was created using Zarporiter. Subjective Kip Guaman is a 72 year old male. Review of Systems Objective There were no vitals taken for this visit. Physical Exam Assessment and Plan Agree with plan. Referring Provider: JONEL DON [[id number]] Allergies As of Date: 06/18/2017 Noted Allergy Reaction PAMELLA INHIBITORS 07/18/2004 3 - Cough Comments: accupril ATORVASTATIN 07/18/2004 Comments: lipitor- muscle weakness, elevated LFT's CRESTOR (ROSUVASTATIN CALCIUM) 10/30/2016 17 - Myalgia INDOCIN (INDOMETHACIN SODIUM) 04/06/2005 8 - GI Upset NAPROXEN 07/18/2004 8 - GI Upset PRAVASTATIN 07/18/2004 Comments: pravachol- muscle weakness, elevated LFT's Date Reviewed: 06/18/2017 Reviewed by: Erin Awan RN - Fully Assessed Reason for Visit: Anticoagulation [8] Primary Visit Diagnosis:Atrial flutter, unspecified type (HCC) [I48.92] Order(s):INR (POC) [1264269] Order #: [id number]. #:[id number] Prescriptions as of 06/18/2017 Sig: FLUTICASONE 50 MCG/ACTUATION * Use 2 Sprays in each nostril * ROSUVASTATIN 10 MG TABLET Take 1/2 a tab every day WARFARIN 5 MG TABLET 10 mg on and 5mg * METOPROLOL TARTRATE 50 MG TAB* Take half tablet after breakf* CLOPIDOGREL 75 MG TABLET Take 1 tablet by mouth once d* OMEPRAZOLE 20 MG CAPSULE,DEMARCO* Take 1 capsule by mouth once * INSULIN LISPRO 100 UNIT/ML ARBOLEDA* 14-16 units with breakfast an* INSULIN SYRINGE-NEEDLE U-100 * 1 Each once daily. Dx: E11.29* INSULIN GLARGINE 100 UNIT/ML * Inject 50 Units subcutaneousl* EASY TOUCH 31 GAUGE X 5/16 N* USE 1 NEEDLE PER DOSE THREE T* CHLORTHALIDONE 25 MG TABLET Take 0.5 tablets by mouth onc* BLOOD SUGAR DIAGNOSTIC STRIPS Use as instructed ALBUTEROL SULFATE HFA 90 MCG/* Inhale 2 Puffs as instructed * LEVOTHYROXINE 100 MCG TABLET Take 1 tablet by mouth once d* MONTELUKAST 10 MG TABLET Take 1 tablet by mouth once d* TAMSULOSIN 0.4 MG CAPSULE Take 1 capsule by mouth once * RAMIPRIL 10 MG CAPSULE Take 1 capsule by mouth once * ACETAMINOPHEN 500 MG TABLET Take 500 mg by mouth as neede* CHOLECALCIFEROL (VITAMIN D3) * Take 4,000 Units by mouth onc* DOCUSATE SODIUM 100 MG TABLET Take two tabs daily PENICILLIN V POTASSIUM 500 MG* Take 1 tablet by mouth twice * CYANOCOBALAMIN (VIT B-12) 500* Take 1 tablet by mouth once d* PSYLLIUM HUSK 0.4 GRAM CAPSULE Take 2 capsules by mouth once* BETAMETHASONE DIPROPIONATE 0.* Apply 1 Tube to affected area* BIOTIN ORAL Take by mouth three times da* FERROUS GLUCONATE 246 MG (27 * Take 1 tablet by mouth once d* * CALCIUM CARBONATE 600 MG CALC* Take 1 tablet by mouth twice * * ASCORBIC ACID (VITAMIN C) 500* Take 500 mg by mouth once albina* * TRIAMCINOLONE ACETONIDE 0.1 %* bid prn--not to face/axillae/* * MULTIVITAMIN TABLET Take one(1) tablet daily. More... Problem List As Of Date 06/18/2017 Noted Resolved Hypothyroidism (acquired) [E03.9] Priority: A Mixed hyperlipidemia [E78.2] Priority: A Allergic rhinitis, cause unspecified [J30.9] Priority: B Morbid Obesity [E66.01] 09/07/2009 More... Degeneration of lumbar or lumbosacral intervert* Priority: M More... Coronary artery disease due to lipid rich plaqu*INVALID FOR* Priority: A More... Mild intermittent asthma without complication [*INVALID FOR* Priority: A More... More... Hip joint replacement by other means [Z96.649] INVALID FOR*06/06/2016 Priority: M Personal history of other malignant neoplasm of*INVALID FOR* Priority: D More... Special Screening for Malignant Neoplasms, [place]*INVALID FOR*09/07/2009 Acute Gastritis without Mention of Hemorrhage [*INVALID FOR*09/07/2009 More... Urinary frequency [R35.0] INVALID FOR* Priority: C More... More... More... MGUS (monoclonal gammopathy of unknown signific*INVALID FOR* Priority: B More... Atrial flutter [I48.92] INVALID FOR* Priority: A More... THO (obstructive sleep apnea) [G47.33] INVALID FOR* Priority: B More... 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 AV block, 1st degree [I44.0] Priority: A Diabetic eye exam (HCC) [E11.9, Z01.00] INVALID FOR* Priority: A More... Type 2 diabetes mellitus with proteinuria (HCC)*INVALID FOR* Priority: A Gastroesophageal reflux disease without esophag*INVALID FOR* Priority: A Iron deficiency anemia secondary to inadequate *INVALID FOR* Priority: A More... Non-proliferative diabetic retinopathy, mild, b*INVALID FOR* Priority: A Bilateral carotid artery stenosis [I65.23] INVALID FOR* Priority: A More... Corns and callus [L84] INVALID FOR* Priority: D Morbid obesity due to excess calories (HCC) [E6*INVALID FOR* Priority: B More... Well adult exam [Z00.00] INVALID FOR* Priority: E More... Ex-smoker [Z87.891] INVALID FOR* Priority: C More... Colon cancer screening [Z12.11] INVALID FOR* Type 2 diabetes mellitus with diabetic neuropat*INVALID FOR* Priority: A H/O gastric bypass [Z98.890] INVALID FOR* Priority: A Malabsorption syndrome [K90.9] INVALID FOR* Priority: A More... Iron malabsorption [K90.9] INVALID FOR* Priority: B Disorder of prostate [N42.9] INVALID FOR* Hypertension goal BP (blood pressure) < 140/80 *INVALID FOR* Priority: A Medicare annual wellness visit, subsequent [Z00*INVALID FOR* Priority: E More... Current use of proton pump inhibitor [Z79.899] INVALID FOR* Albuminuria [R80.9] INVALID FOR* Priority: A Follow-up and Disposition History Recorded Encounter Status:Closed by ANITA MCKINNEY MA on 06/18/17 ALLERGIES ALLERGIES DATE TYPE / CODE NAME / CODE REACTION SEVERITY SOURCE 08/14/2017 Drug naproxen/[id number] Upset Stomach Unknown [place] Allergy/416 (RXNORM) [facility] 111836([facility] ED CT) Repository 08/14/2017 Drug pravastatin/[id number] Other Unknown [place] Allergy/416 606(RXNORM) [facility] 635517([facility] ED CT) Repository 08/14/2017 Drug quinapril/[id number] Other Unknown [place] Allergy/416 2(RXNORM) [facility] 608481([facility] ED CT) Repository 08/14/2017 Drug atorvastatin/N55633 Other Unknown [place] Allergy/416 6321(RXNORM) [facility] 933805([facility] ED CT) Repository 10/30/2016 DRUG ROSUVASTATIN Myalgia Low [facility] INGREDI/419 CALCIUM [facility] [place] 540361(OM Repository ED CT) 10/30/2016 DRUG ROSUVASTATIN Myalgia [facility] INGREDI/419 CALCIUM [facility] [place] 252764([facility] Repository ED CT) 04/06/2005 DRUG/393127 INDOMETHACIN SODIUM GI UPSET [facility] 003(SNOMED [facility] [place] CT) Repository 04/06/2005 DRUG/[id number] INDOMETHACIN SODIUM GI UPSET [facility] 003(SNOMED [facility] [place] CT) Repository 07/18/2004 Drug PAMELLA INHIBITORS COUGH Low [facility] Class/70089 [facility] [place] 1003(SNOMED Repository CT) 07/18/2004 DRUG ATORVASTATIN OTHER: SEE C Low [facility] INGREDI/419 [facility] [place] 035570(SNOM Repository ED CT) 07/18/2004 DRUG NAPROXEN GI UPSET Low [facility] INGREDI/419 [facility] [place] 267740(SNOM Repository ED CT) 07/18/2004 DRUG PRAVASTATIN OTHER: SEE C Low [facility] INGREDI/419 [facility] [place] 080924(SNOM Repository ED CT) 07/18/2004 Drug PAMELLA INHIBITORS COUGH [facility] Class/91522 [facility] [place] 1003(SNOMED Repository CT) 07/18/2004 DRUG ATORVASTATIN [facility] INGREDI/419 [facility] [place] 079160(SNOM Repository ED CT) 07/18/2004 DRUG NAPROXEN GI UPSET [facility] INGREDI/419 [facility] [place] 870443(SNOM Repository ED CT) 07/18/2004 DRUG PRAVASTATIN [facility] INGREDI/419 [facility] [place] 584563(SNOM Repository ED CT) ENCOUNTERS ENCOUNTERS ADMIT/DISCHARGE ACCOUNT ADMITTING ENCOUNTER LOCATION SOURCE NUMBER CLASS 06/11/2018/06/11/20 [id number] Ambulatory [address] [place] Repository 06/11/2018/06/12/20 [id number] Ambulatory [address] [facility] [place] Repository 05/29/[id number] [facility] ing:LAB Repository 05/28/2018/05/29/20 [id number] Ambulatory [address] [facility] [place] Repository 05/13/2018/05/14/20 [id number] Ambulatory [address] [facility] [place] Repository 05/09/[id number] [facility] ing:US Repository 05/07/[id number] [facility] ing:POLAB3 Repository 05/05/2018/05/05/20 [id number] Ambulatory [address] [facility] [place] Repository 04/29/2018/04/30/20 [id number] Ambulatory [address] [facility] [place] Repository 04/15/2018/04/16/20 [id number] Ambulatory [address] [facility] [place] Repository 04/15/2018/04/15/20 [id number] Ambulatory [address] [facility] [place] Repository 04/11/2018/04/29/20 [id number] Ambulatory [address] [facility] [place] Repository 04/03/2018/04/04/20 [id number] [facility] [place] Repository 04/03/2018/04/04/20 [id number] [facility] [place] Repository 04/01/2018/04/01/20 [id number] [facility] [place] Repository 03/31/2018/04/01/20 [id number] [facility] [place] Repository 03/26/2018/03/26/20 [id number] [facility] [place] Repository 03/17/2018/03/18/20 [id number] Ambulatory [facility] [place] Repository 03/12/2018/03/13/20 [id number] [facility] [place] Repository 03/10/2018/03/10/20 [id number] Ambulatory [facility] [place] Repository 03/07/2018 [id number] Ambulatory [facility] ing:LABSPEC Repository 03/07/2018/03/07/20 [id number] Amb[facility] [place] Repository 03/06/2018/03/07/20 [id number] Ambulatory [facility] [address] [facility] [place] Repository 03/06/2018/03/07/20 [id number] [facility] [place] Repository 03/04/2018/03/05/20 [id number] Ambulatory [facility] [address] [facility] [place] Repository 02/24/2018/02/26/20 [id number] Ambulatory [facility] [address] [facility] [place] Repository 02/18/2018/02/20/20 [id number] [facility] [place] Repository 02/13/2018/02/15/20 [id number] [facility] [place] Repository 02/10/2018/02/13/20 [id number] Ambulatory [facility] [place] Repository 02/07/2018/02/11/20 [id number] Amb[facility] [place] Repository 02/05/2018/02/06/20 [id number] Ambulatory [facility] [place] Repository 02/05/2018 [id number] Ambulatory [facility] ing:LABSPEC Repository 02/01/2018/02/04/20 [id number] Ambulatory [facility] [address] [facility] [place] Repository 01/16/2018/01/18/20 [id number] Amb[facility] [place] Repository 01/07/2018/01/09/20 [id number] [facility] [place] Repository 01/07/2018/01/09/20 [id number] [facility] [place] Repository 01/06/2018/01/08/20 [id number] [facility] [place] Repository 01/02/2018/01/04/20 [id number] [facility] [place] Repository 12/30/2017/01/01/20 [id number] [facility] [place] Repository 12/30/2017/12/31/19 [id number] [facility] [place] Repository 12/30/2017/12/31/19 [id number] [facility] [place] Repository 12/30/2017/12/31/19 [id number] Ambulatory [facility] [place] Repository 12/27/2017/12/31/19 [id number] Ambulatory [facility] [place] Repository 12/18/2017/12/20/19 [id number] Amb[facility] [place] Repository 12/18/2017/12/20/19 [id number] [facility] [place] Repository 12/12/2017 [id number] [facility] [place] Repository 12/12/2017/12/14/19 [id number] Ambulatory [facility] [place] Repository 11/26/2017/11/28/19 [id number] Amb[facility] [place] Repository 11/26/2017/11/28/19 [id number] [facility] [place] Repository 11/11/2017/11/13/19 [id number] Amb[facility] [place] Repository 10/14/2017/10/16/19 [id number] Amb[facility] [place] Repository 10/07/2017/10/09/19 [id number] [facility] [place] Repository 09/24/2017/09/26/19 [id number] Amb[facility] [place] Repository 09/10/2017/09/12/19 [id number] Amb[facility] [place] Repository 08/27/2017/08/28/19 [id number] Amb[facility] [place] Repository 08/16/2017/08/16/19 [id number] [facility] [place] Repository 08/14/2017/08/14/19 [id number] Ambulatory [facility]MSBuilding:[place] [facility] Repository 08/13/2017/08/14/19 [id number] Ambulatory [facility] [place] Repository 08/07/2017/08/07/19 [id number] Amb[facility] [place] Repository 08/07/2017/08/08/19 [id number] Amb[facility] [place] Repository 08/07/2017/08/07/19 [id number] Amb[facility] [place] Repository 08/07/2017/08/07/19 [id number] Amb[facility] [place] Repository 08/06/2017/08/07/19 [id number] Ambulatory [facility] [place] Repository 07/30/2017/07/31/19 [id number] Ambulatory [facility] [place] Repository 07/23/2017/07/23/19 [id number] Amb[facility] [place] Repository 07/23/2017/07/24/19 [id number] [facility] [place] Repository 07/08/2017/07/08/19 [id number] Amb[facility] [place] Repository 07/08/2017/07/09/19 [id number] [facility] [place] Repository 07/08/2017/07/09/19 [id number] [facility] [place] Repository 06/18/2017/06/19/20 [id number] Ambulatory [facility] [place] Repository PAYERS PAYERS ENCOUNTER GUARANTOR PAYER SUBSCRIBER SOURCE 05/29/2018 KIP Gallego Primary KIP [id number] MARY Insurance:AETNA AAMIRRTDOB: [facility] Number: [id number] Hospital [id number]: (230) [id number] Repository [phone] () Date:4892-55-30[address] [place] [address]SN: 05/29/2018 Secondary NOT GIVENUNK Russ Insurance:SELF PAY [facility] Number: Effective Repository Date:2018-05-29 05/09/2018 KIP E Primary KIP E [place] [id number] MARY Insurance:AETNA WIRTDOB: [facility] Number: [id number] Hospital 495[address]Yzd: (330) [id number] Repository [phone] (HP) Date:[id number] [facility] [address] [address]US: 05/09/2018 Secondary NOT GIVENUNK Russ Insurance:SELF PAY [facility] Number: Effective Repository Date:2018-05-07 05/07/2018 KIP E Primary KIP E [place] [id number] MARY Insurance:AETNA WIRTDOB: [facility] Number: [id number] Hospital [id number]: (330) [id number] Repository [phone] (HP) Date:[id number] [address] [place] [phone]: 05/07/2018 Secondary NOT GIVENUNK [place] Insurance:SELF PAY [facility] Number: Effective Repository Date:2018-05-07 03/07/2018 KIP E Primary KIP E [place] [id number] MARY Insurance:AETNA WIRTDOB: [facility] Number: [id number] Hospital [address]Uqw: (330) [id number] Repository [phone] (HP) Date:6834-26-34WJ [address] [place] [phone]: 03/07/2018 Secondary NOT GIVENUNK [place] Insurance:SELF PAY [facility] Number: Effective Repository Date:2018-03-07 02/05/2018 KIP E Primary KIP E [place] [id number] MARY Insurance:AETNA WIRTDOB: [facility] Number: [id number] Hospital [id number]: (330) [id number] Repository [phone] (HP) Date:4960-99-86YO [address] [place] [address]YO: 02/05/2018 Secondary NOT GIVENUNK [place] Insurance:SELF PAY [facility] Number: Effective Repository Date:2018-02-05 08/14/2017 KIP Gallego Primary KIP Julián [place] [id number] MARY Insurance[place] [facility] [place]: [id number] Hospital [address]Pxl: (204) [id number] Repository [phone] () Date:4758-82-60QL [address] [place] [address]SH: 08/14/2017 Secondary NOT GIVENUNK [place] Insurance:SELF PAY [facility] Number: Effective Repository Date:2017-08-09
== END ==
PROVIDERS: Family Provider Family Medicine; PCP Family Medicine; Referring Provider Internal Medicine Nephrology; Visit Provider Internal Medicine Nephrology
DX: N18.3 Chronic kidney disease, stage 3 (moderate) (principal)
CPT/HCPCS: 36415; 80069; 83970

== ENCOUNTER → 2018-12-16 | Outpatient (CLI) | payer MEDICARE, SELFPAY ==
[2017-08-14 15:42] VITALS: BMI 40.6
[2018-12-16 11:43] LABS: Hematocrit 30.6 % (40-54); Hemoglobin 9.7 g/dl (13.0-16.5); Mean Corp Hgb Conc 31.7 g/gl (32-36); Mean Corpuscular Hgb 31.8 pg (27.0-32.0); Mean Corpuscular Volume 100.3 fL (80-94); Mean Platelet Vol. 10.3 fl (6.2-12.0); Platelet Count 155 K/mm3 (150-450); RBC Distribution Width CV 16.4 % (11.6-14.6); RBC Distribution Width SD 60.3 fl (35.1-43.9); Red Blood Count 3.05 M/mm3 (4.6-6.2); White Blood Count 6.1 K/mm3 (4.4-11.0)
[2018-12-16 11:52] LABS: Protein:Creat Ratio 1249 mg/g CRE (0-200); Scan Indicated on CBC? Y/N NO
[2018-12-16 12:12] LABS: Albumin, Serum 3.7 g/dL (3.2-5.0); BUN 37 mg/dL (7-18); BUN/Creat Ratio 24.7 RATIO (10-20); Calcium,Total 8.1 mg/dL (8.5-10.1); Chloride 114 mmol/L (98-107); EST Glomerular Filtration Rate 49 mL/min (>60); Est Glom Filt Rate - Afr Amer 59 mL/min (>60); Glucose 54 mg/dL (74-106); Phosphorus 1.8 mg/dL (2.5-4.9); Potassium 4.2 mmol/L (3.5-5.1); Sodium Level 145 mmol/L (136-145)
[2018-12-16 12:18] LABS: PTHIN 95.9 pg/mL (18.4-80.1)
== END | disposition home or self-care (01) ==
LOC: LAB 10:56
PROVIDERS: Family Provider Family Medicine; PCP Family Medicine; Referring Provider Internal Medicine Nephrology; Visit Provider Internal Medicine Nephrology
DX: E11.22 Type 2 diabetes mellitus with diabetic chronic kidney disease (principal); N18.3 Chronic kidney disease, stage 3 (moderate)
CPT/HCPCS: 36415; 80069; 82570; 83970; 84156; 85027

== ENCOUNTER → 2019-03-10 08:12 | Outpatient (CLI) | payer MEDICARE, SELFPAY ==
[2019-03-10] VITALS (7 sets, daily range): BP systolic 127–193; BP diastolic 37–57; PULSE 44–62; RESP 16; TEMP 36.2–36.7; O2SAT 98–100; BMI 41.3
[2019-03-10] MEDS: Furosemide 20 MG/2 ML VIAL IV (10:59)
== END ==
PROVIDERS: Family Provider Family Medicine; PCP Family Medicine; Referring Provider Internal Medicine Hematology & Oncology; Visit Provider Internal Medicine Hematology & Oncology
DX: Z51.89 Encounter for other specified aftercare (principal); D64.9 Anemia, unspecified
CPT/HCPCS: 36430; 86644; 86850; 86900; 86901; 86922; J7040; P9016; P9040; A4216; J1940

== ENCOUNTER → 2019-03-17 07:54 | Outpatient (CLI) | payer MEDICARE, SELFPAY ==
[2019-03-10 08:23] VITALS: BMI 41.3
[2019-03-17] VITALS (8 sets, daily range): BP systolic 127–165; BP diastolic 48–59; PULSE 45–55; RESP 16; TEMP 36.4–36.5; O2SAT 100; BMI 41.3
[2019-03-17] MEDS: Furosemide 20 MG/2 ML VIAL IV (10:32)
== END ==
PROVIDERS: Family Provider Family Medicine; PCP Family Medicine; Referring Provider Internal Medicine Hematology & Oncology; Visit Provider Internal Medicine Hematology & Oncology
DX: D64.9 Anemia, unspecified (principal)
CPT/HCPCS: 36430; 86850; 86900; 86901; 86920; 86922; J7040; P9016; A4216; J1940

== ENCOUNTER → 2019-03-24 07:54 | Outpatient (CLI) | payer MEDICARE, SELFPAY ==
[2019-03-17 08:08] VITALS: BMI 41.3
[2019-03-24] VITALS (7 sets, daily range): BP systolic 121–167; BP diastolic 54–74; PULSE 37–73; RESP 16–18; TEMP 36.2–36.7; O2SAT 94–100; BMI 41.3
[2019-03-24] MEDS: Furosemide 20 MG/2 ML VIAL IV (10:43)
== END ==
PROVIDERS: Family Provider Family Medicine; PCP Family Medicine; Referring Provider Internal Medicine Hematology & Oncology; Visit Provider Internal Medicine Hematology & Oncology
DX: D64.9 Anemia, unspecified (principal); N18.3 Chronic kidney disease, stage 3 (moderate)
CPT/HCPCS: 36430; 86850; 86900; 86901; 86920; 86922; J7040; P9016; A4216; J1940

== ENCOUNTER → 2019-04-20 12:10 | Outpatient (CLI) | payer MEDICARE, SELFPAY ==
[2019-03-24 08:01] VITALS: BMI 41.3
[2019-04-20 12:32] LABS: International Normalized Ratio 1.9; Prothrombin Time (Protime)PT. 21.8 SECONDS (11.7-14.9)
== END ==
PROVIDERS: Family Provider Family Medicine; PCP Family Medicine; Referring Provider Family Medicine; Visit Provider Family Medicine
DX: I48.20 Chronic atrial fibrillation, unspecified (principal)
CPT/HCPCS: 85610

== ENCOUNTER → 2019-06-02 08:27 | Outpatient (CLI) | payer MEDICARE, SELFPAY ==
[2019-03-24 08:01] VITALS: BMI 41.3
[2019-06-02] VITALS (7 sets, daily range): BP systolic 120–163; BP diastolic 48–70; PULSE 36–56; RESP 16; TEMP 36.3–36.6; O2SAT 95–100; BMI 39.9
[2019-06-02] MEDS: Furosemide 20 MG/2 ML VIAL IV (11:10)
== END ==
PROVIDERS: Family Provider Family Medicine; PCP Family Medicine; Referring Provider Internal Medicine Hematology & Oncology; Visit Provider Internal Medicine Hematology & Oncology
DX: D50.9 Iron deficiency anemia, unspecified (principal); N18.3 Chronic kidney disease, stage 3 (moderate)
CPT/HCPCS: 36430; 86644; 86850; 86900; 86901; 86920; 86922; J7040; P9040; A4216; J1940

== ENCOUNTER → 2019-06-04 09:54 | Outpatient (CLI) | payer MEDICARE, SELFPAY ==
[2019-03-24 08:01] VITALS: BMI 41.3
[2019-06-02 08:41] VITALS: BMI 39.9
[2019-06-04 10:23] LABS: Hematocrit 29.9 % (40-54); Hemoglobin 9.6 g/dL (13.0-16.5); Mean Corp Hgb Conc 32.1 g/dL (32-36); Mean Corpuscular Volume 102.7 fL (80-94); Mean Platelet Vol. 9.9 fl (6.2-12.0); Platelet Count 158 K/mm3 (150-450); RBC Distribution Width CV 15.9 % (11.6-14.6); Red Blood Count 2.91 M/mm3 (4.6-6.2); White Blood Count 6.6 K/mm3 (4.4-11.0)
[2019-06-04 10:40] LABS: Albumin, Serum 3.5 g/dL (3.2-5.0); BUN 56 mg/dL (7-18); BUN/Creat Ratio 32.4 RATIO (10-20); Calcium,Total 8.7 mg/dL (8.5-10.1); Chloride 117 mmol/L (98-107); Creatinine, Serum 1.73 mg/dL (0.70-1.30); EST Glomerular Filtration Rate 41 mL/min (>60); Est Glom Filt Rate - Afr Amer 50 mL/min (>60); Glucose 125 mg/dL (74-106); Phosphorus 3.5 mg/dL (2.5-4.9); Potassium 5.3 mmol/L (3.5-5.1); Sodium Level 145 mmol/L (136-145)
[2019-06-04 10:49] LABS: PTHIN 75.8 pg/mL (18.4-80.1)
[2019-06-04 10:53] LABS: Protein:Creat Ratio 678 mg/g CRE (0-200)
== END ==
PROVIDERS: Family Provider Family Medicine; PCP Family Medicine; Referring Provider Internal Medicine Nephrology; Visit Provider Internal Medicine Nephrology
DX: E11.22 Type 2 diabetes mellitus with diabetic chronic kidney disease (principal); N18.3 Chronic kidney disease, stage 3 (moderate)
CPT/HCPCS: 36415; 80069; 82570; 83970; 84156; 85027

== ENCOUNTER → 2019-06-15 13:01 | Outpatient (CLI) | payer MEDICARE, SELFPAY ==
[2019-06-02 08:41] VITALS: BMI 39.9
[2019-06-15] VITALS (7 sets, daily range): BP systolic 126–169; BP diastolic 38–59; PULSE 57–67; RESP 16–18; TEMP 36.4–36.9; O2SAT 98–100; BMI 39.9
[2019-06-15] MEDS: Furosemide 20 MG/2 ML VIAL IV (15:46)
== END ==
PROVIDERS: Family Provider Family Medicine; PCP Family Medicine; Referring Provider Internal Medicine Hematology & Oncology; Visit Provider Internal Medicine Hematology & Oncology
DX: K92.2 Gastrointestinal hemorrhage, unspecified (principal)
CPT/HCPCS: 36430; 86850; 86900; 86901; 86920; 86922; J7040; P9016; A4216; J1940

== ENCOUNTER → 2019-06-18 08:20 | Outpatient (CLI) | payer MEDICARE, SELFPAY ==
[2019-06-15 13:30] VITALS: BMI 39.9
[2019-06-18] VITALS (7 sets, daily range): BP systolic 118–148; BP diastolic 40–80; PULSE 40–64; RESP 16–18; TEMP 36.1–36.4; O2SAT 100; BMI 39.9
[2019-06-18] MEDS: Furosemide 20 MG/2 ML VIAL IV (10:55)
== END ==
PROVIDERS: Family Provider Family Medicine; PCP Family Medicine; Referring Provider Internal Medicine Hematology & Oncology; Visit Provider Internal Medicine Hematology & Oncology
DX: K92.2 Gastrointestinal hemorrhage, unspecified (principal)
CPT/HCPCS: 36430; 86850; 86900; 86901; 86920; 86922; J7040; J7050; P9016; J1940

== ENCOUNTER → 2019-10-05 10:25 | Outpatient (CLI) | payer MEDICARE, SELFPAY ==
[2019-06-02 08:41] VITALS: BMI 39.9
[2019-06-18 08:46] VITALS: BMI 39.9
[2019-10-05 11:47] LABS: Protein, Urine (Random) 103.3 mg/dL (<11.9); Protein:Creat Ratio 1374 mg/g CRE (0-200)
[2019-10-05 11:53] LABS: PTHIN 66.9 pg/mL (18.4-80.1)
[2019-10-05 12:00] LABS: Albumin, Serum 3.9 g/dL (3.2-5.0); BUN 47 mg/dL (7-18); BUN/Creat Ratio 30.3 RATIO (10-20); Calcium,Total 9.3 mg/dL (8.5-10.1); Chloride 117 mmol/L (98-107); Creatinine, Serum 1.55 mg/dL (0.70-1.30); EST Glomerular Filtration Rate 47 mL/min (>60); Est Glom Filt Rate - Afr Amer 57 mL/min (>60); Glucose 40 mg/dL (74-106); Phosphorus 3.5 mg/dL (2.5-4.9); Potassium 4.3 mmol/L (3.5-5.1); Sodium Level 145 mmol/L (136-145)
== END ==
PROVIDERS: Family Provider Family Medicine; PCP Family Medicine; Referring Provider Internal Medicine Nephrology; Visit Provider Internal Medicine Nephrology
DX: E11.22 Type 2 diabetes mellitus with diabetic chronic kidney disease (principal); N18.3 Chronic kidney disease, stage 3 (moderate)
CPT/HCPCS: 36415; 80069; 82570; 83970; 84156

== ENCOUNTER → 2019-11-17 07:59 | Outpatient (CLI) | payer MEDICARE, SELFPAY ==
[2019-06-18 08:46] VITALS: BMI 39.9
[2019-11-17] VITALS (8 sets, daily range): BP systolic 96–169; BP diastolic 32–56; PULSE 42–68; RESP 16; TEMP 36.4–36.7; O2SAT 98–100; BMI 40.1
[2019-11-17] MEDS: 0.9% Saline Lock 10 ML Syringe IV (08:10)
[2019-11-17] MEDS: Furosemide 20 MG/2 ML VIAL IV (10:45)
== END ==
PROVIDERS: PCP Family Medicine; Referring Provider Internal Medicine Hematology & Oncology; Visit Provider Internal Medicine Hematology & Oncology
DX: D50.9 Iron deficiency anemia, unspecified (principal)
CPT/HCPCS: 36430; 86850; 86900; 86901; 86920; 86922; J7040; P9016; A4216; J1940

== ENCOUNTER 2019-12-14 11:38 | Emergency (ER) | payer MEDICARE, SELFPAY ==
[2019-11-17 08:13] VITALS: BMI 40.1
[2019-12-14 11:41] VITALS: BP 193/92; PULSE 63; RESP 18; TEMP 37; O2SAT 99; BMI 39.4
--- NOTE | 2019-12-14 11:49 | EKG12_ITS ---
Test Reason : HIGH BP, SOB Blood Pressure : / mmHG Vent. Rate : 063 BPM Atrial Rate : 063 BPM P-R Int : 212 ms QRS Dur : 150 ms QT Int : 468 ms P-R-T Axes : 074 -48 034 degrees QTc Int : 478 ms Sinus rhythm with 1st degree A-V block with occasional Premature ventricular complexes Left axis deviation Right bundle branch block Abnormal ECG Confirmed by LIN SUTHERLAND, MARCELLA ([id number]), editor managing director DENIS FITZGERALD ([id number]) on 12/15/2019 11:16:31 AM Referred By: [email or web address] Confirmed By:MARCELLA CEBALLOS MD
--- NOTE | 2019-12-14 11:51 | ED.DCSUM_ITS ---
History of Present Illness Chief Complaint: Hypertension Informant: Patient Onset: Days Context: Gradual Onset Timing: Continuous Current Severity: Moderate Maximum Severity: Moderate Narrative: Patient is a 74-year-old male with medical history significant for prior coronary bypass and chronic anemia that he does get transfusions for and follows with oncology that presents to the emergency department with increasing dyspnea and weight gain. The patient states for the past 7 to 10 days, he is felt like he has had a difficult time catching his breath. He states that he is felt more weak than usual. He denies any fevers. He denies any chills or sweats. Is not had a cough. He states normally, when he is anemic, he will have some weakness, but usually not with the shortness of breath. He was seen at the oncology office today and was markedly hypertensive. With his weight gain and the symptoms, he was sent over for further evaluation. He denies any chest pain. He denies any orthopnea. Prior similar symptoms: Yes Recent Illness/Hospitalization: No Past Medical History - Allergies and Home Meds Allergies/Adverse Reactions: Allergies atorvastatin [From Lipitor] Adverse Reaction (Verified 12/14/19 11:39) Unknown naproxen Adverse Reaction (Verified 12/14/19 11:39) Upset Stomach pravastatin [From Pravachol] Adverse Reaction (Verified 12/14/19 11:39) Other ELEVATED ENZYMES quinapril [From Accupril] Adverse Reaction (Verified 12/14/19 11:39) Other COUGH Primary Care Physician: Jonel Painter MD [Primary Care Provider] - Prior records reviewed: Yes Past Medical History: - - Coronary vascular disease, hypertension, chronic anemia Surgical History: coronary bypass surgery Smoking Status: Never smoker Review of Systems General: Denies: Chills, Fever, Sweats Eyes: Denies: Visual changes - bilaterally, Diplopia ENT: Denies: Rhinorrhea, Sore throat Cardiovascular: Denies: Chest pain, Palpitations Respiratory: Reports: Dyspnea. Denies: Cough, Dyspnea on exertion Gastrointestinal: Denies: Abdominal pain, Nausea, Vomiting, Diarrhea, Melena, Hematochezia Genitourinary: Denies: Dysuria, Hematuria, Frequency Musculoskeletal: Denies: Back pain, Extremity Pain Skin: Denies: Rash, Wounds Neurological: Denies: Headache, Weakness, Numbness Physical Exam Vital Signs/Narrative: Vital Signs Temp Pulse Resp BP Pulse Ox 12/14/19 11:41 98.6 F 63 18 193/92 H 99 Inital Vital Signs reviewed: Yes General: Well nourished, Well developed, No Acute Distress Head: Normocephalic, Atraumatic Eyes: Perrl, EOMI ENT: Moist mucous membranes, No rhinorrhea Neck: Supple, Nontender Cardiovascular: Regular rate, Regular rhythm, No murmurs Respiratory: No distress, CTA bilaterally, Chest nontender Abdomen: Soft, Nontender, Nondistended, Normal bowel sounds Back: Nontender, Normal Inspection Extremities: Nontender, No edema Skin: Normal color, No rash Neurological: Alert, Oriented x3, Cranial nerves II-XII grossly intact, Normal Strength, Normal Sensation Psychological: Normal affect, Normal Mood Diagnostic/Tx/Re-eval Clinical Impression(s) from Imaging Studies Chest X-Ray 12/14/19 12:20 IMPRESSION: Status post CABG. No acute abnormality is seen. Electronically Signed: Kvng [email or web address], at 12:41 EDT , Service support , Abnormal Lab Results 12/14/19 12/14/19 12/14/19 12:00 12:00 12:00 WBC 6.7 RBC 3.00 L Hgb 9.8 L Hct 30.9 L MCV 103.0 H MCH 32.7 H MCHC 31.7 L RDW Std Deviation 53.9 H RDW Coeff of [place] 14.2 Plt Count 167 MPV 10.1 Immature Gran % (Auto) 0.300 Neut % (Auto) 74.0 H Lymph % (Auto) 11.7 L [place] % (Auto) 8.5 Eos % (Auto) 4.9 Baso % (Auto) 0.6 Absolute Neuts (auto) 4.9 Absolute Lymphs (auto) 0.78 L Nucleated RBC % 0 Sodium 144 Potassium 4.1 Chloride 114 H Carbon Dioxide 25.0 Anion Gap 5 BUN 36 H Creatinine 1.44 H Estim Creat Clear Calc 46.47 Est GFR (MDRD) Af Amer 62 Est GFR (MDRD) Non-Af 51 L BUN/Creatinine Ratio 25.0 H Glucose 57 L Calcium 9.0 Total Bilirubin 0.40 AST 30 ALT 35 Alkaline Phosphatase 89 Troponin I 0.112 H B-Natriuretic Peptide 433.8 H Total Protein 6.9 Albumin 3.7 Globulin 3.2 Albumin/Globulin Ratio 1.2 - Rhythm Strip Rhythm Strip: Sinus Rhythm Rate: 80 Ectopy: None - Medical Decision Making The patient presents with some worsening dyspnea. He denies orthopnea but has had weight gain. Metabolic work-up was pursued. EKG did not show any evidence of acute ischemia. Chest x-ray shows trace cephalization consistent with volume overload. His hemoglobin is in his normal range. He has no evidence of significant blood loss where he would require transfusion. The patient's cardiac enzymes are indeterminant, but he has had no chest pain. He also has mild underlying renal disease. I had a long conversation with the patient at the bedside. He blatantly does not want to be hospitalized. In light of the fact he does not have any oxygen requirement, he said no chest pain, and he is not requiring transfusion I do feel that this is reasonable. I am going to place him on a low-dose Lasix to increase his diuresis and he will be discharged home. Impression 1. Hypertension 2. Mild CHF exacerbation ED Disposition - Plan for ED Patient: Instructions: ED Hypertension Established Prescriptions: Furosemide [Lasix] 20 mg PO DAILY #7 tab Prescription Printed Referrals: Jonel Painter MD [Primary Care Provider] -
[2019-12-14 12:07] VITALS: BP 183/69; PULSE 61; RESP 13; O2SAT 97
[2019-12-14 12:11] LABS: Absolute Lymphocyte Count 0.78 X10^3/uL (0.83-4.51); Absolute Neutrophil Count 4.9 X10^3/uL (2.0-7.7); Basophil# 0.04 X10^3/uL; Basophil% 0.6 % (0-1); Eosinophil# 0.33 X10^3/uL; Eosinophils% 4.9 % (0-5); Hematocrit 30.9 % (40-54); Hemoglobin 9.8 g/dL (13.0-16.5); Lymphocyte # 0.78 X10^3/ul (4.0); Lymphocyte % 11.7 % (19-41); Mean Corp Hgb Conc 31.7 g/dL (32-36); Mean Corpuscular Hgb 32.7 pg (27.0-32.0); Mean Platelet Vol. 10.1 fl (6.2-12.0); Monocyte# 0.57 X10^3/uL; Monocyte% 8.5 % (0-10); NRBC Flagged by Analyzer 0 % (0-5); Neutrophil # 4.94 X10^3/uL (2.7-7.7); Platelet Count 167 K/mm3 (150-450); RBC Distribution Width CV 14.2 % (11.6-14.6); RBC Distribution Width SD 53.9 fl (35.1-43.9); White Blood Count 6.7 K/mm3 (4.4-11.0)
--- NOTE | 2019-12-14 12:20 | RAD_ITS ---
STUDY: X-RAY CHEST REASON FOR EXAM: Male, 74 years old. Hypertension TECHNIQUE: Single AP portable view of the chest. COMPARISON: Comparison is made with prior study dated May 14, 2016. FINDINGS: EKG electrodes are seen. The lungs are clear and expanded. There is no demonstrated pleural abnormality. Sternal cerclage wires and vascular clips are present from a prior sternotomy and coronary artery bypass graft procedure (CABG). Mild cardiomegaly. Normal mediastinum and annika. Normal visualized pulmonary arteries. There is atherosclerotic calcification of the aortic arch with tortuosity. There are diffuse degenerative changes of the visualized thoracic spine. Normal visualized ribs, clavicles, and shoulders. There is no demonstrated abnormality of the visualized soft tissue structures of the upper abdomen. RAD/Chest 1 View (Portable) IMPRESSION: Status post CABG. No acute abnormality is seen. Electronically Signed: Kvng Fox, at 12:41 EDT , Service support ,
[2019-12-14 12:30] LABS: BNP,B-Type NATRIURETIC PEPTIDE 433.8 pg/mL (0-100)
[2019-12-14 12:36] LABS: ALB/GLOB Ratio 1.2 RATIO (0.9-2.4); AST(SGOT) 30 U/L (15-37); Alanine Aminotransfer ALT/SGPT 35 U/L (16-61); Albumin, Serum 3.7 g/dL (3.2-5.0); Alkaline Phosphatase 89 U/L (45-117); Anion Gap 5 (5-15); BUN 36 mg/dL (7-18); Chloride 114 mmol/L (98-107); Creatinine, Serum 1.44 mg/dL (0.70-1.30); EST Glomerular Filtration Rate 51 mL/min (>60); Est Glom Filt Rate - Afr Amer 62 mL/min (>60); Estimated Creatinine Clearance 46.47 ml/min; Globulin 3.2 g/dL (2.2-4.2); Glucose 57 mg/dL (74-106); Potassium 4.1 mmol/L (3.5-5.1); Protein, Total 6.9 g/dL (6.4-8.2); Sodium Level 144 mmol/L (136-145)
[2019-12-14 13:08] VITALS: BP 117/75; PULSE 61; RESP 15; O2SAT 99
--- NOTE | 2019-12-14 13:09 | ED.RN ---
IV DC'ED, CATHETER INTACT, SMALL GAUZE DRESSING PLACED. DISCHARGE INSTRUCTIONS GIVEN TO AND REVIEWED WITH PATIENT, PATIENT DENIES QUESTIONS OR CONCERNS AND VOICES UNDERSTANDING OF DISCHARGE INSTRUCTIONS. PT AMBULATES OUT OF ROOM WITHOUT ISSUE.
== END 2019-12-14 13:10 | disposition home or self-care (01) ==
LOC: ED 12:35
PROVIDERS: Emergency Provider Emergency Medicine; PCP Family Medicine
DX: I11.0 Hypertensive heart disease with heart failure (principal); I50.9 Heart failure, unspecified; D58.9 Hereditary hemolytic anemia, unspecified; I25.10 Atherosclerotic heart disease of native coronary artery without angina pectoris; Z95.1 Presence of aortocoronary bypass graft; Z79.02 Long term (current) use of antithrombotics/antiplatelets; Z79.899 Other long term (current) drug therapy
CPT/HCPCS: 71045; 80053; 83880; 84484; 85025; 86850; 86900; 86901; 93005; 99283; A4216

== ENCOUNTER → 2020-04-07 08:13 | Outpatient (CLI) | payer MEDICARE, SELFPAY ==
[2020-04-07 09:33] LABS: Albumin, Serum 3.7 g/dL (3.2-5.0); BUN 55 mg/dL (7-18); BUN/Creat Ratio 33.3 RATIO (10-20); Calcium,Total 9.1 mg/dL (8.5-10.1); Chloride 114 mmol/L (98-107); Creatinine, Serum 1.65 mg/dL (0.70-1.30); EST Glomerular Filtration Rate 43 mL/min (>60); Est Glom Filt Rate - Afr Amer 53 mL/min (>60); Glucose 81 mg/dL (74-106); Phosphorus 3.7 mg/dL (2.5-4.9); Sodium Level 144 mmol/L (136-145)
[2020-04-07 09:46] LABS: Protein, Urine (Random) 50.5 mg/dL (<11.9); Protein:Creat Ratio 992 mg/g CRE (0-200)
== END ==
PROVIDERS: PCP Family Medicine; Referring Provider Internal Medicine Nephrology; Visit Provider Internal Medicine Nephrology
DX: E11.22 Type 2 diabetes mellitus with diabetic chronic kidney disease (principal); N18.30 Chronic kidney disease, stage 3 unspecified
CPT/HCPCS: 36415; 80069; 82570; 83970; 84156